=== PATIENT | female | born 1950 | race Caucasian/White ===

== ENCOUNTER → 2017-11-09 14:57 | Outpatient (CLI) | payer MEDICARE, SELFPAY ==
--- NOTE | 2017-11-09 15:02 | CT_ITS ---
EXAM: CT LUNG LOW DOSE WO CONTRAST COMPARISON: None HISTORY: Asymptomatic 66-year-old female with positive smoking history, current smoker ORDERING PHYSICIAN: Dash Watson MD PATIENT AGE: 66 years TECHNIQUE: The exam was performed on a GE Light Speed [address] scanner using 2.95 mGy CTDI. A low dose helical CT CHEST was performed on a multi-detector scanner The LDCT was performed in a facility that meets the criteria for the screening program. Data regarding this exam was submitted to ACR which is an approved registry. The order for this exam indicates that it came as a result of a lung cancer screening counseling shard decision-making visit that included all the elements required of such a visit including smoking cessation. The radiologist interpreting this exam meets the [facility] criteria for the LDCT lung cancer screening program. The exam is reported using the Lung-RADS classification scale and reported to the ACR registry. NOTE: This study was performed for the specific purposes of lung cancer screening and is not an alternative to diagnostic chest CT. RADIATION DOSE: CTDI vol(CT dose Index-volume) = 2.95mG DLP (Dose Length Product) = 106.53 mGcm FINDINGS: There are centrilobular emphysematous changes. There are scattered small calcified granulomas. No suspicious pulmonary nodules are evident. No mediastinal or hilar adenopathy. There is a small hiatal hernia. Upper abdominal images show contracted gallbladder. Coronary artery calcifications. IMPRESSION: 1. Lung RADS Category: 2, benign 2. Other findings: Centrilobular emphysema Old granulomatous disease. Coronary artery disease. Small hiatal hernia RECOMMENDATIONS: None
== END ==
PROVIDERS: Visit Provider Internal Medicine
DX: Z87.891 Personal history of nicotine dependence; Z12.2 Encounter for screening for malignant neoplasm of respiratory organs; F17.210 Nicotine dependence, cigarettes, uncomplicated; Z71.6 Tobacco abuse counseling

== ENCOUNTER → 2017-12-16 12:44 | Outpatient (CLI) | payer MEDICARE, SELFPAY ==
--- NOTE | 2017-12-16 12:51 | XR_ITS ---
EXAM: XR cervical spine 5V HISTORY: ITS.REASON: NECK PAIN ORDERING PHYSICIAN: Alfred Awad MD PATIENT AGE: 67 years COMPARISON: None FINDINGS: Moderate degenerative disc disease is present at C4-C5 with severe degenerative disc disease at C5-C6. Foraminal narrowing is present on the right at C4-5 [id number]. Prominent facet hypertrophic changes are noted at C4-C7. There is 3 mm anterolisthesis of C3 on C4 No fracture or dislocation. No lytic or blastic process. Incidental carotid calcifications. IMPRESSION: Cervical spondylosis with moderate to severe degenerative disc disease at C4-C5 and C5-C6 with right-sided foraminal narrowing from C4 to C7 and facet arthritic change
== END ==
PROVIDERS: PCP Internal Medicine Adolescent Medicine; Visit Provider Internal Medicine Adolescent Medicine
DX: M54.2 Cervicalgia (principal)
CPT/HCPCS: 72050

== ENCOUNTER 2018-01-05 13:00 | Outpatient (RCR) | payer MEDICARE, SELFPAY ==
--- NOTE | 2017-12-24 17:37 | HMH.PTOPEV ---
Rehab Outpatient Evaluation Rehab OP Evaluation Start: 12/23/17 14:58 Freq: Status: Active Protocol: Document 12/23/17 14:58 OSMANY (Rec: 12/23/17 16:44 BILLBILLY [id number]) Electronically Signed By Thee Mcnair, PT 12/23/17 14:58 Outpatient Therapy Subjective History Subjective History Ms. Krueger is a 67 year old female who presents to outpatient PT with R neck pain beginning 6 weeks ago of insidious onset. Pt. reports her pain is exacerbated with jerky head movements and last for a few minutes. Pt. denies radicular symptoms and localizes it to R suboccipital musculature. Recent MD visit pt. had an X-ray indicating cervical DDD, OA and bone spurs. Pt. goals are to return to PLOF without pain. Pt. will benefit from skilled outpatient PT for cervical/ cranial stretching, STM, and pain modulating modalities. Chief Complaint Pain Symptom Type Sharp Symptoms Relieved By Rest/Positioning Symptoms Aggravated By Twisting Prior Functional Limitations None Current Functional Limitations Driving Symptom Description Activity Dependent Level of pain today (0-10) 0 Pain scale - at its best (0-10) 10 Pain scale - at its worst (0-10) 0 Cervical Eval Palpation Cervical Muscles R Suboccipital Cervical/Thoracic Palpation Findings Tenderness Posture Head/C-Spine Posture Sitting Position C-Spine Flattened Head/C-Spine Posture Standing Position C-Spine Flattened Flexibility Deficits Upper Trapezius Muscle Length (R) Mild Tightness (L) Mild Tightness Passive Joint Mobility Cervical PIVM Dec: R OA L OA R AA L AA R C2/3 L C2/3 R C3/4 L C3/4 R C4/5 L C4/5 R C5/6 L C5/6 R C6/7 L C6/7 R C7/T1
== END 2018-01-05 13:01 | disposition home or self-care (01) ==
LOC: PT 13:00
PROVIDERS: PCP Internal Medicine Adolescent Medicine; Visit Provider Internal Medicine Adolescent Medicine
DX: M54.2 Cervicalgia (principal)
CPT/HCPCS: 97010; 97012; 97014; 97110; 97140; G0283

== ENCOUNTER → 2018-01-12 10:29 | Outpatient (CLI) | payer MEDICARE, SELFPAY ==
--- NOTE | 2018-01-12 10:34 | US_ITS ---
US extremity LT limited CLINICAL INDICATION: Palpable nodules of the left wrist ITS.REASON: ARTHRITIS OF LT WRIST ORDERING PHYSICIAN: Gideon Diaz PATIENT AGE: 67 years COMPARISON: None FINDINGS: Ultrasound performed of the anterior aspect of the left wrist over reported palpable abnormalities. There are 2 cystic lesions which are associated with the tendon measuring 16 x 12 mm and 19 x 12 mm consistent with a ganglion cysts. IMPRESSION: Ganglion cysts of the left wrist anteriorly. MRI may confirm and identify the tendon of origin if clinically warranted
== END ==
PROVIDERS: PCP Internal Medicine Adolescent Medicine; Visit Provider Plastic Surgery
DX: M19.042 Primary osteoarthritis, left hand (principal)
CPT/HCPCS: 76882

== ENCOUNTER → 2018-02-16 12:53 | Outpatient (POV) | payer MEDICARE, SELFPAY | PROVIDERS: PCP Internal Medicine Adolescent Medicine; Visit Provider Internal Medicine | DX: Z00.00 Encounter for general adult medical examination without abnormal findings (principal) ==

== ENCOUNTER → 2018-08-04 16:22 | Outpatient (CLI) | payer MEDICARE, SELFPAY ==
--- NOTE | 2018-08-04 | MM_ITS ---
MM Dig screening mamm BI w/CAD ORDERING PHYSICIAN : Alfred Awad MD PATIENT AGE: 67 years GENDER: Female COMPARISON: This is a baseline study with no previous mammogram for comparison . Recent CT chest screening there is utilized as comparison survey of breast. INDICATION: ITS.REASON: ROUTINE no hormones no new complaints. Maternal at with breast cancer postmenopausal TECHNIQUE: Standard CC and MLO images were obtained. R2 CAD reviewed. FINDINGS: Lower density breast. Minimal residual fibroglandular elements . No dominant mass nor suspicious calcifications. CAD computer review highlights no areas of concern either. . IMPRESSION: Negative baseline mammogram. No areas of significant areas of concern. Bilateral follow-up one year recommended and encouraged BI-RADS Category: 1 Negative RECOMMENDED FOLLOW-UP: 1YR 1 YEAR FOLLOW-UP (A letter has been sent to the patient regarding results of the study.)
== END ==
PROVIDERS: PCP Internal Medicine Adolescent Medicine; Visit Provider Internal Medicine Adolescent Medicine
DX: Z12.31 Encounter for screening mammogram for malignant neoplasm of breast (principal)
CPT/HCPCS: 77067

== ENCOUNTER → 2018-08-16 13:53 | Outpatient (CLI) | payer MEDICARE, SELFPAY ==
--- NOTE | 2018-08-16 14:00 | XR_ITS ---
XR DEXA axial skeleton HISTORY: ITS.REASON: OSTEOPAROSIS ORDERING PHYSICIAN: Alfred Awad MD PATIENT AGE: 67 years COMPARISON: 08/27/2015 FINDINGS: The BMD measured at the Right femoral neck is 0.649 g/cm squared with a T score of -2.8. This is considered Osteoporotic according to the World Health Organization criteria. Fracture risk is High. Treatment is advised. L1 L4 density has a T score of 0.4. The bone density is 2% greater than previous exam. The hip density is 3% greater than the previous study. There is moderate lumbar scoliosis convex left. IMPRESSION: Osteoporosis with high fracture risk. Treatment recommended. Recommend follow-up exam August 2020
== END ==
PROVIDERS: PCP Internal Medicine Adolescent Medicine; Visit Provider Internal Medicine Adolescent Medicine
DX: M81.0 Age-related osteoporosis without current pathological fracture (principal)
CPT/HCPCS: 77080

== ENCOUNTER 2018-10-19 09:00 | Outpatient (RCR) | payer MEDICARE, SELFPAY ==
--- NOTE | 2018-09-13 10:33 | HMH.PTOPEV ---
PT Outpatient Evaluation Rehab PT Outpatient Evaluation Start: 09/13/18 09:34 Freq: Status: Active Protocol: Document 09/13/18 10:23 MICHI (Rec: 09/13/18 10:32 PHORAMBER [id number]) Electronically Signed By Bao Adrian, PT 09/13/18 10:23 Outpatient Therapy Subjective History Subjective History Pt is 67 yowf who presents with c/o low back pain x ~ 1 mo after a ground level fall at home. She reports tripping on something at her house and falling, but had no injuries or pain immediately after. She reports the pain got much worse ~ 4 days later when she tried to use the elliptical at the gym. She reports pain also was worse after riding in the car for ~ 1-2 hrs. She has worse pain on the right side with no radiuclar symptoms, but no pain at rest. PMH: osteoporosis. Chief Complaint Pain Symptom Type Ache Symptoms Relieved By Rest/Positioning Symptoms Aggravated By Physical Activity Prior Functional Limitations None Current Functional Limitations Recreation Activity Symptom Description Intermittent Activity Dependent Level of pain today (0-10) 0 Pain scale - at its worst (0-10) 10 Lumbopelvic Eval Posture Thoracic Spine Posture Standing Position Neutral Lumbar Spine Posture Standing Position Neutral Palapation tenderness right paraspinal tenderness Yes Lumbar/Sacral Palpation Findings Tenderness Lumbar/Sacral Palpation Overall Comment right SI tenderness Accessory Movement L-spine Vertebrae Accessory Movements Central P/A [place] that Elicit Symptoms L5 right S1 right Range of Motion Lumbar Spine Active Flexion Range of 0-65 Motion (degrees) Lumbar Spine Active Extension Range of 0-15 Motion (degrees) Left Lumbar Spine Lateral Flexion Active 0-15 Range of Motion (degrees) Right Lumbar Spine Lateral Flexion 0-15 Active Range of Motion (degrees) Manual Muscle Test Bilateral Knee Extension Strength Grade 5 Normal Knee Flexion Strength Grade 5 Normal Hip Flexion Strength Grade 4 Good Hip Abduction Strength Grade 4 Good DTR Rt Patellar 2+ Lt Patellar 2+ Rt Gastroc/Soleus 2+ Lt Gastroc/Soleus 2+
== END 2018-10-19 09:05 | disposition home or self-care (01) ==
LOC: PT 09:00
PROVIDERS: Visit Provider Internal Medicine Adolescent Medicine
DX: M54.5 Low back pain (principal); M53.3 Sacrococcygeal disorders, not elsewhere classified
CPT/HCPCS: 97010; 97014; 97033; 97035; 97110; 97163; G0283

== ENCOUNTER → 2019-01-28 12:49 | Outpatient (CLI) | payer MEDICARE, SELFPAY | PROVIDERS: PCP Internal Medicine Adolescent Medicine; Visit Provider Nurse Practitioner | DX: I10 Essential (primary) hypertension (principal) | CPT/HCPCS: 93005 ==

== ENCOUNTER → 2019-11-17 11:00 | Outpatient (CLI) | payer MEDICARE, SELFPAY ==
--- NOTE | 2019-11-17 11:04 | MR_ITS ---
PROCEDURE: MR HEAD/BRAIN WO CON CLINICAL INDICATION: VISUAL DISTURBANCE Severe headache with blurred vision and dizziness COMPARISON: HDWO CT HEAD W/O CONTRAST from 11/06/2015 TECHNIQUE: Routine multiplanar multi echo sequences are performed without gadolinium enhancement. FINDINGS: No midline shift, mass effect, intracranial hemorrhage, or hydrocephalus. The cerebellopontine angles, cerebellum, brainstem and mid brain have an unremarkable appearance. No evidence of acute infarction. There are scattered nonspecific periventricular and subcortical T2 white matter hyperintensities which do not demonstrate restricted diffusion or enhancement.. T2 white matter hyperintensities are also present within the reva no enhancing lesions are evident. The hippocampal gyri are unremarkable and the temporal horns are symmetric. No intra-axial or extra-axial hemorrhage. The pituitary, optic chiasm, corpus callosum, and craniocervical junction have an unremarkable appearance. There is mild mucosal thickening of the ethmoid sinuses. No mastoid effusion is evident. IMPRESSION: 1. No acute intracranial findings. 2. Scattered periventricular and subcortical T2 white matter hyperintensities as well as T2 hyperintensities of the reva consistent with ischemic gliotic change from microvascular disease. 3. Ethmoid sinus disease Dictated by: Yadiel Callejas MD 11/17/2019 18:09 Electronically signed by Yadiel Callejas MD in [place] 11/17/2019 18:09
== END ==
PROVIDERS: PCP Internal Medicine Adolescent Medicine; Visit Provider Internal Medicine Adolescent Medicine
DX: H53.9 Unspecified visual disturbance (principal)
CPT/HCPCS: 70551

== ENCOUNTER → 2019-12-14 12:44 | Outpatient (CLI) | payer MEDICARE, SELFPAY ==
--- NOTE | 2019-12-14 12:52 | XR_ITS ---
PROCEDURE: XR CHEST 2V CLINICAL HISTORY: ACUTE BRONCHOPNEUMONIA COMPARISON: CXR CHEST(2 VIEWS-NOT PORTABLE) from 06/14/2015 CXR2 CHEST-AP VIEW ONLY from 11/06/2015 FINDINGS: The cardiomediastinal silhouette and pulmonary vascularity are within normal limits. Opacification is present in the retrocardiac region on the left within the left lower lobe posteriorly consistent with left lower lobe collapse. Follow-up is suggested. If this does not resolve then chest CT with contrast may be needed for further evaluation in this patient with history of smoking. Mild atelectatic changes are present in the left lung base laterally. The remaining lungs are clear. Moderate lumbar scoliosis convex left. Left hemidiaphragm is slightly elevated IMPRESSION: Left lower lobe collapse. Recommend following till clear. Consider chest CT with contrast if findings do not resolve as a postobstructive process is a consideration. Dictated by: Yadiel Callejas MD 12/14/2019 13:33 Electronically signed by Yadiel Callejas MD in [place] 12/14/2019 13:33
== END ==
PROVIDERS: PCP Internal Medicine Adolescent Medicine; Visit Provider Internal Medicine Adolescent Medicine
DX: J18.0 Bronchopneumonia, unspecified organism (principal)
CPT/HCPCS: 71046

== ENCOUNTER → 2019-12-27 09:50 | Outpatient (CLI) | payer MEDICARE, SELFPAY ==
--- NOTE | 2019-12-27 09:58 | XR_ITS ---
PROCEDURE: XR CHEST 2V CLINICAL HISTORY: ACUTE BRONCHOPNEUMONIA COMPARISON: CXR CHEST(2 VIEWS-NOT PORTABLE) from 06/14/2015 CXR2 CHEST-AP VIEW ONLY from 11/06/[address] CHEST W/O CONTRAST from 12/20/2015 XR CHEST 2V from 12/14/2019 FINDINGS: The cardiomediastinal silhouette and pulmonary vascularity are within normal limits. Left lower lobe volume loss/consolidation has improved compared to the previous exam. Mild lower thoracic scoliosis convex right with lumbar scoliosis convex left IMPRESSION: Improved left lower lobe collapse. Dictated by: Yadiel Callejas MD 12/27/2019 11:05 Electronically signed by Yadiel Callejas MD in [place] 12/27/2019 11:05
== END ==
PROVIDERS: PCP Internal Medicine Adolescent Medicine; Visit Provider Internal Medicine Adolescent Medicine
DX: J18.0 Bronchopneumonia, unspecified organism (principal)
CPT/HCPCS: 71046

== ENCOUNTER → 2020-04-19 09:20 | Outpatient (CLI) | payer MEDICARE, SELFPAY ==
--- NOTE | 2020-04-19 09:26 | MM_ITS ---
PROCEDURE: MM DIG SCREENING MAMM BI W/CAD Digital Breast Tomosynthesis Included CLINICAL INDICATION: SCREENING There is a history of breast cancer patient's maternal aunt diagnosed after menopause. COMPARISON: [facility] MM Dig screening mamm BI w/CAD from 08/04/2018 TECHNIQUE: Standard CC and MLO images and 3D Tomosynthesis was obtained. R2 CAD reviewed. FINDINGS: Minimal scattered fibroglandular densities are seen throughout both breast. The findings are fairly symmetrical bilaterally. There is no suspicious lesion in either breast and no suspicious microcalcifications. IMPRESSION: Fibrofatty parenchyma with no suspicious lesions seen BI-RAD Category: 1 Negative FOLLOW-UP: 1YR 1 Year Follow-up (A letter has been sent to the patient regarding results of the study.) Dictated by: Dr. Josiah Dennye MD 04/20/2020 08:[address] Josiah Denney MD in [place] 04/20/2020 08:57
--- NOTE | 2020-04-19 09:27 | XR_ITS ---
PROCEDURE: XR DEXA AXIAL SKELETON CLINICAL HISTORY: OSTEOPOROSIS COMPARISON: No exams were available for comparison FINDINGS: Right femoral neck density is 0.559 grams/centimeters sq with a T-score of -2.6. Left femoral neck density is 0.562 grams/centimeters sq with T-score -2.6. L1-L4 density is 1.002 grams/centimeters sq with a T-score -0.4 IMPRESSION: Osteoporosis of the hips with high fracture risk. Treatment advised. Suggest follow-up exam in 1 year Dictated by: Yadiel Callejas MD 04/19/2020 16:13 Electronically signed by Yadiel Callejas MD in [place] 04/19/2020 16:13
== END ==
PROVIDERS: PCP Internal Medicine Adolescent Medicine; Visit Provider Internal Medicine Adolescent Medicine
DX: Z12.31 Encounter for screening mammogram for malignant neoplasm of breast (principal); M81.0 Age-related osteoporosis without current pathological fracture
CPT/HCPCS: 77063; 77067; 77080

== ENCOUNTER 2022-10-01 10:25 | Day surgery (SDC) | payer MEDICARE, SELFPAY ==
[2022-08-27 11:23] VITALS: BMI 22.1
[2022-10-01 11:07] VITALS: BP 167/78; PULSE 67; RESP 20; TEMP 36.8; O2SAT 99
--- NOTE | 2022-10-01 12:06 | P.PN_ITS ---
[facility] Disclaimer: The information contained in this section may have been updated after the patient was seen, as this information can be updated by other users. Medical History Osteoporosis Surgical History Hx of hand surgery Family History Brother Family history of cancer Daughter Family history of celiac disease Other Family history of HI (myocardial infarction) Family history of heart disease Social History Smoking Status: Current every day smoker tobacco type: cigarettes packs per day: 1 pack-years: 35 years smoked: 35 alcohol intake: current substance use type: denies use current occupational status: retired Travel in the last 8 weeks: None household members: spouse housing: house lives independently: Yes marital status: caffeine: Yes special andrés needs: No agree to transfusion: No do you feel safe at home: Yes victim of physical abuse: No victim of emotional abuse: No victim of sexual abuse: No would you like helpful sources: No [facility] Anesthesia Checklist Patient Identification Patient Identification: Arm Band Structural Data Admitted From: Home Planned Operative Procedure/s: colonoscopy Consent for Planned Operative Procedure(s) Verified: Yes Verified Documents: Surgical Consent and History and Physical NPO Status Verified Time NPO: 00:00 Additional verifications Anesthesia Reactions: No Airway Assessment C-Spine Mobility Assessed: Yes TMJ Mobility Assessed: Yes Dentition: Good Dentition Neurological Assessment Level of Consciousness: Awake and Alert Anesthesia Plan Anesthesia Risk discussed: Yes Anesthesia Plan: Verified ASA Class: II Anesthesia Type: MAC
[2022-10-01 12:08] VITALS: O2SAT 99
--- NOTE | 2022-10-01 12:42 | P.PCN_ITS ---
Procedure: Date: 10/01/22 Patient Date of :: 1950 Procedure Performed:: Colonoscopy Indications:: History of colon polyps Performing Provider:: Rick Cohen MD Referring Provider:: Alfred Awad MD Sedation:: See RN notes Procedure:: After placing the patient in the left lateral decubitus position, the colonoscopy was gently inserted into the rectum and under direct visualization advanced to the cecum which was identified by transillumination in the right lower quadrant, identification of the ileocecal valve, appendiceal orifice, and cecal strap. Color, texture, mucosa, and anatomy of the colon were carefully examined with the scope. Findings:: Anal canal: normal Rectum: Two sessile polyps less than 5 mm in size. Removed with cold snare polyp ectomy Sigmoid colon: Fair preparation Descending colon: Sessile polyp 7 mm in size. Removed with hot snare polypetomy. Sessile polyp less than 5 mm in size. Removed with cold snare polhypectomy. Fair preparation Splenic flexure: normal Transverse colon: normal without polyps or inflammatory changes Hepatic flexure: normal Ascending colon: Sessile polyp less than 5 mm in size. Removed with cold forceps Cecum: normal Terminal ileum: not visualized Impression: Polyp of ascending colon Polyps of descending colon Polyps of rectum and rectosigmoid colon Fair preparation Recommendations:: Await pathology results Repeat colonoscopy in 3 years Complications:: None Estimated blood obtained (mL): 0
[2022-10-01 12:45] VITALS: BP 107/61; PULSE 62; RESP 18; TEMP 36.3; O2SAT 98
[2022-10-01 13:00] VITALS: BP 143/85; PULSE 63; RESP 18; O2SAT 100
[2022-10-01 13:15] VITALS: BP 160/91; PULSE 63; RESP 18; O2SAT 99
== END 2022-10-01 13:15 | disposition home or self-care (01) ==
PROVIDERS: PCP Internal Medicine Adolescent Medicine; Visit Provider Internal Medicine
PROC: 0DJD8ZZ Inspection of Lower Intestinal Tract, Via Natural or Artificial Opening Endoscopic (ICD-10-PCS; CPT 45378; principal; 2022-10-01 11:30)
DX: Z12.11 Encounter for screening for malignant neoplasm of colon (principal); D12.8 Benign neoplasm of rectum; Z86.010 Personal history of colon polyps; Z79.899 Other long term (current) drug therapy; Z72.0 Tobacco use; D12.2 Benign neoplasm of ascending colon; D12.4 Benign neoplasm of descending colon
CPT/HCPCS: 45380; 45385; 88305

== ENCOUNTER 2023-01-09 16:03 | Inpatient (IN) | payer MEDICARE, SELFPAY ==
[2023-01-09] VITALS (13 sets, daily range): BP systolic 116–167; BP diastolic 69–98; PULSE 80–100; RESP 13–30; TEMP 36.6; O2SAT 87–99; BMI 22.1; BMI 24.0
--- NOTE | 2023-01-09 16:07 | HMH.EDGENADL ---
Discharge Plan Disposition Chief Complaint: Shortness of Breath/Dyspnea Prescriptions Prescriptions: No Action atorvastatin 40 mg tablet 40 mg PO DAILY alendronate 70 mg tablet 70 mg PO WEEKLY metoprolol tartrate 50 mg tablet 50 mg PO DAILY Referrals Follow up/Referrals: Alfred Awad MD [Primary Care Provider] - See instructions Discharge ED Provider: Gardenia Leblanc General Adult HPI General Chief complaint: Shortness of Breath/Dyspnea Stated complaint: vomiting, soa Time Seen by Provider: 01/09/23 16:07 History of Present Illness HPI narrative: Patient is a 72-year-old female presenting with cough for 24 hours and sudden dyspnea while watching TV with her . States that she has had pain in the right side of her chest. Denies any fevers or chills. States that she has had increasing wheezing possibly diagnosis of COPD in the past according to her . Patient denies any lower extremity swelling any history of DVT or PE. Denies any history of acute coronary syndrome or current coronary artery disease. Related Data Home Medications Medication Instructions Recorded Confirmed alendronate 70 mg tablet 70 mg PO WEEKLY Osteoporosis 08/27/22 01/09/23 atorvastatin 40 mg tablet 40 mg PO DAILY Cholesterol 08/27/22 01/09/23 metoprolol tartrate 50 mg tablet 50 mg PO DAILY HTN 08/27/22 01/09/23 Allergies Allergy/AdvReac Type Severity Reaction Status Date / Time oxytetracycline Allergy Unknown PASSES OUT Verified 10/01/22 11:04 [From TERRAMYCIN] [facility] Disclaimer: The information contained in this section may have been updated after the patient was seen, as this information can be updated by other users. Medical History (Updated 01/09/23 @ 17:10 by Osmin Medina MD) Osteoporosis Surgical History Hx of hand surgery Family History Brother Family history of cancer Daughter Family history of celiac disease Other Family history of MD (myocardial infarction) Family history of heart disease Social History Smoking Status: Current every day smoker tobacco type: cigarettes packs per day: 1 pack-years: 35 years smoked: 35 alcohol intake: current substance use type: denies use current occupational status: retired Travel in the last 8 weeks: None household members: spouse housing: house lives independently: Yes marital status: caffeine: Yes special andrés needs: No agree to transfusion: No do you feel safe at home: Yes victim of physical abuse: No victim of emotional abuse: No victim of sexual abuse: No would you like helpful sources: No ROS Obtained: Yes All systems reviewed & no additional complaints except as documented Physical Exam General General appearance: alert and in no apparent distress (In moderate distress dyspneic) Respiratory Respiratory exam: Present other (Decreased lung sounds on the right wheezing on the left tachypnea pulse ox in the mid 80s on room air) Cardiovascular Cardiovascular exam: Present tachycardia Neurological Exam Neurological exam: Present alert and oriented X3 Medical Decision Making Dioni Inquiry Pt receiving controlled substance: No Vital Signs: 01/09/23 16:17 01/09/23 16:38 01/09/23 16:40 Temperature 97.9 F Temperature Source Oral Pulse Rate 83 85 Pulse Rate [Right] 100 H Respiratory Rate 30 H Blood Pressure 154/79 H 148/78 H Blood Pressure [Right Arm] 167/98 H Blood Pressure Mean 118 112 Blood Pressure Mean [Right Arm] 121 02 Sat by Pulse Oximetry 87 L 96 97 Oxygen Delivery Method Room Air Room Air Room Air Oxygen Flow Rate (LPM) 3.5 3.5 01/09/23 16:43 01/09/23 17:00 Temperature Temperature Source Pulse Rate 85 83 Pulse Rate [Right] Respiratory Rate Blood Pressure 140/77 133/71
--- NOTE | 2023-01-09 16:11 | XR_ITS ---
PROCEDURE INFORMATION: Exam: XR Chest Exam date and time: 01/09/2023 4:32 PM Age: 72 years old Clinical indication: Dyspnea; Additional info: Shortness of breath TECHNIQUE: Imaging protocol: Radiologic exam of the chest. Views: 1 view. COMPARISON: CR XR CHEST 2V 12/27/2019 9:59 AM FINDINGS: Lungs: See Pleural spaces finding. Pleural spaces: There is a large pneumothorax likely greater than 50% that has developed within the right chest cavity. Left lung field is aerated and clear. No pleural effusions. Heart/Mediastinum: Unremarkable. No cardiomegaly. Bones/joints: Unremarkable for age. IMPRESSION: Interval development of large right pneumothorax estimated greater than 50%.
--- NOTE | 2023-01-09 16:12 | PC.NURSE ---
Called radiology for STAT portable chest xr
--- NOTE | 2023-01-09 16:19 | PC.NURSE ---
nuclear technician @ [facility] for x-ray
--- NOTE | 2023-01-09 16:20 | PC.NURSE ---
O2 Sat decreased to 83% RA. 4L NC placed with improvement to 92%.
--- NOTE | 2023-01-09 16:30 | PC.NURSE ---
MATIAS MESSER at
--- NOTE | 2023-01-09 16:52 | PC.NURSE ---
Dr Medina at [facility]
--- NOTE | 2023-01-09 16:55 | XR_ITS ---
PROCEDURE INFORMATION: Exam: XR Chest Exam date and time: 01/09/2023 5:09 PM Age: 72 years old Clinical indication: Device placement; Chest tube; Additional info: Post CT XR TECHNIQUE: Imaging protocol: Radiologic exam of the chest. Views: 4 or more views. COMPARISON: CR XR CHEST PORTABLE 01/09/2023 4:32 PM FINDINGS: Tubes, catheters and devices: Patient has undergone placement of a right-sided chest tube whose tip projects over the lateral aspect of the right and mid lung zone.. Lungs: There is a near complete resolution of right-sided pneumothorax with small right apical pneumothorax remaining estimated less than 10%. There is a small ground-glass opacity right lower lung zone, nonspecific and may in part be secondary to re-expansion of the right lung. Left lung field is aerated and clear. Stable small nodular density left lower lobe likely benign. Pleural spaces: Unremarkable. No pleural effusion. No pneumothorax. Heart/Mediastinum: Unremarkable. No cardiomegaly. Bones/joints: Unremarkable. IMPRESSION: Interval placement of right-sided chest tube with near complete resolution of right sided pneumothorax now estimated at 5-10%.
--- NOTE | 2023-01-09 16:58 | PC.NURSE ---
Dr. Medina speaking with pts
--- NOTE | 2023-01-09 16:59 | PC.NURSE ---
16:29p Baseline VS 81HR, 95% NRB, 21R, 155/89. Lidocaine injected by MD to right chest in preparation for emergent chest tube due to large pneumothorax. 16;[address] Leblanc. 89HR, 96% NRB, 23R, 155/89. 16:38 87HR, 96% NRB, 21R, 148/78. 16:40 Chest tube procedure completed. Chest tube connected to low continuous wall suction per Dr. Leblanc. to bedside. Additional warm blankets provided. NRB removed d/t O2 sat 100%.
[2023-01-09 17:06] LABS: Basophils # 0.1 K/mm3 (0-0.2); Basophils % 1.1 % (0.1-2.0); Eosinophils # 0.1 K/mm3 (0.0-0.4); Eosinophils % 0.9 % (0.1-12.0); Hematocrit 40.7 % (37.0-47.0); Hemoglobin 13.5 g/dL (12.2-16.2); Lymphocytes # 3.9 K/mm3 (0.7-4.5); Lymphocytes % 47.7 % (10-50); Mean Corpuscular HGB Conc 33.1 g/dL (31.8-35.4); Mean Corpuscular Hemoglobin 38.3 pg (27.0-31.2); Mean Corpuscular Volume 115.9 fl (81-99); Mean Platelet Volume 8.5 fl (7.4-10.4); Monocytes # 0.5 K/mm3 (0.1-1.0); Monocytes % 5.5 % (1.7-9.3); Neutrophils # 3.7 K/mm3 (1.8-7.8); Neutrophils % 44.8 % (37.0-80.0); Platelet Count 233 K/mm3 (142-424); Red Blood Count 3.52 M/mm3 (4.20-5.40); Red Cell Distribution Width 13.6 % (11.5-17.5); White Blood Count 8.2 K/mm3 (4.8-10.8)
--- NOTE | 2023-01-09 17:07 | EXP.SURG.CON ---
History of Present Illness *Admission Date: 01/09/23 *Reason for visit:: Shortness of air *History of present illness: Patient is a 72-year-old female, smoker, who presented to the emergency department after she had developed acute shortness of breath. She presented with decreased oxygen saturations and x-ray revealed large right spontaneous pneumothorax. ER physician placed catheter which resulted in good relief of the patient's symptoms with near immediate improvement and radiographic evidence of improvement. [facility] Disclaimer: The information contained in this section may have been updated after the patient was seen, as this information can be updated by other users. Medical History (Updated 01/09/23 @ 17:10 by Osmin Medina MD) Osteoporosis Surgical History Hx of hand surgery Family History Family history of heart disease Family history of cancer Brother Family history of celiac disease Daughter Family history of [place] (myocardial infarction) Social History Smoking Status: Current every day smoker tobacco type: cigarettes packs per day: 1 pack-years: 35 years smoked: 35 alcohol intake: current substance use type: denies use current occupational status: retired Travel in the last 8 weeks: None household members: spouse housing: house lives independently: Yes marital status: caffeine: Yes special andrés needs: No agree to transfusion: No do you feel safe at home: Yes victim of physical abuse: No victim of emotional abuse: No victim of sexual abuse: No would you like helpful sources: No Meds Home Medications and Allergies Home Medications Medication Instructions Recorded Confirmed Type alendronate 70 mg tablet 70 mg PO WEEKLY Osteoporosis 08/27/22 10/01/22 History atorvastatin 40 mg tablet 40 mg PO DAILY Cholesterol 08/27/22 10/01/22 History metoprolol tartrate 50 mg tablet 50 mg PO DAILY HTN 08/27/22 10/01/22 History sodium,potassium,mag sulfates 17.5 See Rx Instructions PO .COMPLEX 08/27/22 History gram-3.13 gram-1.6 gram oral soln prep (Suprep Bowel Prep Kit) New Prescriptions to Start Prescriptions: Allergies Allergy/AdvReac Type Severity Reaction Status Date / Time oxytetracycline Allergy Unknown PASSES OUT Verified 10/01/22 11:04 [From TERRAMYCIN] Exam (Inpt) Vital signs and Labs for Last 24 Hours: Temp Pulse Resp BP Pulse Ox 97.9 F 83 30 H 133/71 98 01/09/23 16:17 01/09/23 17:00 01/09/23 16:17 01/09/23 17:00 01/09/23 17:00 I & O for Labs for Last 24 Hours: Intake & Output 01/07/23 01/08/23 01/09/23 01/10/23 11:59 11:59 11:59 11:59 Weight 125 lb Constitutional: no acute distress Head: Present normocephalic Respiratory: Present decreased breath sounds Cardiac: Present Reg Rate and Rhythm GI: Present soft Rectal (female): Present deferred (female): Present deferred Assessment and Plan *Assessment and plan (1) Pneumothorax: Status: Acute Category: Medical Code(s): J93.9 - Pneumothorax, unspecified Plan Plan for chest tube to 20 cm suction for now. If airleak resolves and x-ray shows resolution may be able to advance to [facility].
[2023-01-09 17:08] LABS: Chloride 93 mmol/L (98-107); Sodium 128 mmol/L (136-145)
[2023-01-09 17:10] LABS: Blood Urea Nitrogen 7 mg/dl (7-17); Creatinine Clearance Estimated 46 mL/min (50-200); Estimated Glomerular Filt Rate 99 ml/min (>60); GFR (African American) 119 ML/MIN (>60)
[2023-01-09 17:11] LABS: Alanine Aminotransferase 34 U/L (12-78); Albumin Level 4.2 g/dl (3.5-5.0); Albumin/Globulin Ratio 1.4 (1.1-1.8); Alkaline Phosphatase 130 U/L (38-126); Anion Gap 9.9 mEq/L (5-15); Aspartate Amino Transferase 56 U/L (14-36); Bilirubin,Total 0.4 mg/dl (0.2-1.3); Carbon Dioxide 28 mmol/L (22.0-30.0); Glucose 148 mg/dl (74-100); Total Protein,Serum 7.2 g/dl (6.3-8.2)
[2023-01-09 17:13] LABS: Activated Partial Thrombo Time 25.1 seconds (22.8-30.6); INR 0.95 (0.9-1.1); Prothrombin Time 10.3 seconds (10.1-12.5)
--- NOTE | 2023-01-09 17:23 | PC.NURSE ---
sent covid swab to lab, for admission to [facility]
[2023-01-09 17:30] LABS: Coronavirus 19, PCR Not Detected (NotDetected); Influenza A, PCR Not Detected (NotDetected); Influenza B, PCR Not Detected (NotDetected)
--- NOTE | 2023-01-09 17:30 | PC.NURSE ---
90-92% RA. 2L NC placed.O2 improved to 95%.
[2023-01-09 17:31] LABS: Potassium 2.9 mmoL/L (3.5-5.1)
--- NOTE | 2023-01-09 17:32 | PC.NURSE ---
Received Critical Results, K 2.9. Dr. Leblanc notified in person.
--- NOTE | 2023-01-09 17:36 | ECG_ITS ---
APPROVED REPORT Exam: Resting ECG HR:80 bpm ECG Measurements Heart Rate 80 AXES UT 188 P 47 QRSd 102 QRS 2 QT 399 T 41 QTc 435 Conclusion SINUS RHYTHM NORMAL ECG UNCONFIRMED REPORT Electronically signed by : Alfred Awad MD 01/09/2023 21:09:36
--- NOTE | 2023-01-09 17:37 | PC.NURSE ---
DR KASSY MORALES FOR DR AGUILA
--- NOTE | 2023-01-09 17:47 | XR_ITS ---
PROCEDURE INFORMATION: Exam: XR Chest Exam date and time: 01/09/2023 6:07 PM Age: 72 years old Clinical indication: Device placement; Chest tube; Additional info: Follow up ptx TECHNIQUE: Imaging protocol: Radiologic exam of the chest. Views: 1 view. COMPARISON: CR XR CHEST AP 01/09/2023 5:09 PM FINDINGS: Tubes, catheters and devices: There is a right-sided pigtail catheter projecting over the lateral aspect of the right mid chest unchanged. Lungs: There is a small right apical pneumothorax estimated 5-10% not significantly changed from previous exam. There are mild hypoventilatory changes present at the lung bases. Pleural spaces: Unremarkable. No pleural effusion. Heart/Mediastinum: Unremarkable. No cardiomegaly. Bones/joints: Mild scoliosis of the thoracolumbar spine convex to the patient's right, unchanged. IMPRESSION: Small right apical pneumothorax estimated 5-10% unchanged.
--- NOTE | 2023-01-09 18:21 | PC.NURSE ---
second IV placed 20 G Right wrist
--- NOTE | 2023-01-09 18:51 | PC.NURSE ---
Attempted report x 1
--- NOTE | 2023-01-09 18:58 | PC.NURSE ---
Report provided to CRISTEL Foreman
--- NOTE | 2023-01-09 20:20 | XR_ITS ---
PROCEDURE INFORMATION: Exam: XR Chest Exam date and time: 01/09/2023 8:54 PM Age: 72 years old Clinical indication: Device placement; Chest tube; Additional info: Pneumothorax, leak in chest wall chb on arrival TECHNIQUE: Imaging protocol: Radiologic exam of the chest. Views: 1 view. COMPARISON: CR XR CHEST PORTABLE 01/09/2023 6:07 PM FINDINGS: Tubes, catheters and devices: There is a pigtail catheter within the right pleural cavity in a slightly more inferior location from the prior exam. Lungs: Lung stevens are better aerated and relatively clear at this time. Pleural spaces: Previously noted small right apical pneumothorax cannot be identified with confidence on the current study and may have resolved. Heart/Mediastinum: Cardiac silhouette appears mildly enlarged but stable. Bones/joints: Unremarkable for age. IMPRESSION: Probable resolution of small right apical pneumothorax.
--- NOTE | 2023-01-09 20:27 | EXP.HP ---
History of Present Illness *Admission Date: 01/09/23 *Reason for visit:: Chest Pain, Cough, SOA *History of present illness: Ms. Krueger is a 72-year-old female with a past medical history of emphysema, Chronic Tobacco Abuse, who presented to [facility] due to a 1-day history of productive cough and shortness of air and right sided chest pain that occurred just prior to presentation. and reports that the patient started coughing violently and has been non-stop over the last 24 hours. They deny fevers or known similar sick contacts. The reports that the patient was watching tv and continued to cough and had an acute episode of right sided chest pain and shortness of air. She was brought into the ER for evaluation. In the ER, the patient underwent a Cxray that showed a large right sided pneumothorax >50%. She underwent Chest tube placement by ER Physician. The repeat Cxray showed the right sided apical pneumothorax had reduced to 5-10%. On labs, CBC was unremarkable, CMP showed a Sodium of 128, K was 2.9. In the ER the patient received Rocephin and Azithromycin empirically, she received KCL at 40 meQ po and 3 runs. The patient had a CT of the lungs noted in the system from 11/2017 that shows no malignancy and centrilobular emphysema. The patient will be admitted with initial impression: Right sided Pneumothorax, Hyponatremia, Hypokalemia. Surgery will be consulted for Chest tube management, she will be continued on empiric antibiotic treatment for productive cough, respiratory panel will be ordered. Electrolytes will be replaced and pain regime will be ordered while Chest tube is in place. The plan of care was discussed with the patient and at bedside on admission. Both verbalized understanding and agreement with the plan of care. [facility] Disclaimer: The information contained in this section may have been updated after the patient was seen, as this information can be updated by other users. Medical History (Updated 01/09/23 @ 20:43 by Flako Barron DNP) Emphysema/COPD Hyperlipidemia Hypertension Osteoporosis Tobacco abuse Surgical History Hx of hand surgery Family History Brother Family history of cancer Daughter Family history of celiac disease Other Family history of [place] (myocardial infarction) Family history of heart disease Social History (Updated 01/09/23 @ 20:59 by Hung Sloan RN) Smoking Status: Current every day smoker tobacco type: cigarettes packs per day: 1 pack-years: 35 years smoked: 35 alcohol intake: current substance use type: denies use current occupational status: retired Travel in the last 8 weeks: None household members: spouse housing: house lives independently: Yes marital status: caffeine: Yes special andrés needs: No agree to transfusion: No do you feel safe at home: Yes victim of physical abuse: No victim of emotional abuse: No victim of sexual abuse: No would you like helpful sources: No Review of Systems Review of Systems Review of systems:: pertinent systems reviewed and negative unless documented below Constitutional Constitutional: Reports system reviewed and no additional complaints, except as documented Eyes Eyes: Reports system reviewed and no additional complaints, except as documented ENT Ears, Nose, Mouth, and Throat: Reports system reviewed and no additional complaints, except as documented *Cardiovascular Cardiovascular: Reports system reviewed and no additional complaints, except as documented and Reports dyspnea *Respiratory Respiratory: Reports cough, Reports dyspnea, Reports pain on inspiration and Reports pain with cough *Gastrointestinal Gastrointestinal: Reports system reviewed and no additional complaints, except as documented *Genitourinary Genitourinary: R
[2023-01-09 20:34] LABS: Magnesium 1.4 mg/dl (1.6-2.3)
[2023-01-10] VITALS (16 sets, daily range): BP systolic 113–142; BP diastolic 51–89; PULSE 70–98; RESP 18–22; TEMP 36.4–37.1; O2SAT 91–98; BMI 24.3
--- NOTE | 2023-01-10 06:00 | XR_ITS ---
PROCEDURE INFORMATION: Exam: XR Chest Exam date and time: 01/10/2023 5:58 AM Age: 72 years old Clinical indication: Injury or trauma; Other: Pneumothorax TECHNIQUE: Imaging protocol: Radiologic exam of the chest. Views: 1 view. COMPARISON: CR XR CHEST PORTABLE 01/09/2023 8:54 PM FINDINGS: Tubes, catheters and devices: Pigtail catheter terminates in the right lung base. Lungs: Mild opacities in the left base may represent atelectasis or pneumonia.. Pleural spaces: No definite pneumothorax is identified. Heart/Mediastinum: Unremarkable. No cardiomegaly. Bones/joints: Unremarkable. IMPRESSION: 1. Pigtail catheter terminates in the right lung base. 2. Mild opacities in the left base may represent atelectasis or pneumonia.. 3. No definite pneumothorax is identified.
[2023-01-10 07:04] LABS: Lymphocytes # 0.8 K/mm3 (0.7-4.5); Monocytes # 0.2 K/mm3 (0.1-1.0)
[2023-01-10 07:10] LABS: Basophils % 0.6 % (0.1-2.0); Hematocrit 24.7 % (37.0-47.0); Hemoglobin 12.1 g/dL (12.2-16.2); Lymphocytes % 22.3 % (10-50); Mean Corpuscular Hemoglobin 44.4 pg (27.0-31.2); Mean Corpuscular Volume 90.6 fl (81-99); Mean Platelet Volume 9.1 fl (7.4-10.4); Monocytes % 5.6 % (1.7-9.3); Neutrophils # 2.6 K/mm3 (1.8-7.8); Neutrophils % 71.6 % (37.0-80.0); Platelet Count 97 K/mm3 (142-424); Red Blood Count 2.73 M/mm3 (4.20-5.40); White Blood Count 3.6 K/mm3 (4.8-10.8)
--- NOTE | 2023-01-10 07:20 | PC.NURSE ---
Dr. Tidwell notified that orders were discontinued when orders were acknowledged.
[2023-01-10 07:21] LABS: Chloride 99 mmol/L (98-107); Sodium 127 mmol/L (136-145)
[2023-01-10 07:22] LABS: Potassium 4.2 mmoL/L (3.5-5.1)
[2023-01-10 07:24] LABS: Alanine Aminotransferase 24 U/L (12-78); Anion Gap 6.2 mEq/L (5-15); Aspartate Amino Transferase 40 U/L (14-36); Blood Urea Nitrogen 5 mg/dl (7-17); Carbon Dioxide 26 mmol/L (22.0-30.0); Creatinine Clearance Estimated 51 mL/min (50-200); Estimated Glomerular Filt Rate 157 ml/min (>60); GFR (African American) 190 ML/MIN (>60)
[2023-01-10 07:25] LABS: Albumin Level 3.5 g/dl (3.5-5.0); Albumin/Globulin Ratio 1.5 (1.1-1.8); Alkaline Phosphatase 94 U/L (38-126); Bilirubin,Total 0.5 mg/dl (0.2-1.3); Calcium 7.9 mg/dl (8.4-10.2); Globulin 2.3 g/dL (1.3-3.2); Glucose 114 mg/dl (74-100); Magnesium 1.9 mg/dl (1.6-2.3); Total Protein,Serum 5.8 g/dl (6.3-8.2)
--- NOTE | 2023-01-10 09:42 | P.PN_ITS ---
Subjective Narrative: Patient feels better. Minimal chest discomfort. Exam Data for Last 24 hours Vital signs and Labs for Last 24 Hours: Temp Pulse Resp BP Pulse Ox FiO2 98.7 F 90 22 117/69 98 2 01/10/23 07:53 01/10/23 08:00 01/10/23 06:00 01/10/23 06:00 01/10/23 06:00 01/10/23 04:00 Laboratory Results - last 24 hr 01/09/23 16:28: WBC 8.2, RBC 3.52 L, Hgb 13.5, Hct 40.7, MCV 115.9 H, MCH 38.3 H , MCHC 33.1, RDW 13.6, Plt Count 233, MPV 8.5, Neut % (Auto) 44.8, Lymph % (Auto) 47.7, [place] % (Auto) 5.5, Eos % (Auto) 0.9, Baso % (Auto) 1.1, Neut # (Auto) 3.7, Lymph # (Auto) 3.9, [place] # (Auto) 0.5, Eos # (Auto) 0.1, Baso # (Auto) 0.1 01/09/23 16:28: PT 10.3, INR 0.95, APTT 25.1 01/09/23 16:28: Sodium 128 L, Potassium 2.9 L*, Chloride 93 L, Carbon Dioxide 28, Anion Gap 9.9, BUN 7, Creatinine 0.60, Estimated Creat Clear 46, Estimated GFR 99, Est GFR ( Amer) 119, Glucose 148 H, Calcium 9.0, Total Bilirubin 0.4, AST 56 H, ALT 34, Alkaline Phosphatase 130 H, Total Protein 7.2, Albumin 4.2, Globulin 3.0, Albumin/Globulin Ratio 1.4 01/09/23 16:28: Magnesium 1.4 L 01/09/23 17:22: SARS-CoV-2 (PCR) Not detected, Influenza A Untype (PCR) Not detected, Influenza Type B (PCR) Not detected 01/10/23 06:30: WBC 3.6 L D, RBC 2.73 L, Hgb 12.1 L D, Hct 24.7 L, MCV 90.6, MCH 44.4 H*, MCHC 49.0 H* D, RDW 15.0, Plt Count 97 L D, MPV 9.1, Neut % (Auto) 71.6, Lymph % (Auto) 22.3, [place] % (Auto) 5.6, Eos % (Auto) 0.0 L, Baso % (Auto) 0.6, Neut # (Auto) 2.6, Lymph # (Auto) 0.8, [place] # (Auto) 0.2, Eos # (Auto) 0.0, Baso # (Auto) 0.0 01/10/23 06:30: Sodium 127 L, Potassium 4.2 D, Chloride 99, Carbon Dioxide 26, Anion Gap 6.2, BUN 5 L D, Creatinine 0.40 L D, Estimated Creat Clear 51, Estimated GFR 157, Est GFR ( Amer) 190 D, Glucose 114 H D, Calcium 7.9 L , Magnesium 1.9 D, Total Bilirubin 0.5, AST 40 H D, ALT 24 D, Alkaline Phosphatase 94, Total Protein 5.8 L, Albumin 3.5 D, Globulin 2.3, Albumin/Globulin Ratio 1.5 I & O for Last 24 hours: Intake & Output 01/07/23 01/08/23 01/09/23 01/10/23 11:59 11:59 11:59 11:59 Intake Total 240 / 240 Output Total 1500 / 1500 Balance -1260 / -1260 Weight 137 lb 7 oz Routine Chest/Breast/Axilla Exam Comments: Tiny air leak Progress Note: A&P Assessment and plan (1) Pneumothorax on right: Status: Acute Assessment and plan: CXR reveals no PTX. However, she has small air leak. Will place to 40 suction overnight. Hopefully can try waterseal tomorrow. (2) COPD (chronic obstructive pulmonary disease): Status: Acute (3) Hypokalemia: Status: Acute (4) Hyponatremia: Status: Acute (5) Hypertension: Status: Acute (6) Hyperlipidemia: Status: Acute
--- NOTE | 2023-01-10 09:55 | HMH.PHAINT1 ---
Pharmacy Intervention Comments: MEDICATION RECONCILIATION COMPLETED ON PATIENT USING EXTERNAL FILL HISTORY FROM PHARMACY. -CUONG MARLEY, LANAD
--- NOTE | 2023-01-10 14:17 | EXP.ACUTE.PN ---
Subjective *Date: 01/10/23 *Time: 16:26 Interval history: Patient stable this morning. Pain stable. On 2 L nasal cannula oxygen with saturations in the mid to high 90s. Denies any nausea or vomiting. No significant pain when she moves. Breathing comfortably. Afebrile overnight Medical Exam Vital signs and Labs for Last 24 Hours: Vital Signs Temp Pulse Pulse Resp BP BP Pulse Ox 01/10/23 13:48 98.2 F 01/10/23 12:00 76 21 135/89 95 01/10/23 10:00 89 21 132/69 96 01/10/23 08:00 98 H 20 142/79 H 95 01/10/23 11:38 98.4 F 01/10/23 10:00 97.7 F 01/10/23 08:00 90 01/10/23 07:53 98.7 F 01/10/23 06:00 80 22 117/69 98 01/10/23 04:00 87 18 121/74 98 01/10/23 04:00 01/09/23 20:00 01/10/23 04:00 80 01/10/23 00:00 90 01/09/23 20:00 80 01/10/23 04:00 98.1 F 01/10/23 02:00 89 18 142/84 H 96 01/10/23 00:00 90 20 123/78 95 01/10/23 00:00 97.5 F L 01/09/23 22:00 92 H 20 130/77 95 01/09/23 20:00 86 16 135/82 98 01/09/23 20:00 97.8 F 01/09/23 20:32 15 01/09/23 19:39 98 F 93 H 15 125/69 01/09/23 19:30 93 H 15 125/69 96 01/09/23 19:15 90 13 116/72 97 01/09/23 19:00 84 16 117/70 99 01/09/23 17:15 80 125/75 96 01/09/23 17:00 83 133/71 98 01/09/23 16:43 85 140/77 96 01/09/23 16:40 85 148/78 H 97 01/09/23 16:38 83 154/79 H 96 01/09/23 16:17 97.9 F 100 H 30 H 167/98 H 87 L FiO2 01/10/23 13:48 01/10/23 12:00 01/10/23 10:00 01/10/23 08:00 01/10/23 11:38 01/10/23 10:00 01/10/23 08:00 01/10/23 07:53 01/10/23 06:00 01/10/23 04:00 01/10/23 04:00 2 01/09/23 20:00 2 01/10/23 04:00 01/10/23 00:00 01/09/23 20:00 01/10/23 04:00 01/10/23 02:00 01/10/23 00:00 01/10/23 00:00 01/09/23 22:00 01/09/23 20:00 01/09/23 20:00 01/09/23 20:32 01/09/23 19:39 01/09/23 19:30 01/09/23 19:15 01/09/23 19:00 01/09/23 17:15 01/09/23 17:00 01/09/23 16:43 01/09/23 16:40 01/09/23 16:38 01/09/23 16:17 Intake and Output 01/09/23 01/10/23 01/10/23 23:59 07:59 15:59 Intake Total 480 / 480 Output Total 1000 / 1500 500 / 1500 Balance -1000 / -1020 -20 / -1020 Intake: Intake, Oral Amount 480 / 480 Output: Output, Urine Amount 1000 / 1500 500 / 1500 Other: Number of Unmeasured Voids 0 Weight 61.433 kg 62.341 kg Patient Weight 01/10/23 23:59 Weight 62.341 kg Laboratory Results - last 24 hr 01/09/23 16:28: WBC 8.2, RBC 3.52 L, Hgb 13.5, Hct 40.7, MCV 115.9 H, MCH 38.3 H, MCHC 33.1, RDW 13.6, Plt Count 233, MPV 8.5, Neut % (Auto) 44.8, Lymph % (Auto) 47.7, [place] % (Auto) 5.5, Eos % (Auto) 0.9, Baso % (Auto) 1.1, Neut # (Auto) 3.7, Lymph # (Auto) 3.9, [place] # (Auto) 0.5, Eos # (Auto) 0.1, Baso # (Auto) 0.1 01/09/23 16:28: PT 10.3, INR 0.95, APTT 25.1 01/09/23 16:28: Sodium 128 L, Potassium 2.9 L*, Chloride 93 L, Carbon Dioxide 28, Anion Gap 9.9, BUN 7, Creatinine 0.60, Estimated Creat Clear 46, Estimated GFR 99, Est GFR ( Amer) 119, Glucose 148 H, Calcium 9.0, Total Bilirubin 0.4, AST 56 H, ALT 34, Alkaline Phosphatase 130 H, Total Protein 7.2, Albumin 4.2, Globulin 3.0, Albumin/Globulin Ratio 1.4 01/09/23 16:28: Magnesium 1.4 L 01/09/23 17:22: SARS-CoV-2 (PCR) Not detected, Influenza A Untype (PCR) Not detected, Influenza Type B (PCR) Not detected 01/10/23 06:30: WBC 3.6 L D, RBC 2.73 L, Hgb 12.1 L D, Hct 24.7 L, MCV 90.6, MCH 44.4 H*, MCHC 49.0 H* D, RDW 15.0, Plt Count 97 L D, MPV 9.1, Neut % (Auto) 71.6, Lymph % (Auto) 22.3, [place] % (Auto) 5.6, Eos % (Auto) 0.0 L, Baso % (Auto) 0.6, Neut # (Auto) 2.6, Lymph # (Auto) 0.8, [place] # (Auto) 0.2, Eos # (Auto) 0.0, Baso # (Auto) 0.0 01/10/23 06:30: Sodium 127 L, Potassium 4.2 D, Chloride 99, Carbon Dioxide 26, Anion Gap 6.2, BUN 5 L D, Creatinine 0.40 L D, Estim
[2023-01-11] VITALS (8 sets, daily range): BP systolic 108–141; BP diastolic 67–89; PULSE 66–91; RESP 18; TEMP 36.6–37.2; O2SAT 96–97; BMI 24.5
[2023-01-11 07:02] LABS: Basophils # 0.1 K/mm3 (0-0.2); Basophils % 0.9 % (0.1-2.0); Eosinophils # 0.1 K/mm3 (0.0-0.4); Eosinophils % 0.9 % (0.1-12.0); Hematocrit 38.3 % (37.0-47.0); Hemoglobin 11.9 g/dL (12.2-16.2); Lymphocytes # 2.5 K/mm3 (0.7-4.5); Lymphocytes % 37.1 % (10-50); Mean Corpuscular HGB Conc 31.1 g/dL (31.8-35.4); Mean Corpuscular Hemoglobin 37.3 pg (27.0-31.2); Mean Corpuscular Volume 119.8 fl (81-99); Mean Platelet Volume 8.5 fl (7.4-10.4); Monocytes # 0.4 K/mm3 (0.1-1.0); Neutrophils # 3.8 K/mm3 (1.8-7.8); Neutrophils % 55.1 % (37.0-80.0); Platelet Count 180 K/mm3 (142-424); Red Cell Distribution Width 13.8 % (11.5-17.5); White Blood Count 6.8 K/mm3 (4.8-10.8)
[2023-01-11 07:09] LABS: Alanine Aminotransferase 22 U/L (12-78); Albumin Level 3.4 g/dl (3.5-5.0); Albumin/Globulin Ratio 1.5 (1.1-1.8); Alkaline Phosphatase 87 U/L (38-126); Anion Gap 4.9 mEq/L (5-15); Aspartate Amino Transferase 34 U/L (14-36); Bilirubin,Total 0.7 mg/dl (0.2-1.3); Blood Urea Nitrogen 5 mg/dl (7-17); Calcium 8.1 mg/dl (8.4-10.2); Carbon Dioxide 28 mmol/L (22.0-30.0); Chloride 98 mmol/L (98-107); Creatinine Clearance Estimated 51 mL/min (50-200); Estimated Glomerular Filt Rate 122 ml/min (>60); GFR (African American) 147 ML/MIN (>60); Globulin 2.2 g/dL (1.3-3.2); Glucose 87 mg/dl (74-100); Potassium 3.9 mmoL/L (3.5-5.1); Sodium 127 mmol/L (136-145); Total Protein,Serum 5.6 g/dl (6.3-8.2)
[2023-01-11 07:28] LABS: Magnesium 1.7 mg/dl (1.6-2.3)
[2023-01-11 09:01] LABS: Vitamin B12 337 pg/mL (239-931)
[2023-01-11 09:02] LABS: Folate 5.57 ng/mL
--- NOTE | 2023-01-11 12:09 | XR_ITS ---
PROCEDURE INFORMATION: Exam: XR Chest Exam date and time: 01/11/2023 12:43 PM Age: 72 years old Clinical indication: Shortness of breath; Additional info: Pneumothorax f/u TECHNIQUE: Imaging protocol: Radiologic exam of the chest. Views: 1 view. COMPARISON: CR XR CHEST PORTABLE 01/10/2023 5:58 AM FINDINGS: Tubes, catheters and devices: Right pigtail catheter identified at the lateral chest wall. Clinically correlate regarding positioning. If appropriate, follow-up with computerized tomography of the thorax for further evaluation. Lungs: Regions of subsegmental atelectasis left lung base. Pleural spaces: right apical pneumothorax measuring 1.9 cm. Evaluation somewhat limited however findings do not appear significantly changed, with compared with the study 1 day earlier. Heart/Mediastinum: Unremarkable. No cardiomegaly. Bones/joints: Unremarkable. IMPRESSION: 1. Persistent small apical pneumothorax. Consider follow-up with computerized tomography for improved evaluation if appropriate. 2. Subsegmental atelectasis left lung base.
--- NOTE | 2023-01-11 12:09 | EXP.SURG.PN ---
Subjective Patient reports: no new complaints Exam Data for Last 24 hours Vital signs and Labs for Last 24 Hours: Temp Pulse Resp BP Pulse Ox FiO2 98.9 F 70 18 134/80 97 2 01/11/23 11:19 01/11/23 11:19 01/11/23 11:19 01/11/23 11:19 01/11/23 11:19 01/10/23 04:00 Laboratory Results - last 24 hr 01/11/23 06:48: Sodium 127 L, Potassium 3.9, Chloride 98, Carbon Dioxide 28, Anion Gap 4.9 L, BUN 5 L, Creatinine 0.50 L D, Estimated Creat Clear 51, Estimated GFR 122, Est GFR ( Amer) 147 D, Glucose 87, Calcium 8.1 L, Total Bilirubin 0.7, AST 34, ALT 22, Alkaline Phosphatase 87, Total Protein 5.6 L, Albumin 3.4 L, Globulin 2.2, Albumin/Globulin Ratio 1.5 01/11/23 06:48: WBC 6.8 D, RBC 3.20 L, Hgb 11.9 L, Hct 38.3, MCV 119.8 H D, MCH 37.3 H, MCHC 31.1 L D, RDW 13.8, Plt Count 180 D, MPV 8.5, Neut % (Auto) 55.1, Lymph % (Auto) 37.1, [place] % (Auto) 6.0, Eos % (Auto) 0.9, Baso % (Auto) 0.9, Neut # (Auto) 3.8, Lymph # (Auto) 2.5, [place] # (Auto) 0.4, Eos # (Auto) 0.1, Baso # (Auto) 0.1 01/11/23 06:48: Magnesium 1.7 D 01/11/23 06:48: Vitamin B12 337, Folate 5.57 I & O for Last 24 hours: Intake & Output 01/09/23 01/10/23 01/11/23 01/12/23 10:59 10:59 11:59 11:59 Intake Total Output Total Balance Weight Routine Chest/Breast/Axilla Exam Comments: NOTABLE AIR LEAK. Progress Note: A&P Assessment and plan (1) Pneumothorax on right: Status: Acute Assessment and plan: PERSISTENT NOTABLE AIR LEAK. Patient to get CT chest today. May need traditional larger bore thoracostomy tube placed. (2) COPD (chronic obstructive pulmonary disease): Status: Acute (3) Hypokalemia: Status: Acute (4) Hyponatremia: Status: Acute (5) Hypertension: Status: Acute (6) Hyperlipidemia: Status: Acute
--- NOTE | 2023-01-11 12:13 | CT_ITS ---
PROCEDURE INFORMATION: Exam: CT Chest Without Contrast; Diagnostic Exam date and time: 01/11/2023 1:21 PM Age: 72 years old Clinical indication: Shortness of breath; Additional info: Eval pneumothorax and emphysema TECHNIQUE: Imaging protocol: Diagnostic computed tomography of the chest without contrast. Radiation optimization: All CT scans at this facility use at least one of these dose optimization techniques: automated exposure control; mA and/or kV adjustment per patient size (includes targeted exams where dose is matched to clinical indication); or iterative reconstruction. REPORTING DATA: Count of CT and Cardiac NM exams in prior 12 months: This patient has received 0 known CTs and 0 known cardiac nuclear medicine studies in the 12 months prior to the current study. COMPARISON: CR XR CHEST PORTABLE 01/11/2023 12:43 PM FINDINGS: Tubes, catheters and devices: Right-sided Pigtail catheter located at the level of the intercostal space however does not extend into the thorax. No appreciable pneumothorax at the level of the catheter. Lungs: Centrilobular emphysema. Right lower lobe region of consolidation atelectasis. Small right pleural effusion. Left lower lobe region of consolidation atelectasis. Small left pleural effusion. Persistent small right pneumothorax demonstrated at the lung apex as well as anterior to the mediastinum (series 2, image number 40) this measures 12 mm in AP dimensions at the level of the sternum. This measures approximately 3 mm at the lung apex. Densely calcified granuloma anteriorly left upper lobe. Pleural spaces: See Lungs finding. Heart: Unremarkable. No cardiomegaly. No pericardial effusion. Coronary arteries: Trace coronary artery calcification Lymph nodes: Nonspecific mediastinal adenopathy. Vasculature: Regions of atherosclerotic vascular calcification involving the aortic arch. Bones/joints: Unremarkable. No acute fracture. Soft tissues: Unremarkable. IMPRESSION: 1. Persistent small right pneumothorax most pronounced anterior to the mediastinum measuring 12 mm in AP dimensions at the level of the sternum. 2. Small right pneumothorax measuring 12 mm in AP dimensions anterior to the mediastinum at the level of the sternum. Trace collection of air at the right lung apex. 3. Centrilobular emphysema. 4. Bibasilar regions of combined consolidation and atelectasis with accompanying small bilateral pleural effusions. 5. Pigtail catheter at the level of the intercostal space. Clinically correlate. COMMENTS: In the absence of a history or active diagnosis of lung cancer, it is recommended that this patient with emphysema be evaluated for enrollment in a low dose CT lung cancer screening program.
--- NOTE | 2023-01-11 12:14 | EXP.ACUTE.PN ---
Subjective *Date: 01/11/23 *Time: 15:52 Interval history: Stable overnight. Minimal pain if she does not move. Tolerating 2 L nasal cannula oxygen. Cough has improved since admission. Remains afebrile. Tolerating p.o. intake. at bedside, updated of plan Medical Exam Vital signs and Labs for Last 24 Hours: Vital Signs Temp Pulse Pulse Resp BP Pulse Ox 01/11/23 11:19 98.9 F 70 18 134/80 97 01/11/23 08:00 87 01/11/23 07:56 98.3 F 84 18 134/84 96 01/11/23 04:00 70 01/11/23 04:00 97.9 F 72 18 108/68 L 97 01/11/23 00:00 70 01/10/23 20:00 80 01/11/23 00:00 97.8 F 66 18 108/67 L 97 01/10/23 19:56 98.3 F 85 18 113/62 96 01/10/23 18:00 91 H 19 119/51 L 91 L 01/10/23 18:00 98.0 F 01/10/23 14:00 75 20 138/82 95 01/10/23 16:00 71 20 128/81 95 01/10/23 16:00 70 01/10/23 12:00 80 01/10/23 15:44 97.8 F 01/10/23 13:48 98.2 F 01/10/23 12:00 76 21 135/89 95 01/10/23 11:38 98.4 F Intake and Output 01/10/23 01/11/23 01/11/23 22:59 07:59 15:59 Intake Total Output Total 0 / 0 Balance 0 / 360 Intake: Intake, Oral Amount Output: Output, Urine Amount 0 / 0 Output, Chest Tube Drainage Amount Right Other: Number of Unmeasured Voids 1 Weight 62.7 kg Patient Weight 01/12/23 00:59 Weight 62.7 kg Laboratory Results - last 24 hr 01/11/23 06:48: Sodium 127 L, Potassium 3.9, Chloride 98, Carbon Dioxide 28, Anion Gap 4.9 L, BUN 5 L, Creatinine 0.50 L D, Estimated Creat Clear 51, Estimated GFR 122, Est GFR ( Amer) 147 D, Glucose 87, Calcium 8.1 L, Total Bilirubin 0.7, AST 34, ALT 22, Alkaline Phosphatase 87, Total Protein 5.6 L, Albumin 3.4 L, Globulin 2.2, Albumin/Globulin Ratio 1.5 01/11/23 06:48: WBC 6.8 D, RBC 3.20 L, Hgb 11.9 L, Hct 38.3, MCV 119.8 H D, MCH 37.3 H, MCHC 31.1 L D, RDW 13.8, Plt Count 180 D, MPV 8.5, Neut % (Auto) 55.1, Lymph % (Auto) 37.1, [place] % (Auto) 6.0, Eos % (Auto) 0.9, Baso % (Auto) 0.9, Neut # (Auto) 3.8, Lymph # (Auto) 2.5, [place] # (Auto) 0.4, Eos # (Auto) 0.1, Baso # (Auto) 0.1 01/11/23 06:48: Magnesium 1.7 D 01/11/23 06:48: Vitamin B12 337, Folate 5.57 I & O for Labs for Last 24 Hours: Intake & Output 01/08/23 01/09/23 01/10/23 01/12/23 23:59 23:59 23:59 00:59 Intake Total 720 / 720 360 / 360 Output Total 1510 / 1510 0 / 0 Balance -790 / -790 360 / 360 Weight 61.433 kg 62.341 kg 62.7 kg Constitutional: Present no acute distress and average body habitus Head: Present atraumatic and normocephalic ENT: Present normal exam Neck: Present normal inspection Respiratory: Present wheezes, crackles (Faint in right lung field) and normal respiratory effort; Absent accessory muscle use or rhonchi Comment:: Chest tube in place in right posterior thorax, scant bloody discharge. Air bubbles through waterseal of Pleur-evac Cardiac: Present Reg Rate and Rhythm GI: Present soft and normal bowel sounds; Absent tenderness Extremities: Present normal inspection and full ROM Skin: Present intact; Absent erythema Neuro: Present Grossly Intact, alert, awake, oriented x 3 and moves all extremities Assessment and Plan *Assessment and plan (1) Pneumothorax on right: Status: Acute Category: Medical Code(s): J93.9 - Pneumothorax, unspecified (2) COPD (chronic obstructive pulmonary disease): Status: Acute Category: Medical Code(s): J44.9 - Chronic obstructive pulmonary disease, unspecified (3) Hypokalemia: Status: Acute Category: Medical Code(s): E87.6 - Hypokalemia (4) Hyponatremia: Status: Acute Category: Medical Code(s): E87.1 - Hypo-osmolality and hyponatremia (5) Hypertension: Status: Acute Category: Medical Code(s): I10 - Essential (primary) hypertension (6) Hyperlipidemia: Status: Acute Catego
[2023-01-11 18:40] LABS: Chloride 95 mmol/L (98-107); Sodium 126 mmol/L (136-145)
[2023-01-11 18:41] LABS: Potassium 3.7 mmoL/L (3.5-5.1)
[2023-01-11 18:43] LABS: Blood Urea Nitrogen 3 mg/dl (7-17); Creatinine Clearance Estimated 51 mL/min (50-200); Estimated Glomerular Filt Rate 122 ml/min (>60); GFR (African American) 147 ML/MIN (>60)
[2023-01-11 18:44] LABS: Anion Gap 7.7 mEq/L (5-15); Calcium 8.9 mg/dl (8.4-10.2); Carbon Dioxide 27 mmol/L (22.0-30.0); Glucose 107 mg/dl (74-100)
[2023-01-12] VITALS (8 sets, daily range): BP systolic 98–144; BP diastolic 73–84; PULSE 70–90; RESP 16–22; TEMP 36.7–37; O2SAT 94–98; BMI 24.0
[2023-01-12 06:27] LABS: Alanine Aminotransferase 21 U/L (12-78); Albumin Level 3.4 g/dl (3.5-5.0); Albumin/Globulin Ratio 1.3 (1.1-1.8); Alkaline Phosphatase 95 U/L (38-126); Anion Gap 6.4 mEq/L (5-15); Aspartate Amino Transferase 32 U/L (14-36); Bilirubin,Total 0.8 mg/dl (0.2-1.3); Blood Urea Nitrogen 4 mg/dl (7-17); Calcium 8.6 mg/dl (8.4-10.2); Carbon Dioxide 26 mmol/L (22.0-30.0); Chloride 96 mmol/L (98-107); Creatinine Clearance Estimated 50 mL/min (50-200); Estimated Glomerular Filt Rate 157 ml/min (>60); GFR (African American) 190 ML/MIN (>60); Globulin 2.6 g/dL (1.3-3.2); Glucose 90 mg/dl (74-100); Potassium 3.4 mmoL/L (3.5-5.1); Sodium 125 mmol/L (136-145)
[2023-01-12 06:29] LABS: Magnesium 1.4 mg/dl (1.6-2.3)
--- NOTE | 2023-01-12 06:30 | EXP.SURG.PN ---
Subjective Patient reports: no new complaints Narrative: Patient without any complaints. Chest CT shows the catheter likely in soft tissues. Exam Data for Last 24 hours Vital signs and Labs for Last 24 Hours: Temp Pulse Resp BP Pulse Ox FiO2 98.2 F 72 18 138/76 98 2 01/12/23 04:00 01/12/23 04:00 01/12/23 04:00 01/12/23 04:00 01/12/23 04:00 01/10/23 04:00 Laboratory Results - last 24 hr 01/11/23 06:48: Sodium 127 L, Potassium 3.9, Chloride 98, Carbon Dioxide 28, Anion Gap 4.9 L, BUN 5 L, Creatinine 0.50 L D, Estimated Creat Clear 51, Estimated GFR 122, Est GFR ( Amer) 147 D, Glucose 87, Calcium 8.1 L, Total Bilirubin 0.7, AST 34, ALT 22, Alkaline Phosphatase 87, Total Protein 5.6 L, Albumin 3.4 L, Globulin 2.2, Albumin/Globulin Ratio 1.5 01/11/23 06:48: WBC 6.8 D, RBC 3.20 L, Hgb 11.9 L, Hct 38.3, MCV 119.8 H D, MCH 37.3 H, MCHC 31.1 L D, RDW 13.8, Plt Count 180 D, MPV 8.5, Neut % (Auto) 55.1, Lymph % (Auto) 37.1, [place] % (Auto) 6.0, Eos % (Auto) 0.9, Baso % (Auto) 0.9, Neut # (Auto) 3.8, Lymph # (Auto) 2.5, [place] # (Auto) 0.4, Eos # (Auto) 0.1, Baso # (Auto) 0.1 01/11/23 06:48: Magnesium 1.7 D 01/11/23 06:48: Vitamin B12 337, Folate 5.57 01/11/23 18:25: Sodium 126 L, Potassium 3.7, Chloride 95 L, Carbon Dioxide 27, Anion Gap 7.7, BUN 3 L D, Creatinine 0.50 L, Estimated Creat Clear 51, Estimated GFR 122, Est GFR ( Amer) 147, Glucose 107 H D, Calcium 8.9 I & O for Last 24 hours: Intake & Output 01/09/23 01/10/23 01/11/23 01/12/23 10:59 10:59 11:59 11:59 Intake Total 1270 / 1270 Output Total 2400 / 2400 Balance -1130 / -1130 Weight 135 lb 5 oz Microbiology Reports for the Last 24 Hours: Microbiology 01/10/23 19:08 Sputum - Expectorated Sputum Gram Stain - Final Progress Note: A&P Assessment and plan (1) Pneumothorax on right: Status: Acute Assessment and plan: I clamped the catheter for up to half an hour and patient tolerated without any issues. Pigtail catheter then removed. Likely no longer functional. However, potential remains for patient to developed recurrent pneumothorax and require traditional chest tube placement. Continue to monitor clinically and plan for chest x-ray later today. (2) COPD (chronic obstructive pulmonary disease): Status: Acute (3) Hypokalemia: Status: Acute (4) Hyponatremia: Status: Acute (5) Hypertension: Status: Acute (6) Hyperlipidemia: Status: Acute
[2023-01-12 06:40] LABS: Basophils % 0.7 % (0.1-2.0); Eosinophils # 0.1 K/mm3 (0.0-0.4); Eosinophils % 1.2 % (0.1-12.0); Hematocrit 39.4 % (37.0-47.0); Hemoglobin 12.5 g/dL (12.2-16.2); Lymphocytes # 2.1 K/mm3 (0.7-4.5); Lymphocytes % 35.7 % (10-50); Mean Corpuscular HGB Conc 31.7 g/dL (31.8-35.4); Mean Corpuscular Hemoglobin 36.7 pg (27.0-31.2); Mean Corpuscular Volume 115.9 fl (81-99); Mean Platelet Volume 8.5 fl (7.4-10.4); Monocytes # 0.3 K/mm3 (0.1-1.0); Monocytes % 4.8 % (1.7-9.3); Neutrophils # 3.4 K/mm3 (1.8-7.8); Neutrophils % 57.5 % (37.0-80.0); Platelet Count 188 K/mm3 (142-424); Red Cell Distribution Width 13.3 % (11.5-17.5); White Blood Count 5.8 K/mm3 (4.8-10.8)
--- NOTE | 2023-01-12 06:44 | PC.NURSE ---
MD Medina removed right chest tube at bedside and covered with telfa and tegaderm, no drainage noted at this time, instructed pt that if feel short of breath at all to alert staff, pt verbalized understanding, MD stated would round again at lunch and re-evaluate possible reinsertion with sedation if needed and NPO status
--- NOTE | 2023-01-12 09:13 | EXP.ACUTE.PN ---
Subjective *Date: 01/12/23 *Time: 09:25 Interval history: Patient did well overnight. Chest tube removed this morning when surgery rounded. Patient denies any shortness of breath, chest pain, nausea, vomiting, diarrhea, confusion. Family at bedside. Denies any cough. Medical Exam Vital signs and Labs for Last 24 Hours: Vital Signs Temp Pulse Pulse Resp BP Pulse Ox 01/12/23 08:00 98.0 F 76 16 137/84 95 01/12/23 04:00 90 01/12/23 04:00 98.2 F 72 18 138/76 98 01/12/23 00:00 86 01/11/23 20:00 88 01/12/23 00:00 98.2 F 78 18 98/73 L 98 01/11/23 20:00 98 F 89 18 141/89 H 01/11/23 15:26 98.2 F 76 18 130/83 96 01/11/23 12:00 91 H 01/11/23 11:19 98.9 F 70 18 134/80 97 Intake and Output 01/11/23 01/12/23 01/12/23 23:59 07:59 15:59 Intake Total 740 / 1630 530 / 530 0 / 530 Output Total 1900 / 1900 500 / 500 Balance -1160 / -270 30 / 30 0 / 30 Intake: Intake, Oral Amount 240 / 760 160 / 160 0 / 160 Intake, Total IV Amount 370 / 370 Azithromycin 500 mg In 0.9 % 250 / 250 Sodium Chloride 250 ml @ 250 mls/hr IV Q24H [facility] Rx#:[id number] Ceftriaxone Sodium 1 gm In 0.9 120 / 120 % Sodium Chloride 50 ml @ 100 mls/hr IV Q24H [facility] Rx#:[id number] Infusion Intake 500 / 500 0.9 % Sodium Chloride 500 ml @ 500 / 500 100 mls/hr IV .Q5H [facility] Rx#: [id number] Output: Output, Urine Amount 1900 / 1900 500 / 500 Other: Number of Unmeasured Voids 1 Weight 61.377 kg Patient Weight 01/12/23 23:59 Weight 61.377 kg Laboratory Results - last 24 hr 01/11/23 18:25: Sodium 126 L, Potassium 3.7, Chloride 95 L, Carbon Dioxide 27, Anion Gap 7.7, BUN 3 L D, Creatinine 0.50 L, Estimated Creat Clear 51, Estimated GFR 122, Est GFR ( Amer) 147, Glucose 107 H D, Calcium 8.9 01/12/23 05:20: Sodium 125 L, Potassium 3.4 L, Chloride 96 L, Carbon Dioxide 26, Anion Gap 6.4, BUN 4 L D, Creatinine 0.40 L, Estimated Creat Clear 50, Estimated GFR 157, Est GFR ( Amer) 190 D, Glucose 90, Calcium 8.6, Total Bilirubin 0.8, AST 32, ALT 21, Alkaline Phosphatase 95, Total Protein 6.0 L, Albumin 3.4 L, Globulin 2.6, Albumin/Globulin Ratio 1.3 01/12/23 05:20: WBC 5.8, RBC 3.40 L, Hgb 12.5, Hct 39.4, MCV 115.9 H, MCH 36.7 H, MCHC 31.7 L, RDW 13.3, Plt Count 188, MPV 8.5, Neut % (Auto) 57.5, Lymph % (Auto) 35.7, [place] % (Auto) 4.8, Eos % (Auto) 1.2, Baso % (Auto) 0.7, Neut # (Auto) 3.4, Lymph # (Auto) 2.1, [place] # (Auto) 0.3, Eos # (Auto) 0.1, Baso # (Auto) 0.0 01/12/23 05:20: Magnesium 1.4 L D I & O for Labs for Last 24 Hours: Intake & Output 01/09/23 01/10/23 01/11/23 01/12/23 22:59 22:59 23:59 23:59 Intake Total 530 / 530 Output Total 500 / 500 Balance 30 Weight 61.377 kg Microbiology Reports for the Last 24 Hours: Microbiology 01/10/23 19:08 Sputum - Expectorated Sputum Gram Stain - Final Constitutional: Present no acute distress and average body habitus Head: Present atraumatic and normocephalic ENT: Present normal exam Neck: Present normal inspection Respiratory: Present normal respiratory effort; Absent accessory muscle use, rhonchi, wheezes or crackles Cardiac: Present Reg Rate and Rhythm GI: Present soft and normal bowel sounds; Absent tenderness Extremities: Present normal inspection and full ROM Skin: Present intact; Absent erythema Neuro: Present Grossly Intact, alert, awake, oriented x 3 and moves all extremities Assessment and Plan *Assessment and plan (1) Pneumothorax on right: Status: Acute Category: Medical Code(s): J93.9 - Pneumothorax, unspecified (2) COPD (chronic obstructive pulmonary disease): Status: Acute Category: Medical Code(s): J44.9 - Chronic obstructive pulmonary disease, unspecified (3) Hypokalemia: Status: Acute Category: Medical Code(s): E87.6 - Hypokalemia (4) Hyponatremia: St
--- NOTE | 2023-01-12 09:42 | EXP.PULM.CON ---
History of Present Illness History of present illness: Ms. Sierra is a 72-year-old female current smoker greater than [id number] smoking history presents with worsening respiratory's and chest pain found to be having pneumothorax status post chest tube placement surgery following chest tube removal noted to have respiratory distress and pulmonary was called for further evaluation [facility] Disclaimer: The information contained in this section may have been updated after the patient was seen, as this information can be updated by other users. Medical History (Updated 01/12/23 @ 14:06 by Rosi Curtis MD) Emphysema/COPD Hyperlipidemia Hypertension Osteoporosis Pneumonia Pulmonary emphysema Tobacco abuse Surgical History Hx of hand surgery Family History Brother Family history of cancer Daughter Family history of celiac disease Other Family history of [place] (myocardial infarction) Family history of heart disease Social History (Updated 01/12/23 @ 12:15 by Becka Mendoza RN) Smoking Status: Current every day smoker tobacco type: cigarettes packs per day: 1 pack-years: 35 years smoked: 35 alcohol intake: current substance use type: denies use current occupational status: retired Travel in the last 8 weeks: None household members: spouse housing: house lives independently: Yes marital status: caffeine: Yes special andrés needs: No agree to transfusion: No do you feel safe at home: Yes victim of physical abuse: No victim of emotional abuse: No victim of sexual abuse: No would you like helpful sources: No Review of Systems Review of Systems Review of systems:: pertinent systems reviewed and negative unless documented below Constitutional Constitutional: Reports fatigue, Denies poor appetite and Denies lethargy Eyes Eyes: Denies irritation and Denies itchy eyes ENT Ears, Nose, Mouth, and Throat: Denies dysphagia and Denies lip swelling *Cardiovascular Cardiovascular: Reports dyspnea and Reports dyspnea on exertion *Respiratory Respiratory: Reports cough, Reports dyspnea, Reports dyspnea on exertion, Denies excessive phlegm production, Denies pain on inspiration and Denies pain with cough *Gastrointestinal Gastrointestinal: Reports system reviewed and no additional complaints, except as documented and Denies dysphagia *Musculoskeletal Musculoskeletal: Reports back pain *Neurologic Neurologic: Denies paresthesias Psychiatric Psychiatric: Denies homicidal ideation and Denies suicidal ideation Endocrine Endocrine: Reports fatigue Allergic/Immunologic Allergic/Immunologic: Denies itchy eyes and Denies lip swelling Pulmonology Exam Inpatient Vital signs and Labs for Last 24 Hours: Temp Pulse Resp BP Pulse Ox FiO2 98.0 F 76 16 137/84 95 2 01/12/23 08:00 01/12/23 08:00 01/12/23 08:00 01/12/23 08:00 01/12/23 08:00 01/10/23 04:00 Laboratory Results - last 24 hr 01/11/23 18:25: Sodium 126 L, Potassium 3.7, Chloride 95 L, Carbon Dioxide 27, Anion Gap 7.7, BUN 3 L D, Creatinine 0.50 L, Estimated Creat Clear 51, Estimated GFR 122, Est GFR ( Amer) 147, Glucose 107 H D, Calcium 8.9 01/12/23 05:20: Sodium 125 L, Potassium 3.4 L, Chloride 96 L, Carbon Dioxide 26, Anion Gap 6.4, BUN 4 L D, Creatinine 0.40 L, Estimated Creat Clear 50, Estimated GFR 157, Est GFR ( Amer) 190 D, Glucose 90, Calcium 8.6, Total Bilirubin 0.8, AST 32, ALT 21, Alkaline Phosphatase 95, Total Protein 6.0 L, Albumin 3.4 L, Globulin 2.6, Albumin/Globulin Ratio 1.3 01/12/23 05:20: WBC 5.8, RBC 3.40 L, Hgb 12.5, Hct 39.4, MCV 115.9 H, MCH 36.7 H, MCHC 31.7 L, RDW 13.3, Plt Count 188, MPV 8.5, Neut % (Auto) 57.5, Lymph % (Auto) 35.7, [place] % (Auto) 4.8, Eos % (Auto) 1.2, Baso % (Auto) 0.7, Neut # (Auto) 3.4, Lymph # (Auto) 2.1, [place] # (Auto) 0.3, Eos # (Auto) 0.1, Baso # (Auto) 0.0 0
--- NOTE | 2023-01-12 15:11 | PC.NURSE ---
PT IS RESTING IN BED WITH FAMILY AT BEDSIDE. ALERT AND ORIENTED X4. TOLERATING CLEAR LIQUIDS. DRESSING TO THE RIGHT SIDE C/D/I. LUNG SOUNDS DIMINISHED. ABDOMEN SOFT/NON TENDER WITH ACTIVE BOWEL SOUNDS. PT IS NOW ON 1 L FLUID RESTRICTION. O2 SATURATION HAS MAINTAINED 90-95% ON ROOM AIR. PT WILL DESAT TO THE MID 80'S WHEN GETTING UP TO THE BSC. WILL CONTINUE TO MONITOR.
--- NOTE | 2023-01-12 16:00 | XR_ITS ---
PROCEDURE INFORMATION: Exam: XR Chest Exam date and time: 01/12/2023 4:27 PM Age: 72 years old Clinical indication: Condition or disease; Other: Pneumothrax; Patient HX: HX of pneumothorax, f/u study, chest tube removed some time today. TECHNIQUE: Imaging protocol: Radiologic exam of the chest. Views: 2 views. COMPARISON: CT CHEST WO CON 01/11/2023 1:21 PM and chest x-ray 01/11/2023 FINDINGS: Tubes, catheters and devices: Interval removal of the small caliber chest tube on the right. Small right apical pneumothorax measuring 15 mm is noted and is stable. Lungs: See Pleural spaces finding. Pleural spaces: Small bilateral pleural effusions and associated atelectasis appears stable. Heart/Mediastinum: Unremarkable. No cardiomegaly. Bones/joints: Unremarkable. IMPRESSION: 1. Interval chest tube removal. Stable persistent small right apical pneumothorax. 2. Small bilateral pleural effusions and mild basilar atelectasis similar to previous.
[2023-01-12 18:28] LABS: Chloride 95 mmol/L (98-107); Potassium 3.8 mmoL/L (3.5-5.1); Sodium 126 mmol/L (136-145)
[2023-01-12 18:31] LABS: Anion Gap 6.8 mEq/L (5-15); Blood Urea Nitrogen 3 mg/dl (7-17); Calcium 9.1 mg/dl (8.4-10.2); Carbon Dioxide 28 mmol/L (22.0-30.0); Creatinine Clearance Estimated 50 mL/min (50-200); Estimated Glomerular Filt Rate 122 ml/min (>60); GFR (African American) 147 ML/MIN (>60); Glucose 157 mg/dl (74-100); Magnesium 1.7 mg/dl (1.6-2.3)
[2023-01-13] VITALS: BP 138/73; PULSE 70; PULSE 74; RESP 16; TEMP 37.1; O2SAT 96
[2023-01-13 04:00] VITALS: BP 132/76; PULSE 80; PULSE 85; RESP 16; TEMP 36.7; O2SAT 95; BMI 23.3
--- NOTE | 2023-01-13 05:57 | XR_ITS ---
PROCEDURE INFORMATION: Exam: XR Chest Exam date and time: 01/13/2023 6:08 AM Age: 72 years old Clinical indication: Device placement; Chest tube; Additional info: Follow up after CT removal TECHNIQUE: Imaging protocol: Radiologic exam of the chest. Views: 1 view. COMPARISON: CR XR CHEST 2V 01/12/2023 4:27 PM FINDINGS: Lungs: Emphysematous change, interstitial prominence, and mild basilar airspace disease. Pleural spaces: No significant pneumothorax or pleural effusion. Heart/Mediastinum: Normal configuration of the heart. Bones/joints: Dextroscoliosis. IMPRESSION: Emphysematous change, interstitial prominence, and mild basilar airspace disease.
[2023-01-13 06:25] LABS: Basophils # 0.1 K/mm3 (0-0.2); Basophils % 0.9 % (0.1-2.0); Eosinophils # 0.1 K/mm3 (0.0-0.4); Eosinophils % 1.7 % (0.1-12.0); Hematocrit 38.8 % (37.0-47.0); Hemoglobin 12.5 g/dL (12.2-16.2); Mean Corpuscular HGB Conc 32.3 g/dL (31.8-35.4); Mean Corpuscular Hemoglobin 37.7 pg (27.0-31.2); Mean Corpuscular Volume 116.9 fl (81-99); Mean Platelet Volume 8.3 fl (7.4-10.4); Monocytes # 0.3 K/mm3 (0.1-1.0); Monocytes % 5.7 % (1.7-9.3); Neutrophils # 2.7 K/mm3 (1.8-7.8); Neutrophils % 52.7 % (37.0-80.0); Platelet Count 188 K/mm3 (142-424); Red Blood Count 3.32 M/mm3 (4.20-5.40); Red Cell Distribution Width 13.5 % (11.5-17.5); White Blood Count 5.2 K/mm3 (4.8-10.8)
[2023-01-13 06:29] LABS: Alanine Aminotransferase 20 U/L (12-78); Albumin Level 3.4 g/dl (3.5-5.0); Albumin/Globulin Ratio 1.4 (1.1-1.8); Alkaline Phosphatase 93 U/L (38-126); Anion Gap 6.9 mEq/L (5-15); Aspartate Amino Transferase 27 U/L (14-36); Bilirubin,Total 0.7 mg/dl (0.2-1.3); Blood Urea Nitrogen 5 mg/dl (7-17); Calcium 8.6 mg/dl (8.4-10.2); Carbon Dioxide 24 mmol/L (22.0-30.0); Chloride 98 mmol/L (98-107); Creatinine Clearance Estimated 49 mL/min (50-200); Estimated Glomerular Filt Rate 157 ml/min (>60); GFR (African American) 190 ML/MIN (>60); Globulin 2.5 g/dL (1.3-3.2); Glucose 89 mg/dl (74-100); Potassium 3.9 mmoL/L (3.5-5.1); Sodium 125 mmol/L (136-145); Total Protein,Serum 5.9 g/dl (6.3-8.2)
[2023-01-13 06:48] LABS: Magnesium 1.6 mg/dl (1.6-2.3)
[2023-01-13 07:43] VITALS: BP 141/84; PULSE 92; RESP 17; TEMP 36.9; O2SAT 94
[2023-01-13 08:00] VITALS: PULSE 85
--- NOTE | 2023-01-13 08:39 | P.PN_ITS ---
Subjective *Date: 01/13/23 *Time: 08:39 Medical Exam Vital signs and Labs for Last 24 Hours: Vital Signs Temp Pulse Pulse Resp BP Pulse Ox 01/13/23 07:43 98.5 F 92 H 17 141/84 H 94 L 01/13/23 04:00 80 01/13/23 04:00 98.1 F 85 16 132/76 95 01/13/23 00:00 70 01/12/23 20:00 90 01/13/23 00:00 98.7 F 74 16 138/73 96 01/12/23 20:00 98.3 F 81 18 126/75 95 01/12/23 16:00 72 01/12/23 15:49 98.6 F 70 22 136/79 95 01/12/23 12:00 71 01/12/23 11:36 98.4 F 73 18 144/73 H 94 L Intake and Output 01/12/23 01/13/23 01/13/23 23:59 07:59 15:59 Intake Total 240 / 1060 110 / 110 Output Total 0 / 0 Balance 240 / 110 110 / 110 Intake: Intake, Oral Amount 240 / 640 60 / 60 Intake, Total IV Amount 50 / 50 Ceftriaxone Sodium 1 gm In 0.9 50 / 50 % Sodium Chloride 50 ml @ 100 mls/hr IV Q24H [facility] Rx#:[id number] Output: Output, Urine Amount 0 / 0 Other: Number of Unmeasured Voids 1 Number of Bowel Movements 1 Weight 59.931 kg Patient Weight 01/13/23 23:59 Weight 59.931 kg Laboratory Results - last 24 hr 01/12/23 18:01: Sodium 126 L, Potassium 3.8, Chloride 95 L, Carbon Dioxide 28, Anion Gap 6.8, BUN 3 L, Creatinine 0.50 L D, Estimated Creat Clear 50, Estimated GFR 122, Est GFR ( Amer) 147 D, Glucose 157 H D, Calcium 9.1 01/12/23 18:01: Magnesium 1.7 D 01/13/23 05:40: Sodium 125 L, Potassium 3.9, Chloride 98, Carbon Dioxide 24, Anion Gap 6.9, BUN 5 L D, Creatinine 0.40 L, Estimated Creat Clear 49, Estimated GFR 157, Est GFR ( Amer) 190 D, Glucose 89 D, Calcium 8.6, Total Bilirubin 0.7, AST 27, ALT 20, Alkaline Phosphatase 93, Total Protein 5.9 L, Albumin 3.4 L, Globulin 2.5, Albumin/Globulin Ratio 1.4 01/13/23 05:40: WBC 5.2, RBC 3.32 L, Hgb 12.5, Hct 38.8, MCV 116.9 H, MCH 37.7 H , MCHC 32.3, RDW 13.5, Plt Count 188, MPV 8.3, Neut % (Auto) 52.7, Lymph % (Auto) 39.0, [place] % (Auto) 5.7, Eos % (Auto) 1.7, Baso % (Auto) 0.9, Neut # (Auto) 2.7, Lymph # (Auto) 2.0, [place] # (Auto) 0.3, Eos # (Auto) 0.1, Baso # (Auto) 0.1 01/13/23 05:40: Magnesium 1.6 I & O for Labs for Last 24 Hours: Intake & Output 01/10/23 01/11/23 01/12/23 01/13/23 22:59 23:59 23:59 23:59 Intake Total 1010 / 1060 110 / 110 Output Total 950 / 950 0 / 0 Balance 60 / 110 110 / 110 Weight 61.377 kg 59.931 kg The patient's infection will respond to the chosen ABx?: Yes Is the patient receiving the right drug, dose, and route?: Yes Could a more targeted ABx be ordered?: No (AFEBRILE, WBC WNL, POSSIBLE SWITCH TO AUGMENTIN ON DISCHARGE.)
--- NOTE | 2023-01-13 09:51 | EXP.PULM.PN ---
Subjective *Date: 01/13/23 *Time: 11:08 Interval history: No acute respiratory events overnight. Continued to remain on room air. Pulmonology Exam Inpatient Vital signs and Labs for Last 24 Hours: Temp Pulse Resp BP Pulse Ox FiO2 98.5 F 92 H 17 141/84 H 94 L 2 01/13/23 07:43 01/13/23 07:43 01/13/23 07:43 01/13/23 07:43 01/13/23 07:43 01/10/23 04:00 Laboratory Results - last 24 hr 01/12/23 18:01: Sodium 126 L, Potassium 3.8, Chloride 95 L, Carbon Dioxide 28, Anion Gap 6.8, BUN 3 L, Creatinine 0.50 L D, Estimated Creat Clear 50, Estimated GFR 122, Est GFR ( Amer) 147 D, Glucose 157 H D, Calcium 9.1 01/12/23 18:01: Magnesium 1.7 D 01/13/23 05:40: Sodium 125 L, Potassium 3.9, Chloride 98, Carbon Dioxide 24, Anion Gap 6.9, BUN 5 L D, Creatinine 0.40 L, Estimated Creat Clear 49, Estimated GFR 157, Est GFR ( Amer) 190 D, Glucose 89 D, Calcium 8.6, Total Bilirubin 0.7, AST 27, ALT 20, Alkaline Phosphatase 93, Total Protein 5.9 L, Albumin 3.4 L, Globulin 2.5, Albumin/Globulin Ratio 1.4 01/13/23 05:40: WBC 5.2, RBC 3.32 L, Hgb 12.5, Hct 38.8, MCV 116.9 H, MCH 37.7 H, MCHC 32.3, RDW 13.5, Plt Count 188, MPV 8.3, Neut % (Auto) 52.7, Lymph % (Auto) 39.0, [place] % (Auto) 5.7, Eos % (Auto) 1.7, Baso % (Auto) 0.9, Neut # (Auto) 2.7, Lymph # (Auto) 2.0, [place] # (Auto) 0.3, Eos # (Auto) 0.1, Baso # (Auto) 0.1 01/13/23 05:40: Magnesium 1.6 I & O for Labs for Last 24 Hours: Intake & Output 01/10/23 01/11/23 01/12/23 01/13/23 22:59 23:59 23:59 23:59 Intake Total 1010 / 1060 110 / 110 Output Total 950 / 950 0 / 0 Balance 60 / 110 110 / 110 Weight 135 lb 5 oz 132 lb 2 oz Microbiology Reports for the Last 24 Hours: Microbiology 01/10/23 19:08 Sputum - Expectorated Sputum Gram Stain - Final 01/10/23 19:08 Sputum - Expectorated Sputum Sputum Culture - Preliminary Constitutional: Present mild distress Head: Present normocephalic and atraumatic ENT: Present normal exam, normal oropharynx and mucous membranes moist Neck: Present normal inspection and full ROM Respiratory: Present CTA bilaterally and able to speak in complete sentences; Absent respiratory distress, wheezes or crackles Cardiac: Present S1/S2, Tachycardia and radial pulses present GI: Present soft and distention; Absent tenderness or guarding Rectal (female): Present deferred (female): Present deferred Skin: Present intact; Absent cyanosis or jaundice Neuro: Present alert, awake and oriented x 3 Extremities: Present normal inspection; Absent clubbing or cyanosis Psychiatric: Present normal affect and cooperative Assessment and Plan *Assessment and plan (1) Pneumonia: Status: Acute Category: Medical Code(s): J18.9 - Pneumonia, unspecified organism (2) Pulmonary emphysema: Status: Acute Category: Medical Code(s): J43.9 - Emphysema, unspecified Plan #Community-acquired pneumonia: 72-year-old female, current smoker, smoking 2 to 3 packs a day with presented to the ER om 01/09/22 rewith chest pain worsening respiratory distress with chest x-ray admission showing pneumothorax, chest tube placed by ER physician, and surgery consulted for chest tube management by primary team. CT chest upon consultation reviewed, bilateral lower lobe consolidation minimal anterior pneumothorax. No suspicious pulmonary nodules noted on the CAT scan. Chest tube removed by the time I have examined the patient. Oxygen status stable, on room air saturating 95% and above. Receiving ceftriaxone and azithromycin since admission. Auscultation no obvious wheezing noted. Denies any significant symptom burden at baseline. No frequent exacerbations. Interval update: Continue to receive DuoNebs every 6 hours on as-needed basis Anoro not on. Continue to remain on room air with saturations maintained at 95% and above. Surgery consulted for chest tube management, following for pneumothorax, chest x-ray from this morning no obvious pneum
--- NOTE | 2023-01-13 10:34 | EXP.DC.SUM ---
General Admission date:: 01/09/23 Discharge date: 01/13/23 HPI HPI HPI: Ms. Krueger is a 72-year-old female with a past medical history of emphysema, Chronic Tobacco Abuse, who presented to [facility] due to a 1-day history of productive cough and shortness of air and right sided chest pain that occurred just prior to presentation. and reports that the patient started coughing violently and has been non-stop over the last 24 hours. They deny fevers or known similar sick contacts. The reports that the patient was watching tv and continued to cough and had an acute episode of right sided chest pain and shortness of air. She was brought into the ER for evaluation. In the ER, the patient underwent a Cxray that showed a large right sided pneumothorax >50%. She underwent Chest tube placement by ER Physician. The repeat Cxray showed the right sided apical pneumothorax had reduced to 5-10%. On labs, CBC was unremarkable, CMP showed a Sodium of 128, K was 2.9. In the ER the patient received Rocephin and Azithromycin empirically, she received KCL at 40 meQ po and 3 runs. The patient had a CT of the lungs noted in the system from 11/2017 that shows no malignancy and centrilobular emphysema. The patient will be admitted with initial impression: Right sided Pneumothorax, Hyponatremia, Hypokalemia. Surgery will be consulted for Chest tube management, she will be continued on empiric antibiotic treatment for productive cough, respiratory panel will be ordered. Electrolytes will be replaced and pain regime will be ordered while Chest tube is in place. The plan of care was discussed with the patient and at bedside on admission. Both verbalized understanding and agreement with the plan of care. Hospital Course Hospital Course Hospital Course: 72-year-old female with past medical history of Emphysema, Chronic Tobacco Abuse presents with right sided chest pain, shortness of air and cough.? Chest tube placed in the ER, pneumothorax resolved. Chest tube removed 01/12. Stable on room air. Medically stable for discharge home. Problems addressed as follows during hospitalization: - Right Sided Pneumothorax Spontaneous pneumothorax present on admission. Chest tube placed in the ER. Had improvement immediately with residual small pneumothorax present. Chest tube capped for 2 days with no recurrence. Repeat imaging showed chest tube no longer in place, was removed and pneumothorax remained stable. Surgery was consulted on admission and managed tube. We will have patient follow-up with surgery after discharge. Repeat x-ray prior to follow-up to assess for complete resolution. - COPD Denies being on any controller medications, extensive smoking history, 2 packs a day for at least 45 years. Consulted pulmonology. Recommended discharge on Anoro inhaler along with albuterol for as needed. Recommended pneumothorax and air travel precautions. Transition to Augmentin at discharge to complete 5-day course of antibiotics. Transition to room air by day of discharge. Follow-up with pulmonology in 2 months. - Hypokalemia Repleted during hospitalization. Discontinue diuretic at discharge. Repeat monitoring with labs in a week. - Hyponatremia Euvolemic on Exam. Did not respond to either fluids or fluid restriction. Review of chart shows that her sodium was in the 120s back in 2017. Suspect that she is chronically hyponatremic. Concern for reset osmostat. Urine sodium obtained, not returned by the time of discharge. Patient asymptomatic. Recommend considering further work-up or evaluation by PCP. - Hypertension: Continue home dosing of Metoprolol - Hyperlipidemia: Continue home dose of Statin Stable for discharge home. Follow-up with primary care, surgery, pulmonology in the coming weeks. Repeat chest image/Xray before surgery appointment Exam Data for Last 24 hours Vital signs and Labs for Last 2
[2023-01-13 11:15] VITALS: BP 137/74; PULSE 73; RESP 16; TEMP 37; O2SAT 98
--- NOTE | 2023-01-13 12:10 | HMH.PHAINT1 ---
Pharmacy Intervention Comments: Discussed discharge medications with patient and family member. Both verbalized understanding and had no questions at this time
[2023-01-13 15:52] LABS: Sodium, Urine 99 mmol/L (Not Estab.)
--- NOTE | 2023-01-14 14:08 | CARE MANAGER ---
Spoke with patient regarding recent discharge. Patient states that she was able to pharmacy picking tech her medications prescribed at discharge. Went over f/u appt date and times. No complaints or concerns voiced at time of call.
== END 2023-01-13 11:45 | disposition home or self-care (01) | DRG 200 ==
LOC: ER 17:01 → 2ND 18:45
PROVIDERS: Nurse Practitioner Family; Admitting Provider Internal Medicine Adolescent Medicine; Emergency Provider Student in an Organized Health Care Education/Training Program; PCP Internal Medicine Adolescent Medicine; Visit Provider Internal Medicine Adolescent Medicine
DX: J93.9 Pneumothorax, unspecified (principal); E87.1 Hypo-osmolality and hyponatremia; F17.210 Nicotine dependence, cigarettes, uncomplicated; J43.9 Emphysema, unspecified; E87.6 Hypokalemia; M81.0 Age-related osteoporosis without current pathological fracture; E78.5 Hyperlipidemia, unspecified
CPT/HCPCS: 32551; 36415; 71045; 71046; 71250; 80048; 80053; 82607; 82746; 83735; 84300; 85025; 85610; 85730; 87070; 87205; 93005; 99291; C9803; J0456; J0696; J3475; U0003; U0005

== ENCOUNTER → 2023-01-20 09:26 | Outpatient (CLI) | payer MEDICARE, SELFPAY ==
--- NOTE | 2023-01-20 09:34 | XR_ITS ---
FINAL REPORT TECHNIQUE: Chest PA & Lateral CLINICAL HISTORY: pneumothorax follow up COMPARISON: 01/13/2023 and 01/12/2023 FINDINGS: 2 views of the chest were performed. The heart size is normal. The mediastinum is within normal limits. The lungs are clear. There are no pleural effusions. There is no residual pneumothorax. There is persistent thoracolumbar scoliosis convex to the right measuring about 30 degrees. IMPRESSION: No acute cardiopulmonary process. No residual pneumothorax is seen. Reviewed, Interpreted and Dictated by Cyril De Luna MD Transcribed by Aurea Smith Authenticated and . [facility]
== END ==
PROVIDERS: PCP Internal Medicine Adolescent Medicine; Visit Provider Surgery
DX: J93.9 Pneumothorax, unspecified (principal)
CPT/HCPCS: 71046

== ENCOUNTER → 2023-03-18 10:13 | Outpatient (CLI) | payer MEDICARE, SELFPAY ==
[2023-03-18 11:00] VITALS: PULSE 74; PULSE 78
== END ==
PROVIDERS: PCP Internal Medicine Adolescent Medicine; Visit Provider Internal Medicine Pulmonary Disease
DX: R06.02 Shortness of breath (principal)
CPT/HCPCS: 94060; 94618; 94640; 94727; 94729

== ENCOUNTER → 2023-07-21 16:41 | Outpatient (CLI) | payer MEDICARE, OTHER, SELFPAY ==
--- NOTE | 2023-07-21 | XR_ITS ---
PROCEDURE INFORMATION: Exam: XR Left Femur Exam date and time: 07/21/2023 4:56 PM Age: 72 years old Clinical indication: Pain; Hip; Left; Additional info: Lbp TECHNIQUE: Imaging protocol: Radiologic exam of the left femur. Views: 2 views. COMPARISON: EXTLL US extremity LT limited 01/12/2018 10:27 AM FINDINGS: Bones/joints: There is calcification of the tendinous insertion on the greater trochanter concerning for calcific tendinopathy. No acute fracture or dislocation. No aggressive osseous lesion. Soft tissues: Unremarkable. IMPRESSION: There is calcification of the tendinous insertion on the greater trochanter concerning for calcific tendinopathy.
--- NOTE | 2023-07-21 | XR_ITS ---
PROCEDURE INFORMATION: Exam: XR Lumbosacral Spine Exam date and time: 07/21/2023 4:56 PM Age: 72 years old Clinical indication: Low back pain; Additional info: Lbp TECHNIQUE: Imaging protocol: Radiologic exam of the lumbosacral spine. Views: 4 or 5 views. COMPARISON: No relevant prior studies available. FINDINGS: Bones/joints: There is a levo scoliotic curvature of the lumbar spine centered at L2-L3. There is severe lower lumbar degenerative disease with facet arthropathy and intervertebral disc space narrowing. No acute fracture or dislocation is identified. Soft tissues: Unremarkable. Vasculature: Scattered atherosclerotic disease of the arterial vasculature. IMPRESSION: Severe degenerative disease without acute injury identified.
[2023-07-21 17:02] LABS: Basophils # 0.1 K/mm3 (0-0.2); Basophils % 0.6 % (0.1-2.0); Eosinophils # 0.1 K/mm3 (0.0-0.4); Eosinophils % 0.8 % (0.1-12.0); Hematocrit 43.4 % (37.0-47.0); Hemoglobin 13.7 g/dL (12.2-16.2); Lymphocytes # 2.3 K/mm3 (0.7-4.5); Lymphocytes % 25.8 % (10-50); Mean Corpuscular HGB Conc 31.7 g/dL (31.8-35.4); Mean Corpuscular Hemoglobin 36.8 pg (27.0-31.2); Mean Corpuscular Volume 116.2 fl (81-99); Mean Platelet Volume 8.9 fl (7.4-10.4); Monocytes # 0.4 K/mm3 (0.1-1.0); Monocytes % 4.8 % (1.7-9.3); Neutrophils # 6.1 K/mm3 (1.8-7.8); Neutrophils % 67.9 % (37.0-80.0); Platelet Count 215 K/mm3 (142-424); Red Blood Count 3.73 M/mm3 (4.20-5.40); Red Cell Distribution Width 13.7 % (11.5-17.5); White Blood Count 8.9 K/mm3 (4.8-10.8)
[2023-07-21 17:34] LABS: Alanine Aminotransferase 24 U/L (12-78); Albumin Level 4.1 g/dl (3.5-5.0); Albumin/Globulin Ratio 1.5 (1.1-1.8); Alkaline Phosphatase 99 U/L (38-126); Amylase 49 U/L (30-110); Anion Gap 14.8 mEq/L (5-15); Aspartate Amino Transferase 39 U/L (14-36); Bilirubin,Total 0.5 mg/dl (0.2-1.3); Blood Urea Nitrogen 18 mg/dl (7-17); Carbon Dioxide 19 mmol/L (22.0-30.0); Chloride 103 mmol/L (98-107); Estimated Glomerular Filt Rate 49 ml/min (>60); GFR (African American) 59 ML/MIN (>60); Globulin 2.8 g/dL (1.3-3.2); Glucose 68 mg/dl (74-100); Lipase 310 U/L (23-300); Potassium 3.8 mmoL/L (3.5-5.1); Sodium 133 mmol/L (136-145); Total Protein,Serum 6.9 g/dl (6.3-8.2)
== END ==
PROVIDERS: PCP Internal Medicine Adolescent Medicine; Visit Provider Internal Medicine Adolescent Medicine
DX: M54.50 Low back pain, unspecified (principal); R10.84 Generalized abdominal pain; M25.552 Pain in left hip
CPT/HCPCS: 36415; 72110; 73552; 80053; 82150; 83690; 85025

== ENCOUNTER 2023-07-23 13:00 | Outpatient (RCR) | payer MEDICARE, SELFPAY ==
--- NOTE | 2023-07-08 09:01 | HMH.PTOPEV ---
PT Outpatient Evaluation Rehab PT Outpatient Evaluation Start: 07/08/23 08:41 Freq: Status: Active Protocol: Document 07/08/23 08:41 OSMANY (Rec: 07/08/23 09:01 OSMANY [id number]) E-signed By Thee Mcnair, PT Outpatient Therapy Subjective History Subjective History Patient is a 72 year old female presenting to outpatient PT with reports of chronic LBP with acute LLE radicular symptoms starting approx 1 month ago. Radicular symptoms of insidious onset. No recent imaging to report, though patient does report hx of scoliosis. Palpation indicates LS concave R scoliosis. Comorbidities include hx of ashtma, R pneumothorax, HTN and HL. New diagnosis of cancer in past 12 No months? Chief Complaint Pain,Spasms,Stiff,Paresthesia Symptom Type Ache Symptoms Relieved By Rest/Positioning,Prescription Meds Symptoms Aggravated By Standing,Bending/Stooping, Physical Activity,Walking, Lifting Prior Functional Limitations None Current Functional Limitations Lifting,Housework,Sleeping, Standing,Walking,Stairs, Balance,Bending/Stooping Symptom Description Constant but Variable Level of pain today (0-10) 8 Pain scale - at its best (0-10) 6 Pain scale - at its worst (0-10) 9 Lumbopelvic Eval Posture Thoracic Spine Posture Standing Position Fixed Scoliosis on (L) Lumbar Spine Posture Standing Position Flexible Scoliosis on (R) Assistive device Assistive Devices None / NA Palapation tenderness left Lumbar/Sacral Palpation Findings Tenderness Lumbar/Sacral Palpation Overall Comment L SIJ 3/4 Accessory Movement L4 left L5 left S1 left Range of Motion Lumbar Spine Active Flexion Range of 82 Motion (degrees) Lumbar Spine Active Extension Range of 12 Motion (degrees) Left Lumbar Spine Lateral Flexion Active 17 Range of Motion (degrees) Right Lumbar Spine Lateral Flexion 12 Active Range of Motion (degrees) Lumbar Spine ROM Limitations Soft Tissue Tightness,Bony Restriction Manual Muscle Test Bilateral Knee Extension Strength Grade 5 Normal Knee Flexion Strength Grade 5 Normal Hip Flexion Strength Grade 5 Normal Extensor Hallucis Longus Strength Grade 5 Normal Ankle Dorsiflexion Strength Grade 5 Normal Gastronemius/Soleus Strength Grade 5 Normal Altered Sensation Left LE Dermatome Level L4,L5 Comment Dull ache Special Tests Lumbar Spine Screen Positive Hip Ruy (ALTON) Test Positive Left,Positive Right Hip Negra Test Positive Left,Positive Right Hip Piriformis Test Positive Left,Positive Right Sciatic Nerve Tension Test Negative Right,Positive Left Neil Test Positive Sacroiliac Joint Compression Test Positive Left Sacroiliac Joint Distraction Test Positive Left Lumbar Long Lanett Distraction Test/Manual Positive Traction Oswestry Index Section 1 Pain Intensity The pain comes and goes and is severe Section 2 Personal Care (Washing,Dresing) increase the pain and I find it necessary to change my way of doing it Section 3 Lifting Pain prevents me from lifting weights off the floor Section 4 Walking I cannot walk at all without increasing pain Section 5 Sitting I can sit in my favorite chair for as long as I like Section 6 Standing I cannot stand more than 10 minutes without increasing pain Section 7 Sleeping I get pain in bed, but it does not prevent me from sleeping well Section 8 Social Life Pain has restricted my social life and I do not go out often Section 9 Traveling I get some pain when traveling , but none of my usual forms of travel m Section 10 Changing Degreee of Pain My pain seems to be getting better, but improvement is slow Score and Risk Level Oswestry Sc 26 Oswestry Risk Level Severe Disability Outpatient Therapy Assessment Impairments Problems/Impairmments Palpation Tenderness,Impaired Range of Motion,Impaired Walking,Impaired Standing, Impaired Lifting,Impaired Household Care,Impaired Bending,Subjective C/O Pain Prognosis Rehab Potential Good Clinical Impression Consistent with Diagnosis Yes Short Term Goals Number of Weeks 2 Decrease Subjective C/O Pain Yes: 10 at worst Patient to be Ind w/ HEP Yes Chcf Goals Number of Weeks 4-6 Decreased Palpation Tenderness Yes: 1/ Increase Range of Motion Yes: WNL Increase Ability to Walk Yes: 30 min without difficulty Increase Ability to Stand Yes: Improve Ability For Household Care Yes Decrease Subjective C/O Pain Yes: 10 at worst Outpatient Therapy Plan of Care Treatment Plan May Include Therapeutic Exercise Including Home Yes Exercise Program Manual Therapy Techniques Yes Neuromuscular Re-education Yes Therapeutic Activities to Return to Yes Previous Functional/Work Level Gait Training Yes ADL/Self Care Education Yes Mechanical Traction Yes Dry Needling Yes Thermal Modalities Yes Electrical Stimulation Yes Ultrasound/Phonophoresis Yes Iontophoresis Yes Orthotics/Bracing/Splinting Yes Massage Yes Eval/Re-Eval Yes Frequency Times per week 2 Duration Number of Weeks 4-6 Addendums This patient is a candidate for social No or vocational rehab? Patient/Guardian verbally acknowledges Yes understanding of treatment program and consents to further treatment? Patient/Guardian verbally acknowledges Yes understanding of diagnosis, prognosis and goals for treatment? G -code Required No Eval Complexity PT Charges 88474 - Moderate Complexity Shoulder/Elbow Eval Shoulder Objective Measurements Elbow Objective Measurements PHYSICIAN CERTIFICATION: I certify the specified therapy services for Yamilet Purdom are required, authorized, and reviewed every 30 days.
== END 2023-07-23 14:00 | disposition home or self-care (01) ==
LOC: PT 13:00
PROVIDERS: PCP Internal Medicine Adolescent Medicine; Visit Provider Internal Medicine Adolescent Medicine
DX: M54.16 Radiculopathy, lumbar region (principal)
CPT/HCPCS: 97010; 97014; 97110; 97140; 97163; G0283

== ENCOUNTER 2023-07-27 16:16 | Inpatient (IN) | payer MEDICARE, OTHER, SELFPAY ==
[2023-07-27 16:19] VITALS: BP 129/80; PULSE 99; RESP 16; TEMP 36.7; O2SAT 95; BMI 20.9
--- NOTE | 2023-07-27 16:48 | HMH.EDGENADL ---
Discharge Plan Disposition Patient Disposition: Admitted Chief Complaint: Nausea/Vomiting/Diarrhea Clinical Impressions Clinical Impression: Pancreatitis, Acute hypokalemia Discharge ED Provider: Zenon Azul General Adult HPI General Chief complaint: Nausea/Vomiting/Diarrhea Stated complaint: phy ref poss dehydration Time Seen by Provider: 07/27/23 16:42 History of Present Illness HPI narrative: Patient is a 72-year-old female with past medical history of hypertension, hyperlipidemia, COPD, hyponatremia, recent fluid overload that was prescribed diuretics who presents emergency department for evaluation of possible dehydration. History is obtained by patient at bedside. Patient has been taking an unknown diuretic over the last month prescribed by Dr. Awad's office for fluid overload centered around her bilateral lower extremities. As of late she has had nausea, vomiting, nonbloody diarrhea. They called Dr. Awad's office who instructed her to come here for continued evaluation. No other acute complaints at this time. Patient is not taking her diuretic any longer. Related Data Home Medications Medication Instructions Recorded Confirmed alendronate 70 mg tablet 70 mg PO WEEKLY Osteoporosis 08/27/22 03/18/23 atorvastatin 40 mg tablet 40 mg PO DAILY Cholesterol 08/27/22 03/18/23 metoprolol tartrate 50 mg tablet 50 mg PO BID Hypertension 08/27/22 03/18/23 ibuprofen 800 mg tablet 800 mg PO TIDP PRN Pain 01/10/23 03/18/23 montelukast 10 mg tablet 10 mg PO PM Allergy symptoms 01/10/23 03/18/23 Previous Rx's Medication Instructions Recorded albuterol sulfate 90 mcg/actuation 1 inh inhalation QID PRN shortness 01/13/23 aerosol inhaler of breath or wheezing 30 days #8.5 grams azelastine 137 mcg (0.1 %) nasal 2 spray intranasal HS 90 days #30 03/18/23 spray aerosol mL budesonide-formoterol HFA 160 2 puff inhalation BID 90 days 03/18/23 mcg-4.5 mcg/actuation aerosol #10.2 grams inhaler (Symbicort) fluticasone propionate 50 2 spray intranasal DAILY 90 days 07/13/23 mcg/actuation nasal #16 grams spray,suspension (Flonase Allergy Relief) Allergies Allergy/AdvReac Type Severity Reaction Status Date / Time oxytetracycline Allergy Unknown PASSES OUT Verified 03/18/23 10:00 [From TERRAMYCIN] [facility] Disclaimer: The information contained in this section may have been updated after the patient was seen, as this information can be updated by other users. Medical History (Updated 07/27/23 @ 20:31 by Zenon Azul MD) Allergic rhinitis Emphysema/COPD Encounter for screening for malignant neoplasm of lung Hyperlipidemia Hypertension Osteoporosis Pneumonia Pulmonary emphysema Smoking greater than 30 pack years Tobacco abuse Surgical History History of colonoscopy Hx of hand surgery Family History Brother Family history of cancer Daughter Family history of celiac disease Other Family history of [place] (myocardial infarction) Family history of heart disease Social History (Updated 03/18/23 @ 10:02 by Yamilet Basurto) Smoking Status: Current every day smoker tobacco type: cigarettes packs per day: 1 pack-years: 35 years smoked: 35 alcohol intake: current substance use type: denies use current occupational status: retired Travel in the last 8 weeks: Inside the [place] household members: spouse housing: house lives independently: Yes marital status: caffeine: Yes special andrés needs: No agree to transfusion: No do you feel safe at home: Yes victim of physical abuse: No victim of emotional abuse: No victim of sexual abuse: No would you like helpful sources: No ROS Obtained: Yes Systems reviewed as appropriate & no additional complaints except as documented Physical Exam General General appearance: alert and in no apparent distress José Miguela
[2023-07-27 16:59] LABS: Basophils % 0.2 % (0.1-2.0); Eosinophils # 0.1 K/mm3 (0.0-0.4); Eosinophils % 0.8 % (0.1-12.0); Hematocrit 41.9 % (37.0-47.0); Hemoglobin 13.6 g/dL (12.2-16.2); Lymphocytes # 1.5 K/mm3 (0.7-4.5); Mean Corpuscular HGB Conc 32.4 g/dL (31.8-35.4); Mean Corpuscular Hemoglobin 37.2 pg (27.0-31.2); Mean Corpuscular Volume 114.9 fl (81-99); Mean Platelet Volume 8.6 fl (7.4-10.4); Monocytes # 0.5 K/mm3 (0.1-1.0); Monocytes % 6.5 % (1.7-9.3); Neutrophils # 6.2 K/mm3 (1.8-7.8); Neutrophils % 74.5 % (37.0-80.0); Platelet Count 236 K/mm3 (142-424); Red Blood Count 3.65 M/mm3 (4.20-5.40); Red Cell Distribution Width 13.5 % (11.5-17.5); White Blood Count 8.4 K/mm3 (4.8-10.8)
[2023-07-27 17:04] LABS: Chloride 92 mmol/L (98-107); Sodium 126 mmol/L (136-145)
[2023-07-27 17:06] LABS: Alanine Aminotransferase 37 U/L (12-78); Aspartate Amino Transferase 67 U/L (14-36); Blood Urea Nitrogen 6 mg/dl (7-17); Creatinine Clearance Estimated 44 mL/min (50-200); Estimated Glomerular Filt Rate 122 ml/min (>60); GFR (African American) 147 ML/MIN (>60)
[2023-07-27 17:07] LABS: Albumin Level 3.9 g/dl (3.5-5.0); Albumin/Globulin Ratio 1.3 (1.1-1.8); Alkaline Phosphatase 145 U/L (38-126); Bilirubin,Total 0.7 mg/dl (0.2-1.3); Calcium 8.5 mg/dl (8.4-10.2); Carbon Dioxide 27 mmol/L (22.0-30.0); Glucose 107 mg/dl (74-100); Total Protein,Serum 6.9 g/dl (6.3-8.2)
[2023-07-27 17:32] LABS: Anion Gap 9.1 mEq/L (5-15)
[2023-07-27 17:33] LABS: Lipase 660 U/L (23-300); Potassium 2.1 mmoL/L (3.5-5.1)
--- NOTE | 2023-07-27 17:33 | PC.NURSE ---
CRITICAL LABS RECEIVED AT THIS TIME FROM [facility] IN LAB K+ 2.1, LIPASE 660. PT NAME AND R/V DR PUENTES NOTIFIED
--- NOTE | 2023-07-27 17:34 | CT_ITS ---
PROCEDURE INFORMATION: Exam: CT Abdomen And Pelvis With Contrast Exam date and time: 07/27/2023 6:07 PM Age: 72 years old Clinical indication: Abdominal pain; Generalized; Additional info: Pancreatitis, general abd pain TECHNIQUE: Imaging protocol: Computed tomography of the abdomen and pelvis with contrast. Radiation optimization: All CT scans at this facility use at least one of these dose optimization techniques: automated exposure control; mA and/or kV adjustment per patient size (includes targeted exams where dose is matched to clinical indication); or iterative reconstruction. Contrast material: ISOVUE; Contrast volume: 75 ml; Contrast route: IV; REPORTING DATA: Count of CT and Cardiac NM exams in prior 12 months: This patient has received [address] and 0 known cardiac nuclear medicine studies in the 12 months prior to the current study. COMPARISON: CR XR LUMBAR SPINE MIN 4V 21/07/2023 16:56 FINDINGS: Lungs: Mild scarring and atelectasis in the lower lungs. Coronary arteries: Coronary artery calcifications. Liver: Normal. No mass. Gallbladder and bile ducts: Distended gallbladder. Pancreas: Normal. No ductal dilation. Spleen: Normal. No splenomegaly. Adrenal glands: Normal. No mass. Kidneys and ureters: Low attenuation renal lesions measuring up to 10 mm in diameter are incompletely characterized, but are likely cysts. No followup imaging is warranted. Stomach and bowel: Bowel wall thickening of most of the small bowel and colon. Mild gastric wall thickening is nonspecific. Appendix: Unremarkable appendix. Intraperitoneal space: Unremarkable. No free air. No significant fluid collection. Vasculature: The arteries demonstrate moderate atherosclerotic disease. Lymph nodes: Unremarkable. No enlarged lymph nodes. Urinary bladder: Unremarkable as visualized. Reproductive: Unremarkable as visualized. Bones/joints: Old right rib fractures. Appearance of the sacrum suggests chronic bilateral insufficiency fractures. Soft tissues: Tiny fat containing umbilical hernia. Other findings: Stigmata of old granulomatous disease. IMPRESSION: 1. No abnormalities to correlate with acute pancreatitis. 2. Bowel wall thickening of most of the small bowel and colon. Enterocolitis could have this appearance in the appropriate clinical setting. 3. Mild gastric wall thickening is nonspecific. Please exclude gastritis. COMMENTS: Consistent with the [place] [employer]'s Incidental Findings Committee white paper (J Am Zachary Radiol 2018): Any incidental renal lesion less than 1 cm or classified as too small to characterize, or any incidental cystic renal lesion characterized as simple-appearing, is likely benign. No follow-up imaging is recommended for these lesions per consensus recommendations based on imaging criteria.
--- NOTE | 2023-07-27 18:08 | PC.NURSE ---
PT TO RAD
[2023-07-27 18:26] LABS: Microscopic, Urine URINE MICROSCOPIC (MICROSCOPIC)
[2023-07-27 18:33] LABS: Appearance,Urine CLEAR (Clear); Bilirubin,Urine Negative (Negative); Blood, Urine Negative (Negative); Color,Urine YELLOW (Yellow); Glucose,Urine (UA) Negative (Negative); Ketones,Urine Negative (Negative); Leukocyte Esterase,Urine Negative (Negative); Nitrate,Urine Negative (Negative); PH,Urine 6.5 (5.0-8.5); Protein,Urine Negative (Negative); Specific Gravity, Urine <= 1.005 (1.005-1.030); Urobilinogen,Urine 0.2 EU/dl (0.2)
[2023-07-27 19:00] VITALS: BP 121/75; PULSE 97; RESP 16; TEMP 36.8; O2SAT 94
[2023-07-27 20:00] VITALS: BP 118/70; PULSE 92; O2SAT 97
[2023-07-27 20:10] LABS: Ethyl Alcohol < 10 mg/dl (0-10)
--- NOTE | 2023-07-27 20:27 | PC.NURSE ---
Report called to CRISTEL Crowe.
[2023-07-27 20:30] VITALS: BP 118/70; PULSE 97; RESP 16; TEMP 36.6; O2SAT 98
[2023-07-27 20:33] LABS: Coronavirus 19, PCR Not Detected (NotDetected); Influenza A, PCR Not Detected (NotDetected); Influenza B, PCR Not Detected (NotDetected)
[2023-07-27 20:39] LABS: Lipase 807 U/L (23-300)
--- NOTE | 2023-07-27 20:39 | PC.NURSE ---
Reported critical Lipase of [address] Azul
--- NOTE | 2023-07-27 20:41 | PC.NURSE ---
in room talking with patient at this time.
[2023-07-27 21:00] VITALS: BP 105/61; PULSE 90; RESP 16; TEMP 36.8; O2SAT 92; BMI 22.6
--- NOTE | 2023-07-27 21:24 | PC.NURSE ---
pt arrived to floor via wheelchair @20:50
[2023-07-27 23:46] VITALS: BP 114/68; PULSE 98; RESP 14; TEMP 37.1; O2SAT 96
[2023-07-28] VITALS (9 sets, daily range): BP systolic 110–134; BP diastolic 57–87; PULSE 92–105; RESP 16–20; TEMP 37–37.7; O2SAT 93–98; BMI 22.6
[2023-07-28 07:23] LABS: Alanine Aminotransferase 24 U/L (12-78); Albumin Level 2.8 g/dl (3.5-5.0); Alkaline Phosphatase 102 U/L (38-126); Anion Gap 6.3 mEq/L (5-15); Aspartate Amino Transferase 35 U/L (14-36); Bilirubin,Total 0.6 mg/dl (0.2-1.3); Blood Urea Nitrogen 4 mg/dl (7-17); Calcium 7.9 mg/dl (8.4-10.2); Carbon Dioxide 23 mmol/L (22.0-30.0); Chloride 106 mmol/L (98-107); Creatinine Clearance Estimated 47 mL/min (50-200); Estimated Glomerular Filt Rate 157 ml/min (>60); GFR (African American) 190 ML/MIN (>60); Globulin 2.7 g/dL (1.3-3.2); Glucose 84 mg/dl (74-100); Lipase 369 U/L (23-300); Potassium 3.3 mmoL/L (3.5-5.1); Sodium 132 mmol/L (136-145); Total Protein,Serum 5.5 g/dl (6.3-8.2)
[2023-07-28 07:28] LABS: Basophils % 0.2 % (0.1-2.0); Eosinophils # 0.1 K/mm3 (0.0-0.4); Eosinophils % 1.3 % (0.1-12.0); Lymphocytes # 1.6 K/mm3 (0.7-4.5); Lymphocytes % 22.8 % (10-50); Mean Corpuscular HGB Conc 32.1 g/dL (31.8-35.4); Mean Corpuscular Hemoglobin 37.1 pg (27.0-31.2); Mean Corpuscular Volume 115.6 fl (81-99); Mean Platelet Volume 8.5 fl (7.4-10.4); Monocytes # 0.5 K/mm3 (0.1-1.0); Monocytes % 7.6 % (1.7-9.3); Neutrophils # 4.7 K/mm3 (1.8-7.8); Neutrophils % 68.1 % (37.0-80.0); Platelet Count 195 K/mm3 (142-424); Red Blood Count 3.03 M/mm3 (4.20-5.40); Red Cell Distribution Width 13.4 % (11.5-17.5); White Blood Count 6.9 K/mm3 (4.8-10.8)
[2023-07-28 07:38] LABS: Hemoglobin 11.2 g/dL (12.2-16.2)
--- NOTE | 2023-07-28 07:55 | XR_ITS ---
FINAL REPORT CLINICAL HISTORY: foot pain..no trauma..pain on top of lt foot FINDINGS: AP, oblique and lateral views of the left foot were obtained. There is no prior exam for comparison. There is no acute fracture or dislocation. There is deformity of the 4th proximal phalanx and base of the 5th proximal phalanx favored to be old fractures. The joint spaces are preserved. Soft tissues are normal. IMPRESSION: No acute osseous abnormality of the left foot. Reviewed, Interpreted and Dictated by Radha Miranda MD Transcribed by Jennifer Garibay Authenticated and . [facility]
--- NOTE | 2023-07-28 08:00 | EXP.HP ---
History of Present Illness *Admission Date: 07/27/23 *Reason for visit:: Abdominal pain and vomiting *History of present illness: 72-year-old female with history of hypertension and emphysema and history of hyponatremia from diuretics who has had for 5 days of increasing vomiting, mild abdominal pain and weakness. She called my office and I encouraged her to go to the ER for evaluation. In the ER she was found to be dehydrated, have acute kidney injury and to have significant hypokalemia with potassium of 2.1. Admitted for observation, electrolyte replacement and further diagnostic testing. Also was found to have elevated amylase and lipase and admitted for pain control and pancreatitis treatment as well. [facility] Disclaimer: The information contained in this section may have been updated after the patient was seen, as this information can be updated by other users. Medical History (Updated 07/28/23 @ 08:03 by Alfred Awad MD) Allergic rhinitis Emphysema/COPD Encounter for screening for malignant neoplasm of lung Hyperlipidemia Hypertension Osteoporosis Pneumonia Pulmonary emphysema Smoking greater than 30 pack years Tobacco abuse Surgical History History of colonoscopy Hx of hand surgery Family History Brother Family history of cancer Daughter Family history of celiac disease Other Family history of [place] (myocardial infarction) Family history of heart disease Social History Smoking Status: Current every day smoker tobacco type: cigarettes packs per day: 1 pack-years: 35 years smoked: 35 alcohol intake: current substance use type: denies use current occupational status: retired Travel in the last 8 weeks: [place] the [place] household members: spouse housing: house lives independently: Yes marital status: caffeine: Yes special andrés needs: No agree to transfusion: No do you feel safe at home: Yes victim of physical abuse: No victim of emotional abuse: No victim of sexual abuse: No would you like helpful sources: No Meds Home Medications and Allergies Home Medications Medication Instructions Recorded Confirmed Type atorvastatin 40 mg tablet 40 mg PO DAILY Cholesterol 08/27/22 07/27/23 History metoprolol tartrate 50 mg tablet 50 mg PO BID Hypertension 08/27/22 07/27/23 History montelukast 10 mg tablet 10 mg PO PM Allergy symptoms 01/10/23 07/27/23 History azelastine 137 mcg (0.1 %) nasal 2 spray intranasal HS 90 days #30 03/18/23 07/27/23 Rx spray aerosol mL budesonide-formoterol HFA 160 2 puff inhalation BID 90 days 03/18/23 07/27/23 Rx mcg-4.5 mcg/actuation aerosol #10.2 grams inhaler (Symbicort) fluticasone propionate 50 2 spray intranasal DAILY 90 days 07/13/23 07/27/23 Rx mcg/actuation nasal #16 grams spray,suspension (Flonase Allergy Relief) hydrochlorothiazide 50 mg tablet 50 mg PO DAILY heart 07/27/23 07/27/23 History potassium chloride 20 mEq 20 meq PO DAILY low K+ 07/27/23 07/27/23 History tablet,extended release(part/cryst) trazodone 50 mg tablet 50 mg PO HS sleep 07/27/23 07/27/23 History acetaminophen 300 mg-codeine 30 mg 1 - 2 tab PO BIDP PRN Severe Pain 07/28/23 07/28/23 History tablet (Scale Score 7-10) albuterol sulfate 90 mcg/actuation 2 puff inhalation Q6HP PRN 07/28/23 07/28/23 History aerosol inhaler Shortness Of Breath alendronate 70 mg tablet 70 mg PO WEEKLY Bone Health 07/28/23 07/28/23 History ibuprofen 800 mg tablet 800 mg PO TIDP PRN Mild Pain 07/28/23 07/28/23 History (Scale Score 1-4) New Prescriptions to Start Prescriptions: Allergies Allergy/AdvReac Type Severity Reaction Status Date / Time oxytetracycline Allergy Unknown PASSES OUT Verified 03/18/23 10:00 [From TERRAMYCIN] Exam Data for Last 24 hours Vital signs and Labs
--- NOTE | 2023-07-28 08:01 | HMH.PHAINT1 ---
Pharmacy Intervention Comments: MEDICATION RECONCILIATION COMPLETED ON PATIENT USING EXTERNAL FILL HISTORY FROM PHARMACY. -CUONG MARLEY, LANAD
[2023-07-28 08:10] LABS: Uric Acid 2.1 mg/dl (2.5-6.2)
[2023-07-28 12:38] LABS: Adenovirus F 40/41, stool Not Detected (NotDetected); Astrovirus Not Detected (NotDetected); Campylobacter Not Detected (NotDetected); Cryptosporidium Not Detected (NotDetected); Cyclospora Cayetanesis Not Detected (NotDetected); Entamoeba histolytica Not Detected (NotDetected); Enteroaggregative E coli Not Detected (NotDetected); Enteropathogenic E coli Not Detected (NotDetected); Enterotoxigenic E coli Not Detected (NotDetected); Giardia lamblia Not Detected (NotDetected); Norovirus Not Detected (NotDetected); Plesimonas Shigalloides, PCR Not Detected (NotDetected); Rotavirus A Not Detected (NotDetected); Salmonella, PCR Not Detected (NotDetected); Sapovirus Not Detected (NotDetected); Shiga-like toxin E coli Not Detected (NotDetected); Shigella Enterovasive E coli Not Detected (NotDetected); Vibrio Cholerae Not Detected (NotDetected); Vibrio, PCR Not Detected (NotDetected); Yersinia Entercolitica, PCR Not Detected (NotDetected)
[2023-07-28 18:35] LABS: Clostridium Difficile A/B, PCR Detected (NotDetected)
[2023-07-29] VITALS (9 sets, daily range): BP systolic 123–136; BP diastolic 72–85; PULSE 53–117; RESP 16–20; TEMP 36.8–37.4; O2SAT 91–95; BMI 23.4
[2023-07-29 06:32] LABS: Basophils % 0.2 % (0.1-2.0); Eosinophils # 0.1 K/mm3 (0.0-0.4); Eosinophils % 1.8 % (0.1-12.0); Hematocrit 33.9 % (37.0-47.0); Hemoglobin 10.5 g/dL (12.2-16.2); Lymphocytes # 1.7 K/mm3 (0.7-4.5); Lymphocytes % 26.4 % (10-50); Mean Corpuscular HGB Conc 31.1 g/dL (31.8-35.4); Mean Corpuscular Hemoglobin 37.4 pg (27.0-31.2); Mean Corpuscular Volume 120.4 fl (81-99); Mean Platelet Volume 9.5 fl (7.4-10.4); Monocytes # 0.6 K/mm3 (0.1-1.0); Monocytes % 9.5 % (1.7-9.3); Neutrophils # 3.9 K/mm3 (1.8-7.8); Platelet Count 178 K/mm3 (142-424); Red Blood Count 2.82 M/mm3 (4.20-5.40); Red Cell Distribution Width 13.3 % (11.5-17.5); White Blood Count 6.3 K/mm3 (4.8-10.8)
[2023-07-29 07:23] LABS: Anion Gap 7.8 mEq/L (5-15); Blood Urea Nitrogen 3 mg/dl (7-17); Calcium 8.3 mg/dl (8.4-10.2); Carbon Dioxide 16 mmol/L (22.0-30.0); Chloride 107 mmol/L (98-107); Creatinine Clearance Estimated 49 mL/min (50-200); Estimated Glomerular Filt Rate 157 ml/min (>60); GFR (African American) 190 ML/MIN (>60); Glucose 74 mg/dl (74-100); Potassium 3.8 mmoL/L (3.5-5.1); Sodium 127 mmol/L (136-145)
--- NOTE | 2023-07-29 07:40 | PC.NURSE ---
pt reported nausea. zofran given, pt reports c/o lft foot pain, ms given prn for pain, pt cont to report diarrhea. vancomycin suspension ordered but unavailable., pt currently sr-st on monitor
--- NOTE | 2023-07-29 08:16 | EXP.ACUTE.PN ---
Subjective *Date: 07/29/23 *Time: 08:16 Interval history: Patient feels little better than yesterday, diarrhea is about the same, has been able to keep clear liquids down. Has been able to get up and go to the bathroom but is very unsteady and weak. Medical Exam Vital signs and Labs for Last 24 Hours: Vital Signs Temp Pulse Pulse Resp BP Pulse Ox O2 Del Method 07/29/23 07:46 98.2 F 95 H 16 136/81 93 L Room Air 07/29/23 04:00 110 H 07/29/23 05:00 Room Air 07/29/23 03:00 Room Air 07/29/23 04:00 99.2 F 106 H 20 123/85 91 L Room Air 07/29/23 01:00 Room Air 07/29/23 00:00 99.3 F 103 H 20 124/75 94 L Room Air 07/29/23 00:00 100 H 07/28/23 23:00 Room Air 07/28/23 20:00 100 H 07/28/23 21:00 Room Air 07/28/23 21:24 104 H Room Air 07/28/23 20:00 99.9 F H 105 H 20 134/87 93 L Room Air 07/28/23 17:50 Room Air 07/28/23 16:43 Room Air 07/28/23 15:12 98.6 F 100 H 18 130/72 96 Room Air 07/28/23 12:00 92 H 07/28/23 14:04 Room Air 07/28/23 12:26 Room Air 07/28/23 10:03 Room Air 07/28/23 09:00 Room Air Intake and Output 07/28/23 07/29/23 07/29/23 19:59 03:59 11:59 Intake Total 2160 / 2700 540 / 2700 Output Total 0 / 0 0 / 0 0 / 0 Balance 2160 / 2700 0 / 2700 540 / 2700 Intake: Intake, Oral Amount 960 / 1500 540 / 1500 Intake, Total IV Amount 1200 / 1200 Calcium Gluconate 2,000 mg In 0 100 / 100 .9 % Sodium Chloride 100 ml @ 60 mls/hr IV ONCE ONE Rx#: [id number] Lactated Ringers 1000ML 1,000 1100 / 1100 ml @ 100 mls/hr IV .Q10H [facility] Rx #:[id number] Output: Output, Urine Amount 0 / 0 0 / 0 0 / 0 Other: Number of Unmeasured Voids 0 1 1 Number of Bowel Movements 1 1 Weight 132 lb 6.4 oz Patient Weight 07/29/23 11:59 Weight 132 lb 6.4 oz Laboratory Results - last 24 hr 07/28/23 12:30: Stl Aeromonas (PCR) Not detected, Stl C. cayetanensis PCR Not detected, Stool Rotavirus (PCR) Not detected, Stl Adenov F 40/41 PCR Not detected, Stool Astrovirus (PCR) Not detected, Stool Campylobacter PCR Not detected, Stl C.difficile Tox PCR Detected A, Stool Cryptosporidium PCR Not detected, Stl E.coli Shiga Tox PCR Not detected, Stool E coli O157 PCR Not detected, Stl Enterotoxigenic E PCR Not detected, Stool EPEC (PCR) Not detected, Stool EAEC (PCR) Not detected, Stl E. histolytica PCR Not detected, Stool Giardia Lamblia PCR Not detected, Stool Salmonella PCR Not detected, Stool Sapovirus (PCR) Not detected, Stl P. shigelloides PCR Not detected, Stl Shigella/EIEC PCR Not detected, St Y.enterocolitica PCR Not detected, Stool Vibrio (PCR) Not detected, Stl Vibrio cholerae PCR Not detected, Stl Norovirus GI/GII PCR Not detected 07/29/23 05:15: WBC 6.3, RBC 2.82 L, Hgb 10.5 L, Hct 33.9 L, MCV 120.4 H, MCH 37.4 H, MCHC 31.1 L, RDW 13.3, Plt Count 178, MPV 9.5, Neut % (Auto) 62.0, Lymph % (Auto) 26.4, [place] % (Auto) 9.5 H, Eos % (Auto) 1.8, Baso % (Auto) 0.2, Neut # (Auto) 3.9, Lymph # (Auto) 1.7, [place] # (Auto) 0.6, Eos # (Auto) 0.1, Baso # (Auto) 0.0, Sodium 127 L, Potassium 3.8, Chloride 107, Carbon Dioxide 16 L, Anion Gap 7.8, BUN 3 L, Creatinine 0.40 L, Estimated Creat Clear 49, Estimated GFR 157, Est GFR ( Amer) 190, Glucose 74, Calcium 8.3 L I & O for Labs for Last 24 Hours: Intake & Output 07/26/23 07/27/23 07/28/23 07/29/23 11:59 11:59 11:59 11:59 Intake Total 223 / 2231 2700 / 2700 Output Total 0 / 0 0 / 0 Balance 2231 / 2231 2700 / 2700 Weight 128 lb 1.6 oz 132 lb 6.4 oz Comment:: Alert, pleasant. Appears to be better hydrated. Neurologically intact, abdomen soft, very minimal epigastric tenderness. Heart rate regular, lungs clear. Foot exam unchanged in the left side, right side without edema. Assessment and Plan *Assessment and plan (1) Pancreatitis: Status: Acute Category: Medical
--- NOTE | 2023-07-29 09:50 | HMH.OTEV ---
OT Inpatient Evaluation Rehab OT IP Evaluation Start: 07/29/23 08:14 Freq: ONCE Status: Active Protocol: [facility]29[facility]23 09[facility] (Rec: 07/29/23 09:50 [facility] [id number]) Rehab OT IP Assessment Subjective History Pt oriented x 3 on arrival. Pt agreeable to engage in therapy evaluation. Pt admitted on 07/27/23 due to Pancreatitis and Acute hypokalemia. Pt is a 72-year- old female with history of hypertension and emphysema and history of hyponatremia from diuretics who has had for 5 days of increasing vomiting, mild abdominal pain and weakness. Prior to being in the hospital, pt lived at home with her . Pt claims she was independent with all ADLs and IADLs. She does have someone clean her house weekly. She also still drives . Pt does not use any type of AE during functional transfers. Subjective I feel better than I did. Objective Patient Orientation Person,Place,Birthday Upper Extremity Gross ROM WFL Bed Mobility bed mobility-scooting,bed mobility - supine/sit Assist Level Supervision/Stand by Transfer Training Sit/Stand Transfer Assist Level Supervision/Stand by Feeding Ability Independent Lower Body Dressing Ability Standby Assistance Upper Body Dressing Ability Standby Assistance Performing Toilet Hygiene Ability Standby Assistance Overall Commode/Toilet Transfer Ability Standby Assistance Commode/Toilet Transfer Technique Sit to/from Ambulatory Rehab OT IP prob,goals,plan Problems Date of Evaluation: 07/29/23 Rehab Potential Rehab Potential Innapropriate for Skilled Therapy Discharge Plan OT Discharge Plan Pt appears to be at her baseline with functional tranfers and ADL independence. Pt can return home with her once she is medically stable per physician. Eval Complexity Eval Charge Codes 36244 - Low Complexity
--- NOTE | 2023-07-29 11:05 | HMH.PTEV ---
Physical Therapy Evaluation Rehab PT IP Evaluation Start: 07/29/23 08:15 Freq: ONCE Status: Active Protocol: Document 07/29/23 11:01 [facility]ER[facility]ace[facility] (Rec: 07/29/23 11:04 PHOSRUTHI [id number]) Subjective/History History History 72 yowf adm to [facility] with hypokalemia. SHe has hx of HLD , HTN, COPD. Found to have C- diff on admission. SHe reports she lives with , 2 steps to enter the home, no AD needed for ambulation. and she is independent with all ADLs at baseline. Subjective Subjective Pt reports feeling generally tired this am, but no c/o pain . New diagnosis of cancer in past 12 No months? Rehab PT IP Eval Objective Appearance Patient Behavior Appropriate Patient Orientation Person,Place,Time Difficulty following instructions none Speech Pattern Clear,Appropriate Ambulation Patient Able to Ambulate Yes Ambulation Observation IP General Gait Pattern Observation No Deviations/Normal Ambulation Distance (feet) 40 Ambulation Assistive Device None Ambulation Ability Independent Balance Ability to Arise Able, w/o using arms Sitting Balance Steady, safe Standing Balance Steady, wide stance Dynamic Sitting Balance Ability Good Dynamic Standing Balance Ability Good Transfers Bed Transfer Ability Independent Chair Transfer Ability Independent Sit to Stand Bed Transfer Ability Independent Sit to Stand Chair Transfer Ability Independent Rehab PT IP prob,goals,plan Problems Date of Evaluation: 07/29/23 Discharge Plan PT Discharge Plan Pt is currently at baseline for all mobility and has no inpatient therapy needs at this time. Eval Complexity Eval Charge Codes 14363 - High Complexity PHYSICIAN CERTIFICATION: I certify the specified therapy services for Yamilet Purdom are required, authorized, and reviewed every 30 days.
--- NOTE | 2023-07-29 16:39 | PC.NURSE ---
pt alert and oriented t/o shift. pt ls cta. pt abdomen soft, nontender to touch. pt reports cramping. pt reports episodes of nausea and pain, medicated per dec. pt has also had left foot pain this shift. pt on clear liquid diet. verbal order given per Dr. Awad to increase diet to low fat diet at supper if pt has tolerated clear liquids. advancing diet was held off at this time d/t pt experiencing cramping and pain after clears along with loose stool. pt has ambulated to toilet with assistance x 1. family has been to visit. call light w/i reach.
[2023-07-30] VITALS: BP 115/64; PULSE 100; PULSE 101; RESP 19; TEMP 37.8; O2SAT 92
[2023-07-30 04:00] VITALS: BP 117/66; PULSE 90; PULSE 99; RESP 19; TEMP 37.3; O2SAT 94; BMI 23.3
--- NOTE | 2023-07-30 05:51 | PC.NURSE ---
pt slept intermittently throughout shift. Patient remains on clear liquid diet. Patient reported x2 of pain and nausea. Medicated per DEC with relief. Patient has been ambulating independently to bathroom to void and reports no diarrhea thus far in shift.
[2023-07-30 06:45] LABS: Basophils % 0.2 % (0.1-2.0); Eosinophils # 0.1 K/mm3 (0.0-0.4); Eosinophils % 1.3 % (0.1-12.0); Hematocrit 34.2 % (37.0-47.0); Hemoglobin 10.9 g/dL (12.2-16.2); Lymphocytes # 1.8 K/mm3 (0.7-4.5); Lymphocytes % 22.6 % (10-50); Mean Corpuscular HGB Conc 31.8 g/dL (31.8-35.4); Mean Corpuscular Hemoglobin 37.2 pg (27.0-31.2); Mean Corpuscular Volume 116.8 fl (81-99); Mean Platelet Volume 8.9 fl (7.4-10.4); Monocytes # 0.8 K/mm3 (0.1-1.0); Monocytes % 9.9 % (1.7-9.3); Neutrophils # 5.4 K/mm3 (1.8-7.8); Neutrophils % 66.1 % (37.0-80.0); Platelet Count 206 K/mm3 (142-424); Red Blood Count 2.93 M/mm3 (4.20-5.40); Red Cell Distribution Width 13.2 % (11.5-17.5); White Blood Count 8.1 K/mm3 (4.8-10.8)
[2023-07-30 06:55] LABS: Alanine Aminotransferase 19 U/L (12-78); Albumin Level 2.5 g/dl (3.5-5.0); Alkaline Phosphatase 92 U/L (38-126); Anion Gap 8.5 mEq/L (5-15); Aspartate Amino Transferase 27 U/L (14-36); Bilirubin,Total 0.7 mg/dl (0.2-1.3); Blood Urea Nitrogen 3 mg/dl (7-17); Calcium 8.1 mg/dl (8.4-10.2); Carbon Dioxide 18 mmol/L (22.0-30.0); Chloride 105 mmol/L (98-107); Creatinine Clearance Estimated 49 mL/min (50-200); Estimated Glomerular Filt Rate 157 ml/min (>60); GFR (African American) 190 ML/MIN (>60); Globulin 2.6 g/dL (1.3-3.2); Glucose 77 mg/dl (74-100); Potassium 3.5 mmoL/L (3.5-5.1); Sodium 128 mmol/L (136-145); Total Protein,Serum 5.1 g/dl (6.3-8.2)
--- NOTE | 2023-07-30 07:40 | PC.NURSE ---
iv was infiltrated and removed.
[2023-07-30 08:00] VITALS: BP 113/67; PULSE 104; RESP 18; TEMP 36.8; O2SAT 94; O2SAT 98
--- NOTE | 2023-07-30 08:14 | CA_ITS ---
FINAL REPORT TECHNIQUE: Graded compression, spectral analysis and ultrasound images of the venous system of the upper extremity were obtained. CLINICAL HISTORY: Rule out DVT at IV site. Patient has visible edema noted in the left antecubital region near IV site. IV was removed 1-2 hours ago. FINDINGS: The jugular vein, subclavian vein, axillary vein, brachial vein, cephalic vein and basilic venous system are fully compressible and demonstrate no evidence of thrombosis. IMPRESSION: No evidence of thrombosis of the venous system of the left upper extremity. Reviewed, Interpreted and Dictated by Radha Miranda MD Transcribed by Jennifer Garibay Authenticated and [facility]
--- NOTE | 2023-07-30 14:09 | EXP.DC.SUM ---
General Admission date:: 07/27/23 Discharge date: 07/30/23 HPI HPI HPI: 72-year-old female with history of hypertension and emphysema and history of hyponatremia from diuretics who has had for 5 days of increasing vomiting, mild abdominal pain and weakness. She called my office and I encouraged her to go to the ER for evaluation. In the ER she was found to be dehydrated, have acute kidney injury and to have significant hypokalemia with potassium of 2.1. Admitted for observation, electrolyte replacement and further diagnostic testing. Also was found to have elevated amylase and lipase and admitted for pain control and pancreatitis treatment as well. Hospital Course Hospital Course Hospital Course: Patient was admitted, placed on IV fluids, labs were trended and she improved in regards to her electrolyte disturbances. She was found of C. difficile colitis by serologic testing. She improved with oral vancomycin. Pancreatitis improved with bowel rest and clear liquids. This morning she was doing well, found to have reached all ADL goals and was able to keep fluids and food down. She will be discharged home with oral vancomycin, Tylenol 3 for her foot pain that we will further evaluate in the office and Zofran for nausea. We will discontinue her HCTZ given pancreatitis and electrolyte disturbances. I will see her on Thursday in my office this. Exam Data for Last 24 hours Vital signs and Labs for Last 24 Hours: Temp Pulse Resp BP Pulse Ox O2 Del Method 98.3 F 104 H 18 113/67 98 Room Air 07/30/23 08:00 07/30/23 08:00 07/30/23 08:00 07/30/23 08:00 07/30/23 08:00 07/30/23 12:01 Laboratory Results - last 24 hr 07/30/23 06:25: WBC 8.1 D, RBC 2.93 L, Hgb 10.9 L, Hct 34.2 L, MCV 116.8 H, MCH 37.2 H, MCHC 31.8, RDW 13.2, Plt Count 206, MPV 8.9, Neut % (Auto) 66.1, Lymph % (Auto) 22.6, [place] % (Auto) 9.9 H, Eos % (Auto) 1.3, Baso % (Auto) 0.2, Neut # (Auto) 5.4, Lymph # (Auto) 1.8, [place] # (Auto) 0.8, Eos # (Auto) 0.1, Baso # (Auto) 0.0, Sodium 128 L, Potassium 3.5, Chloride 105, Carbon Dioxide 18 L, Anion Gap 8.5, BUN 3 L, Creatinine 0.40 L, Estimated Creat Clear 49, Estimated GFR 157, Est GFR ( Amer) 190, Glucose 77, Calcium 8.1 L, Total Bilirubin 0.7, AST 27, ALT 19, Alkaline Phosphatase 92, Total Protein 5.1 L, Albumin 2.5 L, Globulin 2.6, Albumin/Globulin Ratio 1.0 L I & O for Last 24 hours: Intake & Output 07/28/23 07/29/23 07/30/23 07/31/23 11:59 11:59 11:59 11:59 Intake Total 2232 / 2232 2700 / 2700 4210 / 4210 Output Total 0 / 0 0 / 0 0 / 0 Balance 2232 / 2232 2700 / 2700 4210 / 4210 Weight 128 lb 1.6 oz 132 lb 6.4 oz 131 lb 14.4 oz Constitutional Constitutional: no acute distress *Routine HEENT Exam Head: Present normocephalic Eye: Present EOMI and PERRL ENT: Present mucous membranes moist *Routine Neck Exam Neck: Present supple; Absent lymphadenopathy *Routine Respiratory Exam Respiratory: Present CTA bilaterally *Routine Cardiovascular Exam Cardiovascular: Present RRR *Routine Abdominal Exam Abdominal: Present soft and normoactive bowel sounds; Absent tenderness *Routine Extremities Exam Extremities: Absent cyanosis, clubbing or edema *Routine Skin Exam Skin: Present warm; Absent rash *Routine Neurological Exam Neurological: Present alert and oriented X3 Results Data Completed and Pending Labs on day of discharge: Labs from last 24 hours 07/30/23 06:25 WBC 8.1 D RBC 2.93 L Hgb 10.9 L Hct 34.2 L MCV 116.8 H MCH 37.2 H MCHC 31.8 RDW 13.2 Plt Count 206 MPV 8.9 Neut % (Auto) 66.1 Lymph % (Auto) 22.6 [place] % (Auto) 9.9 H Eos % (Auto) 1.3 Baso % (Auto) 0.2 Neut # (Auto) 5.4 Lymph # (Auto) 1.8 [place] # (Auto) 0.8 Eos # (Auto) 0.1 Baso # (Auto) 0.0 Sodium 128 L Potassium 3.5 Chloride 105 Carbon Dioxide 18 L Anion Gap 8.5 BUN 3 L Creatinine 0.40 L Estimated Creat Clear 49 Estimated GFR 157 Est GFR ( Amer) 190 Glucose 77
--- NOTE | 2023-07-31 14:45 | CARE MANAGER ---
Contacted patient related to hospital discharge. She states she is feeling better. She picked up her medication and is aware of follow up appointment tomorrow. She denies questions or concerns. CRISTEL Duarte
== END 2023-07-30 15:25 | disposition home or self-care (01) | DRG 371 ==
LOC: ER 16:26 → 2ND 20:31
PROVIDERS: Admitting Provider Internal Medicine Adolescent Medicine; Emergency Provider Emergency Medicine; PCP Internal Medicine Adolescent Medicine; Visit Provider Internal Medicine Adolescent Medicine
DX: A04.72 Enterocolitis due to Clostridium difficile, not specified as recurrent (principal); K85.90 Acute pancreatitis without necrosis or infection, unspecified; N17.9 Acute kidney failure, unspecified; E87.6 Hypokalemia; E83.51 Hypocalcemia; M79.673 Pain in unspecified foot; I10 Essential (primary) hypertension; E78.5 Hyperlipidemia, unspecified; M81.0 Age-related osteoporosis without current pathological fracture; F17.210 Nicotine dependence, cigarettes, uncomplicated
CPT/HCPCS: 36415; 73630; 74177; 80048; 80053; 81001; 83690; 84550; 85025; 87507; 87636; 93971; 97163; 97165; 99285; J2405; Q9967

== ENCOUNTER → 2023-08-07 15:38 | Outpatient (CLI) | payer MEDICARE, SELFPAY ==
--- OUTSIDE RECORDS SUMMARY | 2023-08-07 15:46 | XMS_ITS | Patient Health Record ---
Author Name Unknown Organization [facility] Address [address] [place] [address] Care Team Providers Care Supervisor Intelligence Analyst Name Role Phone Alfred Awad Primary Care Provider Michelle Perea Unavailable [phone] Lacie Arvizu Unavailable [phone] ALLERGIES Allergen (clinical drug ingredient) Drug/Non Drug Allergy documented on EMR Reaction Allergy Type Onset Date Status Terimycin (uncoded) black outs Allergy Active RESULTS Component Value Reference Range Notes CBC with Diff plus Absolute Counts Reviewed date:12/26/2022 09:55:16 AM Interpretation: Performing Lab: Notes/Report: Test performed by [facility] [address] [place] [address] , [address], [place] [address] Hardeep Stewart MD, Package Sealer CLIA: [id number] WBC 5.8 3.8-11.5 K/uL Red Blood Cell Count (RBC) 3.54 3.60-5.30 M/mm3 Hemoglobin (Hgb) 13.5 11.5-15.5 gm/dL Hematocrit (HCT) 37.9 35.2-46.4 % MCV 107.1 79.0-99.0 fL MCH 38.1 26.9-35.0 pg MCHC 35.6 30.4-34.8 g/dL RDW 50.2 38.6-53.8 fL Platelet Count 177 137-397 K/cumm Neutrophils Automated 47.3 41.0-77.0 % Lymphocytes Automated 40.4 14.0-48.0 % Monocytes Automated 9.2 4.0-13.0 %
[2023-08-07 16:52] LABS: Basophils % 0.3 % (0.1-2.0); Eosinophils # 0.1 K/mm3 (0.0-0.4); Hematocrit 43.2 % (37.0-47.0); Lymphocytes # 2.2 K/mm3 (0.7-4.5); Lymphocytes % 28.9 % (10-50); Mean Corpuscular HGB Conc 30.1 g/dL (31.8-35.4); Mean Corpuscular Hemoglobin 36.6 pg (27.0-31.2); Mean Corpuscular Volume 121.9 fl (81-99); Monocytes # 0.4 K/mm3 (0.1-1.0); Monocytes % 5.1 % (1.7-9.3); Neutrophils % 64.6 % (37.0-80.0); Platelet Count 441 K/mm3 (142-424); Red Blood Count 3.54 M/mm3 (4.20-5.40); Red Cell Distribution Width 13.6 % (11.5-17.5); White Blood Count 7.7 K/mm3 (4.8-10.8)
[2023-08-07 17:46] LABS: Alanine Aminotransferase 26 U/L (12-78); Albumin Level 3.4 g/dl (3.5-5.0); Alkaline Phosphatase 111 U/L (38-126); Anion Gap 10.6 mEq/L (5-15); Aspartate Amino Transferase 34 U/L (14-36); Bilirubin,Total 0.4 mg/dl (0.2-1.3); Blood Urea Nitrogen 7 mg/dl (7-17); Calcium 9.3 mg/dl (8.4-10.2); Carbon Dioxide 20 mmol/L (22.0-30.0); Chloride 111 mmol/L (98-107); Estimated Glomerular Filt Rate 122 ml/min (>60); GFR (African American) 147 ML/MIN (>60); Globulin 3.3 g/dL (1.3-3.2); Glucose 92 mg/dl (74-100); Potassium 4.6 mmoL/L (3.5-5.1); Sodium 137 mmol/L (136-145); Total Protein,Serum 6.7 g/dl (6.3-8.2)
[2023-08-07 20:27] LABS: Vitamin B12 986 pg/mL (239-931)
[2023-08-07 20:28] LABS: Folate 7.24 ng/mL
== END ==
PROVIDERS: PCP Internal Medicine Adolescent Medicine; Visit Provider Physician Assistant
DX: A04.72 Enterocolitis due to Clostridium difficile, not specified as recurrent (principal); D75.89 Other specified diseases of blood and blood-forming organs
CPT/HCPCS: 36415; 80053; 82607; 82746; 85025

== ENCOUNTER → 2023-08-17 14:04 | Outpatient (POV) | payer MEDICARE, SELFPAY ==
--- NOTE | 2023-08-17 14:16 | EXP.PAIN.OV ---
HPI Data of Consult Patient: new to practice Consult date: 08/17/23 Requesting Physician: Marlene Bailey APRN Primary Care Provider: Alfred Awad MD Consult Narrative Reason for consult: Low back pain, left foot/ankle pain History of present illness: Ms. Krueger is a 72 year old female who presents today as a new patient. She is referral from Dr. Awad's office. Today she rates her pain at a 10 out of 10. Patient states her pain is all in her low back with radiating symptoms into her left lower leg and left foot/ankle. Patient denies any specific trauma or injury that initially led to the symptoms. Patient states that she has had low back pain going on for years and its progressively worsened over time. She does state that the lower left leg and foot/ankle pain has been going on at least 3 months. Patient does describe this as a sharp shooting pain with some numbness that is worse with increased activity. Patient states that she frequently will have to take multiple breaks due to the worsening pain in her back and leg. Patient does state that its affects her ability perform activities of daily living such as cooking and cleaning or even simple ambulation. Patient does state that she gets some relief by elevating her extremity and using heat and topical cream. Patient has tried physical therapy and chiropractor therapy with minimal relief. Patient has also been prescribed Tylenol 3, ibuprofen 800 mg 3 times daily as needed and gabapentin with minimal relief. Patient is interested in any help we may be able to provide. Patient is very active and typically would exercise 3 times a week in the hospital gym however due to the worsening pain she has not been able to go like what she was previously. Her Dioni has been reviewed and is appropriate. CC: Marlene Bailey APRN [facility] Disclaimer: The information contained in this section may have been updated after the patient was seen, as this information can be updated by other users. Medical History (Updated 08/17/23 @ 14:17 by Marlene Bailey APRN) Allergic rhinitis Emphysema/COPD Encounter for screening for malignant neoplasm of lung Hyperlipidemia Hypertension Osteoporosis Pneumonia Pulmonary emphysema Smoking greater than 30 pack years Tobacco abuse Surgical History History of colonoscopy Hx of hand surgery Family History Brother Family history of cancer Daughter Family history of celiac disease Other Family history of NH (myocardial infarction) Family history of heart disease Social History Smoking Status: Current every day smoker tobacco type: cigarettes packs per day: 1 years smoked: 35 alcohol intake: current substance use type: denies use current occupational status: retired Travel in the last 8 weeks: Inside the [place] household members: spouse housing: house lives independently: Yes marital status: caffeine: Yes special andrés needs: No agree to transfusion: No do you feel safe at home: Yes victim of physical abuse: No victim of emotional abuse: No victim of sexual abuse: No would you like helpful sources: No Review of Systems Review of Systems Review of systems:: pertinent systems reviewed and negative unless documented below Review of systems (narrative): Review of Systems: General: No recent weight changes, no fever, no sleep disturbances Respiratory: No cough, no shortness of air, no recurring pulmonary infections Cardiovascular/peripheral vascular: No chest pain, no palpitations, no edema, no shortness of breath Gastrointestinal: No new onset incontinence, normal bowel movements reported Genitourinary: No new onset incontinence Musculoskeletal: Low back pain, left leg pain, left foot pain Psychiatric: [Normal mood/affect] Neurological: [Denies
[2023-08-17 14:51] VITALS: BP 95/66; PULSE 124; RESP 18; O2SAT 99; BMI 45.6
== END ==
PROVIDERS: PCP Internal Medicine Adolescent Medicine; Visit Provider Nurse Practitioner Family
DX: M54.50 Low back pain, unspecified; G89.29 Other chronic pain; M51.16 Intervertebral disc disorders with radiculopathy, lumbar region; M47.26 Other spondylosis with radiculopathy, lumbar region
CPT/HCPCS: 99202; G0463

== ENCOUNTER 2023-08-21 14:09 | Day surgery (SDC) | payer MEDICARE, OTHER, SELFPAY ==
--- OUTSIDE RECORDS SUMMARY | 2023-08-21 14:12 | XMS_ITS | Patient Health Record ---
Author Name Unknown Organization [facility] Address [address] [place], [place] [address] Care Team Providers Care Project Management Manager Name Role Phone Alfred Awad Primary Care Provider Michelle Perea Unavailable [phone] Lacie Arvizu Unavailable [phone] ALLERGIES Allergen (clinical drug ingredient) Drug/Non Drug Allergy documented on EMR Reaction Allergy Type Onset Date Status Terimycin (uncoded) black outs Allergy Active RESULTS Component Value Reference Range Notes Erythrocyte Sedimentation Ra te (ESR), Automated Reviewed date:12/26/2022 09:55:16 AM Interpretation: Performing Lab: Notes/Report: Test performed by [facility] [email or web address] [facility] [address] [place] [address] Hardeep Stewart MD, Supervisor [employer] CLIA: [id number] Erythrocyte Sedimentation Rate (ESR), Automated 10 <31 mm/hr IgA, Serum Reviewed date:12/26/2022 09:55:16 AM Interpretation: Performing Lab: Notes/Report: Test performed by [facility] [address] [place], [place] [address] [place] [address] Hardeep Stewart MD, Supervisor Home [employer] CLIA: [id number] IgA, Serum 302.0 70.0-400.0 mg/dL IgE, Serum Reviewed date:12/26/2022 09:55:16 AM Interpretation: Performing Lab: Notes/Report: Test performed by [facility] [address] , [address], [place] [address] Hardeep Stewart MD, Supervisor Home Economics CLIA: [id number] IgE, Serum 871.00 <0.2-100.00 IU/mL
[2023-08-21 14:41] VITALS: BP 98/65; PULSE 100; RESP 20; TEMP 36.4; O2SAT 97; BMI 20.9
[2023-08-21 15:23] VITALS: BP 96/58; PULSE 98; RESP 18; O2SAT 99
[2023-08-21 15:24] VITALS: BP 96/58; PULSE 99; RESP 18; O2SAT 99
[2023-08-21 15:35] VITALS: BP 105/59; PULSE 96; RESP 20
--- NOTE | 2023-08-21 16:58 | P.PCN_ITS ---
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 We will plan on a left L4-L5 and L5-S1 transforaminal epidural steroid injection today to see if this well with her pain symptoms. Procedure Details:: Informed consent was obtained risk and benefits of the procedure were explained to the patient. Patient was taken to the procedure room she was placed prone on the procedure table. She was prepped and draped in sterile fashion. C-arm fluoroscopy was used to view the lumbar spine. The skin and subcutaneous tissues on the left L4-5 and L5-S1 intervertebral foramen were anesthetized using lidocaine. A 22-gauge spinal needle was inserted first into the left L4- L5 intervertebral foramen and then the L5-S1 intervertebral foramen. Needle placement was confirmed in AP and lateral views. This was confirmed with dye. We then injected 5 mL bupivacaine 0.25% and Depo-Medrol 40 mg into each transforaminal epidural space of L4-5 and L5-S1. Patient tolerated the procedure well with no complications. Plan and Disposition:: We will follow-up with this patient in 2 weeks. We will evaluate efficacy of this injection. If she does not get any benefit from this injection we may do a interlaminar L5-S1 epidural steroid injection.
== END 2023-08-21 15:35 | disposition home or self-care (01) ==
LOC: SC.PAINP 14:10
PROVIDERS: PCP Internal Medicine Adolescent Medicine; Visit Provider Anesthesiology
DX: M51.16 Intervertebral disc disorders with radiculopathy, lumbar region (principal)
CPT/HCPCS: 64483; 64484; J1030; Q9966

== ENCOUNTER → 2023-09-04 10:29 | Outpatient (POV) | payer MEDICARE, SELFPAY ==
[2023-09-04 10:39] VITALS: BP 92/56; PULSE 112; RESP 18; O2SAT 96; BMI 19.8
--- NOTE | 2023-09-04 11:06 | EXP.PAIN.SOA ---
[facility] Pain Management SOAP Note Subjective:: Patient is a pleasant 72-year-old female who presents today for follow-up left transforaminal epidural steroid injection L4-L5 and L5-S1 on 08/21/2023. We are currently treating the patient for degenerative disc disease of lumbar spine with lumbar radiculopathy symptoms, lumbar facet arthropathy, chronic low back pain. Today she rates her pain a 6 out of 10. Patient denies any new trauma or injury. She does state following this injection she has had significant improvement of her left leg and left foot symptoms. Patient states approximately 70%. She does state that she continues to have chronic back pain that is worse with increased ambulation. Patient does state that she constantly feels dizzy or loopy and is unsure if it is related to new medications that she started from her primary care provider. Patient is taking gabapentin 100 mg twice a day and Tylenol 3 1 to 2 tablets as needed. Patient states that the medication of the Tylenol 3 does help with her overall pain symptoms. Patient denies any heart issues. She does state that she is scheduled to see her primary care provider coming up on the and that they are planning on running new lab work since she had a recent hospitalization back in August related to C. difficile colitis and pancreatitis. Patient does state that she continues to have trouble eating and frequently gets very nauseated and vomits. She states that she is really only drinking fluids and has done some chicken and beef broth. Her Dioni has been reviewed and is appropriate. Review of Systems: General: No recent weight changes, no fever, no sleep disturbances Respiratory: No cough, no shortness of air, no recurring pulmonary infections Cardiovascular/peripheral vascular: No chest pain, no palpitations, no edema, no shortness of breath Gastrointestinal: No new onset incontinence, normal bowel movements reported Genitourinary: No new onset incontinence Musculoskeletal: Low back pain Psychiatric: [Normal mood/affect] Neurological: [Denies weakness in extremities], [denies balance issues] Objective:: Physical Exam: General: Alert and oriented x3, no acute distress, pleasant and cooperative Lungs: Respirations even and unlabored, symmetrical chest expansion Eyes: PERRL Musculoskeletal: Flexion and extension of lumbar [spine] somewhat guarded secondary to pain, [antalgic gait noted] Neurological: Speech clear, no gross sensory deficit Assessment:: Degenerative disc disease of lumbar spine with lumbar radiculopathy symptoms, lumbar facet arthropathy, chronic low back pain Plan:: Patient continues to experience significant pain throughout her low back with limited range of motion. I have discussed with the patient due to her continued dizziness and feeling groggy that I do think it beneficial to discontinue her gabapentin. I have counseled her to stop taking this medication and see if it makes any difference on her current symptoms. I have recommended that she get high-protein, high-calorie Ensure and trying to sip on this throughout the day, taking in at least 2/day along with the chicken or beef broth. I will send in refills of her Zofran providing 30 tablets as needed and 2 additional refills. I have also discussed with the patient that I will send in a new prescription of meloxicam 15 mg daily and provide a 2-week supply of this medication. I have counseled the patient to discontinue all other NSAIDs including her ibuprofen 800 mg and to take this medication with food to minimize GI upset. I have counseled the patient to discuss with her primary care provider regarding updated labs including her B12. Patient denied any heart or kidney issues. I have also counseled the patient that I will order her a customized back brace to help add support and stabilization for her chronic low back pain. Patient will return to clinic in 2 weeks for reevaluation of symptoms and plan of care. Patient has
== END | disposition home or self-care (01) ==
PROVIDERS: PCP Internal Medicine Adolescent Medicine; Visit Provider Nurse Practitioner Family
DX: M51.16 Intervertebral disc disorders with radiculopathy, lumbar region (principal); M47.26 Other spondylosis with radiculopathy, lumbar region; G89.29 Other chronic pain
CPT/HCPCS: 99212; G0463

== ENCOUNTER 2023-09-10 10:23 | Inpatient (IN) | payer MEDICARE, OTHER, SELFPAY ==
[2023-09-10] VITALS (11 sets, daily range): BP systolic 90–112; BP diastolic 58–73; PULSE 81–128; RESP 11–19; TEMP 36.3–36.7; O2SAT 97–100; BMI 26.5
--- OUTSIDE RECORDS SUMMARY | 2023-09-10 10:31 | XMS_ITS | Patient Health Record ---
Author Name Unknown Organization [facility] Address [address] [place] [address] Care Team Providers Care Corporate Development Intern Name Role Phone Alfred Awad Primary Care Provider [phone] Michelle Perea Unavailable [phone] Lacie Arvizu Unavailable [phone] ALLERGIES Allergen (clinical drug ingredient) Drug/Non Drug Allergy documented on EMR Reaction Allergy Type Onset Date Status Terimycin (uncoded) black outs Allergy Active RESULTS Component Value Reference Range Notes MRI : Lumbosacral Spine Reviewed date:08/19/2023 03:57:34 PM Interpretation: Performing Lab: Notes/Report: X ray : Spines, Lumbosacral Reviewed date:07/23/2023 12:34:17 PM Interpretation: Performing Lab: Notes/Report: X ray : Hip and thigh, Left Reviewed date:07/23/2023 12:21:39 PM Interpretation: Performing Lab: Notes/Report: M-Complete Blood Count Auto Diff Reviewed date:08/11/2023 08:04:32 AM Interpretation: Performing Lab: Notes/Report: WBC 7.7 4.8-10.8 K/mm3 RBC 3.54 4.20-5.40 M/mm3 HGB 13.0 12.2-16.2 g/dL HCT 43.2 37.0-47.0 % MCV 121.9 81-99 fl MCH 36.6 27.0-31.2 pg MCHC 30.1 31.8-35.4 g/dL RDW 13.6 11.5-17.5 %
--- NOTE | 2023-09-10 10:35 | ECG_ITS ---
APPROVED REPORT Exam: Resting ECG HR:116 bpm ECG Measurements Heart Rate 116 AXES DE 158 P 76 QRSd 102 QRS 27 QT 371 T 80 QTc 440 Conclusion SINUS TACHYCARDIA WITH OCCASIONAL SUPRAVENTRICULAR PREMATURE COMPLEXES MINIMAL ST DEPRESSION [0.025+ mV ST DEPRESSION] ABNORMAL RHYTHM ECG UNCONFIRMED REPORT Electronically signed by : Alfred Awad MD 09/10/2023 17:30:05
--- NOTE | 2023-09-10 10:38 | HMH.EDGENADL ---
Discharge Plan Disposition Patient Disposition: Admitted Chief Complaint: Nausea/Vomiting/Diarrhea Prescriptions Prescriptions: No Action budesonide-formoterol [Symbicort] 160-4.5 mcg/actuation HFA aerosol inhaler 2 puff inhalation BID 90 Days Qty: 10.2 3RF azelastine 137 mcg (0.1 %) aerosol,spray 2 spray intranasal HS 90 Days Qty: 30 3RF Rx Instructions: administer into each nostril fluticasone propionate [Flonase Allergy Relief] 50 mcg/actuation spray,suspension 2 spray intranasal DAILY 90 Days Qty: 16 2RF Rx Instructions: administer into each nostril montelukast 10 mg tablet 10 mg PO PM Patient Comments: TAKE ONE TABLET BY MOUTH EVERY EVENING trazodone 50 mg tablet 50 mg PO HS Patient Comments: TAKE ONE TABLET BY MOUTH EVERY DAY AT BEDTIME DIRECTED potassium chloride 20 mEq tablet,ER particles/crystals 20 meq PO DAILY Patient Comments: TAKE ONE TABLET BY MOUTH EVERY DAY ibuprofen 800 mg tablet 800 mg PO TIDP PRN (Reason: Mild Pain (Scale Score 1-4)) Patient Comments: TAKE ONE TABLET BY MOUTH THREE TIMES DAILY NEEDED --TAKE WITH FOOD-- alendronate 70 mg tablet 70 mg PO WEEKLY Patient Comments: TAKE ONE TABLET BY MOUTH ONCE A WEEK albuterol sulfate 90 mcg/actuation HFA aerosol inhaler 2 puff INHALATION Q6HP PRN (Reason: Shortness Of Breath) Patient Comments: INHALE TWO PUFFS BY MOUTH EVERY 6 HOURS vancomycin 250 mg capsule 250 mg PO QID 7 Days Qty: 28 0RF acetaminophen-codeine 300-30 mg tablet 1 - 2 tab PO BIDP PRN (Reason: Severe Pain (Scale Score 7-10)) 7 Days Qty: 20 0RF atorvastatin 40 mg tablet 40 mg PO DAILY metoprolol tartrate 50 mg tablet 50 mg PO BID meloxicam 15 mg tablet 15 mg PO DAILY Qty: 14 0RF ondansetron 4 mg tablet,disintegrating 4 mg PO Q8H PRN (Reason: nausea and vomiting) Qty: 30 2RF Referrals Follow up/Referrals: Alfred Awad MD [Primary Care Provider] - See instructions Clinical Impressions Clinical Impression: Colitis, Acute hypokalemia, Hypomagnesemia, Hypovolemia, Pancreatitis Instructions Patient Instructions: DI for Diarrhea and Traveler's Diarrhea -- Adult, DI for Diarrhea and Traveler's Diarrhea -- Child, DI for Nausea -- Adult, DI for Nausea -- Child Discharge ED Provider: Zenon Azul General Adult HPI General Chief complaint: Nausea/Vomiting/Diarrhea Stated complaint: WEAKNESS, C-DIFF, DEHYDRATED Time Seen by Provider: 09/10/23 10:26 History of Present Illness HPI narrative: Patient is a 72-year-old female with past medical history of COPD who presents emergency department for evaluation of weakness and vomiting. Patient was diagnosed with hypokalemia, C. difficile colitis and pancreatitis towards the end of July requiring inpatient stay with resuscitation for which she responded. Over the last 4 weeks patient has had nausea, decreased ability to tolerate p.o., vomiting. Over the last week she has had diarrhea approximately 10-15 times a day, nonbloody. She has generalized abdominal pain with no modifying factors. No other acute complaints at this time. Related Data Home Medications Medication Instructions Recorded Confirmed atorvastatin 40 mg tablet 40 mg PO DAILY Cholesterol 08/27/22 09/04/23 metoprolol tartrate 50 mg tablet 50 mg PO BID High Blood Pressure 08/27/22 09/04/23 montelukast 10 mg tablet 10 mg PO PM Allergy symptoms 01/10/23 09/04/23 potassium chloride 20 mEq 20 meq PO DAILY Supplement 07/27/23 09/04/23 tablet,extended release(part/cryst) trazodone 50 mg tablet 50 mg PO HS sleep 07/27/23 09/04/23 albuterol sulfate 90 mcg/actuation 2 puff inhalation Q6HP PRN 07/28/23 09/04/23 aerosol inhaler Shortness Of Breath alendronate 70 mg tablet 70 mg PO WEEKLY Bone Health 07/28/23 09/04/23 ibuprofen 800 mg tablet 800 mg PO TIDP PRN Mild Pain 07/28/23 09/04/23 (Scale Score 1-4) Previous Rx's Medic
--- NOTE | 2023-09-10 10:43 | CT_ITS ---
FINAL REPORT TECHNIQUE: Pre-and postcontrast images of the abdomen were performed by computed tomography. Extensive 3-D reconstruction images were performed. A CTA was performed. This study was performed with techniques to keep radiation doses as low as reasonably achievable (ALARA). Individualized dose reduction techniques using automated exposure control or adjustment of mA and/or kV according to the patient''s size were employed. CLINICAL HISTORY: recent CDiff, pancreatitis, general pain COMPARISON: 07/27/2023 FINDINGS: ABDOMEN AND PELVIS: There is a ground glass opacity in the left lower lung field, that may represent atelectasis or pneumonia. Precontrast images demonstrate no evidence of nephrolithiasis. The gallbladder is mildly distended, but no stones are seen. No adrenal masses are identified. The liver, spleen and pancreas are unremarkable. There is no evidence of small bowel obstruction. The appendix is normal. There is long segment wall thickening of the colon from the cecum through the rectum, more prominent than noted on the prior CT there is pericolonic inflammatory change, consistent with colitis. The uterus is unremarkable in appearance. CTA: The abdominal aorta is proper caliber. The SMA, celiac axis, and NBA are patent. There is no significant stenosis or calcification. The renal arteries are patent bilaterally, mild left renal artery stenosis. The iliac arteries are patent without evidence of significant stenosis. IMPRESSION: No aneurysm or dissection, no significant major vessel occlusion. There is long segment wall thickening from the cecum through the rectum, more prominent than associated with the prior CT of July 27. There is pericolonic inflammatory change consistent with colitis. Would favor inflammatory or infectious etiology. The pancreas is unremarkable in appearance. Reviewed, Interpreted and Dictated by Radha Miranda MD Transcribed by Jennifer Banks Authenticated and [facility]
[2023-09-10 11:02] LABS: Coronavirus 19, PCR Not Detected (NotDetected); Influenza A, PCR Not Detected (NotDetected); Influenza B, PCR Not Detected (NotDetected)
[2023-09-10 11:03] LABS: Basophils % 0.2 % (0.1-2.0); Eosinophils % 0.3 % (0.1-12.0); Hematocrit 38.5 % (37.0-47.0); Hemoglobin 12.9 g/dL (12.2-16.2); Lymphocytes # 1.7 K/mm3 (0.7-4.5); Lymphocytes % 10.9 % (10-50); Mean Corpuscular HGB Conc 33.4 g/dL (31.8-35.4); Mean Corpuscular Hemoglobin 38.1 pg (27.0-31.2); Mean Platelet Volume 9.6 fl (7.4-10.4); Monocytes # 0.8 K/mm3 (0.1-1.0); Monocytes % 5.3 % (1.7-9.3); Neutrophils # 12.8 K/mm3 (1.8-7.8); Neutrophils % 83.3 % (37.0-80.0); Platelet Count 252 K/mm3 (142-424); Red Blood Count 3.38 M/mm3 (4.20-5.40); Red Cell Distribution Width 14.4 % (11.5-17.5); White Blood Count 15.4 K/mm3 (4.8-10.8)
[2023-09-10 11:04] LABS: MANUAL DIFFERENTIAL MANUAL DIFFERENTIAL (MANUAL DIFF)
--- NOTE | 2023-09-10 11:22 | PC.NURSE ---
patient reports she is unable to provide a UA at this time and is aware we need a sample. family at BS, call hernandez within reach
[2023-09-10 11:31] LABS: Lymphocytes % 9 % (10-50); Macrocytosis 1+; Monocytes % 6 % (2-9); Neutrophils % 85 % (42-76); Platelet Estimate Normal; Total Cells Counted 100
[2023-09-10 11:54] LABS: Magnesium 1.4 mg/dl (1.6-2.3)
--- NOTE | 2023-09-10 11:55 | PC.NURSE ---
rounded on pt, checked if she could provide urine sample yet. States she is still unable, call hernandez at bedside to alert staff when she feels she can provide a sample.
[2023-09-10 11:58] LABS: Anion Gap 17.8 mEq/L (5-15); Blood Urea Nitrogen 14 mg/dl (7-17); Calcium 8.4 mg/dl (8.4-10.2); Carbon Dioxide 20 mmol/L (22.0-30.0); Chloride 92 mmol/L (98-107); Creatinine Clearance Estimated 54 mL/min (50-200); Estimated Glomerular Filt Rate 99 ml/min (>60); GFR (African American) 119 ML/MIN (>60); Glucose 87 mg/dl (74-100); Sodium 127 mmol/L (136-145)
[2023-09-10 11:59] LABS: Potassium 2.8 mmoL/L (3.5-5.1)
--- NOTE | 2023-09-10 12:04 | PC.NURSE ---
Dr. Azul notified of critical potassium
[2023-09-10 14:17] LABS: Alanine Aminotransferase 17 U/L (12-78); Albumin Level 3.3 g/dl (3.5-5.0); Albumin/Globulin Ratio 1.2 (1.1-1.8); Alkaline Phosphatase 136 U/L (38-126); Aspartate Amino Transferase 27 U/L (14-36); Bilirubin,Total 0.9 mg/dl (0.2-1.3); Globulin 2.7 g/dL (1.3-3.2)
--- NOTE | 2023-09-10 14:22 | PC.NURSE ---
contacted rad to check on status of CT result- rad states a prelim available will send it down
[2023-09-10 14:29] LABS: Lipase 728 U/L (23-300)
--- NOTE | 2023-09-10 15:24 | PC.NURSE ---
MATIAS PUENTES SPEAKING WITH DR. AGUILA
--- NOTE | 2023-09-10 15:27 | PC.NURSE ---
NOTIFIED CARE MANAGEMENT OF ADMISSION, SPOKE WITH TIFFANIE
--- NOTE | 2023-09-10 15:58 | PC.NURSE ---
REPORT CALLED TO CRISTEL HUGHES ON SECOND FLOOR
--- NOTE | 2023-09-10 17:25 | PC.NURSE ---
A&OX4. TOLERATING RA WELL. PT HAS NOT BEEN ABLE TO PROVIDE URINE SAMPLE YET AND HAS NOT HAD A BM SINCE THIS MORNING BEFORE COMING IN. PT IS AWARE THAT WE NEED THESE SAMPLES. TOLERATING CLEAR LIQUID DIET WELL. NO NEEDS OR C/O NOTED THUS FAR, VSS.
[2023-09-10 19:26] LABS: Microscopic, Urine URINE MICROSCOPIC (MICROSCOPIC)
[2023-09-10 19:29] LABS: Appearance,Urine CLEAR (Clear); Blood, Urine Negative (Negative); Color,Urine YELLOW (Yellow); Glucose,Urine (UA) Negative (Negative); Ketones,Urine 1+ (Negative); Leukocyte Esterase,Urine TRACE (Negative); Nitrate,Urine Negative (Negative); PH,Urine 6.5 (5.0-8.5); Protein,Urine Negative (Negative); Specific Gravity, Urine <= 1.005 (1.005-1.030); Urobilinogen,Urine 0.2 EU/dl (0.2)
[2023-09-10 19:33] LABS: Bilirubin,Urine 1+ (Negative)
[2023-09-10 19:49] LABS: RBC,Urine Occasional #/hpf (0-3); Squamous Epithelial Cell,Urine Occasional #/hpf (0-5); WBC,Urine Occasional #/hpf (0-3)
[2023-09-10 23:57] LABS: Campylobacter Not Detected (NotDetected); Cryptosporidium Not Detected (NotDetected); Enteroaggregative E coli Not Detected (NotDetected); Enteropathogenic E coli Not Detected (NotDetected); Enterotoxigenic E coli Not Detected (NotDetected); Plesimonas Shigalloides, PCR Not Detected (NotDetected); Salmonella, PCR Not Detected (NotDetected); Shiga-like toxin E coli Not Detected (NotDetected); Shigella Enterovasive E coli Not Detected (NotDetected); Vibrio Cholerae Not Detected (NotDetected); Vibrio, PCR Not Detected (NotDetected); Yersinia Entercolitica, PCR Not Detected (NotDetected)
[2023-09-10 23:58] LABS: Adenovirus F 40/41, stool Not Detected (NotDetected); Astrovirus Not Detected (NotDetected); Cyclospora Cayetanesis Not Detected (NotDetected); Entamoeba histolytica Not Detected (NotDetected); Giardia lamblia Not Detected (NotDetected); Norovirus Not Detected (NotDetected); Rotavirus A Not Detected (NotDetected); Sapovirus Not Detected (NotDetected)
--- NOTE | 2023-09-11 03:58 | PC.NURSE ---
VS stable, patient remained on room air. Stool sample obtained, awaiting results. Patient complained of leg pain, prn medication reordered. No abdominal pain noted.
[2023-09-11 04:00] VITALS: BP 111/57; PULSE 83; RESP 18; TEMP 36.4; O2SAT 97; BMI 22.1
[2023-09-11 07:28] VITALS: BP 109/59; PULSE 91; RESP 18; TEMP 36.6; O2SAT 95
[2023-09-11 08:00] VITALS: O2SAT 97
[2023-09-11 08:12] LABS: Basophils % 0.1 % (0.1-2.0); Eosinophils # 0.1 K/mm3 (0.0-0.4); Lymphocytes # 1.4 K/mm3 (0.7-4.5); Monocytes # 0.6 K/mm3 (0.1-1.0)
--- NOTE | 2023-09-11 08:16 | EXP.HP ---
History of Present Illness *Admission Date: 09/10/23 *Reason for visit:: Diarrhea and weakness *History of present illness: 72-year-old female with history of electrolyte disturbances that have been variously related to diuretics, dehydration, and previous diarrheal illness that was diagnosed as C. difficile in July of this year, she also had another episode of diarrhea with diagnosis of C. difficile a couple weeks ago. She had been better at home with oral vancomycin but a couple of days after finishing a 10-day course became sick again and began to have diarrhea. Poor p.o. intake resulted, lots of weakness. Came to the ER last night, found to be weak, hypokalemic, low blood pressure and admitted to hospital for IV antibiotics and resumption of empiric therapy for C. difficile colitis. [facility] Disclaimer: The information contained in this section may have been updated after the patient was seen, as this information can be updated by other users. Medical History Allergic rhinitis Emphysema/COPD Encounter for screening for malignant neoplasm of lung Hyperlipidemia Hypertension Osteoporosis Pneumonia Pulmonary emphysema Smoking greater than 30 pack years Tobacco abuse Surgical History History of colonoscopy Hx of hand surgery Family History Brother Family history of cancer Daughter Family history of celiac disease Other Family history of GA (myocardial infarction) Family history of heart disease Social History (Updated 09/10/23 @ 16:30 by Dorys Smith RN) Smoking Status: Current every day smoker tobacco type: cigarettes packs per day: 1 years smoked: 35 alcohol intake: current substance use type: denies use current occupational status: retired Travel in the last 8 weeks: None household members: spouse housing: house lives independently: Yes marital status: caffeine: Yes special andrés needs: No agree to transfusion: No do you feel safe at home: Yes victim of physical abuse: No victim of emotional abuse: No victim of sexual abuse: No would you like helpful sources: No Review of Systems Review of Systems Review of systems:: pertinent systems reviewed and negative unless documented below Meds Home Medications and Allergies Home Medications Medication Instructions Recorded Confirmed Type atorvastatin 40 mg tablet 40 mg PO DAILY Cholesterol 08/27/22 09/10/23 History metoprolol tartrate 50 mg tablet 50 mg PO BID High Blood Pressure 08/27/22 09/10/23 History montelukast 10 mg tablet 10 mg PO PM Allergy symptoms 01/10/23 09/10/23 History azelastine 137 mcg (0.1 %) nasal 2 spray intranasal HS 90 days #30 03/18/23 09/10/23 Rx spray aerosol mL budesonide-formoterol HFA 160 2 puff inhalation BID 90 days 03/18/23 09/10/23 Rx mcg-4.5 mcg/actuation aerosol #10.2 grams inhaler (Symbicort) fluticasone propionate 50 2 spray intranasal DAILY 90 days 07/13/23 09/10/23 Rx mcg/actuation nasal #16 grams spray,suspension (Flonase Allergy Relief) potassium chloride 20 mEq 20 meq PO DAILY Supplement 07/27/23 09/10/23 History tablet,extended release(part/cryst) trazodone 50 mg tablet 50 mg PO HS sleep 07/27/23 09/10/23 History albuterol sulfate 90 mcg/actuation 2 puff inhalation Q6HP PRN 07/28/23 09/10/23 History aerosol inhaler Shortness Of Breath alendronate 70 mg tablet 70 mg PO WEEKLY Bone Health 07/28/23 09/10/23 History ibuprofen 800 mg tablet 800 mg PO TIDP PRN Mild Pain 07/28/23 09/10/23 History (Scale Score 1-4) acetaminophen 300 mg-codeine 30 mg 1 - 2 tab PO BIDP PRN Severe Pain 07/30/23 09/10/23 Rx tablet (Scale Score 7-10) 7 days #20 tabs vancomycin 250 mg capsule 250 mg PO QID 7 days #28 caps 07/30/23 09/10/23 Rx ondansetron 4 mg disintegrating 4 mg PO Q8H PRN nausea and
[2023-09-11 08:20] LABS: Eosinophils % 1.1 % (0.1-12.0); Hematocrit 32.3 % (37.0-47.0); Lymphocytes % 11.6 % (10-50); Mean Corpuscular HGB Conc 33.8 g/dL (31.8-35.4); Mean Corpuscular Hemoglobin 38.2 pg (27.0-31.2); Mean Corpuscular Volume 112.7 fl (81-99); Mean Platelet Volume 8.7 fl (7.4-10.4); Monocytes % 4.6 % (1.7-9.3); Neutrophils # 9.8 K/mm3 (1.8-7.8); Neutrophils % 82.5 % (37.0-80.0); Platelet Count 245 K/mm3 (142-424); Red Blood Count 2.87 M/mm3 (4.20-5.40); Red Cell Distribution Width 14.1 % (11.5-17.5); White Blood Count 11.9 K/mm3 (4.8-10.8)
[2023-09-11 08:27] LABS: Hemoglobin 10.9 g/dL (12.2-16.2)
[2023-09-11 08:29] LABS: Anion Gap 7.6 mEq/L (5-15); Blood Urea Nitrogen 9 mg/dl (7-17); Calcium 7.6 mg/dl (8.4-10.2); Carbon Dioxide 21 mmol/L (22.0-30.0); Chloride 97 mmol/L (98-107); Creatinine Clearance Estimated 44 mL/min (50-200); Estimated Glomerular Filt Rate 157 ml/min (>60); GFR (African American) 190 ML/MIN (>60); Glucose 103 mg/dl (74-100); Magnesium 1.6 mg/dl (1.6-2.3); Sodium 123 mmol/L (136-145)
[2023-09-11 08:32] LABS: Potassium 2.6 mmoL/L (3.5-5.1)
--- NOTE | 2023-09-11 08:45 | PC.NURSE ---
COURTESY NOTE: morning round completed on pt. pt denies any assistance needs. no new pt requests at this time. Loraine SRNA
--- OUTSIDE RECORDS SUMMARY | 2023-09-11 11:29 | XMS_ITS | Patient Health Record ---
Author Name Unknown Organization [facility] Address [address] [place] [address] Care Team Providers Care Hay Rake Operator Name Role Phone Alfred Awad Primary Care Provider [phone] Michelle Perea Unavailable [phone] Lacie Arvizu Unavailable [phone] ALLERGIES Allergen (clinical drug ingredient) Drug/Non Drug [...] Lab: Notes/Report: M-Complete Blood Count Auto Diff (Not yet reviewed by provider) Interpretation: Performing Lab: Notes/Report: WBC 11.9 4.8-10.8 K/mm3 RBC 2.87 4.20-5.40 M/mm3 HGB 10.9 12.2-16.2 g/dL Delta: 12.9 o n 09/10/23-1055 HCT 32.3 37.0-47.0 % MCV 112.7 81-99 fl MCH 38.2 27.0-31.2 pg MCHC 33.8 31.8-35.4 g/dL RDW
[2023-09-11 15:04] VITALS: BMI 22.1
[2023-09-11 16:00] VITALS: BP 131/74; PULSE 100; RESP 19; TEMP 36.8; O2SAT 96
[2023-09-11 20:00] VITALS: BP 115/58; PULSE 79; RESP 16; TEMP 36.7; O2SAT 95
--- NOTE | 2023-09-12 02:55 | PC.NURSE ---
No acute changes noted. Patient able to tolerate clear liquid diet. VS stable and patient remained on room air. Pain noted in legs and relieved with prn pain medication. No abdominal pain reported.
[2023-09-12 04:00] VITALS: BP 153/62; PULSE 76; RESP 16; TEMP 36.6; O2SAT 97; BMI 22.1
[2023-09-12 07:27] LABS: Basophils % 0.2 % (0.1-2.0); Eosinophils # 0.1 K/mm3 (0.0-0.4); Eosinophils % 1.5 % (0.1-12.0); Hemoglobin 9.9 g/dL (12.2-16.2); Lymphocytes # 1.6 K/mm3 (0.7-4.5); Lymphocytes % 25.8 % (10-50); Mean Corpuscular HGB Conc 34.2 g/dL (31.8-35.4); Mean Corpuscular Hemoglobin 38.6 pg (27.0-31.2); Mean Corpuscular Volume 112.8 fl (81-99); Mean Platelet Volume 7.8 fl (7.4-10.4); Monocytes # 0.2 K/mm3 (0.1-1.0); Monocytes % 3.9 % (1.7-9.3); Neutrophils # 4.2 K/mm3 (1.8-7.8); Neutrophils % 68.6 % (37.0-80.0); Platelet Count 222 K/mm3 (142-424); Red Blood Count 2.57 M/mm3 (4.20-5.40); Red Cell Distribution Width 14.2 % (11.5-17.5); White Blood Count 6.2 K/mm3 (4.8-10.8)
[2023-09-12 07:32] VITALS: BP 125/66; PULSE 88; RESP 17; TEMP 37; O2SAT 97
[2023-09-12 07:37] LABS: Anion Gap 5.7 mEq/L (5-15); Blood Urea Nitrogen 4 mg/dl (7-17); Calcium 7.6 mg/dl (8.4-10.2); Carbon Dioxide 21 mmol/L (22.0-30.0); Chloride 105 mmol/L (98-107); Creatinine Clearance Estimated 44 mL/min (50-200); Estimated Glomerular Filt Rate 219 ml/min (>60); GFR (African American) 265 ML/MIN (>60); Glucose 80 mg/dl (74-100); Potassium 3.7 mmoL/L (3.5-5.1); Sodium 128 mmol/L (136-145)
--- NOTE | 2023-09-12 08:30 | EXP.ACUTE.PN ---
Subjective *Date: 09/12/23 *Time: 08:30 Interval history: Overall patient feels better, reports that her diarrhea is less painful and she has more intervals between diarrhea. Still with liquid stool. C. difficile and other PCR titers are still pending. Labs reviewed from yesterday showing improved potassium and electrolytes otherwise. Medical Exam Vital signs and Labs for Last 24 Hours: Vital Signs Temp Pulse Resp BP Pulse Ox O2 Del Method 09/12/23 07:32 98.6 F 88 17 125/66 97 Room Air 09/12/23 06:46 Room Air 09/12/23 05:00 Room Air 09/12/23 04:00 98 F 76 16 153/62 H 97 Room Air 09/12/23 03:03 Room Air 09/12/23 01:01 Room Air 09/11/23 23:15 Room Air 09/11/23 21:06 Room Air 09/11/23 20:07 Room Air 09/11/23 20:00 98.0 F 79 16 115/58 L 95 09/11/23 17:39 Room Air 09/11/23 17:00 Room Air 09/11/23 16:00 98.2 F 100 H 19 131/74 96 Room Air 09/11/23 14:06 Room Air 09/11/23 11:41 Room Air 09/11/23 11:00 Room Air 09/11/23 09:00 Room Air Intake and Output 09/11/23 09/12/23 09/12/23 19:59 03:59 11:59 Intake Total 1475 / 2547 602 / 2547 470 / 2547 Output Total 0 / 400 400 / 400 Balance 1475 / 2147 202 / 2147 470 / 2147 Intake: Intake, Oral Amount 975 / 1445 470 / 1445 Intake, Total IV Amount 500 / 1102 602 / 1102 0.9 % Sodium Chloride 1000ML 1, 400 / 1002 602 / 1002 000 ml @ 100 mls/hr IV .Q10H [facility] Rx#:[id number] Calcium Gluconate 2,000 mg In 0 100 / 100 .9 % Sodium Chloride 100 ml @ 60 mls/hr IV ONCE ONE Rx#: [id number] Output: Output, Urine Amount 0 / 400 400 / 400 Other: Number of Voids 0 Number of Unmeasured Voids 1 1 Number of Bowel Movements 0 Weight 120 lb 3.136 oz 120 lb 1.6 oz Patient Weight 09/12/23 11:59 Weight 120 lb 1.6 oz Laboratory Results - last 24 hr 09/11/23 : Sodium 123 L, Potassium 2.6 L*, Chloride 97 L, Carbon Dioxide 21 L, Anion Gap 7.6, BUN 9 D, Creatinine 0.40 L D, Estimated Creat Clear 44, Estimated GFR 157, Est GFR ( Amer) 190 D, Glucose 103 H, Calcium 7.6 L, Magnesium 1.6 D 09/12/23 06:25: WBC 6.2 D, RBC 2.57 L, Hgb 9.9 L, Hct 29.0 L, MCV 112.8 H, MCH 38.6 H, MCHC 34.2, RDW 14.2, Plt Count 222, MPV 7.8, Neut % (Auto) 68.6, Lymph % (Auto) 25.8, Brantley % (Auto) 3.9, Eos % (Auto) 1.5, Baso % (Auto) 0.2, Neut # (Auto) 4.2, Lymph # (Auto) 1.6, Brantley # (Auto) 0.2, Eos # (Auto) 0.1, Baso # (Auto) 0.0, Sodium 128 L, Potassium 3.7 D, Chloride 105, Carbon Dioxide 21 L, Anion Gap 5.7, BUN 4 L D, Creatinine 0.30 L D, Estimated Creat Clear 44, Estimated GFR 219, Est GFR ( Amer) 265 D, Glucose 80 D, Calcium 7.6 L I & O for Labs for Last 24 Hours: Intake & Output 09/09/23 09/10/23 09/11/23 09/12/23 11:59 11:59 11:59 11:59 Intake Total 1160 / 1160 2547 / 2547 Output Total 250 / 250 400 / 400 Balance 910 / 910 2147 / 2147 Weight 145 lb 120 lb 3 oz 120 lb 1.6 oz Comment:: Alert, pleasant. Appears better hydrated. Lungs with scattered rhonchi but improving. Heart rate regular. Abdomen soft, much less tenderness. No edema or clubbing. Assessment and Plan *Assessment and plan (1) Colitis: Status: Acute Category: Medical Code(s): K52.9 - Noninfective gastroenteritis and colitis, unspecified (2) Acute hypokalemia: Status: Acute Category: Medical Code(s): E87.6 - Hypokalemia (3) Hypomagnesemia: Status: Acute Category: Medical Code(s): E83.42 - Hypomagnesemia (4) Hypovolemia: Status: Acute Category: Medical Code(s): E86.1 - Hypovolemia (5) Chronic low back pain: Status: Acute Qualifiers: Back pain laterality: bilateral Sciatica presence: unspecified whether sciatica present Qualified Code(s): M54.50 - Low back pain, unspecified; G89.29 - Other chronic pain Category: Medical Code(s)
--- NOTE | 2023-09-12 14:03 | HMH.PTEV ---
Physical Therapy Evaluation Rehab PT IP Evaluation Start: 09/12/23 08:32 Freq: ONCE Status: Active Protocol: Document 09/12/23 13:55 JANI (Rec: 09/12/23 14:03 HWADE [id number]) Subjective/History History History Pt is a 72 year old female that presented to [facility] ED with reports of feeling sick again and having diarrhea following a oral 10-day oral vancomycin at home. Pt was having poor P. O. intake because of it. In ED , pt was found to be weak, hypokalemic and had low blood pressure. Pt was admitted to hospital for IV antibiotics and resumption of empiric therapy for C. difficile colitis. PMH: Allergic rhinitis, Emphysema/COPD, Hyperlipidemia , Hypertension, Osteoporosis, Pneumonia, Pulmonary emphysema , Smoking greater than 30 pack years, Tobacco abuse Subjective Subjective Pt presents in semi-fowlers in bed with and daughter at side, pleasant and agreeable to PT initial evaluation. Pt denies reports of pain at rest. Pt AOx4 Pt lives at home with her in a [facility] with 2 ARIA Per pt and family, pt was (I) at home for BADL's without the use of an AD. Pt has had 3-4 falls recently d/t weakness. Pt reports that her performs all cooking/cleaning at home. New diagnosis of cancer in past 12 No months? Rehab PT IP Eval Objective Appearance Patient Behavior Appropriate,Cooperative Patient Orientation Person,Place,Time,Situation Difficulty following instructions none Speech Pattern Clear,Appropriate Ambulation Patient Able to Ambulate Yes Ambulation Observation IP General Gait Pattern Observation Narrow Based Gait Ambulation Distance (feet) 35 Ambulation Assistive Device None Ambulation Ability Minimal x 1 (25% assist) Balance Ability to Arise Able, uses arms to help Sitting Balanc
[2023-09-12 15:41] VITALS: BP 165/64; PULSE 88; RESP 16; TEMP 37.1; O2SAT 98
[2023-09-12 19:44] VITALS: BP 104/63; PULSE 74; RESP 16; TEMP 36.8; O2SAT 98
[2023-09-12 20:00] VITALS: O2SAT 98
[2023-09-13 03:52] VITALS: BP 93/54; PULSE 85; RESP 16; TEMP 37; O2SAT 96; BMI 23.3
--- NOTE | 2023-09-13 06:24 | PC.NURSE ---
REMAINS ON CONTACT ISOL. FOR C DIFF. NAD. NO COMPLAINTS.
[2023-09-13 08:00] VITALS: BP 112/65; PULSE 85; RESP 16; TEMP 36.7; O2SAT 97
--- NOTE | 2023-09-13 08:35 | EXP.ACUTE.PN ---
Subjective *Date: 09/13/23 *Time: 08:35 Interval history: Overall patient feels better than yesterday, stools have solidified. She is been able to ambulate, PT evaluation noted from yesterday. Labs this morning are pending. Medical Exam Vital signs and Labs for Last 24 Hours: Vital Signs Temp Pulse Resp BP Pulse Ox O2 Del Method 09/13/23 08:00 98.1 F 85 16 112/65 97 Room Air 09/13/23 06:37 Room Air 09/13/23 05:00 Room Air 09/13/23 03:52 98.6 F 85 16 93/54 L 96 Room Air 09/13/23 03:00 Room Air 09/13/23 01:00 Room Air 09/12/23 23:00 Room Air 09/12/23 21:00 Room Air 09/12/23 20:00 98 Room Air 09/12/23 19:44 98.3 F 74 16 104/63 L 98 Room Air 09/12/23 18:20 Room Air 09/12/23 17:00 Room Air 09/12/23 15:00 Room Air 09/12/23 15:41 98.7 F 88 16 165/64 H 98 Room Air 09/12/23 13:00 Room Air 09/12/23 11:00 Room Air 09/12/23 09:00 Room Air Intake and Output 09/12/23 09/13/23 09/13/23 19:59 03:59 11:59 Intake Total 1808 / 3699 1159 / 3699 732 / 3699 Output Total 0 / 0 0 / 0 0 / 0 Balance 1808 / 3699 1159 / 3699 732 / 3699 Intake: Intake, Oral Amount 720 / 990 270 / 990 Intake, Total IV Amount 1088 / 2709 1159 / 2709 462 / 2709 0.9 % Sodium Chloride 1000ML 1, 1088 / 2709 1159 / 2709 462 / 2709 000 ml @ 100 mls/hr IV .Q10H [facility] Rx#:[id number] Output: Output, Urine Amount 0 / 0 0 / 0 0 / 0 Other: Number of Unmeasured Voids 1 1 1 Weight 126 lb 14.4 oz Patient Weight 09/13/23 11:59 Weight 126 lb 14.4 oz I & O for Labs for Last 24 Hours: Intake & Output 09/10/23 09/11/23 09/12/23 09/13/23 11:59 11:59 11:59 11:59 Intake Total 1160 / 1160 2547 / 2547 3699 / 3699 Output Total 250 / 250 400 / 400 0 / 0 Balance 910 / 910 2147 / 2147 3699 / 3699 Weight 145 lb 120 lb 3 oz 120 lb 1.6 oz 126 lb 14.4 oz Comment:: Alert, pleasant. Appears better hydrated. Lungs with scattered rhonchi but improving. Heart rate regular. Abdomen soft, much less tenderness. No edema or clubbing. Assessment and Plan *Assessment and plan (1) Colitis: Status: Acute Category: Medical Code(s): K52.9 - Noninfective gastroenteritis and colitis, unspecified (2) Acute hypokalemia: Status: Acute Category: Medical Code(s): E87.6 - Hypokalemia (3) Hypomagnesemia: Status: Acute Category: Medical Code(s): E83.42 - Hypomagnesemia (4) Hypovolemia: Status: Acute Category: Medical Code(s): E86.1 - Hypovolemia (5) Chronic low back pain: Status: Acute Qualifiers: Back pain laterality: bilateral Sciatica presence: unspecified whether sciatica present Qualified Code(s): M54.50 - Low back pain, unspecified; G89.29 - Other chronic pain Category: Medical Code(s): M54.50 - Low back pain, unspecified; G89.29 - Other chronic pain (6) Lumbar radiculopathy: Status: Acute Category: Medical Code(s): M54.16 - Radiculopathy, lumbar region (7) C. 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 We have restarted vancomycin and Xifaxan mean. Probiotics of already been started. Plan will be to continue IV fluids, replace electrolytes, labs are pending for this morning. She is globally weak. Plan to get PT involved tomorrow if she remains weak and is really unable to do for herself. Hold blood pressure medicine at this point, cautiously restart if needed. She has significant back pain from lumbar radiculop
[2023-09-13 08:44] LABS: Anion Gap 8.1 mEq/L (5-15); Blood Urea Nitrogen 2 mg/dl (7-17); Calcium 7.2 mg/dl (8.4-10.2); Carbon Dioxide 16 mmol/L (22.0-30.0); Chloride 109 mmol/L (98-107); Creatinine Clearance Estimated 47 mL/min (50-200); Estimated Glomerular Filt Rate 219 ml/min (>60); GFR (African American) 265 ML/MIN (>60); Glucose 73 mg/dl (74-100); Potassium 3.1 mmoL/L (3.5-5.1); Sodium 130 mmol/L (136-145)
[2023-09-13 08:54] LABS: Basophils % 0.2 % (0.1-2.0); Eosinophils # 0.1 K/mm3 (0.0-0.4); Eosinophils % 1.9 % (0.1-12.0); Hematocrit 29.5 % (37.0-47.0); Hemoglobin 9.9 g/dL (12.2-16.2); Lymphocytes # 1.9 K/mm3 (0.7-4.5); Lymphocytes % 32.5 % (10-50); Mean Corpuscular HGB Conc 33.7 g/dL (31.8-35.4); Mean Corpuscular Hemoglobin 38.5 pg (27.0-31.2); Mean Corpuscular Volume 114.4 fl (81-99); Mean Platelet Volume 9.9 fl (7.4-10.4); Monocytes # 0.3 K/mm3 (0.1-1.0); Monocytes % 5.6 % (1.7-9.3); Neutrophils # 3.5 K/mm3 (1.8-7.8); Neutrophils % 59.7 % (37.0-80.0); Platelet Count 252 K/mm3 (142-424); Red Blood Count 2.58 M/mm3 (4.20-5.40); Red Cell Distribution Width 14.4 % (11.5-17.5); White Blood Count 5.9 K/mm3 (4.8-10.8)
[2023-09-13 15:42] VITALS: BP 119/72; PULSE 75; RESP 16; TEMP 36.8; O2SAT 96
--- NOTE | 2023-09-13 17:21 | PC.NURSE ---
no acute changes from previous shift. bm x1, slightly formed. sb assistance with ambulating, pt sat in chair for a couple of hrs. tolerating low fat diet well at this time. 22g iv placed in rt ac, dc lue iv. at bs. pt states feeling much better still just weak feeling . cb within reach, no concerns at this time.
[2023-09-13 20:00] VITALS: BP 117/69; PULSE 93; RESP 20; TEMP 37; O2SAT 96
[2023-09-14 04:00] VITALS: BP 111/65; PULSE 83; RESP 18; TEMP 36.9; O2SAT 97; BMI 23.8
--- NOTE | 2023-09-14 05:09 | PC.NURSE ---
PATIENT RESTING IN BED. HOB ELEVATED 30 DEGREES. ENTERIC CONTACT ISOLATION FOR H/O C DIFF. . NO REPORTS OF N/V/D OR ABDOMINAL PAIN.
[2023-09-14 06:16] LABS: Basophils % 0.2 % (0.1-2.0); Eosinophils # 0.1 K/mm3 (0.0-0.4); Eosinophils % 2.3 % (0.1-12.0); Hematocrit 29.4 % (37.0-47.0); Hemoglobin 9.7 g/dL (12.2-16.2); Lymphocytes # 1.7 K/mm3 (0.7-4.5); Lymphocytes % 32.3 % (10-50); Mean Corpuscular Hemoglobin 38.2 pg (27.0-31.2); Mean Corpuscular Volume 115.8 fl (81-99); Mean Platelet Volume 9.4 fl (7.4-10.4); Monocytes # 0.3 K/mm3 (0.1-1.0); Monocytes % 5.7 % (1.7-9.3); Neutrophils # 3.1 K/mm3 (1.8-7.8); Neutrophils % 59.6 % (37.0-80.0); Platelet Count 253 K/mm3 (142-424); Red Blood Count 2.54 M/mm3 (4.20-5.40); Red Cell Distribution Width 14.6 % (11.5-17.5); White Blood Count 5.2 K/mm3 (4.8-10.8)
[2023-09-14 06:24] LABS: Alanine Aminotransferase 12 U/L (12-78); Albumin Level 1.9 g/dl (3.5-5.0); Albumin/Globulin Ratio 0.8 (1.1-1.8); Alkaline Phosphatase 76 U/L (38-126); Anion Gap 7.3 mEq/L (5-15); Aspartate Amino Transferase 19 U/L (14-36); Bilirubin,Total 0.2 mg/dl (0.2-1.3); Blood Urea Nitrogen 3 mg/dl (7-17); Calcium 7.3 mg/dl (8.4-10.2); Carbon Dioxide 16 mmol/L (22.0-30.0); Chloride 112 mmol/L (98-107); Creatinine Clearance Estimated 48 mL/min (50-200); Estimated Glomerular Filt Rate 219 ml/min (>60); GFR (African American) 265 ML/MIN (>60); Globulin 2.3 g/dL (1.3-3.2); Glucose 78 mg/dl (74-100); Potassium 3.3 mmoL/L (3.5-5.1); Sodium 132 mmol/L (136-145); Total Protein,Serum 4.2 g/dl (6.3-8.2)
[2023-09-14 07:45] VITALS: BP 117/50; PULSE 94; RESP 18; TEMP 36.7; O2SAT 93
--- NOTE | 2023-09-14 10:53 | EXP.DC.SUM ---
General Admission date:: 09/10/23 Discharge date: 09/14/23 HPI HPI HPI: 72-year-old female with history of electrolyte disturbances that have been variously related to diuretics, dehydration, and previous diarrheal illness that was diagnosed as C. difficile in July of this year, she also had another episode of diarrhea with diagnosis of C. difficile a couple weeks ago. She had been better at home with oral vancomycin but a couple of days after finishing a 10-day course became sick again and began to have diarrhea. Poor p.o. intake resulted, lots of weakness. Came to the ER last night, found to be weak, hypokalemic, low blood pressure and admitted to hospital for IV antibiotics and resumption of empiric therapy for C. difficile colitis. Hospital Course Hospital Course Hospital Course: Patient admitted, placed on empiric antibiotics for C. difficile given her past history. Due to lab limitations repeat C. difficile titers were not available at the time of discharge but she improved nicely on vancomycin and Xifaxan. Electrolyte disturbances were resolved. PT evaluated her and felt she would benefit from outpatient PT. Plan for discharge home today on Vanco and Xifaxan. I will see her in my office in the next weeks and we will get outpatient PT set up. Exam Data for Last 24 hours Vital signs and Labs for Last 24 Hours: Temp Pulse Resp BP Pulse Ox O2 Del Method 98.0 F 94 H 18 117/50 L 93 L Room Air 09/14/23 07:45 09/14/23 07:45 09/14/23 07:45 09/14/23 07:45 09/14/23 07:45 09/14/23 09:00 Laboratory Results - last 24 hr 09/14/23 05:30: WBC 5.2, RBC 2.54 L, Hgb 9.7 L, Hct 29.4 L, MCV 115.8 H, MCH 38.2 H, MCHC 33.0, RDW 14.6, Plt Count 253, MPV 9.4, Neut % (Auto) 59.6, Lymph % (Auto) 32.3, Broome % (Auto) 5.7, Eos % (Auto) 2.3, Baso % (Auto) 0.2, Neut # (Auto) 3.1, Lymph # (Auto) 1.7, Broome # (Auto) 0.3, Eos # (Auto) 0.1, Baso # (Auto) 0.0, Sodium 132 L, Potassium 3.3 L, Chloride 112 H, Carbon Dioxide 16 L, Anion Gap 7.3, BUN 3 L D, Creatinine 0.30 L, Estimated Creat Clear 48, Estimated GFR 219, Est GFR ( Amer) 265, Glucose 78, Calcium 7.3 L, Total Bilirubin 0.2, AST 19, ALT 12, Alkaline Phosphatase 76, Total Protein 4.2 L D, Albumin 1.9 L, Globulin 2.3, Albumin/Globulin Ratio 0.8 L I & O for Last 24 hours: Intake & Output 09/11/23 09/12/23 09/13/23 09/14/23 11:59 11:59 11:59 11:59 Intake Total 1160 / 1160 2547 / 2547 3699 / 3699 3294 / 3294 Output Total 250 / 250 400 / 400 0 / 0 Balance 910 / 910 2147 / 2147 3699 / 3699 3293 / 3293 Weight 120 lb 3 oz 120 lb 1.6 oz 126 lb 14.4 oz 129 lb 9.6 oz Constitutional Constitutional: no acute distress *Routine HEENT Exam Head: Present normocephalic Eye: Present EOMI and PERRL ENT: Present mucous membranes moist *Routine Neck Exam Neck: Present supple; Absent lymphadenopathy *Routine Respiratory Exam Respiratory: Present CTA bilaterally *Routine Cardiovascular Exam Cardiovascular: Present RRR *Routine Abdominal Exam Abdominal: Present soft and normoactive bowel sounds; Absent tenderness *Routine Extremities Exam Extremities: Absent cyanosis, clubbing or edema *Routine Skin Exam Skin: Present warm; Absent rash *Routine Neurological Exam Neurological: Present alert and oriented X3 Results Data Completed and Pending Labs on day of discharge: Labs from last 24 hours 09/14/23 05:30 WBC 5.2 RBC 2.54 L Hgb 9.7 L Hct 29.4 L MCV 115.8 H MCH 38.2 H MCHC 33.0 RDW 14.6 Plt Count 253 MPV 9.4 Neut % (Auto) 59.6 Lymph % (Auto) 32.3 Broome % (Auto) 5.7 Eos % (Auto) 2.3 Baso % (Auto) 0.2 Neut # (Auto) 3.1 Lymph # (Auto) 1.7 Broome # (Auto) 0.3 Eos # (Auto) 0.1 Baso # (Auto) 0.0 Sodium 132 L Potassium 3.3 L Chloride 112 H Carbon Dioxide 16 L Anion Gap 7.3 BUN 3 L D Creatinine 0.30 L Estimated Creat Clear 48 Estimated GFR 219 Est GFR ( Amer) 265 Glucose 78 Calcium 7.3 L Total Bilirubin 0.2 AST 19
--- NOTE | 2023-09-14 12:37 | HMH.OTEV ---
OT Inpatient Evaluation Rehab OT IP Evaluation Start: 09/12/23 08:32 Freq: ONCE Status: Discharge Protocol: Document 09/14/23 12:34 ANUPAMKANDICE (Rec: 09/14/23 12:37 BERNADETTEMICHAELA [id number]) Rehab OT IP Assessment Subjective History 72-year-old female with history of electrolyte disturbances that have been variously related to diuretics , dehydration, and previous diarrheal illness that was diagnosed as C. difficile in July of this year, she also had another episode of diarrhea with diagnosis of C. difficile a couple weeks ago. She had been better at home with oral vancomycin but a couple of days after finishing a 10-day course became sick again and began to have diarrhea. Poor p.o. intake resulted, lots of weakness. Came to the ER last night, found to be weak, hypokalemic, low blood pressure and admitted to hospital for IV antibiotics and resumption of empiric therapy for C. difficile colitis. Patient lives with . Independent with fx'l mobility and ADLs except for bathing. Patient required assistance for driving and housekeeping tasks. Subjective I can get up. Analysis Patient's ability to complete bed mobiltiy, transfers, LB drsg and fx'l mobility. Patietn completed all tasks independently. Patient appears to be at baseline. Objective Patient Orientation Person,Place,Name,Age,Birthday ,Year Right Upper Extremity Gross ROM WFL Left Upper Extremity Gross ROM WFL Bed Mobility bed mobility - supine/sit Assist Level Independent Transfer Training Sit/Stand/Pivot Transfer Assist Level Independent Chair Transfer Ability Independent Chair Transfer Technique
[2023-09-15 21:28] LABS: Clostridium Difficile A/B, PCR Detected (NotDetected)
--- NOTE | 2023-09-16 15:50 | PC.NURSE ---
diarrhea panel results with clostridium A/B, pt admitted to 2nd and given vancomycin.
== END 2023-09-14 11:47 | disposition home or self-care (01) | DRG 373 ==
LOC: ER 15:27 → 2ND 15:45
PROVIDERS: Admitting Provider Internal Medicine Adolescent Medicine; Emergency Provider Emergency Medicine; PCP Internal Medicine Adolescent Medicine; Visit Provider Internal Medicine Adolescent Medicine
DX: A04.72 Enterocolitis due to Clostridium difficile, not specified as recurrent (principal); E87.6 Hypokalemia; E83.42 Hypomagnesemia; E86.1 Hypovolemia; M54.50 Low back pain, unspecified; G89.29 Other chronic pain; M54.16 Radiculopathy, lumbar region; J43.9 Emphysema, unspecified; I10 Essential (primary) hypertension; E78.5 Hyperlipidemia, unspecified
CPT/HCPCS: 36415; 74174; 80048; 80053; 81001; 83690; 83735; 85007; 85025; 87507; 87636; 93005; 94640; 97116; 97162; 97165; 99285; J0131; J2405; J3475; Q9967

== ENCOUNTER → 2023-09-17 14:50 | Outpatient (POV) | payer MEDICARE, SELFPAY ==
--- OUTSIDE RECORDS SUMMARY | 2023-09-17 14:53 | XMS_ITS | Patient Health Record ---
Author Name Unknown Organization [facility] Address [address] [place] [address] Care Team Providers Care Risk Compliance Manager Name Role Phone Alfred Awad Primary Care Provider [phone] Michelle Perea Unavailable [phone] Lacie Arvizu Unavailable [phone] ALLERGIES Allergen (clinical drug ingredient) Drug/Non Drug [...] Notes/Report: M-Complete Blood Count Auto Diff Reviewed date:07/30/2023 02:49:53 PM Interpretation: Performing Lab: Notes/Report: WBC 8.1 4.8-10.8 K/mm3 Delta: 6.3 on 07/29/23 RBC 2.93 4.20-5.40 M/mm3 HGB 10.9 12.2-16.2 g/dL HCT 34.2 37.0-47.0 % MCV 116.8 81-99 fl MCH 37.2 27.0-31.2 pg MCHC 31.8 31.8-35.4 g/dL RDW
--- NOTE | 2023-09-17 14:55 | EXP.PAIN.SOA ---
[facility] Pain Management SOAP Note Subjective:: Patient is a pleasant 72-year-old female who presents today for follow-up. We are currently treating the patient for degenerative disc disease of lumbar spine with lumbar radiculopathy symptoms, lumbar facet arthropathy, chronic low back pain. Today she rates her pain a 8 out of 10. From our last visit the patient was hospitalized due to nausea, vomiting and diarrhea. Patient did have updated lab work drawn with altered electrolytes of potassium, sodium and magnesium. Patient was given IV fluids and was also treated for reinfection of C. difficile. She states they do have her on 2 different antibiotics and that she is also on an experimental drug to help put good bacteria back in her GI system. Patient does states she has been able to increase her intake of solid food. She was previously on gabapentin however it did cause significant grogginess and drowsiness. Patient has discontinued this. She is currently prescribed Tylenol 3 1 to 2 tablets as needed from her PCP. She does state this helps with some of the pain. Patient has been experiencing worsening pain in her left foot and ankle and does have swelling into her bilateral feet. Patient was previously on a fluid pill however this was discontinued following her recent hospitalization. She does state that she is scheduled for repeat blood work on Thursday. Her Dioni has been reviewed and appropriate. Review of Systems: General: No recent weight changes, no fever, no sleep disturbances Respiratory: No cough, no shortness of air, no recurring pulmonary infections Cardiovascular/peripheral vascular: No chest pain, no palpitations, no edema, no shortness of breath Gastrointestinal: No new onset incontinence, normal bowel movements reported Genitourinary: No new onset incontinence Musculoskeletal: Low back pain, left foot pain Psychiatric: [Normal mood/affect] Neurological: [Denies weakness in extremities], [denies balance issues] Objective:: Physical Exam: General: Alert and oriented x3, no acute distress, pleasant and cooperative Lungs: Respirations even and unlabored, symmetrical chest expansion Eyes: PERRL Musculoskeletal: Flexion and extension of lumbar [spine] somewhat guarded secondary to pain, [antalgic gait noted] Neurological: Speech clear, no gross sensory deficit Assessment:: Degenerative disc disease of lumbar spine with lumbar radiculopathy symptoms, lumbar facet arthropathy, chronic low back pain Plan:: Patient continues to experience significant pain in her left foot however related to her recent illness and hospitalization we will wait on any additional injection therapy. I have recommended that she get compression socks to help with the swelling in her bilateral feet. Patient did get significant improvement with the compounded cream however she was only using it 1 time a day. I have recommended that she increase this to 3-4 times per day. I will send in a 14-day supply of pregabalin 50 mg twice daily. Patient will return to clinic in 2 weeks for reevaluation of symptoms and plan of care. \ Patient has been instructed to contact the clinic with any concerns before the next appointment. Dr. Gaviria has reviewed this note and agrees with this plan of care. This note was dictated using voice recognition software and make contain errors or omissions. [facility] Disclaimer: The information contained in this section may have been updated after the patient was seen, as this information can be updated by other users. Medical History Allergic rhinitis Emphysema/COPD Encounter for screening for malignant neoplasm of lung Hyperlipidemia Hypertension Osteoporosis Pneumonia Pulmonary emphysema Smoking greater than 30 pack years Tobacco abuse Surgical History History of colonoscopy Hx of hand surgery Family History (Reviewed 03/18
[2023-09-17 14:58] VITALS: BP 109/64; PULSE 80; RESP 18; O2SAT 100; BMI 21.4
== END | disposition home or self-care (01) ==
PROVIDERS: PCP Internal Medicine Adolescent Medicine; Visit Provider Nurse Practitioner Family
DX: M51.16 Intervertebral disc disorders with radiculopathy, lumbar region (principal); M47.26 Other spondylosis with radiculopathy, lumbar region; G89.29 Other chronic pain
CPT/HCPCS: 99212; G0463

== ENCOUNTER → 2023-10-01 11:15 | Outpatient (POV) | payer MEDICARE, SELFPAY ==
--- OUTSIDE RECORDS SUMMARY | 2023-10-01 11:19 | XMS_ITS | Patient Health Record ---
Author Name Unknown Organization [facility] Address [address] [place] [address] Care Team Providers Care Oven Baker Name Role Phone Alfred Awad Primary Care Provider Michelle Perea Unavailable [phone] Lacie Arvizu Unavailable [phone] ALLERGIES Allergen (clinical drug ingredient) Drug/Non Drug [...] Notes/Report: M-Complete Blood Count Auto Diff Reviewed date:07/29/2023 01:05:48 PM Interpretation: Performing Lab: Notes/Report: WBC 6.3 4.8-10.8 K/mm3 RBC 2.82 4.20-5.40 M/mm3 HGB 10.5 12.2-16.2 g/dL HCT 33.9 37.0-47.0 % MCV 120.4 81-99 fl MCH 37.4 27.0-31.2 pg MCHC 31.1 31.8-35.4 g/dL RDW 13.3 11.5-17.5 %
--- NOTE | 2023-10-01 11:41 | EXP.PAIN.SOA ---
[facility] Pain Management SOAP Note Subjective:: Patient is a pleasant 72-year-old female who presents today for follow-up. We are currently treating the patient for degenerative disc disease of lumbar spine with lumbar radiculopathy symptoms, lumbar facet arthropathy, chronic low back pain. Today she rates her pain an 8 out of 10. Patient denies any new trauma or injury. She does state from our last visit that the pregabalin medication that was prescribed did significantly improve her symptoms. She states she did not have the overall grogginess like what she did with the gabapentin. Patient does state that she is still taking her potassium pill and that she is scheduled to go back to Dr. Awad's office for additional lab work however she is not sure when they are drawing this. Patient did previously have altered labs of potassium, sodium and magnesium. Patient does state that she is stopped the experimental gut medication and is no longer on antibiotics for the C. difficile infection. Patient does state overall she is feeling better. She does state though that she continues to have swelling into her bilateral lower extremities around her feet, ankles and up to her knees. Patient does state that the right leg seems to be worse. Patient denies any previous evaluation for possible altered blood flow. Patient is currently managed with Tylenol 3 1 to 2 tablets as needed by her PCP and pregabalin 50 mg twice a day from our office. She denies any side effects from this medication. She is also prescribed compounding cream which does help additionally. Her Dioni has been reviewed and is appropriate. Review of Systems: General: No recent weight changes, no fever, no sleep disturbances Respiratory: No cough, no shortness of air, no recurring pulmonary infections Cardiovascular/peripheral vascular: No chest pain, no palpitations, no edema, no shortness of breath Gastrointestinal: No new onset incontinence, normal bowel movements reported Genitourinary: No new onset incontinence Musculoskeletal: Bilateral feet pain/swelling, low back pain Psychiatric: [Normal mood/affect] Neurological: [Denies weakness in extremities], [denies balance issues] Objective:: Physical Exam: General: Alert and oriented x3, no acute distress, pleasant and cooperative Lungs: Respirations even and unlabored, symmetrical chest expansion Eyes: PERRL Musculoskeletal: Flexion and extension of lumbar [spine] somewhat guarded secondary to pain, [antalgic gait noted] Neurological: Speech clear, no gross sensory deficit Assessment:: Degenerative disc disease of lumbar spine with lumbar radiculopathy symptoms, lumbar facet arthropathy, chronic low back pain Plan:: Patient is doing well with her current medication. I will refill her pregabalin 50 mg twice daily and provide a 2-month supply of this medication. I have counseled the patient to discuss with her PCP regarding possible evaluation for peripheral vascular disease to explain the increased swelling in her lower extremities. I have also discussed with the patient if she needs us to order updated lab work that she can contact our office and I will send the order over. Patient denies any cardiac history. Patient will return to clinic in 1 month for reevaluation of symptoms and plan of care. Patient has been instructed to contact the clinic with any concerns before the next appointment. Dr. Gaviria has reviewed this note and agrees with this plan of care. This note was dictated using voice recognition software and make contain errors or omissions. [facility] Disclaimer: The information contained in this section may have been updated after the patient was seen, as this information can be updated by other users. Medical History (Updated 09/18/23 @ 00:00 by Lauren Kinsey) Allergic rhinitis Emphysema/COPD Encounter for screening for malignant neoplasm of lung Hyperlipidemia Hypertension Osteoporosis Pneumonia Pulmonary emphysema Theron
[2023-10-01 12:11] VITALS: BP 105/62; PULSE 68; RESP 19; O2SAT 98; BMI 20.9
== END | disposition home or self-care (01) ==
PROVIDERS: PCP Internal Medicine Adolescent Medicine; Visit Provider Nurse Practitioner Family
DX: M51.16 Intervertebral disc disorders with radiculopathy, lumbar region (principal); M47.26 Other spondylosis with radiculopathy, lumbar region; M54.50 Low back pain, unspecified; G89.29 Other chronic pain
CPT/HCPCS: 99212; G0463

== ENCOUNTER → 2023-10-27 14:38 | Outpatient (POV) | payer MEDICARE, SELFPAY ==
[2023-10-27 14:54] VITALS: BP 82/49; PULSE 72; RESP 18; O2SAT 94; BMI 20.5
--- NOTE | 2023-10-27 15:10 | A.OFFVIS_ITS ---
[facility] Pain Management SOAP Note Subjective:: This patient is a pleasant 72-year-old female that presents to our clinic today for follow-up visit in a wheelchair. Were currently treating the patient for degenerative disc lumbar spine multilevels. Lumbar radiculopathy symptoms. Lumbar facet arthropathy. Lumbar spondylosis. Chronic low back pain. Today she rates her pain 6/10. We are currently managing the patient with Lyrica 50 mg 1 p.o. twice daily. Also, patient receives Tylenol with codeine from her PCP. Patient's main complaint today is right leg pain. She has 3+ edema in her right foot as well as right lower leg. Normal left leg appearance. We discussed in detail regarding referral to Dr. Bassett to further diagnose and treat the right leg edema. We will set this up for her today. The patient's Dioni #[id number] is been reviewed and appropriate. Objective:: Patient is awake alert Henrietta x 3. In no acute distress. Flexion-extension lumbar spine guarded secondary to pain. Deep tendon reflexes upper and lower extremities normal. Motor strength upper extremities normal. Lower extremities not tested due to patient in a wheelchair. Her gait is antalgic at best. However, patient does state at home she is ambulatory. Assessment:: Degenerative disc lumbar spine multilevels. Lumbar radiculopathy. Lumbar spondylosis. Multilevel lumbar facet arthropathy. Plan:: Patient does not need refills for Lyrica at this time. We will set her up for referral to Dr. Bassett regarding right leg edema. [facility] Disclaimer: The information contained in this section may have been updated after the patient was seen, as this information can be updated by other users. Medical History (Updated 09/18/23 @ 00:00 by Lauren Kinsey) Allergic rhinitis Emphysema/COPD Encounter for screening for malignant neoplasm of lung Hyperlipidemia Hypertension Osteoporosis Pneumonia Pulmonary emphysema Smoking greater than 30 pack years Tobacco abuse Surgical History History of colonoscopy Hx of hand surgery Family History Brother Family history of cancer Daughter Family history of celiac disease Other Family history of [place] (myocardial infarction) Family history of heart disease Social History (Updated 09/10/23 @ 16:30 by Dorys Smith RN) Smoking Status: Current every day smoker tobacco type: cigarettes packs per day: 1 years smoked: 35 alcohol intake: current substance use type: denies use current occupational status: retired Travel in the last 8 weeks: None household members: spouse housing: house lives independently: Yes marital status: caffeine: Yes special andrés needs: No agree to transfusion: No do you feel safe at home: Yes victim of physical abuse: No victim of emotional abuse: No victim of sexual abuse: No would you like helpful sources: No
== END ==
LOC: SC.PAIN 14:39
PROVIDERS: PCP Internal Medicine Adolescent Medicine; Visit Provider Nurse Anesthetist, Certified Registered
DX: M51.16 Intervertebral disc disorders with radiculopathy, lumbar region (principal); M47.26 Other spondylosis with radiculopathy, lumbar region
CPT/HCPCS: 99212; G0463

== ENCOUNTER → 2023-10-27 15:10 | Outpatient (CLI) | payer MEDICARE, SELFPAY ==
[2023-10-27 15:51] LABS: Chloride 102 mmol/L (98-107); Potassium 3.6 mmoL/L (3.5-5.1); Sodium 131 mmol/L (136-145)
[2023-10-27 15:54] LABS: Anion Gap 20.6 mEq/L (5-15); Blood Urea Nitrogen 9 mg/dl (7-17); Calcium 8.2 mg/dl (8.4-10.2); Carbon Dioxide 12 mmol/L (22.0-30.0); Estimated Glomerular Filt Rate 82 ml/min (>60); GFR (African American) 100 ML/MIN (>60); Glucose 67 mg/dl (74-100); Magnesium 1.5 mg/dl (1.6-2.3)
== END ==
PROVIDERS: PCP Internal Medicine Adolescent Medicine; Visit Provider Internal Medicine Adolescent Medicine
DX: R60.0 Localized edema (principal)
CPT/HCPCS: 36415; 80048; 83735

== ENCOUNTER 2023-10-30 18:09 | Inpatient (IN) | payer MEDICARE, SELFPAY ==
[2023-10-30] VITALS (8 sets, daily range): BP systolic 106–119; BP diastolic 51–74; PULSE 117–125; RESP 16–19; TEMP 36.5–36.9; O2SAT 95–100; BMI 23.9; BMI 19.5
--- NOTE | 2023-10-30 18:56 | ED_ITS ---
Discharge Plan Disposition Patient Disposition: Admitted Prescriptions Prescriptions: No Action budesonide-formoterol [Symbicort] 160-4.5 mcg/actuation HFA aerosol inhaler 2 puff inhalation BID 90 Days Qty: 10.2 3RF azelastine 137 mcg (0.1 %) aerosol,spray 2 spray intranasal HS 90 Days Qty: 30 3RF Rx Instructions: administer into each nostril fluticasone propionate [Flonase Allergy Relief] 50 mcg/actuation spray,suspension 2 spray intranasal DAILY 90 Days Qty: 16 2RF Rx Instructions: administer into each nostril montelukast 10 mg tablet 10 mg PO PM Patient Comments: TAKE ONE TABLET BY MOUTH EVERY EVENING trazodone 50 mg tablet 50 mg PO HS Patient Comments: TAKE ONE TABLET BY MOUTH EVERY DAY AT BEDTIME DIRECTED potassium chloride 20 mEq tablet,ER particles/crystals 20 meq PO DAILY Patient Comments: TAKE ONE TABLET BY MOUTH EVERY DAY ibuprofen 800 mg tablet 800 mg PO TIDP PRN (Reason: Mild Pain (Scale Score 1-4)) Patient Comments: TAKE ONE TABLET BY MOUTH THREE TIMES DAILY NEEDED --TAKE WITH FOOD-- alendronate 70 mg tablet 70 mg PO WEEKLY Patient Comments: TAKE ONE TABLET BY MOUTH ONCE A WEEK albuterol sulfate 90 mcg/actuation HFA aerosol inhaler 2 puff INHALATION Q6HP PRN (Reason: Shortness Of Breath) Patient Comments: INHALE TWO PUFFS BY MOUTH EVERY 6 HOURS acetaminophen-codeine 300-30 mg tablet 1 - 2 tab PO BIDP PRN (Reason: Severe Pain (Scale Score 7-10)) 7 Days Qty: 20 0RF pregabalin 50 mg capsule 50 mg PO BID Qty: 60 1RF atorvastatin 40 mg tablet 40 mg PO DAILY metoprolol tartrate 50 mg tablet 50 mg PO BID ondansetron 4 mg tablet,disintegrating 4 mg PO Q8H PRN (Reason: nausea and vomiting) Qty: 30 2RF meloxicam 15 mg tablet 15 mg PO DAILY Patient Comments: TAKE ONE TABLET BY MOUTH EVERY DAY --TAKE WITH FOOD-- gabapentin 100 mg capsule 100 mg PO BID Patient Comments: TAKE ONE CAPSULE BY MOUTH TWICE DAILY NEEDED FOR BACK PAIN Xifaxan 550 mg tablet 550 mg PO TID Qty: 30 0RF Referrals Follow up/Referrals: Alfred Awad MD [Primary Care Provider] - See instructions Clinical Impressions Clinical Impression: Abdominal pain, diffuse, Acute dehydration, Nausea & vomiting, Metabolic acidosis, Acute pancreatitis, Hypokalemia, Hyponatremia, Compensated metabolic acidosis Discharge ED Provider: Gardenia Leblanc General Adult HPI General Chief complaint: Weakness Stated complaint: unable to eat, difficulty walking Time Seen by Provider: 10/30/23 18:41 Mode of Arrival: Wheelchair Source of Information: Patient and Spouse Limitations: No Limitations Description of Symptoms (Recalled from ER Triage Doc. by RN): pt presents to ED with c/o weakness, vomitting, possibly low sodium. pt reports that she had labs done on thursday. symptoms ongoing for the past couple of days . pts reports he was advised by a family member who works in healthcare to bring pt in for evaluation due to lab work from thursday. History of Present Illness HPI narrative: Is a 72-year-old female presenting today with generalized weakness nausea and vomiting. She was seen by me in December of this year and had a spontaneous pneumothorax and had a chest tube placed at that time which has since improved but unfortunately her hospitalizations were complicated by C. difficile and she has been dealing with that chronically, she and her feel like her symptoms had improved from that standpoint she was no longer on any treatment but over the last several days she initially had some nausea vomiting with little bit of diarrhea but she has not had any diarrhea since the last 3 days. She persistently has some nausea vomiting has had decreased p.o. intake significant abdominal pain too. She has chronic lower extremity edema which is not new. Note she had some blood work drawn several days ago which showed a significant metabolic acidosis and her niece who is also been helping with some of her health care, Marlene, sent her to the emergency department and actually called and spoke to me as well. Denies any cardiopulmonary symptoms. Related Data Home Medications Medication Instructions Recorded Confirmed atorvastatin 40 mg tablet 40 mg PO DAILY Cholesterol 08/27/22 10/27/23 metoprolol tartrate 50 mg tablet 50 mg PO BID High Blood Pressure 08/27/22 10/27/23 montelukast 10 mg tablet 10 mg PO PM Allergy symptoms 01/10/23 10/27/23 potassium chloride 20 mEq 20 meq PO DAILY 07/27/23 10/27/23 tablet,extended release(part/cryst) trazodone 50 mg tablet 50 mg PO HS 07/27/23 10/27/23 albuterol sulfate 90 mcg/actuation 2 puff inhalation Q6HP PRN 07/28/23 10/27/23 aerosol inhaler Shortness Of Breath alendronate 70 mg tablet 70 mg PO WEEKLY Bone Health 07/28/23 10/27/23 ibuprofen 800 mg tablet 800 mg PO TIDP PRN Mild Pain 07/28/23 10/27/23 (Scale Score 1-4) gabapentin 100 mg capsule 100 mg PO BID Back/Hip Pain 09/11/23 10/27/23 meloxicam 15 mg tablet 15 mg PO DAILY 09/11/23 10/27/23 Previous Rx's Medication Instructions Recorded azelastine 137 mcg (0.1 %) nasal 2 spray intranasal HS 90 days #30 03/18/23 spray aerosol mL budesonide-formoterol HFA 160 2 puff inhalation BID 90 days 03/18/23 mcg-4.5 mcg/actuation aerosol #10.2 grams inhaler (Symbicort) fluticasone propionate 50 2 spray intranasal DAILY 90 days 07/13/23 mcg/actuation nasal #16 grams spray,suspension (Flonase Allergy Relief) acetaminophen 300 mg-codeine 30 mg 1 - 2 tab PO BIDP PRN Severe Pain 07/30/23 tablet (Scale Score 7-10) 7 days #20 tabs ondansetron 4 mg disintegrating 4 mg PO Q8H PRN nausea and 09/04/23 tablet vomiting #30 tabs rifaximin 550 mg tablet (Xifaxan) 550 mg PO TID #30 tabs 09/14/23 pregabalin 50 mg capsule 50 mg PO BID #60 caps 10/01/23 Allergies Allergy/AdvReac Type Severity Reaction Status Date / Time oxytetracycline Allergy Unknown PASSES OUT Verified 10/30/23 18:33 [From [facility]] [facility] Disclaimer: The information contained in this section may have been updated after the patient was seen, as this information can be updated by other users. Medical History (Updated 10/30/23 @ 19:54 by Gardenia Leblanc MD) Allergic rhinitis Emphysema/COPD Encounter for screening for malignant neoplasm of lung Hyperlipidemia Hypertension Osteoporosis Pneumonia Pulmonary emphysema Smoking greater than 30 pack years Tobacco abuse Surgical History History of colonoscopy Hx of hand surgery Family History Brother Family history of cancer Daughter Family history of celiac disease Other Family history of ND (myocardial infarction) Family history of heart disease Social History Smoking Status: Current every day smoker tobacco type: cigarettes packs per day: 1 years smoked: 35 alcohol intake: current substance use type: denies use current occupational status: retired Travel in the last 8 weeks: None household members: spouse housing: house lives independently: Yes marital status: caffeine: Yes special nadrés needs: No agree to transfusion: No do you feel safe at home: Yes victim of physical abuse: No victim of emotional abuse: No victim of sexual abuse: No would you like helpful sources: No ROS Obtained: Yes All systems reviewed & no additional complaints except as documented Physical Exam General General appearance: lethargic Respiratory Respiratory exam: Present normal lung sounds bilaterally; Absent respiratory distress, wheezes or stridor Cardiovascular Cardiovascular exam: Present tachycardia Abdominal Exam Abdominal exam: Present distention and tenderness (Diffusely tender there is some rebound and guarding throughout) Neurological Exam Neurological exam: Present alert and oriented X3 Medical Decision Making Dioni Inquiry Pt receiving controlled substance: No Vital Signs: 10/30/23 18:14 10/30/23 18:30 Temperature 98.4 F Temperature Source Oral Pulse Rate 125 H Pulse Rate [Left Radial] 117 H Respiratory Rate 19 Blood Pressure 112/51 L Blood Pressure [Right Arm] 112/59 L Blood Pressure Mean 67 Blood Pressure Mean [Right Arm] 76 02 Sat by Pulse Oximetry 100 98 Oxygen Delivery Method Room Air Lab Data Lab results reviewed: Yes I reviewed the patient's lab results. Lab Results 10/30/23 18:30: WBC 13.8 H, RBC 3.21 L, Hgb 12.1 L, Hct 37.9, MCV 118.0 H, MCH 37.6 H, MCHC 31.8, RDW 16.0, Plt Count 247, MPV 10.0, Neut % (Auto) 81.8 H, Lymph % (Auto) 10.7, [place] % (Auto) 7.2, Eos % (Auto) 0.0 L, Baso % (Auto) 0.1, Neut # (Auto) 11.3 H, Lymph # (Auto) 1.5, [place] # (Auto) 1.0, Eos # (Auto) 0.0, Baso # (Auto) 0.0, Sodium 128 L, Potassium 2.3 L*, Chloride 101, Carbon Dioxide 16 L, Anion Gap 13.3, BUN 10, Creatinine 0.80, Estimated Creat Clear 50, Estimated GFR 71, Est GFR ( Amer) 86, Glucose 96, Lactate 1.2, Calcium 8.8, Phosphorus 2.4 L, Magnesium 1.7, Total Bilirubin 1.1, AST 43 H, ALT 18, Alkaline Phosphatase 116, Total Protein 5.9 L D, Albumin 2.8 L, Globulin 3.1, Albumin/Globulin Ratio 0.9 L, Lipase 949 H 10/30/23 18:59: VBG pH 7.37, VBG pCO2 27.4 L, VBG pO2 65.7 H, VBG HCO3 15.3 L, VBG Total CO2 16.2 L, VBG O2 Saturation 92.6 H, VBG Base Excess -10.0 L 10/30/23 18:30 10/30/23 18:30 Orders (Tests/Meds): ED MEDICATIONS Generic Name Dose Route Start Last Admin Trade Name Freq PRN Reason Stop Dose Admin Potassium Chloride/Water 100 mls @ 100 mls/hr 10/30/23 19:30 10/30/23 19:47 Potassium Chloride 10meq/100ml Ivpb IV 10/30/23 22:29 100 mls/hr Q1H JAN Administration Sodium Chloride 10 ml 10/30/23 19:22 10/30/23 19:24 Sodium Chloride 0.9% 10ml Syr (Rad Only) IV 11/29/23 19:21 10 ml NEEDED PRN Administration Maintain IV Site Discontinued Medications Generic Name Dose Route Start Last Admin Trade Name Freq PRN Reason Stop Dose Admin Lactated Ringer's 1,000 mls @ 999 mls/hr 10/30/23 19:00 10/30/23 19:00 Lactated Ringer's 1000 Ml Bag IV 10/30/23 20:00 999 mls/hr .Q1H1M JAN Administration Iopamidol 100 ml 10/30/23 19:22 10/30/23 19:24 Iopamidol-370 (76%);100ml Bottle IV 10/30/23 19:23 100 ml ONCE ONE Administration Morphine Sulfate 2 mg 10/30/23 18:55 10/30/23 19:02 Morphine 4mg/Ml Syringe IV 10/30/23 18:56 2 mg ONCE ONE Administration Ondansetron HCl 4 mg 10/30/23 18:55 10/30/23 19:01 Ondansetron 4mg/2ml Vial IV 10/30/23 18:56 4 mg ONCE ONE Administration Potassium Chloride 40 meq 10/30/23 19:29 10/30/23 19:47 Potassium Chloride 20meq Tab PO 10/30/23 19:30 40 meq ONCE ONE Administration Sodium Chloride 50 ml 10/30/23 19:22 10/30/23 19:23 0.9 % Sodium Chloride 50 Ml Vial IV 10/30/23 19:23 50 ml ONCE ONE Administration ORDERS Category Date Time Status CT angio abdomen pelvis Stat Cat Scan 10/30/23 18:59 Completed CBC w/Auto Diff [Complete Blood Count Auto Diff] Stat Lab 10/30/23 18:30 Completed CMP [Comprehensive Metabolic Panel] Stat Lab 10/30/23 18:30 Completed Lactic Acid Stat Lab 10/30/23 18:30 Completed Lipase Stat Lab 10/30/23 18:30 Completed Magnesium Stat Lab 10/30/23 18:30 Completed Phosphorous Stat Lab 10/30/23 18:30 Completed UA [Urinalysis and Microscopic] Stat Lab 10/30/23 18:56 Ordered Blood Culture Stat Micro 10/30/23 19:36 Received Venous Blood Gas Stat RT 10/30/23 18:59 Completed Medical Decision Narrative: Is an ill-appearing 72-year-old female who appears very lethargic she is tachycardic has had profound nausea and vomiting and had significant metabolic acidosis on recent labs a bicarb of 12 anion gap was elevated. Given the diffuse tenderness she has her abdomen my primary pathology on the differential would be mesenteric ischemia. Other forms of colitis certainly could be on the differential as well. She has not had any more diarrhea over the last several days however infectious inflammatory colitis are also on the differential. Diverticulitis bowel obstruction etc. also on the differential. Labs IV fluids pain medicine nausea medicine have been administered will reassess after initial workup is complete. Lipase is more than 3 times the upper limit of normal which is consistent with acute pancreatitis. Patient also has hyponatremia and severe hypokalemia. Replacement of these have been initiated in the ED. She has metabolic acidosis with compensatory respiratory alkalosis. Of note regarding this acid-base pattern the patient denies any significant salicylate use. Would not work this up further. Metabolic acidosis most likely secondary to dehydration and GI volume losses. Regarding her pancreatitis I had a discussion with her she does drink 2 very large glasses of jessica on a daily basis and this could be alcoholic in nature. CT scan performed primarily to look for mesenteric ischemia awaiting radiology read at the moment. Reassessment 8:[address] scan performed which I first interpreted also spoke with radiologist and reviewed their read there is no obvious mesenteric ischemia but there is what appears to be acute pancreatitis and there is some areas of lack of enhancement which may be early necrosis. I spoke with Chepe with hospital medicine who agreed to admit the patient for further evaluation and treatment. Of note the patient did admit to drinking 2 very large glasses of jessica on a daily basis which may be the cause of her pancreatitis. Critical Care Critical Care Time Critical Care Time: Yes Attestation: On 10/30/23, the high probability of a clinically significant, sudden or life threatening deterioration of the following system(s) required my full and direct attention, intervention and personal management. The time I documented below is in addition to time spent performing reported procedures but includes the following listed in this critical care notation. Total Time Total Critical Care Time: 35
--- NOTE | 2023-10-30 18:59 | CT_ITS ---
PROCEDURE INFORMATION: Exam: CTA Abdomen and Pelvis With Contrast Exam date and time: 10/30/2023 7:11 PM Age: 72 years old Clinical indication: Abdominal pain; Generalized; Additional info: Diffuse abd pain, acidodic, mesenteric ischemia? TECHNIQUE: Imaging protocol: Computed tomographic angiography of the abdomen and pelvis with contrast. Exam focused on the arteries. 3D rendering (Not supervised by radiologist): MIP and/or 3D reconstructed images were created by the technologist. Radiation optimization: All CT scans at this facility use at least one of these dose optimization techniques: automated exposure control; mA and/or kV adjustment per patient size (includes targeted exams where dose is matched to clinical indication); or iterative reconstruction. Contrast material: ISOVUE; Contrast volume: 100 ml; Contrast route: INTRAVENOUS (IV); REPORTING DATA: Count of CT and Cardiac NM exams in prior 12 months: This patient has received 3 known CTs and 0 known cardiac nuclear medicine studies in the 12 months prior to the current study. COMPARISON: CT ANGIO ABDOMEN PELVIS 09/10/2023 1:34 PM FINDINGS: Lungs: Mild atelectasis at the lung bases. Aorta: Moderate atherosclerosis in the abdominal aorta. No aneurysm, occlusion, or significant stenosis. Celiac trunk and mesenteric arteries: No occlusion or significant stenosis. Renal arteries: No occlusion or significant stenosis. Right iliac arteries: No occlusion or significant stenosis. Left iliac arteries: No occlusion or significant stenosis. Liver: No mass. Gallbladder and bile ducts: Unremarkable. No calcified stones. No ductal dilation. Pancreas: Mild hypoenhancement of the pancreatic parenchyma with mild peripancreatic fluid. Mild fluid extends from the pancreatic tail laterally adjacent to the distal transverse colon. Spleen: Unremarkable. No splenomegaly. Adrenal glands: Unremarkable. No mass. Kidneys and ureters: Unremarkable. No solid mass. No hydronephrosis. Stomach and bowel: No dilated or thickened bowel loops. Appendix: No evidence of appendicitis. Intraperitoneal space: Mild ascites in the pelvis. Lymph nodes: Unremarkable. No enlarged lymph nodes. Urinary bladder: Unremarkable. No mass. Reproductive: Unremarkable as visualized. Bones/joints: Moderate lumbar spine levoscoliosis. Severe right-sided degenerative disc disease at L2-L3 and L3-L4. Osteopenia. Soft tissues: Unremarkable. IMPRESSION: 1. No evidence of mesenteric ischemia. 2. Findings consistent with acute pancreatitis with acute peripancreatic fluid collections and hypoenhancement of the pancreatic parenchyma raising concern for pancreatic necrosis. 3. Mild ascites in the pelvis.
[2023-10-30] MEDS: LACTATED RINGERS 1000ML 1,000 ML 999 ML IV (19:00)
[2023-10-30] MEDS: ONDANSETRON 4MG/2ML VIAL 4 MG IV (19:01)
[2023-10-30] MEDS: MORPHINE 4MG/ML SYRINGE 2 MG IV (19:02)
[2023-10-30 19:05] LABS: VBG HCO3 15.3 mmol/L (23-30); VBG Oxygen Saturation 92.6 % (50-70); VBG PCO2 27.4 mmol/L (35-51); VBG PH 7.37 mmol/L (7.31-7.41); VBG PO2 65.7 mmol/L (28-40); VBG Total CO2 16.2 mmol/L (23-27)
[2023-10-30 19:11] LABS: Lactic Acid 1.2 mmol/L (0.7-2.1); Magnesium 1.7 mg/dl (1.6-2.3); Phosphorous 2.4 mg/dl (2.5-4.5)
[2023-10-30 19:12] LABS: Alanine Aminotransferase 18 U/L (12-78); Albumin Level 2.8 g/dl (3.5-5.0); Albumin/Globulin Ratio 0.9 (1.1-1.8); Alkaline Phosphatase 116 U/L (38-126); Anion Gap 13.3 mEq/L (5-15); Aspartate Amino Transferase 43 U/L (14-36); Bilirubin,Total 1.1 mg/dl (0.2-1.3); Blood Urea Nitrogen 10 mg/dl (7-17); Calcium 8.8 mg/dl (8.4-10.2); Carbon Dioxide 16 mmol/L (22.0-30.0); Chloride 101 mmol/L (98-107); Creatinine Clearance Estimated 50 mL/min (50-200); Estimated Glomerular Filt Rate 71 ml/min (>60); GFR (African American) 86 ML/MIN (>60); Globulin 3.1 g/dL (1.3-3.2); Glucose 96 mg/dl (74-100); Sodium 128 mmol/L (136-145); Total Protein,Serum 5.9 g/dl (6.3-8.2)
[2023-10-30 19:15] LABS: Basophils % 0.1 % (0.1-2.0); Hematocrit 37.9 % (37.0-47.0); Hemoglobin 12.1 g/dL (12.2-16.2); Lymphocytes # 1.5 K/mm3 (0.7-4.5); Lymphocytes % 10.7 % (10-50); Mean Corpuscular HGB Conc 31.8 g/dL (31.8-35.4); Mean Corpuscular Hemoglobin 37.6 pg (27.0-31.2); Monocytes % 7.2 % (1.7-9.3); Neutrophils # 11.3 K/mm3 (1.8-7.8); Neutrophils % 81.8 % (37.0-80.0); Platelet Count 247 K/mm3 (142-424); Red Blood Count 3.21 M/mm3 (4.20-5.40); White Blood Count 13.8 K/mm3 (4.8-10.8)
[2023-10-30 19:16] LABS: Lipase 949 U/L (23-300); Potassium 2.3 mmoL/L (3.5-5.1)
[2023-10-30] MEDS: 0.9 % SODIUM CHLORIDE 50 ML VIAL IV (19:23)
[2023-10-30] MEDS: SODIUM CHLORIDE 0.9% 10ML SYR (RAD ONLY) 10 ML IV (19:24)
[2023-10-30] MEDS: IOPAMIDOL-370 (76%);100ML BOTTLE 100 ML IV (19:24)
[2023-10-30] MEDS: POTASSIUM CHLORIDE 20MEQ TAB 40 MEQ PO (19:47)
[2023-10-30] MEDS: KCl 10mEq/100ml 100 ML 100 MEQ IV ×3 (19:47→21:52)
--- NOTE | 2023-10-30 20:12 | PC.NURSE ---
call placed to housekeeping staff for admit bed. confirmed admit with hospitalist. Dx: acute pancreatitis with suspected necrosis. Spoke with CRISTEL Black. Will obtain bed and alert admissions.
--- NOTE | 2023-10-30 20:16 | PC.NURSE ---
OBSERVATION ADMISSION TO 207 WITH ACUTE PANCREATIS TO SERVICE OF THE HOSPITALIST.
--- NOTE | 2023-10-30 20:18 | P.HP_ITS ---
History of Present Illness *Admission Date: 10/30/23 *History of present illness: This is a 72-year-old female with PMHx of HTN, COPD, current smoker, alcohol user, recent diagnosis of C. diff colitis presenting today with generalized weakness nausea and vomiting, Her , at bedside contributed with the hist ory. She initially had some nausea, vomiting and diarrhea then diarrhea stopped since the last 3 days. However, she persistently has some nausea vomiting has had decreased p.o. intake significant abdominal pain too. She has chronic lower extremity edema which is not new. Denies any cardiopulmonary symptoms. Admitted for treatment and management. [facility] Disclaimer: The information contained in this section may have been updated after the patient was seen, as this information can be updated by other users. Medical History (Updated 10/31/23 @ 10:38 by Dash Tidwell MD) Allergic rhinitis C. difficile colitis Emphysema/COPD Encounter for screening for malignant neoplasm of lung Hyperlipidemia Hypertension Osteoporosis Pneumonia Pulmonary emphysema Smoking greater than 30 pack years Tobacco abuse Surgical History History of colonoscopy Hx of hand surgery Family History Brother Family history of cancer Daughter Family history of celiac disease Other Family history of [place] (myocardial infarction) Family history of heart disease Social History (Updated 10/30/23 @ 21:30 by Marla Scott RN) Smoking Status: Current every day smoker tobacco type: cigarettes packs per day: 1 years smoked: 35 alcohol intake: current substance use type: denies use current occupational status: retired Travel in the last 8 weeks: None household members: spouse housing: house lives independently: Yes marital status: caffeine: Yes special andrés needs: No agree to transfusion: No do you feel safe at home: Yes victim of physical abuse: No victim of emotional abuse: No victim of sexual abuse: No would you like helpful sources: No Review of Systems Review of Systems Review of systems:: pertinent systems reviewed and negative unless documented below Meds Home Medications and Allergies Home Medications Medication Instructions Recorded Confirmed Type atorvastatin 40 mg tablet 40 mg PO HS Cholesterol 08/27/22 10/31/23 History metoprolol tartrate 50 mg tablet 50 mg PO BID High Blood Pressure 08/27/22 10/31/23 History montelukast 10 mg tablet 10 mg PO PM Allergy symptoms 01/10/23 10/31/23 History potassium chloride 20 mEq 20 meq PO DAILY 07/27/23 10/31/23 History tablet,extended release(part/cryst) trazodone 50 mg tablet 50 mg PO HS 07/27/23 10/31/23 History ibuprofen 800 mg tablet 800 mg PO TIDP PRN Mild Pain 07/28/23 10/31/23 History (Scale Score 1-4) acetaminophen 300 mg-codeine 30 mg 1 - 2 tab PO BIDP PRN Severe Pain 07/30/23 10/31/23 Rx tablet (Scale Score 7-10) 7 days #20 tabs metronidazole 500 mg tablet 500 mg PO TID Infection 10/30/23 10/31/23 History promethazine 25 mg tablet 25 mg PO Q6HP PRN Nausea And 10/30/23 10/31/23 History Vomiting alendronate 70 mg tablet 70 mg PO WEEKLY 10/31/23 10/31/23 History furosemide 20 mg tablet 20 mg PO DAILYP PRN Fluid 10/31/23 10/31/23 History ondansetron 4 mg disintegrating 4 mg PO Q8HP PRN nausea and 10/31/23 10/31/23 History tablet vomiting pregabalin 50 mg capsule 50 mg PO BID NERVE PAIN 10/31/23 10/31/23 History New Prescriptions to Start Prescriptions: Allergies Allergy/AdvReac Type Severity Reaction Status Date / Time oxytetracycline Allergy Unknown PASSES OUT Verified 10/30/23 18:33 [From TERRAMYCIN] Exam Data for Last 24 hours Vital signs and Labs for Last 24 Hours: Temp Pulse Resp BP Pulse Ox O2 Del Method 98.4 F 125 H 19 112/51 L 98 Room Air 10/30/23 18:14 10/30/23 18:30 10/30/23 18:14 10/30/23 18:30 10/30/23 18:30 10/30/23 18:14 Laboratory Results - last 24 hr 10/30/23 18:30: WBC 13.8 H, RBC 3.21 L, Hgb 12.1 L, Hct 37.9, MCV 118.0 H, MCH 37.6 H, MCHC 31.8, RDW 16.0, Plt Count 247, MPV 10.0, Neut % (Auto) 81.8 H, Lymph % (Auto) 10.7, [place] % (Auto) 7.2, Eos % (Auto) 0.0 L, Baso % (Auto) 0.1, Neut # (Auto) 11.3 H, Lymph # (Auto) 1.5, [place] # (Auto) 1.0, Eos # (Auto) 0.0, Baso # (Auto) 0.0, Sodium 128 L, Potassium 2.3 L*, Chloride 101, Carbon Dioxide 16 L, Anion Gap 13.3, BUN 10, Creatinine 0.80, Estimated Creat Clear 50, Estimated GFR 71, Est GFR ( Amer) 86, Glucose 96, Lactate 1.2, Calcium 8.8, Phosphorus 2.4 L, Magnesium 1.7, Total Bilirubin 1.1, AST 43 H, ALT 18, Alkaline Phosphatase 116, Total Protein 5.9 L D, Albumin 2.8 L, Globulin 3.1, Albumin/Globulin Ratio 0.9 L, Lipase 949 H 10/30/23 18:59: VBG pH 7.37, VBG pCO2 27.4 L, VBG pO2 65.7 H, VBG HCO3 15.3 L, VBG Total CO2 16.2 L, VBG O2 Saturation 92.6 H, VBG Base Excess -10.0 L I & O for Last 24 hours: Intake & Output 10/27/23 10/28/23 10/29/23 10/30/23 23:59 23:59 23:59 23:59 Weight 61.235 kg Constitutional Constitutional: moderate distress, chronically ill appearing and somnolent *Routine HEENT Exam Head: Present normocephalic and atraumatic Eye: Present EOMI, PERRL and normal accommodation ENT: Present mucous membranes dry *Routine Neck Exam Neck: Present supple, full ROM and trachea midline *Routine Respiratory Exam Respiratory: Present diminished air movement, normal respiratory effort and symmetric chest movement; Absent respiratory distress *Routine Cardiovascular Exam Cardiovascular: Present RRR, Normal S1, Normal S2 and tachycardia *Routine Abdominal Exam Abdominal: Present soft, normoactive bowel sounds, tenderness, distended and guarding *Routine Rectal Exam Rectal:: deferred *Routine Genitalia Exam Genitalia:: deferred *Routine Extremities Exam Extremities: Present edema, full ROM and pulses intact; Absent cyanosis or clubbing *Routine Skin Exam Skin: Present intact, dry and warm *Routine Neurological Exam Neurological: Present alert, normal reflexes, moving all extremities and normal speech Routine Psychiatric Exam Psychiatric: Present normal thought process, cooperative and good judgment H&P: Result Imaging and Cardiology CT scan - abdomen: Status: image reviewed by me, Preliminary report and final report EKG: Status: image reviewed by me and Preliminary report Assessment and Plan *Assessment and plan (1) Sepsis without acute organ dysfunction: Status: Acute Qualifiers: Sepsis type: sepsis due to unspecified organism Qualified Code(s): A41.9 - Sepsis, unspecified organism Category: Medical Code(s): A41.9 - Sepsis, unspecified organism (2) Acute pancreatitis: Status: Acute Qualifiers: Acute pancreatitis complication: unspecified Pancreatitis type: unspecified pancreatitis type Qualified Code(s): K85.90 - Acute pancreatitis without necrosis or infection, unspecified Category: Medical Code(s): K85.90 - Acute pancreatitis without necrosis or infection, unspecified (3) Nausea & vomiting: Status: Acute Qualifiers: Vomiting type: unspecified Qualified Code(s): R11.2 - Nausea with vomiting, unspecified Category: Medical Code(s): R11.2 - Nausea with vomiting, unspecified (4) Acute dehydration: Status: Acute Category: Medical Code(s): E86.0 - Dehydration (5) Acute hypokalemia: Status: Acute Category: Medical Code(s): E87.6 - Hypokalemia (6) Hypertension: Status: Acute Qualifiers: Hypertension type: unspecified Qualified Code(s): I10 - Essential (primary) hypertension Category: Medical Code(s): I10 - Essential (primary) hypertension (7) Smoking greater than 30 pack years: Status: Acute Category: Social Hx Code(s): F17.210 - Nicotine dependence, cigarettes, uncomplicated (8) Heavy drinker: Status: Acute Category: Social Hx Code(s): Z78.9 - Other specified health status (9) Edema of right lower leg: Status: Acute Category: Medical Code(s): R60.0 - Localized edema Plan 72-year-old female with PMHx of HTN, COPD, current smoker, alcohol user, recent diagnosis of C. diff colitis presenting today with generalized weakness nausea and vomiting, Her , at bedside contributed with the history. She initially had some nausea, vomiting and diarrhea then diarrhea stopped since the last 3 day. On arrival patient presented very lethargic, tachycardic; underwent into sepsis workup. Received 1 L of LR. Blood culture was drawn. CT of the abdomen showed signs consistent with acute pancreatitis, concerning also with early necrosis . there is mild pelvic ascitis. Labs are remarkable for elevate lipase, mild leukocytosis, hypokalemia. Potassium was replaced at the ER. Findings discussed with the provider. Agreed for admission. Plan as follows: -Sepsis without acute organ dysfunction, likely secondary to acute pancreatitis, with early necrosis. Etiology highly suspect alcoholic: Admit patient for medical services. Dispo MedSurg Continue IV fluid Started on Zosyn 4.5g 3 times daily Zofran for nausea and vomiting Keep n.p.o.. May advance to clear liquid as tolerated Blood culture pending Pain management. Morphine as needed -Acute dehydration with electrolyte imbalance, secondary to nausea and vomiting: Replaced potassium at the ER. Monitor for electrolyte Cardiac telemetry Repeat and monitor morning. Including CMP History of hypertension: Resume home metoprolol Smoker and heavy drinker: Education provided on lifestyle changes. On nicotine patch CIWA Exam of the right lower leg: Presented with 3+ pitting edema. Patient stated that she had an appointment with cardiology this upcoming Thursday. Will order Doppler ultrasound to rule out DVT. Lovenox for DVT prophylaxis. Protonix for GI protection Full code Rounded on patient after nurse practitioner. Personally examined and interviewed patient. Agree with exam findings and care plan as documented.
--- NOTE | 2023-10-30 21:15 | PC.NURSE ---
Patient arrived to floor via stretcher from ED at 21:14.
[2023-10-30] MEDS: PANTOPRAZOLE 40MG VIAL 40 MG IV (21:47)
[2023-10-30] MEDS: ENOXAPARIN 40MG/0.4ML SYRINGE 40 MG SQ (21:48)
[2023-10-30] MEDS: 0.9 % SODIUM CHLORIDE 1000ML 1,000 ML 50 ML IV (21:48)
[2023-10-30] MEDS: METOPROLOL TARTRATE 50MG TABLET 50 MG PO (22:13)
--- NOTE | 2023-10-30 22:18 | PC.WOUNDNOTE ---
coccyx, dressing was placed
[2023-10-30] MEDS: PIPERACILLIN/TAZO 4.5 GM in 0.9 % SODIUM CHLORIDE 100 ML IV (23:23)
[2023-10-31] VITALS: BP 102/65; PULSE 102; PULSE 105; RESP 16; TEMP 36.6; O2SAT 95
[2023-10-31 04:00] VITALS: BP 96/57; PULSE 88; PULSE 90; RESP 18; TEMP 36.8; O2SAT 98; BMI 20.2
[2023-10-31 04:13] LABS: Microscopic, Urine URINE MICROSCOPIC (MICROSCOPIC)
[2023-10-31 04:15] LABS: Appearance,Urine SL CLOUDY (Clear); Blood, Urine Negative (Negative); Color,Urine YELLOW (Yellow); Glucose,Urine (UA) Negative (Negative); Ketones,Urine 1+ (Negative); Leukocyte Esterase,Urine TRACE (Negative); Nitrate,Urine Negative (Negative); Protein,Urine Negative (Negative); Specific Gravity, Urine <= 1.005 (1.005-1.030); Urobilinogen,Urine 0.2 EU/dl (0.2)
[2023-10-31 04:18] LABS: Bilirubin,Urine 1+ (Negative)
[2023-10-31 04:25] LABS: Bacteria,Urine 1+ /lpf; Squamous Epithelial Cell,Urine 50-100 #/hpf (0-5); WBC,Urine 20-50 #/hpf (0-3)
--- NOTE | 2023-10-31 05:44 | PC.NURSE ---
Patient has slept most of the shift. Is easily awoken and is AxO when awake. Right leg has become more swollen through the night, HEAD WAITER/WAITRESS aware. Patient did get up to the bathroom x2 assist.
[2023-10-31] MEDS: PIPERACILLIN/TAZO 4.5 GM in 0.9 % SODIUM CHLORIDE 100 ML IV ×3 (06:16→23:16)
--- NOTE | 2023-10-31 06:39 | EXP.SEPSISRE ---
[facility] Tissue Perfusion Eval Sepsis Re-Evaluation Performed: Yes Date Performed: 10/31/23 Time Performed: 03:35
[2023-10-31 06:52] LABS: Chloride 107 mmol/L (98-107); Potassium 3.3 mmoL/L (3.5-5.1); Sodium 129 mmol/L (136-145)
[2023-10-31 06:53] LABS: Eosinophils % 0.1 % (0.1-12.0); Neutrophils # 9.6 K/mm3 (1.8-7.8)
[2023-10-31 06:54] LABS: Alanine Aminotransferase 12 U/L (12-78); Aspartate Amino Transferase 32 U/L (14-36); Blood Urea Nitrogen 10 mg/dl (7-17); Creatinine Clearance Estimated 42 mL/min (50-200); Estimated Glomerular Filt Rate 82 ml/min (>60); GFR (African American) 100 ML/MIN (>60)
[2023-10-31 06:55] LABS: Albumin Level 1.9 g/dl (3.5-5.0); Albumin/Globulin Ratio 0.8 (1.1-1.8); Alkaline Phosphatase 84 U/L (38-126); Anion Gap 6.3 mEq/L (5-15); Calcium 7.6 mg/dl (8.4-10.2); Carbon Dioxide 19 mmol/L (22.0-30.0); Globulin 2.5 g/dL (1.3-3.2); Glucose 69 mg/dl (74-100); Magnesium 1.8 mg/dl (1.6-2.3); Total Protein,Serum 4.4 g/dl (6.3-8.2)
[2023-10-31 07:06] LABS: Hematocrit 28.3 % (37.0-47.0); Lymphocytes # 1.3 K/mm3 (0.7-4.5); Lymphocytes % 11.4 % (10-50); Mean Corpuscular HGB Conc 32.8 g/dL (31.8-35.4); Mean Corpuscular Hemoglobin 38.2 pg (27.0-31.2); Mean Corpuscular Volume 116.2 fl (81-99); Mean Platelet Volume 9.6 fl (7.4-10.4); Monocytes # 0.6 K/mm3 (0.1-1.0); Monocytes % 5.2 % (1.7-9.3); Neutrophils % 83.3 % (37.0-80.0); Platelet Count 206 K/mm3 (142-424); Red Blood Count 2.44 M/mm3 (4.20-5.40); Red Cell Distribution Width 16.1 % (11.5-17.5); White Blood Count 11.5 K/mm3 (4.8-10.8)
[2023-10-31 07:20] LABS: Hemoglobin 9.3 g/dL (12.2-16.2)
--- NOTE | 2023-10-31 07:31 | P.PN_ITS ---
Subjective *Date: 10/31/23 *Time: 10:36 Interval history: Patient continues to have abdominal pain this morning. Blood pressure soft but not frankly hypotensive, complains of some nausea but no emesis or diarrhea since admission. On room air. Afebrile. Tolerated some clear liquids this morning. Medical Exam Vital signs and Labs for Last 24 Hours: Vital Signs Temp Pulse Pulse Resp BP BP Pulse Ox 10/31/23 06:59 10/31/23 05:00 10/31/23 04:00 98.3 F 88 18 96/57 L 98 10/31/23 04:00 90 10/31/23 03:00 10/31/23 00:00 102 H 10/31/23 01:00 10/31/23 00:00 97.8 F 105 H 16 102/65 L 95 10/30/23 23:00 10/30/23 21:00 10/30/23 21:00 10/30/23 21:36 97.7 F 119 H 16 106/71 L 100 10/30/23 20:56 97.9 F 121 H 16 119/74 10/30/23 20:30 124 H 100 10/30/23 20:00 125 H 100 10/30/23 19:30 125 H 100 10/30/23 19:00 125 H 108/68 L 95 10/30/23 18:30 125 H 112/51 L 98 10/30/23 18:14 98.4 F 117 H 19 112/59 L 100 O2 Del Method 10/31/23 06:59 Room Air 10/31/23 05:00 Room Air 10/31/23 04:00 Room Air 10/31/23 04:00 10/31/23 03:00 Room Air 10/31/23 00:00 10/31/23 01:00 Room Air 10/31/23 00:00 Room Air 10/30/23 23:00 Room Air 10/30/23 21:00 Room Air 10/30/23 21:00 Room Air 10/30/23 21:36 Room Air 10/30/23 20:56 Room Air 10/30/23 20:30 Room Air 10/30/23 20:00 Room Air 10/30/23 19:30 Room Air 10/30/23 19:00 Room Air 10/30/23 18:30 10/30/23 18:14 Room Air Intake and Output 10/30/23 10/30/23 10/31/23 15:59 23:59 07:59 Intake Total 400 / 400 Output Total 100 / 100 Balance 300 / 300 Intake: Intake, Oral Amount 0 / 0 Intake, Total IV Amount 400 / 400 KCl 10mEq/100ml 100 ml @ 100 300 / 300 mls/hr IV Q1H [facility] Rx#:[id number] Piperacillin/Tazo 4.5 gm In 0.9 100 / 100 % Sodium Chloride 100 ml @ 200 mls/hr IV Q8H [facility] Rx#:[id number] Output: Output, Urine Amount 100 / 100 Other: Number of Unmeasured Voids 1 Weight 50.094 kg 51.71 kg Patient Weight 10/31/23 23:59 Weight 51.71 kg Laboratory Results - last 24 hr 10/30/23 18:30: WBC 13.8 H, RBC 3.21 L, Hgb 12.1 L, Hct 37.9, MCV 118.0 H, MCH 37.6 H, MCHC 31.8, RDW 16.0, Plt Count 247, MPV 10.0, Neut % (Auto) 81.8 H, Lymph % (Auto) 10.7, [place] % (Auto) 7.2, Eos % (Auto) 0.0 L, Baso % (Auto) 0.1, Neut # (Auto) 11.3 H, Lymph # (Auto) 1.5, [place] # (Auto) 1.0, Eos # (Auto) 0.0, Baso # (Auto) 0.0, Sodium 128 L, Potassium 2.3 L*, Chloride 101, Carbon Dioxide 16 L, Anion Gap 13.3, BUN 10, Creatinine 0.80, Estimated Creat Clear 50, Estimated GFR 71, Est GFR ( Amer) 86, Glucose 96, Lactate 1.2, Calcium 8.8, Phosphorus 2.4 L, Magnesium 1.7, Total Bilirubin 1.1, AST 43 H, ALT 18, Alkaline Phosphatase 116, Total Protein 5.9 L D, Albumin 2.8 L, Globulin 3.1, Albumin/Globulin Ratio 0.9 L, Lipase 949 H 10/30/23 18:59: VBG pH 7.37, VBG pCO2 27.4 L, VBG pO2 65.7 H, VBG HCO3 15.3 L, VBG Total CO2 16.2 L, VBG O2 Saturation 92.6 H, VBG Base Excess -10.0 L 10/31/23 04:00: Urine Color Yellow, Urine Appearance Sl cloudy, Urine pH 7.0, Ur Specific [place] <= 1.005, Urine Protein Negative, Urine Glucose (UA) Negative, Urine Ketones 1+, Urine Blood Negative, Urine Nitrate Negative, Urine Bilirubin 1+ A, Urine Urobilinogen 0.2, Ur Leukocyte Esterase Trace, Urine RBC None, Urine WBC 20-50, Ur Squamous Epith Cells 50-100, Urine Bacteria 1+ 10/31/23 06:23: WBC 11.5 H, RBC 2.44 L, Hgb 9.3 L D, Hct 28.3 L, MCV 116.2 H, MCH 38.2 H, MCHC 32.8, RDW 16.1, Plt Count 206, MPV 9.6, Neut % (Auto) 83.3 H, Lymph % (Auto) 11.4, [place] % (Auto) 5.2, Eos % (Auto) 0.1, Baso % (Auto) 0.0 L, Neut # (Auto) 9.6 H, Lymph # (Auto) 1.3, [place] # (Auto) 0.6, Eos # (Auto) 0.0, Baso # (Auto) 0.0, Sodium 129 L, Potassium 3.3 L D, Chloride 107, Carbon Dioxide 19 L, Anion Gap 6.3, BUN 10, Creatinine 0.70, Estimated Creat Clear 42, Estimated GFR 82, Est GFR ( Amer) 100, Glucose 69 L D, Calcium 7.6 L, Magnesium 1.8, Total Bilirubin 1.0, AST 32 D, ALT 12 D, Alkaline Phosphatase 84, Total Protein 4.4 L D, Albumin 1.9 L D, Globulin 2.5, Albumin/Globulin Ratio 0.8 L I & O for Labs for Last 24 Hours: Intake & Output 10/28/23 10/29/23 10/30/23 10/31/23 23:59 23:59 23:59 23:59 Intake Total 400 / 400 Output Total 100 / 100 Balance 300 / 300 Weight 50.094 kg 51.71 kg Constitutional: Present no acute distress, thin and chronically ill appearing Head: Present atraumatic ENT: Present normal exam Respiratory: Present normal respiratory effort; Absent rhonchi, wheezes or crackles Cardiac: Present Reg Rate and Rhythm GI: Present soft, tenderness (diffuse, worse in LUQ) and normal bowel sounds; Absent distention Extremities: Present normal inspection, full ROM and edema (trace in LLE, 2+ to knee in RLE) Skin: Present intact; Absent erythema Neuro: Present Grossly Intact, alert, awake, oriented x 3 and moves all extremities Assessment and Plan *Assessment and plan (1) Sepsis without acute organ dysfunction: Status: Acute Qualifiers: Sepsis type: sepsis due to unspecified organism Qualified Code(s): A41.9 - Sepsis, unspecified organism Category: Medical Code(s): A41.9 - Sepsis, unspecified organism (2) Acute pancreatitis: Status: Acute Qualifiers: Acute pancreatitis complication: unspecified Pancreatitis type: unspecified pancreatitis type Qualified Code(s): K85.90 - Acute pancreatitis without necrosis or infection, unspecified Category: Medical Code(s): K85.90 - Acute pancreatitis without necrosis or infection, unspecified (3) Nausea & vomiting: Status: Acute Qualifiers: Vomiting type: unspecified Qualified Code(s): R11.2 - Nausea with vomiting, unspecified Category: Medical Code(s): R11.2 - Nausea with vomiting, unspecified (4) Acute hypokalemia: Status: Acute Category: Medical Code(s): E87.6 - Hypokalemia (5) Smoking greater than 30 pack years: Status: Acute Category: Social Hx Code(s): F17.210 - Nicotine dependence, cigarettes, uncomplicated (6) Heavy drinker: Status: Acute Category: Social Hx Code(s): Z78.9 - Other specified health status (7) Edema of right lower leg: Status: Acute Category: Medical Code(s): R60.0 - Localized edema (8) Severe protein-calorie malnutrition: Status: Acute Category: Medical Code(s): E43 - Unspecified severe protein-calorie malnutrition Plan 72-year-old female with PMHx of HTN, COPD, current smoker, alcohol user, recent diagnosis of C. diff colitis presenting today with generalized weakness nausea and vomiting, Her , at bedside contributed with the history. She initially had some nausea, vomiting and diarrhea then diarrhea stopped since the last 3 day. On arrival patient presented very lethargic, tachycardic; underwent into sepsis workup. Received 1 L of LR. Blood culture was drawn. CT of the abdomen showed signs consistent with acute pancreatitis, concerning also with early necrosis . there is mild pelvic ascitis. Labs are remarkable for elevate lipase, mild leukocytosis, hypokalemia. Potassium was replaced at the ER. Findings discussed with the provider. Agreed for admission. Tolerating clear liquids this morning. Continues to require inpatient management. Problems addressed as follows: -Sepsis without acute organ dysfunction, likely secondary to acute pancreatitis, with early necrosis. Etiology highly suspicious for alcohol induced pancreatitis: Will advance diet today with clear liquids. Continue IV fluids, transition to LR at 75 cc an hour Continue empiric antibiotics with Zosyn 4.5 g every 8 hours IV White cell count improved to 11,000 today, repeat CBC ordered for the morning IV Zofran 4 mg every 8 hours as needed for nausea and vomiting Blood culture pending Pain management. Morphine as needed -Acute dehydration with electrolyte imbalance, secondary to nausea and vomiting: Potassium better this morning at 3.7, magnesium 1.8, sodium 129. Repeat BMP this afternoon, CMP and magnesium ordered for the morning. Cardiac telemetry Alcohol dependence Macrocytic anemia Severe protein calorie malnutrition -Monitoring for withdrawal symptoms. Patient denies ever having withdrawal. Drinks at least 2 glasses of jessica a day -MCV elevated at 116, albumin 1.9 -Protein supplementation with meals -Cyanocobalamin 1 g IM x 1 -Initiate thiamine and multivitamin supplementation daily -Folate supplementation daily History of hypertension: Holding blood pressure meds in the setting of high tension Tobacco dependence: Nicotine patch as needed Edema of right lower extremity -Differential diagnosis includes DVT, protein calorie malnutrition, hypoalbuminemia, CHF. Ultrasounds pending of right lower leg. Has been present for several months. Concern more for nutritional component and lymphedema. No redness on exam. Calf nontender. Lovenox for DVT prophylaxis. Protonix for GI protection Full code
[2023-10-31 08:00] VITALS: BP 85/51; PULSE 80; PULSE 83; RESP 16; TEMP 36.6; O2SAT 98
--- NOTE | 2023-10-31 08:26 | [facility].PHAINT1 ---
Pharmacy Intervention Comments: MEDICATION RECONCILIATION COMPLETE USING LIST FROM MOST RECENT DISCHARGE, RX BOTTLES, AND EXTERNAL PHARMACY FILL HISTORY.
[2023-10-31] MEDS: ENOXAPARIN 40MG/0.4ML SYRINGE 40 MG SQ (09:24)
[2023-10-31 11:09] LABS: INR 1.52 (0.9-1.1)
[2023-10-31] MEDS: LACTATED RINGERS 1000ML 1,000 ML 75 ML IV (11:34)
[2023-10-31] MEDS: VITAMIN B-12 1,000 MCG 1ML VIAL 1000 MCG IM (11:34)
[2023-10-31] MEDS: 0.9 % SODIUM CHLORIDE 1000ML 1,000 ML 250 ML IV (11:35)
[2023-10-31] MEDS: FOLIC ACID 1MG TABLET 1 MG PO (11:35)
[2023-10-31] MEDS: THIAMINE 100MG TABLET 100 MG PO (11:35)
[2023-10-31 11:38] LABS: Magnesium 1.8 mg/dl (1.6-2.3)
[2023-10-31 11:41] LABS: Phosphorous 1.4 mg/dl (2.5-4.5)
[2023-10-31] MEDS: PHYTONADIONE 10 MG/ML 5 MG SQ (11:50)
[2023-10-31 12:00] VITALS: BP 87/52; PULSE 87; PULSE 90; RESP 18; TEMP 36.6; O2SAT 99
[2023-10-31] MEDS: POTASSIUM PHOSPHATE 15 MMOL in 0.9 % SODIUM CHLORIDE 250 ML 63.75 MMOL IV (13:03)
[2023-10-31] MEDS: LACTOBACILLUS PROBIOTIC COMB CAPSULE 1 CAP PO (13:06)
[2023-10-31] MEDS: VANCOMYCIN HCL 50MG/ML 150ML KIT 125 MG PO ×3 (13:18→20:32)
[2023-10-31 16:00] VITALS: BP 90/58; PULSE 100; PULSE 95; RESP 17; TEMP 36.6; O2SAT 97
[2023-10-31] MEDS: PRENATAL MULTIVITAMIN W/IRON 1 EACH PO (16:09)
--- NOTE | 2023-10-31 16:45 | PC.NURSE ---
DIARRHEA PANEL ORDERED BUT PT HAS NOT HAD A BM THIS SHIFT. PATIENT WAS RECEIVING TREATMENT FOR CDIFF FROM HER PRIMARY CARE DOCTOR. PO VANC RESUMED AND PT PLACED IN CE PRECAUTIONS. PT HAS EXPERIENCED ASYMPTOMATIC HYPOTENSION THIS SHIFT. AMBULATING X1 ASSIST TO RESTROOM. TOLERATING LIQUID DIET WELL AND SWALLOWS PILL WHOLE W/O DIFFICULTY.
[2023-10-31] MEDS: MONTELUKAST 10 MG 1 EACH PO (17:09)
[2023-10-31 18:34] LABS: Chloride 107 mmol/L (98-107); Potassium 3.1 mmoL/L (3.5-5.1); Sodium 128 mmol/L (136-145)
[2023-10-31 18:37] LABS: Anion Gap 9.1 mEq/L (5-15); Blood Urea Nitrogen 10 mg/dl (7-17); Calcium 7.2 mg/dl (8.4-10.2); Carbon Dioxide 15 mmol/L (22.0-30.0); Creatinine Clearance Estimated 42 mL/min (50-200); Estimated Glomerular Filt Rate 122 ml/min (>60); GFR (African American) 147 ML/MIN (>60); Glucose 82 mg/dl (74-100)
[2023-10-31 19:08] LABS: Phosphorous 2.6 mg/dl (2.5-4.5)
[2023-10-31 20:00] VITALS: BP 99/59; PULSE 90; PULSE 96; RESP 17; TEMP 36.8; O2SAT 99
[2023-10-31] MEDS: TRAZODONE 50 MG 1 EACH PO (20:32)
[2023-10-31] MEDS: PANTOPRAZOLE 40MG VIAL 40 MG IV (20:32)
[2023-10-31] MEDS: SODIUM CHLORIDE 0.9% 10ML VIAL 10 ML IV (20:32)
[2023-10-31] MEDS: SODIUM CHLORIDE 0.9% 10ML FLUSH SYRINGE 10 ML IV (20:33)
[2023-11-01] VITALS (10 sets, daily range): BP systolic 93–101; BP diastolic 52–56; PULSE 98–111; RESP 14–22; TEMP 36.4–36.9; O2SAT 96–98; BMI 20.5
[2023-11-01] MEDS: KCl 20mEq/100ml 100 ML 50 MEQ IV ×3 (00:52→04:52)
[2023-11-01] MEDS: LACTATED RINGERS 1000ML 1,000 ML 75 ML IV (05:45)
[2023-11-01] MEDS: MORPHINE 2MG/ML SYRINGE 2 MG IV ×3 (05:49→22:09)
--- NOTE | 2023-11-01 06:07 | PC.NURSE ---
bladder scanned patient r/t no urination since 10/31 and three bathroom trips with no output. PVR 350ml. contacted [facility], followed protocol to in and out cath. resulted in 300ml.
[2023-11-01 06:52] LABS: Basophils % 0.1 % (0.1-2.0); Eosinophils % 0.1 % (0.1-12.0); Hematocrit 27.8 % (37.0-47.0); Hemoglobin 8.6 g/dL (12.2-16.2); Lymphocytes # 1.7 K/mm3 (0.7-4.5); Lymphocytes % 13.2 % (10-50); Mean Corpuscular HGB Conc 31.1 g/dL (31.8-35.4); Mean Corpuscular Hemoglobin 37.4 pg (27.0-31.2); Mean Corpuscular Volume 120.3 fl (81-99); Mean Platelet Volume 9.3 fl (7.4-10.4); Monocytes # 0.7 K/mm3 (0.1-1.0); Monocytes % 5.7 % (1.7-9.3); Neutrophils # 10.1 K/mm3 (1.8-7.8); Neutrophils % 80.9 % (37.0-80.0); Platelet Count 189 K/mm3 (142-424); Red Blood Count 2.31 M/mm3 (4.20-5.40); Red Cell Distribution Width 15.9 % (11.5-17.5); White Blood Count 12.5 K/mm3 (4.8-10.8)
[2023-11-01 06:59] LABS: Chloride 111 mmol/L (98-107); Potassium 3.7 mmoL/L (3.5-5.1); Sodium 134 mmol/L (136-145)
[2023-11-01 07:02] LABS: Alanine Aminotransferase 12 U/L (12-78); Albumin Level 1.9 g/dl (3.5-5.0); Albumin/Globulin Ratio 0.7 (1.1-1.8); Alkaline Phosphatase 89 U/L (38-126); Anion Gap 9.7 mEq/L (5-15); Aspartate Amino Transferase 32 U/L (14-36); Bilirubin,Total 1.3 mg/dl (0.2-1.3); Blood Urea Nitrogen 9 mg/dl (7-17); Calcium 7.2 mg/dl (8.4-10.2); Carbon Dioxide 17 mmol/L (22.0-30.0); Creatinine Clearance Estimated 43 mL/min (50-200); Estimated Glomerular Filt Rate 99 ml/min (>60); GFR (African American) 119 ML/MIN (>60); Globulin 2.6 g/dL (1.3-3.2); Glucose 62 mg/dl (74-100); Total Protein,Serum 4.5 g/dl (6.3-8.2)
[2023-11-01 07:03] LABS: Magnesium 1.6 mg/dl (1.6-2.3)
[2023-11-01 07:07] LABS: Phosphorous 1.6 mg/dl (2.5-4.5)
[2023-11-01] MEDS: PIPERACILLIN/TAZO 4.5 GM in 0.9 % SODIUM CHLORIDE 100 ML IV ×2 (07:28→14:55)
--- NOTE | 2023-11-01 08:00 | CA_ITS ---
FINAL REPORT TECHNIQUE: Color Doppler, duplex Doppler and compression sonography of the right lower extremity venous system was performed. CLINICAL HISTORY: EDEMA RLE X SEVERAL WEEKS COMPARISON: None FINDINGS: There is no evidence of deep venous thrombosis from the level of the groin to the calf. The veins are patent and compressible. IMPRESSION: No evidence of deep venous thrombosis right lower extremity. Reviewed, Interpreted and Dictated by Osmin Seals III, MD Transcribed by Jennifer Banks Authenticated and [facility]
[2023-11-01] MEDS: ENOXAPARIN 40MG/0.4ML SYRINGE 40 MG SQ (09:43)
[2023-11-01] MEDS: LACTOBACILLUS PROBIOTIC COMB CAPSULE 1 CAP PO (09:43)
[2023-11-01] MEDS: VANCOMYCIN HCL 50MG/ML 150ML KIT 125 MG PO ×4 (09:43→22:00)
[2023-11-01] MEDS: FOLIC ACID 1MG TABLET 1 MG PO (09:43)
[2023-11-01] MEDS: THIAMINE 100MG TABLET 100 MG PO (09:43)
[2023-11-01] MEDS: ACETAMINOPHEN 325MG TAB 650 MG PO (09:50)
[2023-11-01] MEDS: POTASSIUM PHOSPHATE 9 MMOL in 0.9 % SODIUM CHLORIDE 250 ML 63.75 MMOL IV (09:51)
--- NOTE | 2023-11-01 10:25 | EXP.ACUTE.PN ---
Subjective *Date: 11/01/23 *Time: 11:58 Medical Exam Vital signs and Labs for Last 24 Hours: Vital Signs Temp Pulse Pulse Resp BP Pulse Ox O2 Del Method 11/01/23 08:00 110 H 11/01/23 08:00 98.4 F 99 H 14 93/56 L 96 Room Air 11/01/23 06:41 Room Air 11/01/23 04:00 98.4 F 98 H 17 95/54 L 97 Room Air 11/01/23 03:00 Room Air 11/01/23 04:00 100 H 11/01/23 00:00 100 H 11/01/23 04:57 Room Air 11/01/23 01:00 Room Air 11/01/23 00:00 97.6 F 102 H 18 97/52 L 98 Room Air 10/31/23 20:00 90 10/31/23 23:00 Room Air 10/31/23 21:00 Room Air 10/31/23 20:00 Room Air 10/31/23 20:00 98.3 F 96 H 17 99/59 L 99 Room Air 10/31/23 18:26 Room Air 10/31/23 17:00 Room Air 10/31/23 16:00 97.8 F 95 H 17 90/58 L 97 Room Air 10/31/23 16:00 100 H 10/31/23 15:00 Room Air 10/31/23 13:00 Room Air 10/31/23 12:00 90 10/31/23 11:00 Room Air 10/31/23 12:00 98 F 87 18 87/52 L 99 Room Air Intake and Output 10/31/23 11/01/23 11/01/23 23:59 07:59 15:59 Intake Total 876 / 2741 300 / 300 Output Total 0 / 100 275 / 275 Balance 876 / 2641 -275 / 25 300 / 25 Intake: Intake, Oral Amount 420 / 780 300 / 300 Intake, Total IV Amount 100 / 500 Piperacillin/Tazo 4.5 gm In 0.9 100 / 200 % Sodium Chloride 100 ml @ 200 mls/hr IV Q8H [facility] Rx#:[id number] Infusion Intake 356 / 1461 0.9 % Sodium Chloride 1000ML 1, 356 / 1461 000 ml @ 250 mls/hr IV .Q4H [facility] Rx#:[id number] Output: Output, Urine Amount 0 / 100 275 / 275 Other: Number of Voids 1 Number of Unmeasured Voids 1 0 Number of Bowel Movements 1 Weight 52.68 kg Patient Weight 11/01/23 23:59 Weight 52.68 kg Laboratory Results - last 24 hr 10/31/23 10:53: PT 16.0 H, INR 1.52 H, Phosphorus 1.4 L D, Magnesium 1.8 10/31/23 18:15: Sodium 128 L, Potassium 3.1 L, Chloride 107, Carbon Dioxide 15 L, Anion Gap 9.1, BUN 10, Creatinine 0.50 L D, Estimated Creat Clear 42, Estimated GFR 122, Est GFR ( Amer) 147 D, Glucose 82, Calcium 7.2 L, Phosphorus 2.6 D 11/01/23 06:12: WBC 12.5 H, RBC 2.31 L, Hgb 8.6 L, Hct 27.8 L, MCV 120.3 H, MCH 37.4 H, MCHC 31.1 L, RDW 15.9, Plt Count 189, MPV 9.3, Neut % (Auto) 80.9 H, Lymph % (Auto) 13.2, [place] % (Auto) 5.7, Eos % (Auto) 0.1, Baso % (Auto) 0.1, Neut # (Auto) 10.1 H, Lymph # (Auto) 1.7, [place] # (Auto) 0.7, Eos # (Auto) 0.0, Baso # (Auto) 0.0, Sodium 134 L, Potassium 3.7, Chloride 111 H, Carbon Dioxide 17 L, Anion Gap 9.7, BUN 9, Creatinine 0.60, Estimated Creat Clear 43, Estimated GFR 99, Est GFR ( Amer) 119, Glucose 62 L D, Calcium 7.2 L, Phosphorus 1.6 L D, Magnesium 1.6 D, Total Bilirubin 1.3, AST 32, ALT 12, Alkaline Phosphatase 89, Total Protein 4.5 L, Albumin 1.9 L, Globulin 2.6, Albumin/Globulin Ratio 0.7 L I & O for Labs for Last 24 Hours: Intake & Output 10/29/23 10/30/23 10/31/23 11/01/23 23:59 23:59 23:59 23:59 Intake Total 2741 / 2741 300 / 300 Output Total 100 / 100 275 / 275 Balance 2641 / 2641 25 / 25 Weight 50.094 kg 51.71 kg 52.68 kg Assessment and Plan *Assessment and plan (1) Sepsis without acute organ dysfunction: Status: Acute Qualifiers: Sepsis type: sepsis due to unspecified organism Qualified Code(s): A41.9 - Sepsis, unspecified organism Category: Medical Code(s): A41.9 - Sepsis, unspecified organism (2) Acute pancreatitis: Status: Acute Qualifiers: Acute pancreatitis complication: unspecified Pancreatitis type: unspecified pancreatitis type Qualified Code(s): K85.90 - Acute pancreatitis without necrosis or infection, unspecified Category: Medical Code(s): K85.90 - Acute pancreatitis without necrosis or infection, unspecified (3) Hypophosphatemia: Status: Acute Category: Medical Code(s): E83.39 - Other disorders of phosphorus metabolism (4) Severe protein-calorie malnutrition: Status: Acute Category: Medical Code(s): E43 - Unspecified severe protein-calorie malnutrition (5) Nausea & vomiting: Status: Acute Qualifiers: Vomiting type: unspecified Qualified Code(s): R11.2 - Nausea with vomiting, unspecified Category: Medical Code(s): R11.2 - Nausea with vomiting, unspecified (6) Acute hypokalemia: Status: Acute Category: Medical Code(s): E87.6 - Hypokalemia (7) Smoking greater than 30 pack years: Status: Acute Category: Social Hx Code(s): F17.210 - Nicotine dependence, cigarettes, uncomplicated (8) Heavy drinker: Status: Acute Category: Social Hx Code(s): Z78.9 - Other specified health status (9) Edema of right lower leg: Status: Acute Category: Medical Code(s): R60.0 - Localized edema Plan 72-year-old female with PMHx of HTN, COPD, current smoker, alcohol user, recent diagnosis of C. diff colitis presenting today with generalized weakness nausea and vomiting, Her , at bedside contributed with the history. She initially had some nausea, vomiting and diarrhea then diarrhea stopped since the last 3 day. On arrival patient presented very lethargic, tachycardic; underwent into sepsis workup. Received 1 L of LR. Blood culture was drawn. CT of the abdomen showed signs consistent with acute pancreatitis, concerning also with early necrosis . there is mild pelvic ascitis. Labs are remarkable for elevate lipase, mild leukocytosis, hypokalemia. Potassium was replaced at the ER. Findings discussed with the provider. Agreed for admission. Tolerating clears still. No significant substance since admission. Continues to have abdominal pain. Multiple electrolyte disturbances including hypophosphatemia. Patient continues to require close monitoring of electrolytes and close repletion. Continues to require inpatient management. Problems addressed as follows: -Sepsis without acute organ dysfunction, likely secondary to acute pancreatitis, with early necrosis. Etiology highly suspicious for alcohol induced pancreatitis: Continue clear liquids. Continue IV fluids, LR at 125 cc an hour Continue empiric antibiotics with Zosyn 4.5 g every 8 hours IV White cell count 12.5 today. No fever overnight. repeat CBC ordered for the morning IV Zofran 4 mg every 8 hours as needed for nausea and vomiting Blood culture pending Pain management. Morphine as needed -C. Diff - Recent infection, was finishing treatment at home. Resume vancomycin during admission given recurrent positive tests over the past 3 months. No diarrhea since admission. Will obtain diarrhea panel as soon as patient is able to give a sample. Vancomycin p.o. 125 mg 4 times a day. Further management pending results. -Initiated on probiotic -Fiber supplement for diarrhea -Acute dehydration with electrolyte imbalance, secondary to nausea and vomiting: Potassium stable at 3.7, magnesium still low at 1.6, replacing today. Sodium 134. Repeat BMP this afternoon, CMP and magnesium ordered for the morning. Cardiac telemetry Alcohol dependence Macrocytic anemia Severe protein calorie malnutrition Hypophosphatemia -Monitoring for withdrawal symptoms. Patient denies ever having withdrawal. Drinks at least 2 glasses of jessica a day; no symptoms in the past 24 hours -MCV elevated at 120 today, albumin stable at 1.9. Electrolyte disturbances include calcium 7.2, phosphorus at 1.6, magnesium 1.6. High risk of refeeding syndrome. Aggressive repletion of phosphorus today. Replacing both IV and oral. Repeat phosphorus level this afternoon. Monitoring every 12 hours -Protein supplementation with meals - thiamine, folate, and multivitamin supplementation daily History of hypertension: Holding blood pressure meds in the setting of hypotension Tobacco dependence: Nicotine patch as needed Edema of right lower extremity -Differential diagnosis includes DVT, protein calorie malnutrition, hypoalbuminemia, CHF. Ultrasounds pending of right lower leg. Has been present for several months. Concern more for nutritional component and lymphedema. No redness on exam. Calf nontender. Lovenox for DVT prophylaxis. Protonix for GI protection Full code
[2023-11-01] MEDS: MAGNESIUM SULFATE IN WATER 2 GM/50 ML PIGGYBACK IV (13:50)
[2023-11-01] MEDS: LACTATED RINGERS 1000ML 1,000 ML 125 ML IV (14:55)
--- NOTE | 2023-11-01 17:12 | PC.NURSE ---
patient a&ox4 and has been tolerating IV fluids. Patient BP is low but is pt's baseline. Patient is unsteady with ambulation and has been educated on the importance of calling out for help with ADLs.
[2023-11-01] MEDS: MONTELUKAST 10 MG 1 EACH PO (17:19)
[2023-11-01] MEDS: PRENATAL MULTIVITAMIN W/IRON 1 EACH PO (17:19)
[2023-11-01 19:00] LABS: Chloride 110 mmol/L (98-107); Sodium 134 mmol/L (136-145)
[2023-11-01 19:01] LABS: Potassium 3.3 mmoL/L (3.5-5.1)
[2023-11-01 19:03] LABS: Anion Gap 11.3 mEq/L (5-15); Blood Urea Nitrogen 7 mg/dl (7-17); Carbon Dioxide 16 mmol/L (22.0-30.0); Creatinine Clearance Estimated 43 mL/min (50-200); Estimated Glomerular Filt Rate 122 ml/min (>60); GFR (African American) 147 ML/MIN (>60)
[2023-11-01 19:04] LABS: Calcium 7.2 mg/dl (8.4-10.2); Glucose 98 mg/dl (74-100)
[2023-11-01 19:07] LABS: Phosphorous 1.8 mg/dl (2.5-4.5)
[2023-11-01] MEDS: POTASSIUM PHOSPHATE 9 MMOL in 0.9 % SODIUM CHLORIDE 250 ML 63.25 MMOL IV (19:30)
[2023-11-01] MEDS: K-PHOS NEUTRAL 250MG TABLET 250 MG PO (21:59)
[2023-11-01] MEDS: PANTOPRAZOLE 40MG TABLET 40 MG PO (21:59)
[2023-11-01] MEDS: TRAZODONE 50 MG 1 EACH PO (22:00)
[2023-11-02] VITALS (10 sets, daily range): BP systolic 89–107; BP diastolic 50–63; PULSE 80–120; RESP 16–18; TEMP 36.6–37.3; O2SAT 97–99; BMI 20.6
[2023-11-02] MEDS: MORPHINE 2MG/ML SYRINGE 2 MG IV ×3 (00:07→09:22)
[2023-11-02] MEDS: PIPERACILLIN/TAZO 4.5 GM in 0.9 % SODIUM CHLORIDE 100 ML IV ×4 (00:07→23:54)
[2023-11-02] MEDS: METOPROLOL TARTRATE 50MG TABLET 50 MG PO ×2 (00:28→21:09)
[2023-11-02] MEDS: LACTATED RINGERS 1000ML 1,000 ML 125 ML IV (04:57)
[2023-11-02 07:44] LABS: Basophils % 0.2 % (0.1-2.0); Eosinophils # 0.1 K/mm3 (0.0-0.4); Eosinophils % 0.7 % (0.1-12.0); Hematocrit 26.6 % (37.0-47.0); Hemoglobin 8.3 g/dL (12.2-16.2); Lymphocytes # 1.8 K/mm3 (0.7-4.5); Lymphocytes % 13.3 % (10-50); Mean Corpuscular Hemoglobin 38.1 pg (27.0-31.2); Mean Corpuscular Volume 122.7 fl (81-99); Monocytes # 0.9 K/mm3 (0.1-1.0); Monocytes % 6.9 % (1.7-9.3); Neutrophils # 10.4 K/mm3 (1.8-7.8); Neutrophils % 78.9 % (37.0-80.0); Platelet Count 169 K/mm3 (142-424); Red Blood Count 2.17 M/mm3 (4.20-5.40); Red Cell Distribution Width 15.5 % (11.5-17.5); White Blood Count 13.2 K/mm3 (4.8-10.8)
--- NOTE | 2023-11-02 08:00 | P.PN_ITS ---
Subjective *Date: 11/02/23 *Time: 12:29 Interval history: Patient is tolerating p.o. liquids. Not taking much p.o. nutrition. Pain responds to morphine, no nausea or vomiting. Stable on room air. Had a bowel movement this morning. Ambulating to bathroom. Still quite weak Medical Exam Vital signs and Labs for Last 24 Hours: Vital Signs Temp Pulse Pulse Resp BP Pulse Ox O2 Del Method 11/02/23 07:54 97.9 F 94 H 16 99/58 L 98 Room Air 11/02/23 07:00 Room Air 11/02/23 06:43 92 H 89/58 L 11/02/23 04:00 80 11/02/23 05:00 Room Air 11/02/23 04:00 98.1 F 89 17 90/56 L 98 Room Air 11/02/23 03:00 Room Air 11/02/23 00:00 120 H 11/02/23 01:00 Room Air 11/01/23 23:00 Room Air 11/01/23 21:00 Room Air 11/02/23 00:00 98.0 F 116 H 17 107/61 L 97 Room Air 11/01/23 22:19 111 H Room Air 11/01/23 20:00 100 H 11/01/23 19:56 98.1 F 104 H 17 101/56 L 97 Room Air 11/01/23 16:00 100 H 11/01/23 15:52 98.4 F 101 H 18 93/53 L 96 Room Air 11/01/23 12:00 110 H 11/01/23 11:12 98.4 F 103 H 22 96/54 L 97 Room Air Intake and Output 11/01/23 11/02/23 11/02/23 23:59 07:59 15:59 Intake Total 300 / 720 727 / 727 Output Total 0 / 675 0 / 0 Balance 300 / 45 727 / 727 Intake: Intake, Oral Amount 300 / 720 120 / 120 Intake, Total IV Amount 607 / 607 Lactated Ringers 1000ML 1,000 607 / 607 ml @ 125 mls/hr IV .Q8H [facility] Rx# :[id number] Output: Output, Urine Amount 0 / 675 0 / 0 Other: Number of Unmeasured Voids 1 1 Number of Bowel Movements 1 Weight 52.68 kg 52.865 kg Patient Weight 11/02/23 23:59 Weight 52.865 kg Laboratory Results - last 24 hr 11/01/23 18:40: Sodium 134 L, Potassium 3.3 L, Chloride 110 H, Carbon Dioxide 16 L, Anion Gap 11.3, BUN 7, Creatinine 0.50 L, Estimated Creat Clear 43, Estimated GFR 122, Est GFR ( Amer) 147 D, Glucose 98 D, Calcium 7.2 L, Phosphorus 1.8 L 11/02/23 06:58: WBC 13.2 H, RBC 2.17 L, Hgb 8.3 L, Hct 26.6 L, MCV 122.7 H, MCH 38.1 H, MCHC 31.0 L, RDW 15.5, Plt Count 169, MPV 10.0, Neut % (Auto) 78.9, Lymph % (Auto) 13.3, [place] % (Auto) 6.9, Eos % (Auto) 0.7, Baso % (Auto) 0.2, Neut # (Auto) 10.4 H, Lymph # (Auto) 1.8, [place] # (Auto) 0.9, Eos # (Auto) 0.1, Baso # (Auto) 0.0 I & O for Labs for Last 24 Hours: Intake & Output 10/30/23 10/31/23 11/01/23 11/02/23 23:59 23:59 23:59 23:59 Intake Total 2741 / 2741 720 / 720 727 / 727 Output Total 100 / 100 675 / 675 0 / 0 Balance 2641 / 2641 45 / 45 727 / 727 Weight 50.094 kg 51.71 kg 52.68 kg 52.865 kg Constitutional: Present no acute distress, thin and chronically ill appearing Head: Present atraumatic ENT: Present normal exam Respiratory: Present normal respiratory effort; Absent rhonchi, wheezes or crackles Cardiac: Present Reg Rate and Rhythm GI: Present soft, tenderness (stable in LUQ) and normal bowel sounds; Absent distention Extremities: Present normal inspection, full ROM and edema (trace in LLE, 2+ to knee in RLE) Skin: Present intact; Absent erythema Neuro: Present Grossly Intact, alert, awake, oriented x 3 and moves all extremities Assessment and Plan *Assessment and plan (1) Sepsis without acute organ dysfunction: Status: Acute Qualifiers: Sepsis type: sepsis due to unspecified organism Qualified Code(s): A41.9 - Sepsis, unspecified organism Category: Medical Code(s): A41.9 - Sepsis, unspecified organism (2) Acute pancreatitis: Status: Acute Qualifiers: Acute pancreatitis complication: unspecified Pancreatitis type: unspecified pancreatitis type Qualified Code(s): K85.90 - Acute pancreatitis without necrosis or infection, unspecified Category: Medical Code(s): K85.90 - Acute pancreatitis without necrosis or infection, unspecified (3) Hypophosphatemia: Status: Acute Category: Medical Code(s): E83.39 - Other disorders of phosphorus metabolism (4) Severe protein-calorie malnutrition: Status: Acute Category: Medical Code(s): E43 - Unspecified severe protein-calorie malnutrition (5) Nausea & vomiting: Status: Acute Qualifiers: Vomiting type: unspecified Qualified Code(s): R11.2 - Nausea with vomiting, unspecified Category: Medical Code(s): R11.2 - Nausea with vomiting, unspecified (6) Acute hypokalemia: Status: Acute Category: Medical Code(s): E87.6 - Hypokalemia (7) Smoking greater than 30 pack years: Status: Acute Category: Social Hx Code(s): F17.210 - Nicotine dependence, cigarettes, uncomplicated (8) Heavy drinker: Status: Acute Category: Social Hx Code(s): Z78.9 - Other specified health status (9) Edema of right lower leg: Status: Acute Category: Medical Code(s): R60.0 - Localized edema Plan 72-year-old female with PMHx of HTN, COPD, current smoker, alcohol user, recent diagnosis of C. diff colitis presenting today with generalized weakness nausea and vomiting, Her , at bedside contributed with the history. She initially had some nausea, vomiting and diarrhea then diarrhea stopped since the last 3 day. On arrival patient presented very lethargic, tachycardic; underwent into sepsis workup. Received 1 L of LR. Blood culture was drawn. CT of the abdomen showed signs consistent with acute pancreatitis, concerning also with early necrosis . there is mild pelvic ascitis. Labs are remarkable for elevate lipase, mild leukocytosis, hypokalemia. Potassium was replaced at the ER. Findings discussed with the provider. Agreed for admission. Tolerating clears still. Continue to encourage p.o. nutrition. Multiple electrolyte disturbances including hypophosphatemia. Patient continues to require close monitoring of electrolytes and close repletion. Continues to require inpatient management. Problems addressed as follows: -Sepsis without acute organ dysfunction, likely secondary to acute pancreatitis, with early necrosis. Etiology highly suspicious for alcohol induced pancreatitis: Advance to full liquid diet. Discontinue IV fluids. Continue empiric antibiotics with Zosyn 4.5 g every 8 hours IV White cell count 13.2 today. No fever overnight. repeat CBC ordered for the morning IV Zofran 4 mg every 8 hours as needed for nausea and vomiting Transition hydrocodone 5 mg as needed every 4 hours for pain control. Discontinue IV morphine Blood culture pending -C. Diff - Recent infection, was finishing treatment at home. Resume vancomycin during admission given recurrent positive tests over the past 3 months. No diarrhea since admission. Will obtain diarrhea panel as soon as patient is able to give a sample. Vancomycin p.o. 125 mg 4 times a day. Further management pending results. -Initiated on probiotic -Fiber supplement for diarrhea -Acute dehydration with electrolyte imbalance, secondary to nausea and vomiting: Magnesium better at 1.8. Repeat BMP this afternoon, CMP and magnesium ordered for the morning. Cardiac telemetry Alcohol dependence Macrocytic anemia Severe protein calorie malnutrition Hypophosphatemia -Monitoring for withdrawal symptoms. Patient denies ever having withdrawal. Drinks at least 2 glasses of jessica a day; no symptoms in the past 24 hours -MCV elevated at 122 today, phosphorus 2.0, continue p.o. supplementation twice daily. Repeat phosphorus level this evening. High risk of refeeding syndrome. Monitoring every 12 hours -Protein supplementation with meals - thiamine, folate, and multivitamin supplementation daily History of hypertension: Holding blood pressure meds in the setting of hypotension Tobacco dependence: Nicotine patch as needed Edema of right lower extremity: Ultrasound obtained, no DVT. Suspect secondary to lymphedema, protein calorie malnutrition, hypoalbuminemia, CHF. Lovenox for DVT prophylaxis. Protonix for GI protection Full code
[2023-11-02 08:03] LABS: Magnesium 1.8 mg/dl (1.6-2.3)
[2023-11-02] MEDS: LACTOBACILLUS PROBIOTIC COMB CAPSULE 1 CAP PO (09:22)
[2023-11-02] MEDS: ENOXAPARIN 40MG/0.4ML SYRINGE 40 MG SQ (09:22)
[2023-11-02] MEDS: FOLIC ACID 1MG TABLET 1 MG PO (09:22)
[2023-11-02] MEDS: THIAMINE 100MG TABLET 100 MG PO (09:23)
[2023-11-02] MEDS: K-PHOS NEUTRAL 250MG TABLET 250 MG PO ×2 (09:23→20:58)
[2023-11-02] MEDS: VANCOMYCIN HCL 50MG/ML 150ML KIT 125 MG PO ×4 (09:24→20:58)
[2023-11-02 15:47] LABS: Adenovirus F 40/41, stool Not Detected (NotDetected); Astrovirus Not Detected (NotDetected); Campylobacter Not Detected (NotDetected); Clostridium Difficile A/B, PCR Not Detected (NotDetected); Cryptosporidium Not Detected (NotDetected); Cyclospora Cayetanesis Not Detected (NotDetected); Entamoeba histolytica Not Detected (NotDetected); Enteroaggregative E coli Not Detected (NotDetected); Enteropathogenic E coli Not Detected (NotDetected); Enterotoxigenic E coli Not Detected (NotDetected); Giardia lamblia Not Detected (NotDetected); Norovirus Not Detected (NotDetected); Plesimonas Shigalloides, PCR Not Detected (NotDetected); Rotavirus A Not Detected (NotDetected); Salmonella, PCR Not Detected (NotDetected); Sapovirus Not Detected (NotDetected); Shiga-like toxin E coli Not Detected (NotDetected); Shigella Enterovasive E coli Not Detected (NotDetected); Vibrio Cholerae Not Detected (NotDetected); Vibrio, PCR Not Detected (NotDetected); Yersinia Entercolitica, PCR Not Detected (NotDetected)
[2023-11-02] MEDS: MONTELUKAST 10 MG 1 EACH PO (17:42)
[2023-11-02] MEDS: PRENATAL MULTIVITAMIN W/IRON 1 EACH PO (17:42)
--- NOTE | 2023-11-02 18:04 | PC.NURSE ---
Patient A&Ox4. Patient tolerating antibiotics and vss. Patient tolerating po fluids.
[2023-11-02 18:07] LABS: Chloride 110 mmol/L (98-107); Sodium 133 mmol/L (136-145)
[2023-11-02 18:10] LABS: Anion Gap 11.8 mEq/L (5-15); Blood Urea Nitrogen 5 mg/dl (7-17); Calcium 6.6 mg/dl (8.4-10.2); Carbon Dioxide 14 mmol/L (22.0-30.0); Creatinine Clearance Estimated 43 mL/min (50-200); Estimated Glomerular Filt Rate 157 ml/min (>60); GFR (African American) 190 ML/MIN (>60); Glucose 94 mg/dl (74-100); Phosphorous 2.2 mg/dl (2.5-4.5)
--- NOTE | 2023-11-02 18:10 | PC.NURSE ---
one of patient's IV no longer patent. RN verified with pharmacy that antibiotics are compatible with heparin drip and that antibiotics could be ran with heparin drip at the y-site.
[2023-11-02 18:23] LABS: Potassium 2.8 mmoL/L (3.5-5.1)
[2023-11-02] MEDS: POTASSIUM CHLORIDE 20MEQ TAB 20 MEQ PO (18:37)
[2023-11-02] MEDS: CALCIUM GLUCONATE 1,000 MG in 0.9 % SODIUM CHLORIDE 50 ML 60 MG IV (18:43)
[2023-11-02] MEDS: HYDROCODONE/APAP 5/325 MG TABLET 1 TAB PO (19:34)
[2023-11-02] MEDS: KCl 10mEq/100ml 100 ML 100 MEQ IV ×3 (20:00→22:26)
[2023-11-02] MEDS: PANTOPRAZOLE 40MG TABLET 40 MG PO (20:58)
[2023-11-02] MEDS: TRAZODONE 50 MG 1 EACH PO (20:58)
[2023-11-03] VITALS (7 sets, daily range): BP systolic 92–112; BP diastolic 55–71; PULSE 85–104; RESP 16–19; TEMP 36.3–37.2; O2SAT 96–100; BMI 23.1
--- NOTE | 2023-11-03 05:14 | PC.NURSE ---
Patient has had a good night. When coming on shift the patient was complaining of pain. Has no complained of it further. Patient has rested well. been up to the bathroom twice with 1 assist. Replaced K this shift tolerated that well. No other issues noted
[2023-11-03] MEDS: PIPERACILLIN/TAZO 4.5 GM in 0.9 % SODIUM CHLORIDE 100 ML IV ×3 (06:14→17:30)
[2023-11-03 06:37] LABS: Basophils % 0.2 % (0.1-2.0); Eosinophils # 0.2 K/mm3 (0.0-0.4); Eosinophils % 1.2 % (0.1-12.0); Hematocrit 24.9 % (37.0-47.0); Hemoglobin 7.6 g/dL (12.2-16.2); Lymphocytes # 1.9 K/mm3 (0.7-4.5); Lymphocytes % 15.1 % (10-50); Mean Corpuscular HGB Conc 30.3 g/dL (31.8-35.4); Mean Corpuscular Hemoglobin 37.6 pg (27.0-31.2); Mean Platelet Volume 9.3 fl (7.4-10.4); Monocytes # 0.6 K/mm3 (0.1-1.0); Neutrophils # 9.8 K/mm3 (1.8-7.8); Neutrophils % 78.5 % (37.0-80.0); Platelet Count 180 K/mm3 (142-424); Red Blood Count 2.01 M/mm3 (4.20-5.40); Red Cell Distribution Width 15.4 % (11.5-17.5); White Blood Count 12.5 K/mm3 (4.8-10.8)
[2023-11-03 06:44] LABS: Alanine Aminotransferase 11 U/L (12-78); Albumin Level 1.7 g/dl (3.5-5.0); Albumin/Globulin Ratio 0.7 (1.1-1.8); Alkaline Phosphatase 89 U/L (38-126); Anion Gap 1.4 mEq/L (5-15); Aspartate Amino Transferase 26 U/L (14-36); Bilirubin,Total 0.8 mg/dl (0.2-1.3); Blood Urea Nitrogen 4 mg/dl (7-17); Calcium 6.6 mg/dl (8.4-10.2); Carbon Dioxide 19 mmol/L (22.0-30.0); Chloride 112 mmol/L (98-107); Creatinine Clearance Estimated 48 mL/min (50-200); Estimated Glomerular Filt Rate 157 ml/min (>60); GFR (African American) 190 ML/MIN (>60); Globulin 2.5 g/dL (1.3-3.2); Glucose 66 mg/dl (74-100); Potassium 3.4 mmoL/L (3.5-5.1); Sodium 129 mmol/L (136-145); Total Protein,Serum 4.2 g/dl (6.3-8.2)
[2023-11-03 07:37] LABS: Magnesium 1.7 mg/dl (1.6-2.3); Phosphorous 2.4 mg/dl (2.5-4.5)
--- OUTSIDE RECORDS SUMMARY | 2023-11-03 07:37 | XMS_ITS | Clinical Summary ---
Author Name Unknown Address [address] [place] [address] [place] [address] Phone Organization [facility] Address [address] [place] [address] Phone Care Team Providers Care General Ii Farmworker Name Role Phone MINGO MESSER, PRAKASH Unavailable [phone] Hina MESSER, Joshua Unavailable [phone] Reason for Visit and Chief Complaint The Chief Complaint is: low back pain Problems Includes: Problems addressed during this encounter and other active Problems Current Visit Onset Date Resolved Date Provider Jennyfer macedo Status Lower Back Pain 10/12/2023 Joshua lema MD Active Plan of Treatment Pending Tests Order Diagnosis Results Due Ordering P rovider Therapy - Physical Therapy Lumbar Low back pain, unspecified 10/12/23 Joshua Santamaria MD Future Appointments Date Time Location Provi concepción Epidural Steroid Injection 11/04/2023 1:30PM [facility] STEPHANI Farias CRNA Instructions to patient Intervention and counseling on cessation of tobacco use Last Documented On 10:32AM ; [facility] Assessments Includes: Assessments from this encounter Findings This is a 72-year-old female with thoracolumbar scoliosis, left lumbar radiculopathy, and chronic low back pain - Last Documented On 10/12/2023 11:21AM ; [facility] Is very nice meeting and in the office today. I told her that I would be very hesitant to ever recommend surgical intervention to her given her health status, recent health history, and smoking status. She voiced understanding. We will try to treat her symptoms nonoperatively. Will start her in physical therapy which I think she needs more than anything for some general rehabilitation as well as lumbar spine work. We also get her set up for an L4-5 epidural steroid injection. - Last Documented On 10/12/2023 11:21AM ; [facility] Fall Risk Assessment: - Last Documented On 10/12/2023 11:21AM ; [facility] This patient has been identified as a fall risk. Balance/gait along with postural blood pressure, vision and home fall hazards have been assessed. Medications have been reviewed, and recommendations made with regard to contributing factors for future falls. - Last Documented On 10/12/2023 11:21AM ; [facility] Plan of care: Consideration of vitamin D supplementation along with balance and strength training with consideration for formal physical therapy has been discussed with the patient. - Last Documented On 10/12/2023 11:21AM ; [facility] Instructions Includes: Instructions from this encounter Instructions to patient Intervention and counseling on cessation of tobacco use Last Documented On 10:32AM ; [facility] Medical Equipment - Implanted Devices Includes: Current Devices No Medical Equipment Recorded Medications Includes: Medications discussed during this encounter and other current Medications Discontinued / Stopped on this date on 09/17/2023 Pregabalin 50 MG Oral Capsule Provider: Diagnosis: Vancomycin HCl 250 MG Oral Capsule Provid er: PRAKASH AGUILA MD Diagnosis: Meloxicam 15 MG Oral Tablet Provider: Diagnosis: Ondansetron 4 MG Oral Tablet Disintegrating Provider: Diagnosis: Current Medications (continue as prescribed) Acetaminophen-Codeine 300-30 MG Oral Tablet 10/09/2023 Provider: PRAKASH AGUILA MD Diagnosis: Pregabalin 50 MG Oral Capsule 10/01/2023 Provider: Diagnosis: traZODone HCl 50 MG Oral Tablet 09/28/2023 Provider: PRAKASH AGUILA MD Diagnosis: Atorvastatin Calcium 40 MG Oral Tablet 09/25/2023 Pr ovider: PRAKASH AGUILA MD Diagnosis: Ibuprofen 800 MG Oral Tablet 09/25/2023 Provider: PRAKASH AGUILA MD Diagnosis: Potassium Chloride Ada ER 2 0 MEQ Oral Tablet Extended Release 09/25/2023 Provider: PRAKASH AGUILA MD Diagnosis: Montelukast Sodium 10 MG Oral Tablet 09/22/2023 Prov ider: PRAKASH AGUILA MD Diagnosis: Medications Administered Includes: Administered Medications from this encounter No Administered Medications Recorded Vital Signs Includes: Vital Signs from this encounter Vital Name 10/12/2023 10:25A Height (in) 63 Weight (lb) 118 Body Mass Index 20.9 Body Surface Area 1.5 Note: ct Last Documented On: 10/12/2023 10:25AM ; [facility] Results Includes: Results discussed during this encounter No Results Recorded For Specified Dates History of Present Illness Includes: History of Present Illness from this encounter JOSE Krueger is a 72 year old female. - Symptoms Giving away Elevating legs, topical lotion and pain medication makes pain better Walking and movement makes pain worse. - Allergy list reviewed - Problem list reviewed - Medication list reviewed - Previous history of new onset pain Injury is not work related or an automotive accident - Patient pain level from 1-10: 7 - Yes, previous treatment. with PCP and Dr. Carlton - History of Injections Medications used for this condition: This is a 72-year-old female seeing me for the first time today. In fact, she is new to [facility]. She is here for evaluation of chronic low back pain as well as 3 to 6 months of left lower extremity pain. She actually informs me that over the past 6 months she has had an interesting health history. She had a spontaneous pneumothorax for which she was hospitalized in had a chest tube placed for a few days. She then got a C. difficile infection probably as a result of the hospitalization and antibiotic use. She is also 1 and half to 2 pack/day smoker. She has never had neck or back surgeries. Prior to the pneumothorax and hospitalization, she was starting in some physical therapy which she thinks may have been helping. She is in a wheelchair today saying that for the last 3 months or so she has been using a wheelchair to get from one side of her house to the other. Her also informs me that she has lost about 15 to 20 pounds in the last several months. Social History Description Last Updated Alcohol use 10/12/2023 Procedures and Surgical History Includes: Procedures from this encounter Procedures Code Diagnosis Performing Provider Service Location Service Date X-RAY EXAM OF LOWER SPINE 4-5 VIEWS [id number] Other forms of scoliosis, thoracolumbar region, Radiculopathy, lumbar region Joshua Santamaria MD [facility] 10/12/2023 Medical History Includes: Medical History addressed during this encounter Description Last Updated Past surgical history non-contributory 1 12/13/2022 Family History Includes: Family History addressed during this encounter Description Last Updated Family history of cancer 10/12/2023 Review of Systems Includes: Review of Systems from this encounter Systemic: Not feeling tired. Recent weight loss. No recent weight gain. Head: No headache and no sinus pain. Eyes: No vision problems, no Cataracts, no Glasses/Contacts, and no Glaucoma. Otolaryngeal: No hearing loss and no tinnitus. Cardiovascular: No chest pain or discomfort, no palpitations, no Hypertension, and no High Cholesterol. Pulmonary: No daytime asthma symptoms. Chronic cough. No wheezing. Gastrointestinal: Heartburn and abdominal pain. No Indigestion, no Acid Reflux, no Peptic Ulcer, no GI Stomach Bleed, and no Ulcers. Endocrine: No hot flashes, no muscle weakness, no Diabetes, no Hypothyroid, and no Hyperthyroid. Hematologic: No easy bleeding, no tendency for easy bruising, and no Anemia. Musculoskeletal: No Arthritis. Lower back pain. No soft tissue swelling and no localized joint pain. Neurological: No dizziness, no convulsions, and no numbness. Psychological: No anxiety, no emotional lability, no depression, and no insomnia. Not crying for no reason. Skin: No dry skin. No Ulcers, no Scars, and no rash. Allergic and Immunologic: Complaint of seasonal allergic reaction. Mental Status Includes: Mental Status from this encounter Description No anxiety Functional Status Includes: Functional Status from this encounter No Functional Status Recorded Physical Exam Includes: Physical Exam from this encounter Allergies Includes: Active Allergies No Known Allergies Encounters Encounter Provider Location Date Check-In Time Check-Out Time Diagnosis Physician Specified Joshua lema MD [facility] 10/12/20 23 10:20AM 11:01AM Insurance Includes: Active Insurance Policies Plan Name Member ID Group # Subscriber Relationship Effect iraida Dates 1 - [employer] [id number] Yamilet Purdom Self Clinical Notes Includes: Clinical Notes from this encounter * Progress note Date Encounter Last Documented by 10/12/2023 Physician Specified Fredrick lopez on 10/12/2023; 11:21 AM, Joshua Santamaria MD; [facility] Active Problems & Conditions - Lower Back Pain Chief Complaint The Chief Complaint is: Low back pain. Referred Here Referred by PCP. History of Present Illness Yamilet Krueger is a 72 year old female. - Symptoms Giving away Elevating legs, topical lotion and pain medication makes pain better Walking and movement makes pain worse. - Allergy list reviewed - Problem list reviewed - Medication list reviewed - Previous history of new onset pain Injury is not work related or an automotive accident - Patient pain level from 1-10: 7 - Yes, previous treatment. with PCP and Dr. Carlton - History of Injections Medications used for this condition: This is a 72-year-old female seeing me for the first time today. In fact, she is new to [facility]. She is here for evaluation of chronic low back pain as well as 3 to 6 months of left lower extremity pain. She actually informs me that over the past 6 months she has had an interesting health history. She had a spontaneous pneumothorax for which she was hospitalized in had a chest tube placed for a few days. She then got a C. difficile infection probably as a result of the hospitalization and antibiotic use. She is also 1 and half to 2 pack/day smoker. She has never had neck or back surgeries. Prior to the pneumothorax and hospitalization, she was starting in some physical therapy which she thinks may have been helping. She is in a wheelchair today saying that for the last 3 months or so she has been using a wheelchair to get from one side of her house to the other. Her also informs me that she has lost about 15 to 20 pounds in the last several months. Current Medication - Acetaminophen-Codeine 300-30 MG Oral Tablet 7 days, 0 refills - Atorvastatin Calcium 40 MG Oral Tablet 90 days, 0 refills - Ibuprofen 800 MG Oral Tablet 30 days, 0 refills - Montelukast Sodium 10 MG Oral Tablet 90 days, 0 refills - Potassium Chloride Ada ER 20 MEQ Oral Tablet Extended Release 30 days, 0 refills - Pregabalin 50 MG Oral Capsule 30 days, 0 refills - traZODone HCl 50 MG Oral Tablet 60 days, 0 refills Past Medical/Surgical History Diagnoses: History of Emphysema Past surgical history non-contributory. Social History Yes, current smoker. 2.5 packs per day. Current diet: No recent change in diet. Caffeine use: Caffeine use. Tobacco use: Tobacco use. Alcohol: Alcohol use. Drug Use: Not using drugs. Habits: Not exercising regularly. Allergies - No Known Allergies Family History Cancer Review Of Systems Systemic: Not feeling tired. Recent weight loss. No recent weight gain. Head: No headache and no sinus pain. Eyes: No vision problems, no Cataracts, no Glasses/Contacts, and no Glaucoma. Otolaryngeal: No hearing loss and no tinnitus. Cardiovascular: No chest pain or discomfort, no palpitations, no Hypertension, and no High Cholesterol. Pulmonary: No daytime asthma symptoms. Chronic cough. No wheezing. Gastrointestinal: Heartburn and abdominal pain. No Indigestion, no Acid Reflux, no Peptic Ulcer, no GI Stomach Bleed, and no Ulcers. Endocrine: No hot flashes, no muscle weakness, no Diabetes, no Hypothyroid, and no Hyperthyroid. Hematologic: No easy bleeding, no tendency for easy bruising, and no Anemia. Musculoskeletal: No Arthritis. Lower back pain. No soft tissue swelling and no localized joint pain. Neurological: No dizziness, no convulsions, and no numbness. Psychological: No anxiety, no emotional lability, no depression, and no insomnia. Not crying for no reason. Skin: No dry skin. No Ulcers, no Scars, and no rash. Allergic and Immunologic: Complaint of seasonal allergic reaction. Physical Findings - Vitals taken 10/12/2023 10:[address] Height 63 in Weight 118 lbs Body Mass Index 20.9 kg/m2 Body Surface Area 1.5 m2 General: Alert and Oriented ? 3 Focused Musculoskeletal Exam of the Spine: Patient complaints today's physical exam in a wheelchair No focal tenderness to palpation in the Lumbar Spine Motor HF KE AD EHL GS Right 4+/5 5/5 5/5 5/5 5/5 Left 4+/5 5/5 5/5 5/5 5/5 Sensation L2 L3 L4 L5 S1 Right 2 2 2 2 2 Left 2 2 1 2 2 Patellar reflex is 1+ bilaterally Achilles reflex is 1+ bilaterally No ankle clonus Symmetric, palpable posterior tibialis pulse bilaterally Tests 4v Lumbar Spine X-ray Ap, Lateral, Flexion, and Extension views of the lumbar spine were obtained in the office today There is considerable thoracolumbar scoliosis is partially visualized on the available imaging with very advanced asymmetrical collapse at L3-4 and flattening of the normal lumbar lordosis User Defined 5 This is a 72-year-old female with thoracolumbar scoliosis, left lumbar radiculopathy, and chronic low back pain Is very nice meeting and in the office today. I told her that I would be very hesitant to ever recommend surgical intervention to her given her health status, recent health history, and smoking status. She voiced understanding. We will try to treat her symptoms nonoperatively. Will start her in physical therapy which I think she needs more than anything for some general rehabilitation as well as lumbar spine work. We also get her set up for an L4-5 epidural steroid injection. Fall Risk Assessment: This patient has been identified as a fall risk. Balance/gait along with postural blood pressure, vision and home fall hazards have been assessed. Medications have been reviewed, and recommendations made with regard to contributing factors for future falls. Plan of care: Consideration of vitamin D supplementation along with balance and strength training with consideration for formal physical therapy has been discussed with the patient. Previous Tests Imaging: X-Ray: An X-ray was performed 10/12/2023 Benita @ [facility]. CT Scan: CT scan. MRI Scan: An MRI was performed. Therapy - Intervention and counseling on cessation of tobacco use. Plan StartCited - Low back pain, unspecified Therapy/Physical Therapy: Lumbar Instructions: See PT order attached EndCited Practice Management Use of tobacco assessment performed and patient screened for future fall risk documentation of any fall with injury in past year Review of medications documented. Care Team - PRAKASH AGUILA MD - CAMPGROUND MANAGER Notes This dictation was done with voice recognition software and may contain errors and omissions.
--- OUTSIDE RECORDS SUMMARY | 2023-11-03 07:37 | XMS_ITS ---
Care Plan - [facility], [facility] Created on: November 03, 2023 Yamilet Krueger : 1950 Sex: Female Author Name Unknown Address [address] [place] [address] [place] [address] Phone Organization [facility] Address [address] [place] [address] [place] [address] Phone Care Team Providers Care Pharmacy Graduate Intern Name Role Phone PRAKASH AGUILA MD Unavailable [phone] Hina MESSER, Joshua Unavailable [phone]
--- OUTSIDE RECORDS SUMMARY | 2023-11-03 07:37 | XMS_ITS | Patient Health Record ---
Author Name Unknown Organization [facility] Address [address] [place], [place] [address] Care Team Providers Care Law Writer Name Role Phone Alfred Awad Primary Care Provider Michelle Perea Unavailable [phone] Lacie Arvizu Unavailable [phone] ALLERGIES Allergen (clinical drug ingredient) Drug/Non Drug Allergy documented on EMR Reaction Allergy Type Onset Date Status Terimycin (uncoded) black outs Allergy Active RESULTS Component Value Reference Range Notes IgA, Serum Reviewed date:12/26/2022 09:55:16 AM Interpretation: Performing Lab: Notes/Report: Test performed by [facility] [address] [place], [place] [address] [place] [address] Hardeep Stewart MD, Vault Installer CLIA: [id number] IgA, Serum 302.0 70.0-400.0 mg/dL IgE, Serum Reviewed date:12/26/2022 09:55:16 AM Interpretation: Performing Lab: Notes/Report: Test performed by [facility] [address] [place], [place] [address], [place] [address] Hardeep Stewart MD, Vault Installer CLIA: [id number] IgE, Serum 871.00 <0.2-100.00 IU/mL Treponema pallidum Antibody, Particle Agglutination Reviewed date:12/26/2022 09:55:16 AM Interpretation: Performing Lab: Notes/Report: Treponema pallidum Antibody, Particle Agglutination Non Reactive Non Reactive Performed By: [facility] [address] [place] [address] Vault Installer: Fidencio Santoyo MD, PhD Estimated Glomerular Filtrat ion Rate Reviewed date:12/26/2022 09:55:16 AM Interpretation: Performing Lab: Notes/Report: Test performed by [facility] [address] [place] [address] , [place] [address] Hardeep Stewart MD, Vault Installer CLIA: [id number] Estimated GFR (Black) 107 >59 mL/min/1.73m2 Estimated GFR (Other) 93 >59 mL/min/1.73m2 GFR Categories in Chronic Kidney Disease (CKD) GFR Category GFR (mL/min/1.73 sq. meters) Interpretation G1 90 or greater Normal or high* G2 60-89 Mild decrease* G3a 45-59 Mild to moderate decrease G3b 30-44 Moderate to severe decrease G4 15-29 Severe decrease G5 14 or less Kidney failure *In the absence of kidney damage, neither GFR category G1 or G2 fulfill the criteria for CKD (Kidney Int Suppl 2013; 3.1-150) The CKD-EPI calculation is intended for use in patients 18 years of age and older. Decreased calculation accuracy may be seen in patients taking medications that affect renal excretion, or in those patients with extremes in muscle mass or diet. RBC Morphology, Hematology Reviewed date:12/26/2022 09:55:16 AM Interpretation: Performing Lab: Notes/Report: Test performed by [facility] [address] [place] [address] , [place] [address] Hardeep Stewart MD, Vault Installer CLIA: [id number] Macrocytosis MARKED Anisocytosis SLIGHT Platelet Slide Review NORMAL BASIC METABOLIC PANEL (98343 ) Reviewed date:07/14/2023 01:46:40 PM Interpretation: Performing Lab:CB, [facility] [address], [place] Zechariah Trejo Notes/Report: NON-FASTING; NON-FASTING GLUCOSE 86 65-99 mg/dL Fasting reference interval UREA NITROGEN (BUN) 13 7-25 mg/dL CREATININE 0.89 0.60-1.00 mg/dL EGFR 69 > OR = 60 mL/min/1.73m2 BUN/CREATININE RATIO SEE NOTE: 6-22 (calc) Not Reported: BUN and Creatinine are within reference range. SODIUM 132 135-146 mmol/L POTASSIUM 2.7 3.5-5.3 mmol/L CHLORIDE 95 98-110 mmol/L CARBON DIOXIDE 26 20-32 mmol/L CALCIUM 9.7 8.6-10.4 mg/dL CBC (INCLUDES DIFF/PLT) (639 9) Reviewed date:07/14/2023 01:46:40 PM Interpretation: Performing Lab:CB, [facility], [facility] CenterJnyjOP[address] Zechariah Trejo Notes/Report: NON-FASTING; NON-FASTING WHITE BLOOD CELL COUNT 6.8 3.8-10.8 Thousand/ uL RED BLOOD CELL COUNT 3.23 3.80-5.10 Million/uL HEMOGLOBIN 12.6 11.7-15.5 g/dL HEMATOCRIT 35.3 35.0-45.0 % MCV 109.3 80.0-100.0 fL MCH 39.0 27.0-33.0 pg MCHC 35.7 32.0-36.0 g/dL RDW 12.1 11.0-15.0 % PLATELET COUNT 174 140-400 Thousand/uL MPV 10.3 7.5-12.5 fL ABSOLUTE NEUTROPHILS 4706 [phone] cells/uL ABSOLUTE LYMPHOCYTES [phone] cells/uL ABSOLUTE MONOCYTES 483 200-950 cells/uL ABSOLUTE EOSINOPHILS 41 15-500 cells/uL ABSOLUTE BASOPHILS 48 0-200 cells/uL NEUTROPHILS 69.2 LYMPHOCYTES 22.4 MONOCYTES 7.1 EOSINOPHILS 0.6 BASOPHILS 0.7 M-Uric Acid Reviewed date:07/28/2023 09:00:38 PM Interpretation: Performing Lab: Notes/Report: Comment: add to blood in lab if ok URIC 2.1 2.5-6.2 mg/dl M-Diarrhea Panel, PCR Reviewed date:07/28/2023 09:00:38 PM Interpretation: Performing Lab: Notes/Report: AEROMONAS Not Detected NotDetected CAMPYLOBACTER Not Detected NotDetected CLOSTR DIFFICIL Detected NotDetected NOTIFICATION RESULT Results called to: PHYLLIS on 07/28/23 at 1834 By Doris Landry MLT PLESIOMONAS Not Detected NotDetected SALMONELLA, PCR Not Detected NotDetected YERSINIA Not Detected NotDetected VIBRIO, PCR Not Detected NotDetected VIBRIO CHOLERAE Not Detected NotDetected ECOLI (EAEC) Not Detected NotDetected ECOLI (EPEC) Not Detected NotDetected ECOLI (ETEC) Not Detected NotDetected SHIGATOXIN Not Detected NotDetected ECOLI O157 Not Detected NotDetected SHIG-INVAS ECOL Not Detected NotDetected CRYPTO Not Detected NotDetected CYCLOSPORA Not Detected NotDetected EHISTOLYTICA Not Detected NotDetected GIARDIA Not Detected NotDetected ADENO STOOL Not Detected NotDetected ASTROVIRUS Not Detected NotDetected NOROVIRUS Not Detected NotDetected ROTOVIRUS A Not Detected NotDetected SAPOVIRUS Not Detected NotDetected M-Complete Blood Count Auto Diff Reviewed date:07/29/2023 01:05:48 PM Interpretation: Performing Lab: Notes/Report: WBC 6.3 4.8-10.8 K/mm3 RBC 2.82 4.20-5.40 M/mm3 HGB 10.5 12.2-16.2 g/dL HCT 33.9 37.0-47.0 % MCV 120.4 81-99 fl MCH 37.4 27.0-31.2 pg MCHC 31.1 31.8-35.4 g/dL RDW 13.3 11.5-17.5 % PLT 178 142-424 K/mm3 MPV 9.5 7.4-10.4 fl NE% 62.0 37.0-80.0 % LY% 26.4 10-50 % MO% 9.5 1.7-9.3 % EO% 1.8 0.1-12.0 % BA% 0.2 0.1-2.0 % NE# 3.9 1.8-7.8 K/mm3 LY# 1.7 0.7-4.5 K/mm3 MO# 0.6 0.1-1.0 K/mm3 EO# 0.1 0.0-0.4 K/mm3 BA# 0.0 0-0.2 K/mm3 M-Basic Metabolic Panel Reviewed date:07/29/2023 01:05:48 PM Interpretation: Performing Lab: Notes/Report: NA 127 136-145 mmol/L K 3.8 3.5-5.1 mmoL/L CL 107 98-107 mmol/L CO2 16 22.0-30.0 mmol/L GAP 7.8 5-15 mEq/L BUN 3 7-17 mg/dl CREATT 0.40 0.52-1.04 mg/dl CRCLE 49 50-200 mL/min GFRAA 190 >60 ML/MIN EGFR 157 >60 ml/min GLU 74 74-100 mg/dl M-Complete Blood Count Auto Diff Reviewed date:07/30/2023 02:49:53 PM Interpretation: Performing Lab: Notes/Report: WBC 8.1 4.8-10.8 K/mm3 Delta: 6.3 on 07/29/23-514 RBC 2.93 4.20-5.40 M/mm3 HGB 10.9 12.2-16.2 g/dL HCT 34.2 37.0-47.0 % MCV 116.8 81-99 fl MCH 37.2 27.0-31.2 pg MCHC 31.8 31.8-35.4 g/dL RDW 13.2 11.5-17.5 % PLT 206 142-424 K/mm3 MPV 8.9 7.4-10.4 fl NE% 66.1 37.0-80.0 % LY% 22.6 10-50 % MO% 9.9 1.7-9.3 % EO% 1.3 0.1-12.0 % BA% 0.2 0.1-2.0 % NE# 5.4 1.8-7.8 K/mm3 LY# 1.8 0.7-4.5 K/mm3 MO# 0.8 0.1-1.0 K/mm3 EO# 0.1 0.0-0.4 K/mm3 BA# 0.0 0-0.2 K/mm3 M-Comprehensive Metabolic Pa raegan Reviewed date:07/30/2023 02:49:53 PM Interpretation: Performing Lab: Notes/Report: NA 128 136-145 mmol/L K 3.5 3.5-5.1 mmoL/L CL 105 98-107 mmol/L CO2 18 22.0-30.0 mmol/L GAP 8.5 5-15 mEq/L BUN 3 7-17 mg/dl CREATT 0.40 0.52-1.04 mg/dl CRCLE 49 50-200 mL/min GFRAA 190 >60 ML/MIN EGFR 157 >60 ml/min GLU 77 74-100 mg/dl CA 8.1 8.4-10.2 mg/dl BILIT 0.7 0.2-1.3 mg/dl AST 27 14-36 U/L ALT 19 12-78 U/L TP 5.1 6.3-8.2 g/dl ALB 2.5 3.5-5.0 g/dl GLOB 2.6 1.3-3.2 g/dL AGRATIO 1.0 1.1-1.8 ALP 92 38-126 U/L H-VITB12 Reviewed date:08/11/2023 08:04:32 AM Interpretation: Performing Lab: Notes/Report: VITB12 986 239-931 pg/mL H-FOL Reviewed date:08/11/2023 08:04:32 AM Interpretation: Performing Lab: Notes/Report: FOL 7.24 Normal Adult: 2.76->20 ng/mL Folate Deficent: 1.04-2.79ng/mL M-Comprehensive Metabolic Pa raegan Reviewed date:08/11/2023 08:04:32 AM Interpretation: Performing Lab: Notes/Report: NA 137 136-145 mmol/L K 4.6 3.5-5.1 mmoL/L CL 111 98-107 mmol/L CO2 20 22.0-30.0 mmol/L GAP 10.6 5-15 mEq/L BUN 7 7-17 mg/dl CREATT 0.50 0.52-1.04 mg/dl GFRAA 147 >60 ML/MIN EGFR 122 >60 ml/min GLU 92 74-100 mg/dl CA 9.3 8.4-10.2 mg/dl BILIT 0.4 0.2-1.3 mg/dl AST 34 14-36 U/L ALT 26 12-78 U/L TP 6.7 6.3-8.2 g/dl Delta: 5.1 on 07/30/23-624 ALB 3.4 3.5-5.0 g/dl GLOB 3.3 1.3-3.2 g/dL AGRATIO 1.0 1.1-1.8 ALP 111 38-126 U/L M-Complete Blood Count Auto Diff Reviewed date:08/11/2023 08:04:32 AM Interpretation: Performing Lab: Notes/Report: WBC 7.7 4.8-10.8 K/mm3 RBC 3.54 4.20-5.40 M/mm3 HGB 13.0 12.2-16.2 g/dL HCT 43.2 37.0-47.0 % MCV 121.9 81-99 fl MCH 36.6 27.0-31.2 pg MCHC 30.1 31.8-35.4 g/dL RDW 13.6 11.5-17.5 % PLT 441 142-424 K/mm3 MPV 9.0 7.4-10.4 fl NE% 64.6 37.0-80.0 % LY% 28.9 10-50 % MO% 5.1 1.7-9.3 % EO% 1.0 0.1-12.0 % BA% 0.3 0.1-2.0 % NE# 5.0 1.8-7.8 K/mm3 LY# 2.2 0.7-4.5 K/mm3 MO# 0.4 0.1-1.0 K/mm3 EO# 0.1 0.0-0.4 K/mm3 BA# 0.0 0-0.2 K/mm3 MRI : Lumbosacral Spine Reviewed date:08/19/2023 03:57:34 PM Interpretation: Performing Lab: Notes/Report: X ray : Hip and thigh, Left Reviewed date:07/23/2023 12:21:39 PM Interpretation: Performing Lab: Notes/Report: X ray : Spines, Lumbosacral Reviewed date:07/23/2023 12:34:17 PM Interpretation: Performing Lab: Notes/Report: M-Lipase Reviewed date:07/23/2023 12:21:10 PM Interpretation: Performing Lab: Notes/Report: LIP 310 23-300 U/L M-Amylase Reviewed date:07/23/2023 12:21:24 PM Interpretation: Performing Lab: Notes/Report: OLEKSANDR 49 30-110 U/L M-Comprehensive Metabolic Pa raegan Reviewed date:07/23/2023 12:20:58 PM Interpretation: Performing Lab: Notes/Report: NA 133 136-145 mmol/L K 3.8 3.5-5.1 mmoL/L CL 103 98-107 mmol/L CO2 19 22.0-30.0 mmol/L GAP 14.8 5-15 mEq/L BUN 18 7-17 mg/dl CREATT 1.10 0.52-1.04 mg/dl GFRAA 59 >60 ML/MIN EGFR 49 >60 ml/min GLU 68 74-100 mg/dl CA 10.0 8.4-10.2 mg/dl BILIT 0.5 0.2-1.3 mg/dl AST 39 14-36 U/L ALT 24 12-78 U/L TP 6.9 6.3-8.2 g/dl ALB 4.1 3.5-5.0 g/dl GLOB 2.8 1.3-3.2 g/dL AGRATIO 1.5 1.1-1.8 ALP 99 38-126 U/L M-Complete Blood Count Auto Diff Reviewed date:07/23/2023 12:21:31 PM Interpretation: Performing Lab: Notes/Report: WBC 8.9 4.8-10.8 K/mm3 RBC 3.73 4.20-5.40 M/mm3 HGB 13.7 12.2-16.2 g/dL HCT 43.4 37.0-47.0 % MCV 116.2 81-99 fl MCH 36.8 27.0-31.2 pg MCHC 31.7 31.8-35.4 g/dL RDW 13.7 11.5-17.5 % PLT 215 142-424 K/mm3 MPV 8.9 7.4-10.4 fl NE% 67.9 37.0-80.0 % LY% 25.8 10-50 % MO% 4.8 1.7-9.3 % EO% 0.8 0.1-12.0 % BA% 0.6 0.1-2.0 % NE# 6.1 1.8-7.8 K/mm3 LY# 2.3 0.7-4.5 K/mm3 MO# 0.4 0.1-1.0 K/mm3 EO# 0.1 0.0-0.4 K/mm3 BA# 0.1 0-0.2 K/mm3 BASIC METABOLIC PANEL (84861 ) Reviewed date:04/29/2023 10:39:43 AM Interpretation: Performing Lab:CB, [facility] [id number] [employer] [facility], [facility] CenterWzsdYU[address] Zechariah Trejo Notes/Report: NON-FASTING GLUCOSE 80 65-99 mg/dL Fasting reference interval UREA NITROGEN (BUN) 12 7-25 mg/dL CREATININE 0.74 0.60-1.00 mg/dL EGFR 86 > OR = 60 mL/min/1.73m2 The eGFR is based on the CKD-EPI 2021 equation. To calculate the new eGFR from a previous Creatinine or Cystatin C result, go to https://www.kidney.org/ professionals/ kdoqi/gfr%5Fcalculator BUN/CREATININE RATIO NOT APPLICABLE 6-22 (calc) SODIUM 132 135-146 mmol/L POTASSIUM 3.1 3.5-5.3 mmol/L CHLORIDE 93 98-110 mmol/L CARBON DIOXIDE 28 20-32 mmol/L CALCIUM 9.6 8.6-10.4 mg/dL BASIC METABOLIC PANEL (34543 ) Reviewed date:01/22/2023 02:03:19 PM Interpretation: Performing Lab:[facility] [address] [employer], [facility] CenterFcbzTV[address] Zechariah Trejo Notes/Report: NON-FASTING GLUCOSE 83 65-99 mg/dL Fasting reference interval UREA NITROGEN (BUN) 13 7-25 mg/dL CREATININE 0.47 0.60-1.00 mg/dL EGFR 102 > OR = 60 mL/min/1.73m2 The eGFR is based on the CKD-EPI 2021 equation. To calculate the new eGFR from a previous Creatinine or Cystatin C result, go to https://www.kidney.org/ professionals/ kdoqi/gfr%5Fcalculator BUN/CREATININE RATIO 28 6-22 (calc) SODIUM 132 135-146 mmol/L POTASSIUM 4.9 3.5-5.3 mmol/L CHLORIDE 101 98-110 mmol/L CARBON DIOXIDE 26 20-32 mmol/L CALCIUM 9.3 8.6-10.4 mg/dL Erythrocyte Sedimentation Ra te (ESR), Automated Reviewed date:12/26/2022 09:55:16 AM Interpretation: Performing Lab: Notes/Report: Test performed by [employer], [email or web address] [address] [place] [address] , [address] , [place] [address] Hardeep Stewart MD, Vault Installer CLIA: [id number] Erythrocyte Sedimentation Rate (ESR), Automated 10 <31 mm/hr Comprehensive Metabolic Pane l (CMP) Reviewed date:12/26/2022 09:55:16 AM Interpretation: Performing Lab: Notes/Report: Test performed by [facility] [address] [place] [address] , [place] [address] Hardeep Stewart MD, Vault Installer CLIA: [id number] Sodium 128 135-145 mEq/L Potassium 4.1 3.5-5.3 mEq/L Chloride 89 97-108 mEq/L CO2 27 22-32 mEq/L Glucose 94 65-99 mg/dL BUN 6 8-23 mg/dL Creatinine 0.58 0.50-1.00 mg/dL Calcium 9.4 8.6-10.4 mg/dL Protein 7.1 6.0-8.3 g/dL Albumin 4.6 3.5-5.3 g/dL Alkaline Phosphatase 141 35-121 IU/L ALT (SGPT) 40 <5-47 IU/L AST (SGOT) 61 <5-40 IU/L Bilirubin, Total 0.8 <0.2-1.2 mg/dL A/G Ratio 1.8 1.1-2.5 mg/dL CBC with Diff plus Absolute Counts Reviewed date:12/26/2022 09:55:16 AM Interpretation: Performing Lab: Notes/Report: Test performed by [facility] [address] [place] [address] , [place] [address] Hardeep Stewart MD, Vault Installer CLIA: [id number] WBC 5.8 3.8-11.5 K/uL Red Blood Cell Count (RBC) 3.54 3.60-5.30 M/mm3 Hemoglobin (Hgb) 13.5 11.5-15.5 gm/dL Hematocrit (HCT) 37.9 35.2-46.4 % MCV 107.1 79.0-99.0 fL MCH 38.1 26.9-35.0 pg MCHC 35.6 30.4-34.8 g/dL RDW 50.2 38.6-53.8 fL Platelet Count 177 137-397 K/cumm Neutrophils Automated 47.3 41.0-77.0 % Lymphocytes Automated 40.4 14.0-48.0 % Monocytes Automated 9.2 4.0-13.0 % Eosinophils Automated 2.1 0.0-8.0 % Basophils Automated 0.7 0.0-1.5 % Immature Granulocyte Automated 0.3 0.0-1.0 % Absolute Neutrophil Count 2.7 2.0-8.2 K/uL Absolute Lymphocyte Count 2.3 0.9-3.6 K/uL Absolute Monocyte Count 0.5 0.3-1.0 K/uL Absolute Eosinophil Count 0.1 0.0-0.6 K/uL Absolute Basophil Count 0.0 0.0-0.1 K/uL Absolute Immature Granulocyte 0.02 0.00-0.03 K/uL M-Magnesium Reviewed date:10/30/2023 01:42:01 PM Interpretation: Performing Lab: Notes/Report: MG 1.5 1.6-2.3 mg/dl M-Basic Metabolic Panel Reviewed date:10/30/2023 01:42:01 PM Interpretation: Performing Lab: Notes/Report: NA 131 136-145 mmol/L K 3.6 3.5-5.1 mmoL/L CL 102 98-107 mmol/L CO2 12 22.0-30.0 mmol/L GAP 20.6 5-15 mEq/L BUN 9 7-17 mg/dl CREATT 0.70 0.52-1.04 mg/dl GFRAA 100 >60 ML/MIN EGFR 82 >60 ml/min GLU 67 74-100 mg/dl M-Comprehensive Metabolic Pa raegan Reviewed date:09/14/2023 11:51:45 AM Interpretation: Performing Lab: Notes/Report: NA 132 136-145 mmol/L K 3.3 3.5-5.1 mmoL/L CL 112 98-107 mmol/L CO2 16 22.0-30.0 mmol/L GAP 7.3 5-15 mEq/L BUN 3 7-17 mg/dl Delta: 2 on 09/13/23 CREATT 0.30 0.52-1.04 mg/dl CRCLE 48 50-200 mL/min GFRAA 265 >60 ML/MIN EGFR 219 >60 ml/min GLU 78 74-100 mg/dl CA 7.3 8.4-10.2 mg/dl BILIT 0.2 0.2-1.3 mg/dl AST 19 14-36 U/L ALT 12 12-78 U/L TP 4.2 6.3-8.2 g/dl Delta: 6.0 on 09/10/23-1055 ALB 1.9 3.5-5.0 g/dl GLOB 2.3 1.3-3.2 g/dL AGRATIO 0.8 1.1-1.8 ALP 76 38-126 U/L M-Complete Blood Count Auto Diff Reviewed date:09/14/2023 11:51:45 AM Interpretation: Performing Lab: Notes/Report: WBC 5.2 4.8-10.8 K/mm3 RBC 2.54 4.20-5.40 M/mm3 HGB 9.7 12.2-16.2 g/dL HCT 29.4 37.0-47.0 % MCV 115.8 81-99 fl MCH 38.2 27.0-31.2 pg MCHC 33.0 31.8-35.4 g/dL RDW 14.6 11.5-17.5 % PLT 253 142-424 K/mm3 MPV 9.4 7.4-10.4 fl NE% 59.6 37.0-80.0 % LY% 32.3 10-50 % MO% 5.7 1.7-9.3 % EO% 2.3 0.1-12.0 % BA% 0.2 0.1-2.0 % NE# 3.1 1.8-7.8 K/mm3 LY# 1.7 0.7-4.5 K/mm3 MO# 0.3 0.1-1.0 K/mm3 EO# 0.1 0.0-0.4 K/mm3 BA# 0.0 0-0.2 K/mm3 M-Basic Metabolic Panel Reviewed date:09/13/2023 03:08:11 PM Interpretation: Performing Lab: Notes/Report: NA 130 136-145 mmol/L K 3.1 3.5-5.1 mmoL/L CL 109 98-107 mmol/L CO2 16 22.0-30.0 mmol/L GAP 8.1 5-15 mEq/L BUN 2 7-17 mg/dl Delta: 4 on 09/12/23-624 CREATT 0.30 0.52-1.04 mg/dl CRCLE 47 50-200 mL/min GFRAA 265 >60 ML/MIN EGFR 219 >60 ml/min GLU 73 74-100 mg/dl M-Complete Blood Count Auto Diff Reviewed date:09/13/2023 03:08:11 PM Interpretation: Performing Lab: Notes/Report: WBC 5.9 4.8-10.8 K/mm3 RBC 2.58 4.20-5.40 M/mm3 HGB 9.9 12.2-16.2 g/dL HCT 29.5 37.0-47.0 % MCV 114.4 81-99 fl MCH 38.5 27.0-31.2 pg MCHC 33.7 31.8-35.4 g/dL RDW 14.4 11.5-17.5 % PLT 252 142-424 K/mm3 MPV 9.9 7.4-10.4 fl NE% 59.7 37.0-80.0 % LY% 32.5 10-50 % MO% 5.6 1.7-9.3 % EO% 1.9 0.1-12.0 % BA% 0.2 0.1-2.0 % NE# 3.5 1.8-7.8 K/mm3 LY# 1.9 0.7-4.5 K/mm3 MO# 0.3 0.1-1.0 K/mm3 EO# 0.1 0.0-0.4 K/mm3 BA# 0.0 0-0.2 K/mm3 M-Basic Metabolic Panel Reviewed date:09/13/2023 03:08:11 PM Interpretation: Performing Lab: Notes/Report: NA 128 136-145 mmol/L K 3.7 3.5-5.1 mmoL/L Delta: 2.6 on 09/11/23-UNK CL 105 98-107 mmol/L CO2 21 22.0-30.0 mmol/L GAP 5.7 5-15 mEq/L BUN 4 7-17 mg/dl Delta: 9 on 09/11/23-UNK CREATT 0.30 0.52-1.04 mg/dl Delta: 0.40 on 09/11/23-UNK CRCLE 44 50-200 mL/min GFRAA 265 >60 ML/MIN Delta: 190 on 09/11/23-UNK EGFR 219 >60 ml/min GLU 80 74-100 mg/dl Delta: 103 on 09/11/23-UNK M-Complete Blood Count Auto Diff Reviewed date:09/13/2023 03:08:11 PM Interpretation: Performing Lab: Notes/Report: WBC 6.2 4.8-10.8 K/mm3 Delta: 11.9 o n 09/11/23-0800 RBC 2.57 4.20-5.40 M/mm3 HGB 9.9 12.2-16.2 g/dL HCT 29.0 37.0-47.0 % MCV 112.8 81-99 fl MCH 38.6 27.0-31.2 pg MCHC 34.2 31.8-35.4 g/dL RDW 14.2 11.5-17.5 % PLT 222 142-424 K/mm3 MPV 7.8 7.4-10.4 fl NE% 68.6 37.0-80.0 % LY% 25.8 10-50 % MO% 3.9 1.7-9.3 % EO% 1.5 0.1-12.0 % BA% 0.2 0.1-2.0 % NE# 4.2 1.8-7.8 K/mm3 LY# 1.6 0.7-4.5 K/mm3 MO# 0.2 0.1-1.0 K/mm3 EO# 0.1 0.0-0.4 K/mm3 BA# 0.0 0-0.2 K/mm3 M-Magnesium Reviewed date:09/11/2023 02:48:34 PM Interpretation: Performing Lab: Notes/Report: MG 1.6 1.6-2.3 mg/dl Delta: 1.4 on 09/10/23-1055 M-Basic Metabolic Panel Reviewed date:09/11/2023 02:48:34 PM Interpretation: Performing Lab: Notes/Report: NA 123 136-145 mmol/L K 2.6 3.5-5.1 mmoL/L CRITICAL RESULT Results called and read back/verified to: PHYLLIS on 09/11/23 at 0830 By Michelle Debacher, HISTORICAL SOCIETY DIRECTOR CL 97 98-107 mmol/L CO2 21 22.0-30.0 mmol/L GAP 7.6 5-15 mEq/L BUN 9 7-17 mg/dl Delta: 14 on 09/10/23 CREATT 0.40 0.52-1.04 mg/dl Delta: 0.60 on 09/10/23 CRCLE 44 50-200 mL/min GFRAA 190 >60 ML/MIN Delta: 119 on 09/10/23 EGFR 157 >60 ml/min GLU 103 74-100 mg/dl M-Complete Blood Count Auto Diff Reviewed date:09/11/2023 02:48:34 PM Interpretation: Performing Lab: Notes/Report: WBC 11.9 4.8-10.8 K/mm3 RBC 2.87 4.20-5.40 M/mm3 HGB 10.9 12.2-16.2 g/dL Delta: 12.9 o n 09/10/23 HCT 32.3 37.0-47.0 % MCV 112.7 81-99 fl MCH 38.2 27.0-31.2 pg MCHC 33.8 31.8-35.4 g/dL RDW 14.1 11.5-17.5 % PLT 245 142-424 K/mm3 MPV 8.7 7.4-10.4 fl NE% 82.5 37.0-80.0 % LY% 11.6 10-50 % MO% 4.6 1.7-9.3 % EO% 1.1 0.1-12.0 % BA% 0.1 0.1-2.0 % NE# 9.8 1.8-7.8 K/mm3 LY# 1.4 0.7-4.5 K/mm3 MO# 0.6 0.1-1.0 K/mm3 EO# 0.1 0.0-0.4 K/mm3 BA# 0.0 0-0.2 K/mm3 REASON FOR REFERRAL Reason Physical Therapy Diagnosis 1 Lumbar back pain wit h radiculopathy affecting lower extremity (M54.16) Referral Organization [facility] IM [facility] Referring Provider First Name Alfred Referring Provider Last Name Delmi Referring Provider Speciality Internal M edicine Referred Provider Specialty Physical The rapist General Notes Chikis Goldsmith 2022 04:19:51 PM >Scheduled 07/08/23 at 8am Referral Priority Routine Referral Appointment Date 07/08/[address] Gaviria -severe arth ritis of spine... needs appt with Dr. Gaviria Referral Organization [facility] MARLENE ROTHMAN Referring Provider First Name Michelle Referring Provider Last Name Brit Referring Provider Speciality [facility] ctice Referred Organization [facility] Referred Address [address], [place],[address],[place] Referred Provider Specialty Anesthesiolo gy General Notes Chikis Goldsmith 2022 12:40:35 PM >Referral sent to Dr. Gaviria Referral Priority Routine Reason Needs MRI of the lum bar spine, [facility] do [facility]. Diagnosis 1 Acute left-sided low back pain with left-sided sciatica (M54.42) Referral Organization [facility] MARLENE ROWLAND Referring Provider First Name Alfred Referring Provider Last Name Delmi Referring Provider Speciality [facility] General Notes Chikis Goldsmith 2022 12:19:01 PM >Order sent to [facility]- they will call her with appt, [employer] auth [id number], CPT Code 50408, [facility] exp 09-05-23 Referral Priority Urgent Reason Has fairly severe sp ine disease with left-sided significant foramen narrowing which means her nerves down the left leg are becoming pinched. I recommend seeing neurosurgery. Try [facility],Dr. Potts Referral Organization [facility] MARLENE ROWLAND Referring Provider First Name Alfred Referring Provider Last Name Delmi Referring Provider Speciality [facility] General Notes Joel Kemp 03:58:16 PM > faxed and they will call pt to [facility] info Referral Priority Routine MEDICATIONS Medication SIG (Take, Route, Frequency, Duration) Notes Start Date End Date Status Potassium Chloride (Khd-Qsyq-Mlp M20) 20 mEq TAKE ONE TABLET BY MOUTH EVERY DAY for 30 Active Ondansetron Hydrochloride 4 mg 1 tab(s) orally every 8 hours for 5 days 08/07/2023 Active TraZODone Hydrochloride 50 mg as directed orally at bedtime for 30 days Active cetirizine 10 mg 1 tab(s) orally once a day for 30 day(s) 04/11/2014 Active metroNIDAZOLE 500 mg 1 tab(s) orally 3 t imes a day for 30 days 10/15/2023 Active Probiotic Formula (Bacillus Coagulans) - 1 cap(s) orally once a day Active Promethazine Hydrochloride 25 mg 1 tab(s) orally every 6 hours for 5 days 10/19/2023 Active Acetaminophen-Codeine Phosphate 300 mg-30 mg 1-2 tabs orally twice daily for severe pain for 30 days 10/12/2023 Active furosemide 20 mg 1 tab(s) orally once a day for 30 days 10/21/2023 Active Symbicort 160 mcg-4.5 mcg/inh 2 puff(s) inhaled 2 times a day Active vancomycin 250 mg 1 cap(s) orally ever y 6 hours for 30 days 10/13/2023 Active Diclofenac Sodium Topical 1% as directed applied topically 4 times a day for 30 days 06/29/2023 Active ibuprofen 800 mg 1 tab(s) orally 3 ti mes a day as needed for 30 prn Active alendronate 70 mg 1 tab(s) orally once a week for 90 days Active Atorvastatin Calcium 40 mg 1 tab(s) oral ly once a day for 90 days Active IMMUNIZATIONS Vaccine Route Administration Date Status Comme nts Adacel (Tdap) IM Intramuscular 05/08/2016 Administered Arexvy IM Intramuscular 10/12/2023 Administered Fluzone High Dose IM Intramuscular 09/03/2018 Administered Fluzone High Dose IM Intramuscular 08/01/2023 Administered Influenza (Fluzone)--Medicare only IM Intramuscular 09/28/2017 Administered Influenza-Fluzone 3+years (NON-MEDICARE) IM Intramuscular 08/22/2015 Administered Pneumovax 23 IM Intramuscular 08/22/2015 Administered Prevnar PCV-13 (Pneumococcal conjugate 13) IM Intramuscular 03/22/2018 Administered SOCIAL HISTORY Tobacco Use: Social History Observation Description Date Details (start date - stop date) Current Smoker NA - NA Sex Assigned At : Social History Observation Description Sex Assigned At Unknown Smoking: Question Answer Notes Are you a: current smoker How often do you smoke cigarettes? every day How many cigarettes a day do you smoke? 21-30 How soon after you wake up d o you smoke your first cigarette? 6-30 min Are you interested in quitting? Thinking about q uitting PROBLEMS Problem Type ICD Code Onset Dates Problem Status W/U Status Risk SNOMED Code Notes Problem Primary insomnia (F51.01) Active confirmed 9062133 Problem Other chronic pain (G89.29) Active confirmed 37399498 Problem Vasomotor rhinitis (J30.0) Active confirmed 9064125 Problem Panlobular emphysema (J43.1) Active confirmed 8987227 Problem Age-related osteoporosis without current pathological fracture (M81.0) Active confirmed 48956904 Problem Personal history of nicotine dependence (Z87.891) Active confirmed [id number] Problem Anxiety (F41.9) Active confirmed [id number] [id number] Problem Osteoporosis (M81.0) Active confirmed 50436705 Problem Hyperlipemia, idiopathic familial (E78.5) Active confirmed 402195382 Problem Hypertension, essential (I10) Active confirmed 14865574 Problem Tubular adenoma of colon (D12.6) Active confirmed 422975569 Problem Sacroiliitis (M46.1) Active confirmed 88660458 Problem Alcohol abuse (F10.10) Active confirmed 64296906 Problem Acute left-sided low back pain with left-sided sciatica (M54.42) Active confirmed 911146874 Problem Dupuytren's contracture of left hand (M72.0) Active confirmed [id number] Problem Healthcare maintenance (Z00.00) Active confirmed 859575061 Problem Primary hypertension (I10) Active confirmed 84851003 Problem Peripheral polyneuropathy (G62.9) Active confirmed 12188242 Problem Macrocytosis (D75.89) Active confirmed 959648205 Problem Other hyperlipidemia (E78.49) Active confirmed 78372698 Problem Macrocytosis without anemia (D75.89) Active confirmed 164389410 VITAL SIGNS Heart Rate 80 /min 10/21/2023 Temperature 97.6 degrees Fahrenheit 10/21/2023 Blood pressure diastolic 64 mm Hg 10/21/2023 Height 65 in in 10/21/2023 Blood pressure systolic 102 mm Hg 10/21/2023 Weight 116.6 lbs 10/21/2023 BMI 19.4 kg/m2 10/21/2023 Encounters Encounter Location Date Provider Diagnosis [facility] [address] [place], [place] [address] 08/31/2023 Alfred Awad [facility] [address] [place] [address] 09/07/2023 Alfred Joaquinson [facility] [address] [facility] [address] [place], [place] [address] 11/18/2022 Michelle McNees Skin lesion L98.9 an d Insect bite, unspecified site, initial encounter W57.XXXA [facility] [address] [facility] [address] [place] [address] 12/22/2022 Alfred Besson Hives L50.9 and Rash R21 [facility] [address] [facility] [address] [place] [address] 01/21/2023 Alfred Besson Hyponatremia E87.1 ; Primary spontaneous pneumothorax J93.11 ; Panlobular emphysema J43.1 and Hospital discharge follow-up Z09 [facility] [address] [facility] [place], [place] [address] 03/25/2023 Alfred Besson Hypertension, essent ial I10 ; Primary insomnia F51.01 and Routine medical exam Z00.00 [facility] [address] [facility] [address] [place] [address] 04/27/2023 Alfred Besson Hypertension, essent ial I10 and Mechanical low back pain M54.59 [facility] [address] [facility] [address] [place] [address] 06/29/2023 Alfred Besson Hypertension, essent ial I10 ; Leg edema R60.0 and Lumbar back pain with radiculopathy affecting lower extremity M54.16 [facility] [address] [facility] [address] [place] [address] 07/13/2023 Alfred Besson Hypertension, essent ial I10 ; Hyponatremia E87.1 ; Immunization counseling Z71.85 ; Unspecified fall, initial encounter W19.XXXA and Unspecified place in unspecified non-institutional (private) residence as the place of occurrence of the external cause Y92.009 [facility] [address] [address] 07/21/2023 Alfred Besson Low back pain at multiple sites M54.50 ; Pain of left hip M25.552 and Generalized abdominal pain R10.84 [facility] [address] [place] [address] 08/01/2023 Alfred Besson C. difficile colitis A04.72 ; Drug-induced acute pancreatitis, unspecified complication status K85.30 ; Acute left-sided low back pain with left-sided sciatica M54.42 and Immunization(s) administered Z23 [facility] [address] [place] [address] 08/07/2023 Lacie Arvizu C. difficile colitis A04.72 ; Nausea R11.0 and Macrocytosis D75.89 [facility] [address] [place] [address] 08/17/2023 Alfred Delmi Other chronic pain G89.29 ; Primary hypertension I10 ; Healthcare maintenance Z00.00 ; Other hyperlipidemia E78.49 and Age-related osteoporosis without current pathological fracture M81.0 [facility] [address] [place] [address] 09/16/2023 Alfred Besson C. difficile colitis A04.72 ; Hypertension, essential I10 and Other chronic pain G89.29 [facility] [address] [place] [address] 09/21/2023 Alfred Delmi Peripheral polyneuropathy G62.9 ; C. difficile colitis A04.72 and Hospital discharge follow-up Z09 [facility] [address] [place] [address] 10/12/2023 Alfred Besson C. difficile colitis A04.72 ; Osteoporosis M81.0 ; Healthcare maintenance Z00.00 ; Other chronic pain G89.29 and Encounter for immunization Z23 [facility] [address] [place] [address] 10/19/2023 Alfred Joaquinson Nausea R11.0 [facility] [address] [place] [address] 10/21/2023 Alfred Besson Peripheral edema R60 .0 and Recurrent Clostridioides difficile infection A49.8 [facility] [address] [place] [address] 04/29/2023 Alfred Besson [facility] [address] [place] [address] 05/06/2023 Alfred Besson [facility] [address] [place] [address] 07/14/2023 Alfred Besson [facility] [address] [place] [address] 07/14/2023 Alfred Besson [facility] [address] [place] [address] 07/27/2023 Alfred Besson [facility] [address] [place] [address] 08/11/2023 Alfred Besson [facility] [address] [place] [address] 08/27/2023 Alfred Besson Acute left-sided low back pain with left-sided sciatica M54.42 [facility] [address] [place] [address] 09/01/2023 Alfred Besson [facility] [address] [place] [address] 09/08/2023 Alfred Besson Acute diarrhea R19.7 [facility] [address] [facility] [place] [address] 09/14/2023 Alfred Besson [facility] [address] [place] [address] 10/01/2023 Alfred Besson [facility] [address] [place] [address] 10/09/2023 Alfred Besson [facility] [address] [place] [address] 10/13/2023 Alfred Besson ASSESSMENTS Encounter Date Diagnosis Assessment Notes Treatment Notes Treatment Clinical Notes 06/29/2023 Hypertension, essential (ICD-10 - I10) Blood pressure improved but not yet at goal, LE swelling improved, will increase HCTZ to 50mg daily, will follow-up in 2 weeks with repeat BMP to monitor electrolytes as patient has become hyponatremic in the past with higher doses of HCTZ although had been on other medications additionally at that time 06/29/2023 Leg edema (ICD-10 - R60.0) 01/21/2023 Primary spontaneous pneumothorax (ICD-10 - J93.11) No evidence of recurrence. No changes in plan. Hospital discharge summary, H&P and discharge reconciliation medications looked at. 01/21/2023 Hyponatremia (ICD-10 - E87.1) Recheck BMP today. I will review labs personally 07/13/2023 Hypertension, essential (ICD-10 - I10) Blood pressure looks good, check labs given patient's history of hyponatremia on increased dose of HCTZ. I will review these personally. 07/13/2023 Hyponatremia (ICD-10 - E87.1) 08/07/2023 Nausea (ICD-10 - R11.0) 08/07/2023 C. difficile colitis (ICD-10 - A04.72) Vancomycin prescribed as above per Uptodate guidelines and dosing confirmed with Dr. Awad. Encouraged BRAT diet, Gatorade, Pedialyte, and clear fluids. Discussed to take Zofran 20 minutes before she trys to eat. Monitor for evidence of significant dehydration and notify of any blood or mucus in stool/emesis. Avoid juice, dairy, and anti-diarrheal agents. Educated patient and on C. difficile colitis. Discussed signs and symptoms warranting urgent ED evaluation. Encourage p.o. intake. Patient and voice understanding. Follow-up in 10 days or sooner if needed. Initial review of labs show normal K, Na, and Cr. Dr. Awad will follow lab results including B12 and Folate with her macrocytosis. 08/27/2023 Acute left-sided low back pain with left-sided sciatica (ICD-10 - M54.42) 09/16/2023 Hypertension, essential (ICD-10 - I10) Stop HCTZ as noted 09/16/2023 C. difficile colitis (ICD-10 - A04.72) Recurrent/resistant disease, PCR testing remained positive from hospitalization. Tolerating vancomycin and Xifaxan well. I reviewed discharge summaries and medication reconciliation list from hospital. I will see her in 5 days and we will discuss long-term therapy versus other options that may be better tolerated financially or with her insurance. She does have enough samples from our office to last until that point. A little better hydrated. Given her low blood pressure I stopped her HCTZ. I will recheck labs on Thursday. 12/22/2022 Rash (ICD-10 - R21) Radha nt will have labs drawn today to better evaluate the cause of her unknown rash. Once lab results are obtained she will be treated appropriately. Patient was instructed to take benadryl at night time to help itchiness. 12/22/2022 Hives (ICD-10 - L50.9) Patient will have labs drawn today to better evaluate the cause of her unknown rash. Once lab results are obtained, patient will be treated as appropriate. Patient was instructed to take benadryl at night time to help with itching. 11/18/2022 Skin lesion (ICD-10 - L98.9) Skin lesions consistent with insect bites. Triamcinolone cream as listed below. Benadryl as needed. Return precautions discussed 11/18/2022 Insect bite, unspecified site, initial encounter (ICD-10 - W57.XXXA) 10/21/2023 Recurrent Clostridioides difficile infection (ICD-10 - A49.8) Overall doing well. No changes in plan, I think patient will need long-term Vanco and Flagyl to help with this since her insurance is being recalcitrant about covering more appropriate medications 10/21/2023 Peripheral edema (ICD-10 - R60.0) Discussed using SKYLER hose in the morning after edema is better. Discussed possible electrolyte issues. Labs next week, I will see her in 3 weeks. 10/19/2023 Nausea (ICD-10 - R11.0) Possibly from medication. Continue on dual therapy for C. difficile. Add promethazine before medications administered at night. Keep appointment in 2 days to see if this has helped her feel better. 10/12/2023 Osteoporosis (ICD-10 - M81.0) Discussed updated DEXA scan 10/12/2023 C. difficile colitis (ICD-10 - A04.72) Patient has a history of C diff infections with her most recent one being 3 weeks ago where she took oral vancomycin 09/21/2023 Peripheral polyneuropathy (ICD-10 - G62.9) - Patient has some significatn peripheral neuropathy in her bilateral lower extremity weakness and requires a wheelchair at home for this reason. - will set up phyiscal therapy 09/21/2023 C. difficile colitis (ICD-10 - A04.72) 09/08/2023 Acute diarrhea (ICD-10 - R19.7) 08/17/2023 Other chronic pain (ICD-10 - G89.29) Will continue acetaminophen-codei ne, gabapentin. Patient is planning to establish with pain management clinic this afternoon. 08/17/2023 Primary hypertension (ICD-10 - I10) Continue metoprolol 50 BID 08/01/2023 C. difficile colitis (ICD-10 - A04.72) Overall improved. Patient instructed to finish up vancomycin, hydration discussed. Hospital discharge summary, medication reconciliation reviewed. 08/01/2023 Drug-induced acute pancreatitis, unspecified complication status (ICD-10 - K85.30) Improving, stay off HCTZ and stay off other blood pressure medications. Cut back metoprolol to 1/2 tablet at night. Given her relatively low blood pressure. 07/21/2023 Pain of left hip (ICD-10 - M25.552) Given significant pain, inability of lidocaine rubs and NSAIDs to help pain we will prescribe low-dose Tylenol 3 to help with nighttime pain and sleep. 07/21/2023 Low back pain at multiple sites (ICD-10 - M54.50) Given her fall and persistent pain needs imaging. Given the neuralgia pain down to the left foot would have a low threshold for doing MRI if x-rays are negative. 04/27/2023 Hypertension, essential (ICD-10 - I10) Doing well with HCTZ. Check to make sure sodium balance is not off. Follow-up in 2 months with regular medical checkup and wellness exam. I will review labs personally. 04/27/2023 Mechanical low back pain (ICD-10 - M54.59) 03/25/2023 Primary insomnia (ICD-10 - F51.01) She has been taking OTC PM products but these leave her somewhat hung over has never tried trazodone, will try this 03/25/2023 Hypertension, essential (ICD-10 - I10) Given her trace ankle edema will restart HCTZ. Follow-up 4 weeks, recheck sodium at that point given reinstitution of diuretic therapy. 03/25/2023 Routine medical exam (ICD-10 - Z00.00) Up-to-date with colon screening. Needs mammogram. Phone number for patient to contact this was given to her in order sent. Up-to-date with DEXA screening. No recent falls. Non-smoker. Is up-to-date with previous screening for prior history of smoking. Labs in 1 month when she comes in for recheck of blood pressure. Normal BMI. Good functional status. 07/21/2023 Generalized abdominal pain (ICD-10 - R10.84) Stop HCTZ and potassium for now, check metabolic labs today while she goes for x-rays. 10/12/2023 Healthcare maintenance (ICD-10 - Z00.00) Received RSV vaccine in office today. Will plan for first dose of Shingrex at next visit Up to date on cancer screenings No recent falls. Depression screening negative. Current non-smoker. 08/01/2023 Acute left-sided low back pain with left-sided sciatica (ICD-10 - M54.42) Patient has had a couple falls because her left leg is weak. I believe this is the cause of her foot pain. We will trial low-dose gabapentin. MRI needs to be done. This will be scheduled 08/17/2023 Healthcare maintenance (ICD-10 - Z00.00) -Received flu vaccine 08/2023 -Will send RSV to pharmacy. -Received Zostavax, will plan to obtain Shingrix in future. -Received Pneumococcal vaccines in 2018 -Most recent mammogram 2-3 years prior to presentation, planning to schedule. -Most recent colonoscopy 2021, recommended repeat 3 years. -Current smoker, smokes 1.5PPD for 40-[address] chest lung cancer screening. 09/21/2023 Hospital discharge follow-up (ICD-10 - Z09) - recovering from C.diff infection well, has completed course of vancomycin - needs additional samples of Xifaxin as insurance has not been covering this medication. PA in process. 09/16/2023 Other chronic pain (ICD-10 - G89.29) Seeing pain management tomorrow, continues to take Tylenol with codeine intermittently with fairly good benefit 08/07/2023 Macrocytosis (ICD-10 - D75.89) 07/13/2023 Immunization counseling (ICD-10 - Z71.85) 06/29/2023 Lumbar back pain with radiculopathy affecting lower extremity (ICD-10 - M54.16) No red flag symptoms, exam non-concerning, history c/w radiculopathy at L4/L5 given location of pain on lateral thigh, anterior leg; will send referral for PT, no recent falls or concerns for fractures, will defer XR imaging at this time, will send topical Diclofenac for pain control 01/21/2023 Panlobular emphysema (ICD-10 - J43.1) Continue current therapy. Follow-up with pulmonary as scheduled 07/13/2023 Unspecified fall, initial encounter (ICD-10 - W19.XXXA) Fall at home, sounds like a mechanical fall, will keep a close eye on her balance status given her history of chronic falls from alcohol use in the past as well as perhaps orthostasis issues. 01/21/2023 Hospital discharge follow-up (ICD-10 - Z09) 10/12/2023 Other chronic pain (ICD-10 - G89.29) Patient has chronic low back pain --Surgical and PT management are ongoing. Taking NSAIDs as needed but given her significant vascular issues cannot do these reliably. Continue low-dose Tylenol with codeine. No changes in plan or dose at this point 08/17/2023 Other hyperlipidemia (ICD-10 - E78.49) Continue statin 08/01/2023 Immunization(s) administered (ICD-10 - Z23) 08/17/2023 Age-related osteoporosis without current pathological fracture (ICD-10 - M81.0) Continue Alendronate 10/12/2023 Encounter for immunization (ICD-10 - Z23) 07/13/[address] in unspecified non-institutional (private) residence as the place of occurrence of the external cause (ICD-10 - Y92.009) PLAN OF TREATMENT Pending Test Test Name Order Date Physical Therapy 12/22/2017 Physical Therapy 09/10/2018 Mammogram : Bilateral 03/18/2017 Mammogram : Bilateral 03/25/2023 H-CBC with AUTO DIFF 04/27/2014 H-VITAMIN B12 03/18/2017 H-VIT D, 25-HYDROXY 03/18/2017 H-MONOSCREEN 04/27/2014 C-THROAT CULTURE 04/27/2014 DEXA Hip and Spine - Diagnostic 10/12/20 23 M-Diarrhea Panel, PCR 09/08/2023 M-Vitamin B12 08/07/2023 M-Folate 08/07/2023 CT Scan : Chest, Lung Cancer Screening 0 05/26/2022 Vitamin B12 05/27/2022 Physical Therapy Eval and Treat 06/29/20 23 Future Test Test Name Order Date M-Basic Metabolic Panel 10/28/2023 M-Magnesium 10/28/2023 Next Appt Details Provider Name:Alfred Canoautumn Awad, 11/11/2023 10:30:00 AM, [address], [place], [address], Insurance Providers Payer Name Payer Address Payer Phone Subscriber Number Group Number Insured Name Patient Relationship to Insured Coverage Start Date Coverage End Date [facility] MED[facility]ARE [address] [address] [place] [address] [id number] Yamilet Krueger Self - patient is the insured MEDICATIONS ADMINISTERED Medication Instructions Date of Administration Dosage Notes Cyanocobalamin/B-12 Pt's Own Medication 10/12/2020 1 mL Cyanocobalamin/B-12 Pt's Own Medication 10/20/2020 1 mL Cyanocobalamin/B-12 Pt's Own Medication 10/25/2020 1 mL Cyanocobalamin/B-12 Pt's Own Medication 11/01/2020 1 mL Cyanocobalamin/B-12 Pt's Own Medication 11/08/2020 1 mL Cyanocobalamin/B-12 Pt's Own Medication 11/15/2020 1 mL Cyanocobalamin/B-12 Pt's Own Medication 11/22/2020 1 mL Cyanocobalamin/B-12 Pt's Own Medication 11/30/2020 1 mL Cyanocobalamin/B-12 Pt's Own Medication 12/06/2020 1 mL Cyanocobalamin/B-12 Pt's Own Medication 12/14/2020 1 mL Cyanocobalamin/B-12 Pt's Own Medication 12/21/2020 1 mL Cyanocobalamin/B-12 Pt's Own Medication 01/01/2021 1 mL Triamcinolone Acetonide 40mg Injection 02/02/2019 1 mL Triamcinolone Acetonide 40mg Injection 03/13/2021 1 mL MEDICAL (GENERAL) HISTORY Medical History History ICD Code Colonoscopy February 2016 with tubular adenoma and hyperplastic polyps - repeated 12/25 with 4 polyps - 3 year f/u recommended DEXA scan 2014 with osteopor osis - repeated 08/2018 with ongoing disease - repeat April 2020 with continued osteoporosis-treatment continued Mammogram normal 08/19 - repeated normal 04/21 Surgical History Surgery Date(Month/Year) Oral surgery 03/2018 left hand 2018 Hospitalization History Reason Date(Month/Year) C-diff 09/2023 [facility] 07/2023 [facility] 12/2022
--- OUTSIDE RECORDS SUMMARY | 2023-11-03 07:37 | XMS_ITS | Clinical Summary ---
Author Name Unknown Address [address] [place] [address] [place] [address] Phone Organization [facility], [facility] Address [address] [place] [address] Phone Care Team Providers Care Skip Pitman Name Role Phone PRAKASH AGUILA MD Unavailable [phone] Hina MESSER, Joshua Unavailable [phone] Reason for Visit and Chief Complaint [Patient Encounter] Problems Includes: Problems addressed during this encounter and other active Problems Current Visit Onset Date Resolved Date Provider Jennyfer macedo Status Lower Back Pain 10/12/2023 Joshua lema MD Active Plan of Treatment Future Appointments Date Time Location Provi concepción Epidural Steroid Injection 11/04/2023 1:30PM [facility] STEPHANI Farias CRNA Assessments Includes: Assessments from this encounter No Assessments Recorded Medical Equipment - Implanted Devices Includes: Current [...] from this encounter No Administered Medications Recorded Results Includes: Results discussed during this encounter No Results Recorded For Specified Dates History of Present Illness Includes: History of Present Illness from this encounter No History of Present Illness Recorded Social History No Social History Recorded - Smoking Status Unknown Medical History Includes: Medical History addressed during this encounter No Medical History Recorded Family History Includes: Family History addressed during this encounter No Family History Recorded Review of Systems Includes: Review of Systems from this encounter No Review of Systems Recorded Mental Status Includes: Mental Status from this encounter No Mental Status Recorded Functional Status Includes: Functional Status from this encounter No Functional Status Recorded Physical Exam Includes: Physical Exam from this encounter No Physical Exam Recorded Allergies Includes: Active Allergies No Known Allergies Encounters Encounter Provider Location Date Check-In Time Check-Out Time Diagnosis [Patient Encounter] Joshua Santamaria MD 10/12/2023 9:49AM 11:59PM Insurance Includes: Active Insurance Policies Plan Name Member ID Group # Subscriber Relationship Effect iraida Dates 1 - [employer] [id number] Yamilet Purdom Self Clinical Notes Includes: Clinical Notes from this encounter No Clinical Notes Recorded
--- OUTSIDE RECORDS SUMMARY | 2023-11-03 07:37 | XMS_ITS ---
Author Name Unknown Address [address] [place] [address] [place] [address] Phone Organization [facility], [facility] Address [address] [place] [address] Phone Care Team Providers Care Toilet Attendant Name Role Phone PRAKASH AGUILA MD Unavailable [phone] Hina MESSER, Joshua Unavailable [phone] Problems Includes: Active, inactive, and resolved Problems All Visits Onset Date Resolved Date Provider Condition S tatus Lower Back Pain 10/12/2023 Joshua lema MD Active Plan of Treatment Future Appointments Date Time Location Provi concepción Epidural Steroid Injection 11/04/2023 1:30PM [facility] Kirt Farias CRNA Instructions to patient Intervention and counseling on cessation of tobacco use Last Documented On 3 10:32AM ; [facility], [facility] Assessments Includes: Assessments for all patient encounters No Assessments Recorded Instructions Includes: Instructions for all patient encounters Instructions to patient Intervention and counseling on cessation of tobacco use Last Documented On 3 10:32AM ; [facility] Medical Equipment - Implanted Devices Includes: Current and historical Devices No Medical Equipment Recorded Medications Includes: Current and historical Medications Current Medications (continue as prescribed) Acetaminophen-Codeine 300-30 [...] 09/22/2023 Prov ider: PRAKASH AGUILA MD Diagnosis: Past Medications on file Pregabalin 50 MG Oral Capsule 09/17/2023 - 10/12/2023 Provider: Diagnosis: Vancomycin HCl 250 MG Oral Capsule 09/14/2023 - 10/12/2023 Provider: PRAKASH Galloway Diagnosis: Meloxicam 15 MG Oral Tablet 09/04/2023 - 10/12/2023 Pr ovider: Diagnosis: Ondansetron 4 MG Oral Tablet Disintegrating 09/04/2023 - 10/12/2023 Provider: Diagnosis: Medications Administered Includes: Administered Medications in patient's chart No Administered Medications Recorded Vital Signs Includes: Vital Signs from 11/03/2022 through 11/03/2023 Vital Name 10/12/2023 10:25A Height (in) 63 Weight (lb) 118 Body Mass Index 20.9 Body Surface Area 1.5 Note: ct Last Documented On: 10/12/2023 10:25AM ; [facility], [facility] Results Includes: Results from 11/03/2022 through 11/03/2023 No Results Recorded For Specified Dates History of Present Illness History of Present Illness not supported for this document type No History of Present Illness Recorded Social History Description Last Updated Alcohol use 10/12/2023 Procedures and Surgical History Includes: Procedures from 11/03/2022 through 11/03/2023 Procedures Code Diagnosis Performing Provider Service Location Service Date X-RAY EXAM OF LOWER SPINE 4-5 VIEWS [id number] Other forms of scoliosis, thoracolumbar region, Radiculopathy, lumbar region Joshua Santamaria MD [facility] 10/12/2023 Medical History Includes: Medical History in patient's chart Description Last Updated Past surgical history non-contributory 1 12/13/2022 Family History Includes: Family History in patient's chart Description Last Updated Family history of cancer 10/12/2023 Review of Systems Review of Systems not supported for this document type No Review of Systems Recorded Mental Status No Mental Status Recorded Functional Status No Functional Status Recorded Physical Exam Physical Exam not supported for this document type No Physical Exam Recorded Allergies Includes: Active, inactive, and resolved Allergies No Known Allergies Encounters Includes: Encounters from 11/03/2022 through 11/03/2023 Encounter Provider Location Date Check-In Time Check-Out Time Diagnosis Physician Specified Joshua lema MD [facility] 10/12/20 10:20AM 11:01AM [Patient Encounter] Joshua lema MD 10/12/20 9:49AM 11:59PM Insurance Includes: Active Insurance Policies Plan Name Member ID Group # Subscriber Relationship Effect iraida Dates 1 - [employer] [id number] Yamilet Krueger Self Clinical Notes Includes: Signed Clinical Notes starting from 10/16/2022 * Progress note Date Encounter Last Documented by 10/12/2023 Physician Specified Last sami lopez on 10/12/2023; 11:21 AM, Joshua Santamaria MD; [facility], [facility] Active Problems & Conditions - Lower [...] today. In fact, she is new to [facility]. She is here for evaluation of [...] An X-ray was performed 10/12/2023 Benita @ [facility]. CT Scan: CT scan. MRI Scan: An [...] Care Team - PRAKASH AGUILA MD - DISTILLERY WORKER GENERAL Notes This dictation was done with voice recognition software and may contain errors and omissions.
--- OUTSIDE RECORDS SUMMARY | 2023-11-03 07:37 | XMS_ITS | Clinical Summary ---
Author Name Unknown Address [address] [place] [address] [place] [address] Phone Organization [facility] Address [address] [place] [address] Phone Care Team Providers Care Behavioral Intervention Specialist Name Role Phone MINGO MESSER, PRAKASH Unavailable [phone] Hina MESSER, Joshua Unavailable [phone] Reason for Visit and Chief Complaint Epidural Steroid Injection Problems Includes: Problems addressed during this encounter and other active Problems All Visits Onset Date Resolved Date Provider Condition S tatus Lower Back Pain 10/12/2023 Joshua lema MD Active Plan of Treatment Future Appointments Date Time Location Provi concepción Epidural Steroid Injection 11/04/2023 1:30PM [facility] STEPHANI Farias VISUAL MERCHANDISING ASSISTANT Assessments Includes: Assessments from this encounter No Assessments Recorded Medical Equipment - Implanted Devices Includes: Current Devices No Medical Equipment Recorded Medications Includes: Medications discussed during this encounter and other current Medications Current Medications (continue as prescribed) Acetaminophen-Codeine [...] Location Date Check-In Time Check-Out Time Diagnosis Epidural Steroid Injection Kirt Farias CRNA 11/04/2023 9:15AM 11:59PM Insurance Includes: Active Insurance Policies Plan Name Member ID Group # Subscriber Relationship Effect iraida Dates 1 - [employer] [id number] Yamilet Purdom Self Clinical Notes Includes: Clinical Notes from this encounter No Clinical Notes Recorded
[2023-11-03] MEDS: ONDANSETRON 4MG/2ML VIAL 4 MG IV ×2 (08:03→21:09)
[2023-11-03] MEDS: LACTOBACILLUS PROBIOTIC COMB CAPSULE 1 CAP PO (08:05)
[2023-11-03] MEDS: K-PHOS NEUTRAL 250MG TABLET 250 MG PO ×2 (08:05→21:10)
[2023-11-03] MEDS: POTASSIUM CHLORIDE 20MEQ TAB 20 MEQ PO ×2 (08:05→21:10)
[2023-11-03] MEDS: METOPROLOL TARTRATE 50MG TABLET 50 MG PO (08:05)
[2023-11-03] MEDS: FOLIC ACID 1MG TABLET 1 MG PO (08:05)
[2023-11-03] MEDS: VANCOMYCIN HCL 50MG/ML 150ML KIT 125 MG PO ×4 (08:06→21:09)
[2023-11-03] MEDS: ENOXAPARIN 40MG/0.4ML SYRINGE 40 MG SQ (08:06)
--- NOTE | 2023-11-03 11:00 | HMH.OTEV ---
OT Inpatient Evaluation Rehab OT IP Evaluation Start: 11/02/23 13:17 Freq: ONCE Status: Active Protocol: Document 11/03/23 09:57 MI (Rec: 11/03/23 11:00 ANUPAMKANDICE [id number]) Rehab OT IP Assessment Subjective History This is a 72-year-old female with PMHx of HTN, COPD, current smoker, alcohol user, recent diagnosis of C. diff colitis presenting today with generalized weakness nausea and vomiting, Her , at bedside contributed with the history. She initially had some nausea, vomiting and diarrhea then diarrhea stopped since the last 3 days. However, she persistently has some nausea vomiting has had decreased p.o. intake significant abdominal pain too . She has chronic lower extremity edema which is not new. Denies any cardiopulmonary symptoms. Admitted for treatment and management. I can try to get up. Patient lives in 1 story home with 2-3 ARIA. Uses a RW and occasionally a w/c to manevuer around in home. Independent with ADLs prior to hospitalization. Subjective Instructed Patient on proper hand and foot placement to complete bed mobility from supine->sit @ EOB->stand -> ambulate within room up to 25ft with needing Min A x2. Patient requested to lay back in the bed. Objective Patient Orientation Person,Name,Age,Birthday,Year Right Upper Extremity Gross ROM WFL Left Upper Extremity Gross ROM WFL Bed Mobility bed mobility - supine/sit Assist Level Minimal x 1 (25% assist) Transfer Training Sit/Stand/Step Transfer,Sit/ Stand/Pivot Transfer Assist Level Minimal x 1 (25% assist) Chair Transfer Ability Minimal x 1 (25% assist) Chair Transfer Technique Sit to/from Ambulatory Chair Transfer Assistive Devices Rolling Walker Rehab OT IP prob,goals,plan Problems Date of Evaluation: 11/03/23 OT IP Problems Bed Mobility,Transfers,Balance ,Self care,Safety Rehab Potential Rehab Potential Good Equipment Needs Assistive Devices Rolling / Wheeled Walker Plan OT intervention Plan Bed Mobility,Transfers,Balance ,Self care,Safety,Therapeutic Exercise OT Plan Frequency Daily Duration LOS Discharge Goals Bed Mobility Ability Assistance x1 Sit to Stand Chair Transfer Ability Supervision/Stand by Chair Transfer Ability Supervision/Stand by Chair Transfer Technique Sit to/from Ambulatory Discharge Plan OT Discharge Plan Recommend HH services after medical d/c. Patient to continue skilled OT IP services while here at [facility] in order to prepare for d/c. Eval Complexity Eval Charge Codes 15586 - Low Complexity PHYSICIAN CERTIFICATION: I certify the specified therapy services for Yamilet F Purdom are required, authorized, and reviewed every 30 days.
--- NOTE | 2023-11-03 11:24 | HMH.PTEV ---
Physical Therapy Evaluation Rehab PT IP Evaluation Start: 11/02/23 13:17 Freq: ONCE Status: Active Protocol: Document 11/03/23 11:10 MICHCHRISTOFER (Rec: 11/03/23 11:24 LORETTA [id number]) Subjective/History History History Pt is a 72 y/o female who presented to [facility] on 10/30/23 with report of generalized weakness and nausea/vomiting. Per history & physical note, She initially had some nausea, vomiting and diarrhea then diarrhea stopped since the last 3 days. However, she persistently has some nausea vomiting has had decreased p.o . intake significant abdominal pain too. She has chronic lower extremity edema which is not new. Denies any cardiopulmonary symptoms. Admitted for treatment and management. Medical History: HTN, COPD, current smoker, alcohol user, recent diagnosis of C. diff colitis Subjective Subjective Pt reports she lives with her in a single story home with 2-3 steps to enter. Pt reports her house is long so she often uses a wheelchair to get from one end to the other and she uses a RW for short distance ambulation. Pt reports she is able to transfer to the w/c and toilet independently. Pt reports she was independent with ADLs prior to hospitalization. New diagnosis of cancer in past 12 No months? Rehab PT IP Eval Objective Appearance Patient Behavior Appropriate,Cooperative Patient Orientation Person,Place,Name,Birthday Difficulty following instructions none Speech Pattern Appropriate,Delayed,Soft- Spoken Ambulation Patient Able to Ambulate Yes Ambulation Observation IP General Gait Pattern Observation Wide Based Gait,Shuffling Step Ambulation Distance (feet) 15 Ambulation Ability Minimal x 2 (25% assist) Balance Ability to Arise Able, uses arms to help Sitting Balance Leans or slides in chair Standing Balance Steady, wide stance Dynamic Sitting Balance Ability Fair Dynamic Standing Balance Ability Fair Transfers Bed Transfer Ability Minimal x 1 (25% assist) Sit to Stand Bed Transfer Ability Minimal x 1 (25% assist) Rehab PT IP prob,goals,plan Problems Date of Evaluation: 11/03/23 PT IP Problems Bed Mobility,Transfers,Gait, Balance,Self care,Safety Rehab Potential Rehab Potential Good Equipment Needs Assistive Devices Rolling / Wheeled Walker Plan PT Intervention Plan Bed Mobility,Transfers,Gait, Balance,Self care,Safety, Therapeutic Exercise Other Intervention Plan 1-2x/day PT Plan Frequency BID Duration LOS Discharge Goals Bed Transfer Ability Contact Guard/Hand Hold Sit to Stand Chair Transfer Ability Contact Guard/Hand Hold Ambulation Assistive Device Rolling Walker Ambulation Distance (feet) 25 Discharge Plan PT Discharge Plan Pt will benefit from skilled PT while admitted to [facility] to address functional transfers, gait, and LE weakness. Pt is currently most appropriate for short-term rehab placement, but could return home with assistance from her and home health physical therapy recommended if she continues to improve medically and with overall mobility. Without skilled therapy, pt is at an increased risk for falls, fractures, wounds, further functional decline and increased burden of care. Eval Complexity Eval Charge Codes 11929 - Low Complexity PHYSICIAN CERTIFICATION: I certify the specified therapy services for Yamilet Krueger are required, authorized, and reviewed every 30 days.
--- NOTE | 2023-11-03 11:38 | PC.NURSE ---
Courtesy Round Patient awake sitting up in bed. Patient refused ice water at this time. Trash emptied and linens checked. Patient voiced no other needs at this time. Call light within reach.
--- NOTE | 2023-11-03 11:56 | EXP.PN ---
Subjective *Date: 11/03/23 *Time: 11:56 Interval history: seen at bedside, has been having Abdominal discomfort, was able to tolerated liquid diet, breakfast. Denied CP, SOB Exam Data for Last 24 hours Vital signs and Labs for Last 24 Hours: Temp Pulse Resp BP Pulse Ox O2 Del Method 97.4 F L 100 H 19 112/71 98 Room Air 11/03/23 08:00 11/03/23 08:04 11/03/23 08:00 11/03/23 08:00 11/03/23 08:00 11/03/23 09:00 Laboratory Results - last 24 hr 11/02/23 17:45: Sodium 133 L, Potassium 2.8 L*, Chloride 110 H, Carbon Dioxide 14 L, Anion Gap 11.8, BUN 5 L D, Creatinine 0.40 L, Estimated Creat Clear 43, Estimated GFR 157, Est GFR ( Amer) 190 D, Glucose 94, Calcium 6.6 L, Phosphorus 2.2 L 11/03/23 06:04: WBC 12.5 H, RBC 2.01 L, Hgb 7.6 L, Hct 24.9 L, MCV 124.0 H, MCH 37.6 H, MCHC 30.3 L, RDW 15.4, Plt Count 180, MPV 9.3, Neut % (Auto) 78.5, Lymph % (Auto) 15.1, [place] % (Auto) 5.0, Eos % (Auto) 1.2, Baso % (Auto) 0.2, Neut # (Auto) 9.8 H, Lymph # (Auto) 1.9, [place] # (Auto) 0.6, Eos # (Auto) 0.2, Baso # (Auto) 0.0, Sodium 129 L, Potassium 3.4 L D, Chloride 112 H, Carbon Dioxide 19 L, Anion Gap 1.4 L, BUN 4 L, Creatinine 0.40 L, Estimated Creat Clear 48, Estimated GFR 157, Est GFR ( Amer) 190, Glucose 66 L D, Calcium 6.6 L, Phosphorus 2.4 L, Magnesium 1.7, Total Bilirubin 0.8, AST 26, ALT 11 L, Alkaline Phosphatase 89, Total Protein 4.2 L, Albumin 1.7 L, Globulin 2.5, Albumin/Globulin Ratio 0.7 L I & O for Last 24 hours: Intake & Output 12/30/23 12/31/23 01/01/24 01/02/24 23:59 23:59 23:59 23:59 Intake Total 2741 / 2741 720 / 720 907 / 1007 460 / 460 Output Total 100 / 100 675 / 675 0 / 100 100 / 100 Balance 2641 / 2641 45 / 45 907 / 907 360 / 360 Weight 51.71 kg 52.68 kg 52.865 kg 59.103 kg Microbiology Reports for the Last 24 Hours: Microbiology 10/31/23 04:00 Urine,Clean Catch Urine Culture - Final 10/30/23 18:30 Blood Blood Culture - Preliminary 10/30/23 19:36 Blood Blood Culture - Preliminary Constitutional Constitutional: no acute distress *Routine HEENT Exam Head: Present normocephalic Eye: Present EOMI and PERRL ENT: Present mucous membranes moist *Routine Neck Exam Neck: Present supple; Absent lymphadenopathy *Routine Respiratory Exam Respiratory: Present CTA bilaterally *Routine Cardiovascular Exam Cardiovascular: Present RRR *Routine Abdominal Exam Abdominal: Present soft and normoactive bowel sounds Comments: mild abdominal tenderness on palpation *Routine Extremities Exam Extremities: Absent cyanosis, clubbing or edema *Routine Skin Exam Skin: Present warm; Absent rash *Routine Neurological Exam Neurological: Present alert and oriented X3 Assessment and Plan *Assessment and plan (1) Sepsis without acute organ dysfunction: Status: Acute Qualifiers: Sepsis type: sepsis due to unspecified organism Qualified Code(s): A41.9 - Sepsis, unspecified organism Category: Medical Code(s): A41.9 - Sepsis, unspecified organism (2) Acute pancreatitis: Status: Acute Qualifiers: Acute pancreatitis complication: unspecified Pancreatitis type: unspecified pancreatitis type Qualified Code(s): K85.90 - Acute pancreatitis without necrosis or infection, unspecified Category: Medical Code(s): K85.90 - Acute pancreatitis without necrosis or infection, unspecified (3) Hypophosphatemia: Status: Acute Category: Medical Code(s): E83.39 - Other disorders of phosphorus metabolism (4) Severe protein-calorie malnutrition: Status: Acute Category: Medical Code(s): E43 - Unspecified severe protein-calorie malnutrition (5) Nausea & vomiting: Status: Acute Qualifiers: Vomiting type: unspecified Qualified Code(s): R11.2 - Nausea with vomiting, unspecified Category: Medical Code(s): R11.2 - Nausea with vomiting, unspecified (6) Acute hypokalemia: Status: Acute Category: Medical Code(s): E87.6 - Hypokalemia (7) Smoking greater than 30 pack years: Status: Acute Category: Social Hx Code(s): F17.210 - Nicotine dependence, cigarettes, uncomplicated (8) Heavy drinker: Status: Acute Category: Social Hx Code(s): Z78.9 - Other specified health status (9) Edema of right lower leg: Status: Acute Category: Medical Code(s): R60.0 - Localized edema Plan 72-year-old female with PMHx of HTN, COPD, current smoker, alcohol user, recent diagnosis of C. diff colitis presenting today with generalized weakness nausea and vomiting, Her , at bedside contributed with the history. She initially had some nausea, vomiting and diarrhea then diarrhea stopped since the last 3 day. On arrival patient presented very lethargic, tachycardic; underwent into sepsis workup. Received 1 L of LR. Blood culture was drawn. CT of the abdomen showed signs consistent with acute pancreatitis, concerning also with early necrosis . there is mild pelvic ascitis. Labs are remarkable for elevate lipase, mild leukocytosis, hypokalemia. Potassium was replaced at the ER. Findings discussed with the provider. Agreed for admission. Tolerating clears still. Continue to encourage p.o. nutrition. Multiple electrolyte disturbances including hypophosphatemia. Patient continues to require close monitoring of electrolytes and close repletion. Continues to require inpatient management. Problems addressed as follows: -Sepsis without acute organ dysfunction, likely secondary to acute panccreatitis, with early necrosis. Etiology highly suspicious for alcohol induced pancreatitis: advance diet as tolerated continue zosyn -C. Diff - Recent infection, was finishing treatment at home. Resume vancomycin during admission given recurrent positive tests over the past 3 months. No diarrhea since admission. Will obtain diarrhea panel as soon as patient is able to give a sample. Vancomycin p.o. 125 mg 4 times a day. Further management pending results. -Initiated on probiotic -Fiber supplement for diarrhea -Acute dehydration with electrolyte imbalance, secondary to nausea and vomiting: Magnesium better at 1.8. Repeat BMP this afternoon, CMP and magnesium ordered for the morning. Cardiac telemetry Alcohol dependence Macrocytic anemia Severe protein calorie malnutrition Hypophosphatemia -Monitoring for withdrawal symptoms. Patient denies ever having withdrawal. Drinks at least 2 glasses of jessica a day; no symptoms in the past 24 hours -MCV elevated at 122 today, phosphorus 2.0, continue p.o. supplementation twice daily. Repeat phosphorus level this evening. High risk of refeeding syndrome. Monitoring every 12 hours -Protein supplementation with meals - thiamine, folate, and multivitamin supplementation daily History of hypertension: Holding blood pressure meds in the setting of hypotension Tobacco dependence: Nicotine patch as needed Edema of right lower extremity: Ultrasound obtained, no DVT. Suspect secondary to lymphedema, protein calorie malnutrition, hypoalbuminemia, CHF. Lovenox for DVT prophylaxis. Protonix for GI protection Full code advance diet as tolerated, pain controle, dc 1-2 days
--- NOTE | 2023-11-03 12:44 | P.PN_ITS ---
Subjective *Date: 11/03/23 *Time: 12:44 Medical Exam Vital signs and Labs for Last 24 Hours: Vital Signs Temp Pulse Pulse Resp BP Pulse Ox O2 Del Method 11/03/23 12:00 97.7 F 88 17 98/56 L 100 Room Air 11/03/23 09:00 Room Air 11/03/23 08:00 Room Air 11/03/23 08:04 100 H 11/03/23 08:00 97.4 F L 104 H 19 112/71 98 Room Air 11/03/23 04:00 97.8 F 86 18 92/55 L 97 11/03/23 04:00 85 11/03/23 03:00 Room Air 11/03/23 00:00 97.6 F 85 16 96/55 L 96 Room Air 11/03/23 00:00 87 11/02/23 22:57 Room Air 11/03/23 06:50 Room Air 11/03/23 05:00 Room Air 11/03/23 01:00 Room Air 11/02/23 21:00 Room Air 11/02/23 20:00 Room Air 11/02/23 20:00 102 H 11/02/23 20:00 99.1 F 106 H 18 98/50 L 99 Room Air 11/02/23 16:00 100 H 11/02/23 15:16 97.8 F 101 H 17 101/63 L 98 Room Air Intake and Output 11/02/23 11/03/23 11/03/23 23:59 07:59 15:59 Intake Total 60 / 1007 100 / 460 360 / 460 Output Total 100 / 100 0 / 100 Balance 60 / 907 0 / 360 360 / 360 Intake: Intake, Oral Amount 60 / 300 360 / 360 Intake, Total IV Amount 100 / 100 Piperacillin/Tazo 4.5 gm In 0.9 100 / 100 % Sodium Chloride 100 ml @ 200 mls/hr IV Q8H [facility] Rx#:[id number] Output: Output, Urine Amount 100 / 100 0 / 100 Other: Number of Voids 0 Number of Unmeasured Voids 1 1 Number of Bowel Movements 1 0 Weight 59.103 kg Patient Weight 11/03/23 23:59 Weight 59.103 kg Laboratory Results - last 24 hr 11/02/23 17:45: Sodium 133 L, Potassium 2.8 L*, Chloride 110 H, Carbon Dioxide 14 L, Anion Gap 11.8, BUN 5 L D, Creatinine 0.40 L, Estimated Creat Clear 43, Estimated GFR 157, Est GFR ( Amer) 190 D, Glucose 94, Calcium 6.6 L, Phosphorus 2.2 L 11/03/23 06:04: WBC 12.5 H, RBC 2.01 L, Hgb 7.6 L, Hct 24.9 L, MCV 124.0 H, MCH 37.6 H, MCHC 30.3 L, RDW 15.4, Plt Count 180, MPV 9.3, Neut % (Auto) 78.5, Lymph % (Auto) 15.1, [place] % (Auto) 5.0, Eos % (Auto) 1.2, Baso % (Auto) 0.2, Neut # (Auto) 9.8 H, Lymph # (Auto) 1.9, [place] # (Auto) 0.6, Eos # (Auto) 0.2, Baso # (Auto) 0.0, Sodium 129 L, Potassium 3.4 L D, Chloride 112 H, Carbon Dioxide 19 L , Anion Gap 1.4 L, BUN 4 L, Creatinine 0.40 L, Estimated Creat Clear 48, Estimated GFR 157, Est GFR ( Amer) 190, Glucose 66 L D, Calcium 6.6 L, Phosphorus 2.4 L, Magnesium 1.7, Total Bilirubin 0.8, AST 26, ALT 11 L, Alkaline Phosphatase 89, Total Protein 4.2 L, Albumin 1.7 L, Globulin 2.5, Albumin/Globulin Ratio 0.7 L I & O for Labs for Last 24 Hours: Intake & Output 10/31/23 11/01/23 11/02/23 11/03/23 23:59 23:59 23:59 23:59 Intake Total 2741 / 2741 720 / 720 907 / 1007 460 / 460 Output Total 100 / 100 675 / 675 0 / 100 100 / 100 Balance 2641 / 2641 45 / 45 907 / 907 360 / 360 Weight 51.71 kg 52.68 kg 52.865 kg 59.103 kg Microbiology Reports for the Last 24 Hours: Microbiology 10/31/23 04:00 Urine,Clean Catch Urine Culture - Final 10/30/23 18:30 Blood Blood Culture - Preliminary 10/30/23 19:36 Blood Blood Culture - Preliminary The patient's infection will respond to the chosen ABx?: Yes (CULTURES PENDING) Is the patient receiving the right drug, dose, and route?: Yes Could a more targeted ABx be ordered?: No (EMPIRIC THERAPY )
--- NOTE | 2023-11-03 14:03 | DIET.NUTRFU ---
spoke to nursing this morning, she ate a good amount for breakfast but then felt nauseated and vomited. When visited her after lunch she hadn't touched and felt she did not want any. Patient has triggered for severe PCM this admit. She had had multiple visits over the past 6months with mostly liquid diet over the past 3 months. Saw her in Jul and then again in September and was not able to eat solids. This admit she has been able to drink the vanilla boost for extra calories/protein. Will continue to provider food tolerated and vanilla ensure
--- NOTE | 2023-11-03 14:06 | SW/DCPLANNER ---
Addendum entered by [facility] 11/04/23 13:21: Goran w/ [facility] stated that she can accept this patient and willl start precert today. Addendum entered by [facility] 11/04/23 12:56: Olimpia prescott/ [facility] stated that she is not able to accept this patient. Patient is agreeable w/ placement at [facility]: I will follow up w/ facility. Addendum entered by [facility] 11/04/23 10:34: Patient's daughter (Radha) has expressed an interest in [facility]: patient is agreeable. Patient information will be faxed to Olimpia prescott/ [facility] this AM. Addendum entered by [facility] 11/04/23 09:25: Dennis prescott/ [facility] stated that he is unable to accept this patient. Patient is agreeable for information to be faxed to [facility] and [facility]. Original Note: I spoke w/ this patient regarding plans once medically stable for discharge. PT/OT evaluated patient and recommended SNF level of care. Patient expressed an interest in [facility] at time of discharge. Patient information has been faxed to Layton prescott/ [facility]. I did inform patient to please speak w/ family members regarding other SNF options incase [facility] can not accept. Patient is agreeable to discharge plan at this time.
[2023-11-03] MEDS: PRENATAL MULTIVITAMIN W/IRON 1 EACH PO (17:31)
[2023-11-03] MEDS: HYDROCODONE/APAP 5/325 MG TABLET 1 TAB PO (21:10)
[2023-11-03] MEDS: PANTOPRAZOLE 40MG TABLET 40 MG PO (21:10)
[2023-11-03] MEDS: TRAZODONE 50 MG 1 EACH PO (21:30)
[2023-11-04] VITALS (8 sets, daily range): BP systolic 91–107; BP diastolic 51–63; PULSE 84–104; RESP 16–18; TEMP 36.4–37.1; O2SAT 95–99; BMI 23.0
[2023-11-04] MEDS: PIPERACILLIN/TAZO 4.5 GM in 0.9 % SODIUM CHLORIDE 100 ML IV ×4 (01:09→17:52)
--- NOTE | 2023-11-04 04:30 | PC.NURSE ---
Pt is A&Ox4 and currently on RA. Pt has rested well for th most part of this shift. Pt C/O pain and nausea at the beginning of the shift and was treated per MAR for moderate to severe pain. Pts mobility remains the same as she has continued weakness and fatigue, requires x1 assistance with ambulation. Pt denies pain and other needs at this time.
[2023-11-04 07:29] LABS: Alanine Aminotransferase 12 U/L (12-78); Albumin Level 1.7 g/dl (3.5-5.0); Albumin/Globulin Ratio 0.7 (1.1-1.8); Alkaline Phosphatase 91 U/L (38-126); Anion Gap 5.3 mEq/L (5-15); Aspartate Amino Transferase 34 U/L (14-36); Bilirubin,Total 0.6 mg/dl (0.2-1.3); Blood Urea Nitrogen 4 mg/dl (7-17); Calcium 6.4 mg/dl (8.4-10.2); Carbon Dioxide 17 mmol/L (22.0-30.0); Chloride 113 mmol/L (98-107); Creatinine Clearance Estimated 48 mL/min (50-200); Estimated Glomerular Filt Rate 157 ml/min (>60); GFR (African American) 190 ML/MIN (>60); Globulin 2.5 g/dL (1.3-3.2); Glucose 63 mg/dl (74-100); Potassium 3.3 mmoL/L (3.5-5.1); Sodium 132 mmol/L (136-145); Total Protein,Serum 4.2 g/dl (6.3-8.2)
[2023-11-04 09:55] LABS: Anion Gap 5.4 mEq/L (5-15); Blood Urea Nitrogen 4 mg/dl (7-17); Calcium 6.6 mg/dl (8.4-10.2); Carbon Dioxide 18 mmol/L (22.0-30.0); Chloride 112 mmol/L (98-107); Creatinine Clearance Estimated 48 mL/min (50-200); Estimated Glomerular Filt Rate 157 ml/min (>60); GFR (African American) 190 ML/MIN (>60); Glucose 83 mg/dl (74-100); Potassium 3.4 mmoL/L (3.5-5.1); Sodium 132 mmol/L (136-145)
[2023-11-04] MEDS: METOPROLOL TARTRATE 50MG TABLET 50 MG PO (10:20)
[2023-11-04] MEDS: K-PHOS NEUTRAL 250MG TABLET 250 MG PO ×2 (10:20→20:00)
[2023-11-04] MEDS: FOLIC ACID 1MG TABLET 1 MG PO (10:20)
[2023-11-04] MEDS: LACTOBACILLUS PROBIOTIC COMB CAPSULE 1 CAP PO (10:20)
[2023-11-04] MEDS: POTASSIUM CHLORIDE 20MEQ TAB 20 MEQ PO ×2 (10:20→20:01)
--- NOTE | 2023-11-04 10:29 | XR_ITS ---
FINAL REPORT CLINICAL HISTORY: constipation? COMPARISON: None FINDINGS: SINGLE VIEW ABDOMEN A single view of the abdomen was obtained. There is a nonobstructive bowel gas pattern. There is a left upper quadrant calcification of uncertain etiology. There are moderate to severe degenerative changes of the lumbar spine with levoscoliosis. IMPRESSION: Nonobstructive bowel gas pattern. Left upper quadrant calcification of uncertain etiology. Reviewed, Interpreted and Dictated by Osmin Seals III, MD Transcribed by Ernestine Rooney Authenticated and [facility]
[2023-11-04] MEDS: ENOXAPARIN 40MG/0.4ML SYRINGE 40 MG SQ (10:32)
[2023-11-04] MEDS: VANCOMYCIN HCL 50MG/ML 150ML KIT 125 MG PO ×4 (10:32→20:02)
[2023-11-04] MEDS: ONDANSETRON 4MG/2ML VIAL 4 MG IV (16:53)
--- NOTE | 2023-11-04 17:09 | EXP.PN ---
Subjective *Date: 11/04/23 *Time: 17:09 Interval history: seen at bedside, has been having Abdominal discomfort, not tolerating regular diet, Denied CP, SOB Exam Data for Last 24 hours Vital signs and Labs for Last 24 Hours: Temp Pulse Resp BP Pulse Ox O2 Del Method 98.3 F 84 17 94/59 L 96 Room Air 11/04/23 15:23 11/04/23 15:23 11/04/23 15:23 11/04/23 15:23 11/04/23 15:23 11/04/23 15:23 Laboratory Results - last 24 hr 11/04/23 06:33: Sodium 132 L, Potassium 3.3 L, Chloride 113 H, Carbon Dioxide 17 L, Anion Gap 5.3, BUN 4 L, Creatinine 0.40 L, Estimated Creat Clear 48, Estimated GFR 157, Est GFR ( Amer) 190, Glucose 63 L, Calcium 6.4 L, Total Bilirubin 0.6, AST 34 D, ALT 12, Alkaline Phosphatase 91, Total Protein 4.2 L, Albumin 1.7 L, Globulin 2.5, Albumin/Globulin Ratio 0.7 L 11/04/23 09:32: Sodium 132 L, Potassium 3.4 L, Chloride 112 H, Carbon Dioxide 18 L, Anion Gap 5.4, BUN 4 L, Creatinine 0.40 L, Estimated Creat Clear 48, Estimated GFR 157, Est GFR ( Amer) 190, Glucose 83 D, Calcium 6.6 L I & O for Last 24 hours: Intake & Output 11/01/23 11/02/23 11/03/23 11/04/23 23:59 23:59 23:59 23:59 Intake Total 720 / 720 907 / 1007 460 / 520 540 / 540 Output Total 675 / 675 0 / 100 100 / 100 0 / 0 Balance 45 / 45 907 / 907 360 / 420 540 / 540 Weight 52.68 kg 52.865 kg 59.103 kg 59.012 kg Microbiology Reports for the Last 24 Hours: Microbiology 10/30/23 18:30 Blood Blood Culture - Preliminary 10/30/23 19:36 Blood Blood Culture - Preliminary Constitutional Constitutional: no acute distress *Routine HEENT Exam Head: Present normocephalic Eye: Present EOMI and PERRL ENT: Present mucous membranes moist *Routine Neck Exam Neck: Present supple; Absent lymphadenopathy *Routine Respiratory Exam Respiratory: Present CTA bilaterally *Routine Cardiovascular Exam Cardiovascular: Present RRR *Routine Abdominal Exam Abdominal: Present soft and normoactive bowel sounds Comments: mild abdominal tenderness on palpation *Routine Extremities Exam Extremities: Absent cyanosis, clubbing or edema *Routine Skin Exam Skin: Present warm; Absent rash *Routine Neurological Exam Neurological: Present alert and oriented X3 Assessment and Plan *Assessment and plan (1) Sepsis without acute organ dysfunction: Status: Acute Qualifiers: Sepsis type: sepsis due to unspecified organism Qualified Code(s): A41.9 - Sepsis, unspecified organism Category: Medical Code(s): A41.9 - Sepsis, unspecified organism (2) Acute pancreatitis: Status: Acute Qualifiers: Acute pancreatitis complication: unspecified Pancreatitis type: unspecified pancreatitis type Qualified Code(s): K85.90 - Acute pancreatitis without necrosis or infection, unspecified Category: Medical Code(s): K85.90 - Acute pancreatitis without necrosis or infection, unspecified (3) Hypophosphatemia: Status: Acute Category: Medical Code(s): E83.39 - Other disorders of phosphorus metabolism (4) Severe protein-calorie malnutrition: Status: Acute Category: Medical Code(s): E43 - Unspecified severe protein-calorie malnutrition (5) Nausea & vomiting: Status: Acute Qualifiers: Vomiting type: unspecified Qualified Code(s): R11.2 - Nausea with vomiting, unspecified Category: Medical Code(s): R11.2 - Nausea with vomiting, unspecified (6) Acute hypokalemia: Status: Acute Category: Medical Code(s): E87.6 - Hypokalemia (7) Smoking greater than 30 pack years: Status: Acute Category: Social Hx Code(s): F17.210 - Nicotine dependence, cigarettes, uncomplicated (8) Heavy drinker: Status: Acute Category: Social Hx Code(s): Z78.9 - Other specified health status (9) Edema of right lower leg: Status: Acute Category: Medical Code(s): R60.0 - Localized edema Plan 72-year-old female with PMHx of HTN, COPD, current smoker, alcohol user, recent diagnosis of C. diff colitis presenting today with generalized weakness nausea and vomiting, Her , at bedside contributed with the history. She initially had some nausea, vomiting and diarrhea then diarrhea stopped since the last 3 day. On arrival patient presented very lethargic, tachycardic; underwent into sepsis workup. Received 1 L of LR. Blood culture was drawn. CT of the abdomen showed signs consistent with acute pancreatitis, concerning also with early necrosis . there is mild pelvic ascitis. Labs are remarkable for elevate lipase, mild leukocytosis, hypokalemia. Potassium was replaced at the ER. Findings discussed with the provider. Agreed for admission. Tolerating clears still. Continue to encourage p.o. nutrition. Multiple electrolyte disturbances including hypophosphatemia. Patient continues to require close monitoring of electrolytes and close repletion. Continues to require inpatient management. Problems addressed as follows: -Sepsis without acute organ dysfunction, likely secondary to acute panccreatitis, with early necrosis. Etiology highly suspicious for alcohol induced pancreatitis: advance diet as tolerated continue zosyn -C. Diff - Recent infection, was finishing treatment at home. Resume vancomycin during admission given recurrent positive tests over the past 3 months. No diarrhea since admission. Will obtain diarrhea panel as soon as patient is able to give a sample. Vancomycin p.o. 125 mg 4 times a day. Further management pending results. -Initiated on probiotic -Fiber supplement for diarrhea -Acute dehydration with electrolyte imbalance, secondary to nausea and vomiting: Magnesium better at 1.8. Repeat BMP this afternoon, CMP and magnesium ordered for the morning. Cardiac telemetry Alcohol dependence Macrocytic anemia Severe protein calorie malnutrition Hypophosphatemia -Monitoring for withdrawal symptoms. Patient denies ever having withdrawal. Drinks at least 2 glasses of jessica a day; no symptoms in the past 24 hours -MCV elevated at 122 today, phosphorus 2.0, continue p.o. supplementation twice daily. Repeat phosphorus level this evening. High risk of refeeding syndrome. Monitoring every 12 hours -Protein supplementation with meals - thiamine, folate, and multivitamin supplementation daily History of hypertension: Holding blood pressure meds in the setting of hypotension Tobacco dependence: Nicotine patch as needed Edema of right lower extremity: Ultrasound obtained, no DVT. Suspect secondary to lymphedema, protein calorie malnutrition, hypoalbuminemia, CHF. Lovenox for DVT prophylaxis. Protonix for GI protection Full code advance diet as tolerated, pain controle, dc 1-2 days, switch back to liquid diet, not tolerating, consult GS, AXR negative for ileus, has very small BM today
[2023-11-04] MEDS: MONTELUKAST 10 MG 1 EACH PO (17:52)
[2023-11-04] MEDS: PRENATAL MULTIVITAMIN W/IRON 1 EACH PO (17:52)
--- NOTE | 2023-11-04 18:15 | PC.NURSE ---
AOX4, HAS SLEPT OFF/ON FOR MOST OF SHIFT. POOR APPETITE AND PO INTAKE THIS SHIFT. DID SIT UP TO CHAIR FOR A COUPLE HOURS THIS MORNING. MEDICATED FOR NAUSEA WITH PRN ZOFRAN WITH GOOD EFFECTIVENESS. DENIES PAIN.
[2023-11-04] MEDS: PREGABALIN 50MG CAPSULE 50 MG PO (20:01)
[2023-11-04] MEDS: TRAZODONE 50 MG 1 EACH PO (20:01)
[2023-11-04] MEDS: HYDROCODONE/APAP 5/325 MG TABLET 1 TAB PO (20:01)
[2023-11-04] MEDS: PANTOPRAZOLE 40MG TABLET 40 MG PO (20:10)
[2023-11-05] VITALS (10 sets, daily range): BP systolic 91–104; BP diastolic 53–57; PULSE 80–120; RESP 16–20; TEMP 36.4–37.3; O2SAT 92–98; BMI 23.1
[2023-11-05] MEDS: PIPERACILLIN/TAZO 4.5 GM in 0.9 % SODIUM CHLORIDE 100 ML IV ×4 (00:20→17:01)
[2023-11-05] MEDS: FOLIC ACID 1MG TABLET 1 MG PO (08:02)
[2023-11-05] MEDS: METOPROLOL TARTRATE 50MG TABLET 50 MG PO ×2 (08:02→20:26)
[2023-11-05] MEDS: K-PHOS NEUTRAL 250MG TABLET 250 MG PO ×2 (08:02→20:26)
[2023-11-05] MEDS: LACTOBACILLUS PROBIOTIC COMB CAPSULE 1 CAP PO (08:02)
[2023-11-05] MEDS: POTASSIUM CHLORIDE 20MEQ TAB 20 MEQ PO ×2 (08:02→20:26)
[2023-11-05] MEDS: PREGABALIN 50MG CAPSULE 50 MG PO ×2 (08:05→20:26)
[2023-11-05] MEDS: VANCOMYCIN HCL 50MG/ML 150ML KIT 125 MG PO ×2 (08:12→11:40)
[2023-11-05 09:05] LABS: Basophils % 0.2 % (0.1-2.0); Eosinophils # 0.3 K/mm3 (0.0-0.4); Eosinophils % 3.1 % (0.1-12.0); Hematocrit 26.6 % (37.0-47.0); Hemoglobin 8.1 g/dL (12.2-16.2); Lymphocytes # 1.9 K/mm3 (0.7-4.5); Lymphocytes % 21.8 % (10-50); Mean Corpuscular HGB Conc 30.7 g/dL (31.8-35.4); Mean Corpuscular Hemoglobin 38.1 pg (27.0-31.2); Mean Corpuscular Volume 124.2 fl (81-99); Mean Platelet Volume 9.9 fl (7.4-10.4); Monocytes # 0.6 K/mm3 (0.1-1.0); Monocytes % 6.6 % (1.7-9.3); Neutrophils % 68.3 % (37.0-80.0); Platelet Count 264 K/mm3 (142-424); Red Blood Count 2.14 M/mm3 (4.20-5.40); Red Cell Distribution Width 15.2 % (11.5-17.5); White Blood Count 8.9 K/mm3 (4.8-10.8)
[2023-11-05 09:16] LABS: Alanine Aminotransferase 17 U/L (12-78); Albumin Level 1.9 g/dl (3.5-5.0); Albumin/Globulin Ratio 0.6 (1.1-1.8); Alkaline Phosphatase 110 U/L (38-126); Anion Gap 6.4 mEq/L (5-15); Aspartate Amino Transferase 30 U/L (14-36); Bilirubin,Total 0.5 mg/dl (0.2-1.3); Blood Urea Nitrogen 4 mg/dl (7-17); Calcium 6.7 mg/dl (8.4-10.2); Carbon Dioxide 17 mmol/L (22.0-30.0); Chloride 113 mmol/L (98-107); Creatinine Clearance Estimated 48 mL/min (50-200); Estimated Glomerular Filt Rate 122 ml/min (>60); GFR (African American) 147 ML/MIN (>60); Glucose 96 mg/dl (74-100); Potassium 3.4 mmoL/L (3.5-5.1); Sodium 133 mmol/L (136-145); Total Protein,Serum 4.9 g/dl (6.3-8.2)
[2023-11-05 10:16] LABS: Lipase 122 U/L (23-300)
--- NOTE | 2023-11-05 10:29 | EXP.SURG.CON ---
History of Present Illness *Admission Date: 10/30/23 *Reason for visit:: Acute pancreatitis *History of present illness: Asked to see this patient in consultation from hospitalist service today for acute pancreatitis . This is her sixth day of this hospitalization. She is a 72-year-old female had a hospitalization in December of this year for spontaneous pneumothorax. 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 She presented to the emergency department last week with several day history of nausea with vomiting and decreased oral intake with abdominal pain reportedly. Apparently outpatient blood work done prior to presentation to the emergency department revealed findings of metabolic acidosis. She therefore was brought to the emergency department where she was found to have abdominal tenderness. She was noted to have appreciably elevated lipase at the time of presentation along with associated hyponatremia and hypokalemia and metabolic acidosis. Patient admits to drinking a notable amount of jessica on a daily basis. She underwent CT angiogram on 10/30/23 which revealed no evidence of any obvious mesenteric ischemia but there was what appeared to be findings consistent with acute pancreatitis with lack of enhancement concerning for pancreatic necrosis with mild ascites. She was admitted for inpatient management at this facility at that time. She has been managed medically as an inpatient since admission reportedly with some ongoing abdominal pain. Patient had apparently shown some improvement and was transferred out of stepdown unit. Surgical consultation for acute pancreatitis was obtained today. She is on a full liquid diet. She has had some nausea. [facility] Disclaimer: The information contained in this section may have been updated after the patient was seen, as this information can be updated by other users. Medical History (Updated 11/01/23 @ 11:58 by Dash Tidwell MD) Allergic rhinitis C. difficile colitis Emphysema/COPD Encounter for screening for malignant neoplasm of lung Hyperlipidemia Hypertension Osteoporosis Pneumonia Pulmonary emphysema Smoking greater than 30 pack years Tobacco abuse Surgical History History of colonoscopy Hx of hand surgery Family History Brother Family history of cancer Daughter Family history of celiac disease Other Family history of NC (myocardial infarction) Family history of heart disease Social History (Updated 10/30/23 @ 21:30 by Marla Scott RN) Smoking Status: Current every day smoker tobacco type: cigarettes packs per day: 1 years smoked: 35 alcohol intake: current substance use type: denies use current occupational status: retired Travel in the last 8 weeks: None household members: spouse housing: house lives independently: Yes marital status: caffeine: Yes special andrés needs: No agree to transfusion: No do you feel safe at home: Yes victim of physical abuse: No victim of emotional abuse: No victim of sexual abuse: No would you like helpful sources: No Meds Home Medications and Allergies Home Medications Medication Instructions Recorded Confirmed Type atorvastatin 40 mg tablet 40 mg PO HS 08/27/22 10/31/23 History metoprolol tartrate 50 mg tablet 50 mg PO BID 08/27/22 10/31/23 History montelukast 10 mg tablet 10 mg PO PM 01/10/23 10/31/23 History potassium chloride 20 mEq 20 meq PO DAILY 07/27/23 10/31/23 History tablet,extended release(part/cryst) trazodone 50 mg tablet 50 mg PO HS 07/27/23 10/31/23 History ibuprofen 800 mg tablet 800 mg PO TIDP PRN Mild Pain 07/28/23 10/31/23 History (Scale Score 1-4) acetaminophen 300 mg-codeine 30 mg 1 - 2 tab PO BIDP PRN Severe Pain 07/30/23 10/31/23 Rx tablet (Scale Score 7-10) 7 days #20 tabs metronidazole 500 mg tablet 500 mg PO TID 10/30/23 10/31/23 History promethazine 25 mg tablet 25 mg PO Q6HP PRN Nausea And 10/30/23 10/31/23 History Vomiting alendronate 70 mg tablet 70 mg PO WEEKLY 10/31/23 10/31/23 History furosemide 20 mg tablet 20 mg PO DAILYP PRN Fluid 10/31/23 10/31/23 History ondansetron 4 mg disintegrating 4 mg PO Q8HP PRN nausea and 10/31/23 10/31/23 History tablet vomiting pregabalin 50 mg capsule 50 mg PO BID 10/31/23 10/31/23 History New Prescriptions to Start Prescriptions: Allergies Allergy/AdvReac Type Severity Reaction Status Date / Time oxytetracycline Allergy Unknown PASSES OUT Verified 10/30/23 18:33 [From TERRAMYCIN] Exam (Inpt) Vital signs and Labs for Last 24 Hours: Temp Pulse Resp BP Pulse Ox O2 Del Method 97.5 F L 120 H 18 104/57 L 95 Room Air 11/05/23 07:57 11/05/23 08:01 11/05/23 07:57 11/05/23 07:57 11/05/23 08:00 11/05/23 08:37 Laboratory Results - last 24 hr 11/02/23 15:39: Stl Aeromonas (PCR) Not detected, Stl C. cayetanensis PCR Not detected, Stool Rotavirus (PCR) Not detected, Stl Adenov F 40/41 PCR Not detected, Stool Astrovirus (PCR) Not detected, Stool Campylobacter PCR Not detected, Stl C.difficile Tox PCR Not detected, Stool Cryptosporidium PCR Not detected, Stl E.coli Shiga Tox PCR Not detected, Stool E coli O157 PCR TNP, Stl Enterotoxigenic E PCR Not detected, Stool EPEC (PCR) Not detected, Stool EAEC (PCR) Not detected, Stl E. histolytica PCR Not detected, Stool Giardia Lamblia PCR Not detected, Stool Salmonella PCR Not detected, Stool Sapovirus (PCR) Not detected, Stl P. shigelloides PCR Not detected, Stl Shigella/EIEC PCR Not detected, St Y.enterocolitica PCR Not detected, Stool Vibrio (PCR) Not detected, Stl Vibrio cholerae PCR Not detected, Stl Norovirus GI/GII PCR Not detected 11/05/23 08:49: WBC 8.9 D, RBC 2.14 L, Hgb 8.1 L, Hct 26.6 L, MCV 124.2 H, MCH 38.1 H, MCHC 30.7 L, RDW 15.2, Plt Count 264 D, MPV 9.9, Neut % (Auto) 68.3, Lymph % (Auto) 21.8, [facility] % (Auto) 6.6, Eos % (Auto) 3.1, Baso % (Auto) 0.2, Neut # (Auto) 6.0, Lymph # (Auto) 1.9, [facility] # (Auto) 0.6, Eos # (Auto) 0.3, Baso # (Auto) 0.0, Sodium 133 L, Potassium 3.4 L, Chloride 113 H, Carbon Dioxide 17 L, Anion Gap 6.4, BUN 4 L, Creatinine 0.50 L D, Estimated Creat Clear 48, Estimated GFR 122, Est GFR ( Amer) 147 D, Glucose 96, Calcium 6.7 L, Total Bilirubin 0.5, AST 30, ALT 17 D, Alkaline Phosphatase 110, Total Protein 4.9 L, Albumin 1.9 L D, Globulin 3.0, Albumin/Globulin Ratio 0.6 L, Lipase 122 I & O for Labs for Last 24 Hours: Intake & Output 11/02/23 11/03/23 11/04/23 11/05/23 11:59 11:59 11:59 11:59 Intake Total 1147 / 1147 640 / 640 300 / 300 820 / 820 Output Total 0 / 0 100 / 100 0 / 0 0 / 0 Balance 1147 / 1147 540 / 540 300 / 300 820 / 820 Weight 116 lb 8.758 oz 130 lb 4.8 oz 130 lb 1.6 oz 130 lb 7 oz Constitutional: no acute distress GI: Present soft Comments:: Abdomen mildly distended. Mild tenderness without guarding or rebound left upper abdomen Results Labs 11/05/23 08:49 11/05/23 08:49 Labs: Laboratory Results - last 24 hr 11/02/23 15:39: Stl Aeromonas (PCR) Not detected, Stl C. cayetanensis PCR Not detected, Stool Rotavirus (PCR) Not detected, Stl Adenov F 40/41 PCR Not detected, Stool Astrovirus (PCR) Not detected, Stool Campylobacter PCR Not detected, Stl C.difficile Tox PCR Not detected, Stool Cryptosporidium PCR Not detected, Stl E.coli Shiga Tox PCR Not detected, Stool E coli O157 PCR TNP, Stl Enterotoxigenic E PCR Not detected, Stool EPEC (PCR) Not detected, Stool EAEC (PCR) Not detected, Stl E. histolytica PCR Not detected, Stool Giardia Lamblia PCR Not detected, Stool Salmonella PCR Not detected, Stool Sapovirus (PCR) Not detected, Stl P. shigelloides PCR Not detected, Stl Shigella/EIEC PCR Not detected, St Y.enterocolitica PCR Not detected, Stool Vibrio (PCR) Not detected, Stl Vibrio cholerae PCR Not detected, Stl Norovirus GI/GII PCR Not detected 11/05/23 08:49: WBC 8.9 D, RBC 2.14 L, Hgb 8.1 L, Hct 26.6 L, MCV 124.2 H, MCH 38.1 H, MCHC 30.7 L, RDW 15.2, Plt Count 264 D, MPV 9.9, Neut % (Auto) 68.3, Lymph % (Auto) 21.8, [facility] % (Auto) 6.6, Eos % (Auto) 3.1, Baso % (Auto) 0.2, Neut # (Auto) 6.0, Lymph # (Auto) 1.9, [facility] # (Auto) 0.6, Eos # (Auto) 0.3, Baso # (Auto) 0.0, Sodium 133 L, Potassium 3.4 L, Chloride 113 H, Carbon Dioxide 17 L, Anion Gap 6.4, BUN 4 L, Creatinine 0.50 L D, Estimated Creat Clear 48, Estimated GFR 122, Est GFR ( Amer) 147 D, Glucose 96, Calcium 6.7 L, Total Bilirubin 0.5, AST 30, ALT 17 D, Alkaline Phosphatase 110, Total Protein 4.9 L, Albumin 1.9 L D, Globulin 3.0, Albumin/Globulin Ratio 0.6 L, Lipase 122 Assessment and Plan *Assessment and plan (1) Acute pancreatitis: Status: Acute Qualifiers: Acute pancreatitis complication: unspecified Pancreatitis type: unspecified pancreatitis type Qualified Code(s): K85.90 - Acute pancreatitis without necrosis or infection, unspecified Category: Medical Code(s): K85.90 - Acute pancreatitis without necrosis or infection, unspecified Plan Patient's initial imaging revealed findings concerning for acute complicated pancreatitis with possible necrosis. Etiology of pancreatitis somewhat uncertain but may be alcohol related. She does have some appreciable morbidity/mortality based on limited Rush's criteria. No appropriate surgical intervention indicated to be done at this facility at this time. May consider follow-up CT scan with contrast to assess for interval change in pancreatitis and potential developing pseudocyst although this seems rather early. Likely would best be served with transfer to higher level of care facility with surgical, critical care, interventional radiology, and gastroenterology capabilities.
--- NOTE | 2023-11-05 11:52 | CT_ITS ---
FINAL REPORT TECHNIQUE: Postcontrast axial images through the abdomen and pelvis were performed. This study was performed with techniques to keep radiation doses as low as reasonably achievable, (ALARA). Individualized dose reduction techniques using automated exposure control or adjustment of mA and/or kV according to the patient's size were employed. CLINICAL HISTORY: ABDOMINAL PAIN, NAUSEA, PANCREATITIS COMPARISON: 10/30/2023 FINDINGS: Abdomen: There are new moderate pleural effusions. There is worsening bilateral lower lobe atelectasis. The liver is normal in size and attenuation. There is mild nonspecific gallbladder wall thickening. There is worsening anasarca. The spleen is unremarkable. The adrenals are normal. There is partially walled fluid surrounding the pancreatic body, may represent early pseudocyst. There is a small left renal cyst. The aorta is normal in caliber. Diffuse vascular calcification is identified. Pelvis: The appendix is normal. There are multiple fluid-filled bowel loops in a nonspecific pattern. The urinary bladder is unremarkable. No free fluid, free air, abscess or adenopathy is identified. IMPRESSION: There are worsening pleural effusions. There is worsening fluid surrounding the pancreatic body, may represent early pseudocyst. Recommend additional follow-up. Worsening anasarca. Reviewed, Interpreted and Dictated by Osmin Seals III, MD Transcribed by Jennifer Garibay Authenticated and [facility]
[2023-11-05] MEDS: SODIUM CHLORIDE 0.9% 10ML SYR (RAD ONLY) 10 ML IV (13:04)
[2023-11-05] MEDS: IOPAMIDOL-370 (76%);100ML BOTTLE 75 ML IV (13:04)
--- NOTE | 2023-11-05 14:04 | EXP.PN ---
Subjective *Date: 11/05/23 *Time: 14:04 Interval history: seen at bedside, still having Abdominal discomfort and not tolerating diet, Denied CP, SOB Exam Data for Last 24 hours Vital signs and Labs for Last 24 Hours: Temp Pulse Resp BP Pulse Ox O2 Del Method 98.8 F 84 16 93/55 L 98 Room Air 11/05/23 11:18 11/05/23 11:18 11/05/23 11:18 11/05/23 11:18 11/05/23 11:18 11/05/23 13:52 Laboratory Results - last 24 hr 11/02/23 15:39: Stl Aeromonas (PCR) Not detected, Stl C. cayetanensis PCR Not detected, Stool Rotavirus (PCR) Not detected, Stl Adenov F 40/41 PCR Not detected, Stool Astrovirus (PCR) Not detected, Stool Campylobacter PCR Not detected, Stl C.difficile Tox PCR Not detected, Stool Cryptosporidium PCR Not detected, Stl E.coli Shiga Tox PCR Not detected, Stool E coli O157 PCR TNP, Stl Enterotoxigenic E PCR Not detected, Stool EPEC (PCR) Not detected, Stool EAEC (PCR) Not detected, Stl E. histolytica PCR Not detected, Stool Giardia Lamblia PCR Not detected, Stool Salmonella PCR Not detected, Stool Sapovirus (PCR) Not detected, Stl P. shigelloides PCR Not detected, Stl Shigella/EIEC PCR Not detected, St Y.enterocolitica PCR Not detected, Stool Vibrio (PCR) Not detected, Stl Vibrio cholerae PCR Not detected, Stl Norovirus GI/GII PCR Not detected 11/05/23 08:49: WBC 8.9 D, RBC 2.14 L, Hgb 8.1 L, Hct 26.6 L, MCV 124.2 H, MCH 38.1 H, MCHC 30.7 L, RDW 15.2, Plt Count 264 D, MPV 9.9, Neut % (Auto) 68.3, Lymph % (Auto) 21.8, Ellsworth % (Auto) 6.6, Eos % (Auto) 3.1, Baso % (Auto) 0.2, Neut # (Auto) 6.0, Lymph # (Auto) 1.9, Ellsworth # (Auto) 0.6, Eos # (Auto) 0.3, Baso # (Auto) 0.0, Sodium 133 L, Potassium 3.4 L, Chloride 113 H, Carbon Dioxide 17 L, Anion Gap 6.4, BUN 4 L, Creatinine 0.50 L D, Estimated Creat Clear 48, Estimated GFR 122, Est GFR ( Amer) 147 D, Glucose 96, Calcium 6.7 L, Total Bilirubin 0.5, AST 30, ALT 17 D, Alkaline Phosphatase 110, Total Protein 4.9 L, Albumin 1.9 L D, Globulin 3.0, Albumin/Globulin Ratio 0.6 L, Lipase 122 I & O for Last 24 hours: Intake & Output 11/02/23 11/03/23 11/04/23 11/05/23 23:59 23:59 23:59 23:59 Intake Total 907 / 1007 460 / 520 780 / 900 340 / 340 Output Total 0 / 100 100 / 100 0 / 0 0 / 0 Balance 907 / 907 360 / 420 780 / 900 340 / 340 Weight 52.865 kg 59.103 kg 59.012 kg 59.165 kg Constitutional Constitutional: no acute distress *Routine HEENT Exam Head: Present normocephalic Eye: Present EOMI and PERRL ENT: Present mucous membranes moist *Routine Neck Exam Neck: Present supple; Absent lymphadenopathy *Routine Respiratory Exam Respiratory: Present CTA bilaterally *Routine Cardiovascular Exam Cardiovascular: Present RRR *Routine Abdominal Exam Abdominal: Present soft and normoactive bowel sounds Comments: mild abdominal tenderness on palpation *Routine Extremities Exam Extremities: Absent cyanosis, clubbing or edema *Routine Skin Exam Skin: Present warm; Absent rash *Routine Neurological Exam Neurological: Present alert and oriented X3 Assessment and Plan *Assessment and plan (1) Sepsis without acute organ dysfunction: Status: Acute Qualifiers: Sepsis type: sepsis due to unspecified organism Qualified Code(s): A41.9 - Sepsis, unspecified organism Category: Medical Code(s): A41.9 - Sepsis, unspecified organism (2) Acute pancreatitis: Status: Acute Qualifiers: Acute pancreatitis complication: unspecified Pancreatitis type: unspecified pancreatitis type Qualified Code(s): K85.90 - Acute pancreatitis without necrosis or infection, unspecified Category: Medical Code(s): K85.90 - Acute pancreatitis without necrosis or infection, unspecified (3) Hypophosphatemia: Status: Acute Category: Medical Code(s): E83.39 - Other disorders of phosphorus metabolism (4) Severe protein-calorie malnutrition: Status: Acute Category: Medical Code(s): E43 - Unspecified severe protein-calorie malnutrition (5) Nausea & vomiting: Status: Acute Qualifiers: Vomiting type: unspecified Qualified Code(s): R11.2 - Nausea with vomiting, unspecified Category: Medical Code(s): R11.2 - Nausea with vomiting, unspecified (6) Acute hypokalemia: Status: Acute Category: Medical Code(s): E87.6 - Hypokalemia (7) Smoking greater than 30 pack years: Status: Acute Category: Social Hx Code(s): F17.210 - Nicotine dependence, cigarettes, uncomplicated (8) Heavy drinker: Status: Acute Category: Social Hx Code(s): Z78.9 - Other specified health status (9) Edema of right lower leg: Status: Acute Category: Medical Code(s): R60.0 - Localized edema Plan 72-year-old female with PMHx of HTN, COPD, current smoker, alcohol user, recent diagnosis of C. diff colitis presenting today with generalized weakness nausea and vomiting, Her , at bedside contributed with the history. She initially had some nausea, vomiting and diarrhea then diarrhea stopped since the last 3 day. On arrival patient presented very lethargic, tachycardic; underwent into sepsis workup. Received 1 L of LR. Blood culture was drawn. CT of the abdomen showed signs consistent with acute pancreatitis, concerning also with early necrosis . there is mild pelvic ascitis. Labs are remarkable for elevate lipase, mild leukocytosis, hypokalemia. Potassium was replaced at the ER. Findings discussed with the provider. Agreed for admission. Tolerating clears still. Continue to encourage p.o. nutrition. Multiple electrolyte disturbances including hypophosphatemia. Patient continues to require close monitoring of electrolytes and close repletion. Continues to require inpatient management. Problems addressed as follows: -Sepsis without acute organ dysfunction, likely secondary to acute panccreatitis, with early necrosis. Etiology highly suspicious for alcohol induced pancreatitis: advance diet as tolerated continue zosyn consulted GS - recs transfer to GI and IR facility, I have initiated transfer -C. Diff - Recent infection, was finishing treatment at home. Resume vancomycin during admission given recurrent positive tests over the past 3 months. No diarrhea since admission. Will obtain diarrhea panel as soon as patient is able to give a sample. Vancomycin p.o. 125 mg 4 times a day. -Initiated on probiotic -Fiber supplement for diarrhea - C diff came out negative - will dc PO vanc -Acute dehydration with electrolyte imbalance, secondary to nausea and vomiting: - improved Magnesium better at 1.8. Repeat BMP this afternoon, CMP and magnesium ordered for the morning. Cardiac telemetry Alcohol dependence Macrocytic anemia Severe protein calorie malnutrition Hypophosphatemia -Monitoring for withdrawal symptoms. Patient denies ever having withdrawal. Drinks at least 2 glasses of jessica a day; no symptoms in the past 24 hours -MCV elevated at 122 today, phosphorus 2.0, continue p.o. supplementation twice daily. Repeat phosphorus level this evening. High risk of refeeding syndrome. Monitoring every 12 hours -Protein supplementation with meals - thiamine, folate, and multivitamin supplementation daily History of hypertension: Holding blood pressure meds in the setting of hypotension Tobacco dependence: Nicotine patch as needed Edema of right lower extremity: Ultrasound obtained, no DVT. Suspect secondary to lymphedema, protein calorie malnutrition, hypoalbuminemia, CHF. Lovenox for DVT prophylaxis. Protonix for GI protection Full code
--- NOTE | 2023-11-05 14:37 | PC.NURSE ---
Pt. is aox 4, 95 on RA, up with assist times one with walker, consult to [facility] for reports of nausea and abd pain, no nausea or pain reported from patient.
[2023-11-05] MEDS: PRENATAL MULTIVITAMIN W/IRON 1 EACH PO (17:02)
[2023-11-05] MEDS: MONTELUKAST 10 MG 1 EACH PO (17:02)
--- NOTE | 2023-11-05 19:27 | PC.NURSE ---
Addendum entered by Jose R Kerns RN 11/06/23 04:40: Marlene from [facility] called to get an update on the patient and said they would try to hold the bed for the patient to make a decision once Carol and Jeffy talk to her. Addendum entered by Jose R Kerns RN 11/05/23 20:07: [facility] just called back for report - informed the nurse that patient transfer was on hold til tomorrow per Jeffy and patient/patient Original Note: attempted to call report to to [facility] - cant take report at the moment, will call back
--- NOTE | 2023-11-05 19:53 | EXP.EVENT.NO ---
spoke to the patient , he do not agree with the transfer process and wants to cancel the transfer process at this time, He wants to discuss further the transfer process in the monring with General surgery team and Hospitalist. I explained the results of Lipase level and CT abd pelvis and needs to be seen by GI. was given time to ask questions and all questions were answered.
--- NOTE | 2023-11-05 20:03 | PC.NURSE ---
patient and patient unaware of transfer to higher level of care, they reported. I contacted house parent, we went to pt room, allowed patient to speak with Jeffy via phone to discuss plan. Patient and patient have decide to wait til the morning to speak with Carol and Jeffy to determine an intervention that fits their needs best. feels there was a lack of communication . Transfer to [facility] is on hold for now.
[2023-11-05] MEDS: TRAZODONE 50 MG 1 EACH PO (20:26)
[2023-11-05] MEDS: PANTOPRAZOLE 40MG TABLET 40 MG PO (20:26)
[2023-11-05] MEDS: HYDROCODONE/APAP 5/325 MG TABLET 1 TAB PO (23:09)
[2023-11-06] VITALS: BP 97/50; PULSE 80; PULSE 88; RESP 18; TEMP 37; O2SAT 96
[2023-11-06] MEDS: PIPERACILLIN/TAZO 4.5 GM in 0.9 % SODIUM CHLORIDE 100 ML IV ×3 (00:52→12:32)
[2023-11-06 04:00] VITALS: BP 94/51; PULSE 80; PULSE 88; RESP 18; TEMP 37; O2SAT 96; BMI 23.6
--- NOTE | 2023-11-06 07:32 | PC.NURSE ---
[facility] called and bed still on hold for patient.
[2023-11-06] MEDS: FOLIC ACID 1MG TABLET 1 MG PO (07:55)
[2023-11-06] MEDS: K-PHOS NEUTRAL 250MG TABLET 250 MG PO (07:55)
[2023-11-06] MEDS: PREGABALIN 50MG CAPSULE 50 MG PO (07:55)
[2023-11-06] MEDS: POTASSIUM CHLORIDE 20MEQ TAB 20 MEQ PO (07:55)
[2023-11-06] MEDS: METOPROLOL TARTRATE 50MG TABLET 50 MG PO (07:55)
[2023-11-06] MEDS: LACTOBACILLUS PROBIOTIC COMB CAPSULE 1 CAP PO (07:55)
[2023-11-06 08:00] VITALS: BP 101/55; PULSE 90; PULSE 93; RESP 18; TEMP 36.8; O2SAT 97
--- NOTE | 2023-11-06 08:50 | EXP.EVENT.NO ---
Discussed plan for transfer and treatment plan with patient at bedside this morning. I discussed blood work results and CT abdomen pelvis results with him at bedside. He verbalized understanding and understood the need for transfer. Patient for GI and IR needs. Patient canceled transfer last but is now agreeable to transfer. Answered all questions of the patient and at the bedside, they verbalized understanding and had no further questions.
--- NOTE | 2023-11-06 09:42 | PC.NURSE ---
Called Danya at [facility] to let them know pt is d/c to their facility.
--- NOTE | 2023-11-06 10:02 | EXP.DC.SUM ---
General Admission date:: 10/30/23 Discharge date: 11/06/23 HPI HPI HPI: Asked to see this patient in consultation from hospitalist service today for acute pancreatitis . This is her sixth day of this hospitalization. She is a 72-year-old female had a hospitalization in December of this year for spontaneous pneumothorax. 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 She presented to the emergency department last week with several day history of nausea with vomiting and decreased oral intake with abdominal pain reportedly. Apparently outpatient blood work done prior to presentation to the emergency department revealed findings of metabolic acidosis. She therefore was brought to the emergency department where she was found to have abdominal tenderness. She was noted to have appreciably elevated lipase at the time of presentation along with associated hyponatremia and hypokalemia and metabolic acidosis. Patient admits to drinking a notable amount of jessica on a daily basis. She underwent CT angiogram on 10/30/23 which revealed no evidence of any obvious mesenteric ischemia but there was what appeared to be findings consistent with acute pancreatitis with lack of enhancement concerning for pancreatic necrosis with mild ascites. She was admitted for inpatient management at this facility at that time. She has been managed medically as an inpatient since admission reportedly with some ongoing abdominal pain. Patient had apparently shown some improvement and was transferred out of stepdown unit. Surgical consultation for acute pancreatitis was obtained today. She is on a full liquid diet. She has had some nausea. Hospital Course Hospital Course Hospital Course: 72-year-old female with PMHx of HTN, COPD, current smoker, alcohol user, recent diagnosis of C. diff colitis presenting today with generalized weakness nausea and vomiting, Her , at bedside contributed with the history. She initially had some nausea, vomiting and diarrhea then diarrhea stopped since the last 3 day. On arrival patient presented very lethargic, tachycardic; underwent into sepsis workup. Received 1 L of LR. Blood culture was drawn. CT of the abdomen showed signs consistent with acute pancreatitis, concerning also with early necrosis . there is mild pelvic ascitis. Labs are remarkable for elevate lipase, mild leukocytosis, hypokalemia. Potassium was replaced at the ER. Findings discussed with the provider. Agreed for admission. Tolerating clears still. Continue to encourage p.o. nutrition. Multiple electrolyte disturbances including hypophosphatemia. Patient continues to require close monitoring of electrolytes and close repletion. Continues to require inpatient management. Problems addressed as follows: -Sepsis without acute organ dysfunction, likely secondary to acute panccreatitis, with early necrosis. Etiology highly suspicious for alcohol induced pancreatitis: advance diet as tolerated continue zosyn consulted GS - recs transfer to GI and IR facility, I have initiated transfer - [facility] accepted the patient -C. Diff - negative, dc PO vanc -Acute dehydration with electrolyte imbalance, secondary to nausea and vomiting: - improved Magnesium better at 1.8. Repeat BMP this afternoon, CMP and magnesium ordered for the morning. Cardiac telemetry Alcohol dependence Macrocytic anemia Severe protein calorie malnutrition Hypophosphatemia -Monitoring for withdrawal symptoms. Patient denies ever having withdrawal. Drinks at least 2 glasses of jessica a day; no symptoms in the past 24 hours -MCV elevated at 122 today, phosphorus 2.0, continue p.o. supplementation twice daily. Repeat phosphorus level this evening. High risk of refeeding syndrome. Monitoring every 12 hours -Protein supplementation with meals - thiamine, folate, and multivitamin supplementation daily History of hypertension: Holding blood pressure meds in the setting of hypotension Tobacco dependence: Nicotine patch as needed Edema of right lower extremity: Ultrasound obtained, no DVT. Suspect secondary to lymphedema, protein calorie malnutrition, hypoalbuminemia, CHF. Lovenox for DVT prophylaxis. Protonix for GI protection Full code Transfer to [facility], family agreed with the plan and GS on board Exam Data for Last 24 hours Vital signs and Labs for Last 24 Hours: Temp Pulse Resp BP Pulse Ox O2 Del Method 98.3 F 93 H 18 101/55 L 97 Room Air 11/06/23 08:00 11/06/23 08:00 11/06/23 08:00 11/06/23 08:00 11/06/23 08:00 11/06/23 08:01 Laboratory Results - last 24 hr 11/05/23 08:49: Lipase 122 I & O for Last 24 hours: Intake & Output 11/03/23 11/04/23 11/05/23 11/06/23 23:59 23:59 23:59 23:59 Intake Total 460 / 520 780 / 900 800 / 1030 710 / 710 Output Total 100 / 100 0 / 0 0 / 0 0 / 0 Balance 360 / 420 780 / 900 800 / 1030 710 / 710 Weight 59.103 kg 59.012 kg 59.165 kg 60.526 kg Constitutional Constitutional: no acute distress *Routine HEENT Exam Head: Present normocephalic Eye: Present EOMI and PERRL ENT: Present mucous membranes moist *Routine Neck Exam Neck: Present supple; Absent lymphadenopathy *Routine Respiratory Exam Respiratory: Present CTA bilaterally *Routine Cardiovascular Exam Cardiovascular: Present RRR *Routine Abdominal Exam Abdominal: Present soft and normoactive bowel sounds Comments: mild abdominal tenderness on palpation *Routine Extremities Exam Extremities: Absent cyanosis, clubbing or edema *Routine Skin Exam Skin: Present warm; Absent rash *Routine Neurological Exam Neurological: Present alert and oriented X3 Results Data Completed and Pending Labs on day of discharge: Labs from last 24 hours 11/05/23 08:49 Lipase 122 Preliminary micro results at discharge 10/30/23 18:30 Blood Culture - Preliminary Blood 10/30/23 19:36 Blood Culture - Preliminary Blood DS: Diagnosis Discharge Diagnosis (1) Sepsis without acute organ dysfunction: Status: Acute Code(s): A41.9 - Sepsis, unspecified organism Qualifiers: Sepsis type: sepsis due to unspecified organism Qualified Code(s): A41.9 - Sepsis, unspecified organism (2) Acute pancreatitis: Status: Acute Code(s): K85.90 - Acute pancreatitis without necrosis or infection, unspecified Qualifiers: Acute pancreatitis complication: unspecified Pancreatitis type: unspecified pancreatitis type Qualified Code(s): K85.90 - Acute pancreatitis without necrosis or infection, unspecified (3) Hypophosphatemia: Status: Acute Code(s): E83.39 - Other disorders of phosphorus metabolism (4) Severe protein-calorie malnutrition: Status: Acute Code(s): E43 - Unspecified severe protein-calorie malnutrition (5) Nausea & vomiting: Status: Acute Code(s): R11.2 - Nausea with vomiting, unspecified Qualifiers: Vomiting type: unspecified Qualified Code(s): R11.2 - Nausea with vomiting, unspecified (6) Acute hypokalemia: Status: Acute Code(s): E87.6 - Hypokalemia (7) Smoking greater than 30 pack years: Status: Acute Code(s): F17.210 - Nicotine dependence, cigarettes, uncomplicated (8) Heavy drinker: Status: Acute Code(s): Z78.9 - Other specified health status (9) Edema of right lower leg: Status: Acute Code(s): R60.0 - Localized edema Meds Home Medications and Allergies Home Medications Medication Instructions Recorded Confirmed Type atorvastatin 40 mg tablet 40 mg PO HS 08/27/22 10/31/23 History metoprolol tartrate 50 mg tablet 50 mg PO BID 08/27/22 10/31/23 History montelukast 10 mg tablet 10 mg PO PM 01/10/23 10/31/23 History potassium chloride 20 mEq 20 meq PO DAILY 07/27/23 10/31/23 History tablet,extended release(part/cryst) trazodone 50 mg tablet 50 mg PO HS 07/27/23 10/31/23 History ibuprofen 800 mg tablet 800 mg PO TIDP PRN Mild Pain 07/28/23 10/31/23 History (Scale Score 1-4) acetaminophen 300 mg-codeine 30 mg 1 - 2 tab PO BIDP PRN Severe Pain 07/30/23 10/31/23 Rx tablet (Scale Score 7-10) 7 days #20 tabs metronidazole 500 mg tablet 500 mg PO TID 10/30/23 10/31/23 History promethazine 25 mg tablet 25 mg PO Q6HP PRN Nausea And 10/30/23 10/31/23 History Vomiting alendronate 70 mg tablet 70 mg PO WEEKLY 10/31/23 10/31/23 History furosemide 20 mg tablet 20 mg PO DAILYP PRN Fluid 10/31/23 10/31/23 History ondansetron 4 mg disintegrating 4 mg PO Q8HP PRN nausea and 10/31/23 10/31/23 History tablet vomiting pregabalin 50 mg capsule 50 mg PO BID 10/31/23 10/31/23 History New Prescriptions to Start Prescriptions: Allergies Allergy/AdvReac Type Severity Reaction Status Date / Time oxytetracycline Allergy Unknown PASSES OUT Verified 10/30/23 18:33 [From [facility]] Discharge Plan Disposition Patient Disposition: Xfer Short-Term Hosp Discharge Order Discharge Orders: Discharge Order (Routine); Ordered 11/06/23 Ordered By: Yosi Bardales Follow up Plan Prescriptions/Medication Reconciliation: No Action montelukast 10 mg tablet 10 mg PO PM trazodone 50 mg tablet 50 mg PO HS potassium chloride 20 mEq tablet,ER particles/crystals 20 meq PO DAILY ibuprofen 800 mg tablet 800 mg PO TIDP PRN (Reason: Mild Pain (Scale Score 1-4)) acetaminophen-codeine 300-30 mg tablet 1 - 2 tab PO BIDP PRN (Reason: Severe Pain (Scale Score 7-10)) 7 Days Qty: 20 0RF metronidazole 500 mg tablet 500 mg PO TID promethazine 25 mg tablet 25 mg PO Q6HP PRN (Reason: Nausea And Vomiting) alendronate 70 mg tablet 70 mg PO WEEKLY furosemide 20 mg tablet 20 mg PO DAILYP PRN (Reason: Fluid) ondansetron 4 mg tablet,disintegrating 4 mg PO Q8HP PRN (Reason: nausea and vomiting) pregabalin 50 mg capsule 50 mg PO BID atorvastatin 40 mg tablet 40 mg PO HS metoprolol tartrate 50 mg tablet 50 mg PO BID Problem Reconciliation Problems Reviewed?: Yes Patient Discharge Instructions Stand Alone Forms: Transfer Record Patient Instructions: Eating a Diet Moderate in Protein-Rich Foods, DI for Pancreatitis, DI for Hypokalemia, DI for Hyponatremia, DI for Sepsis -- Adult Providers Primary Care Provider: Alfred Awad Admit Provider: Dash Tidwell Attending Provider: Dash Tidwell
--- NOTE | 2023-11-06 10:48 | PC.NURSE ---
report called to Shelby Stoddard RN [facility].
--- NOTE | 2023-11-06 11:13 | PC.NURSE ---
ems called and it will be about two hours before they can take patient to [facility].
[2023-11-06 12:00] VITALS: BP 108/56; PULSE 89; RESP 16; TEMP 36.8; O2SAT 96
--- NOTE | 2023-11-06 15:23 | EXP.SURG.PN ---
Subjective Narrative: Patient feels somewhat better. Apparently there was some confusion regarding the planned transfer after surgical consultation was obtained. Exam Data for Last 24 hours Vital signs and Labs for Last 24 Hours: Temp Pulse Resp BP Pulse Ox O2 Del Method 98.3 F 89 16 108/56 L 96 Room Air 11/06/23 12:00 11/06/23 12:00 11/06/23 12:00 11/06/23 12:00 11/06/23 12:00 11/06/23 12:00 I & O for Last 24 hours: Intake & Output 11/04/23 11/05/23 11/06/23 11/07/23 11:59 11:59 11:59 11:59 Intake Total 300 / 300 820 / 820 1170 / 1170 120 / 120 Output Total 0 / 0 0 / 0 0 / 0 Balance 300 / 300 820 / 820 1170 / 1170 120 / 120 Weight 130 lb 1.6 oz 130 lb 7 oz 133 lb 7 oz *Routine Abdominal Exam Abdominal: Present soft Progress Note: A&P Assessment and plan (1) Sepsis without acute organ dysfunction: Status: Acute (2) Acute pancreatitis: Status: Acute Assessment and plan: Patient has been accepted to [facility] and is awaiting transport. No surgical recommendations at this time. (3) Hypophosphatemia: Status: Acute (4) Severe protein-calorie malnutrition: Status: Acute (5) Nausea & vomiting: Status: Acute (6) Acute hypokalemia: Status: Acute (7) Smoking greater than 30 pack years: Status: Acute (8) Heavy drinker: Status: Acute (9) Edema of right lower leg: Status: Acute
--- NOTE | 2023-11-08 08:07 | PC.NURSE ---
blood culture results show cutibacterium acnes, admitted to [facility], given zosyn and vanc, transferred to [facility], faxed results to [facility]. aware, no further action at this time
== END 2023-11-06 15:33 | disposition short-term general hospital (02) | DRG 871 ==
LOC: UTC 18:13 → ER 18:14 → 2ND 20:47
PROVIDERS: Internal Medicine; Nurse Practitioner Family; Admitting Provider Internal Medicine Adolescent Medicine; Emergency Provider Student in an Organized Health Care Education/Training Program; PCP Internal Medicine Adolescent Medicine; Visit Provider Internal Medicine Adolescent Medicine
DX: E43 Unspecified severe protein-calorie malnutrition (principal); A41.9 Sepsis, unspecified organism; K85.90 Acute pancreatitis without necrosis or infection, unspecified; E87.1 Hypo-osmolality and hyponatremia; E87.6 Hypokalemia; F17.210 Nicotine dependence, cigarettes, uncomplicated; R60.0 Localized edema; E86.0 Dehydration; I10 Essential (primary) hypertension; E83.39 Other disorders of phosphorus metabolism; Z68.23 Body mass index [BMI] 23.0-23.9, adult; J43.9 Emphysema, unspecified; D53.9 Nutritional anemia, unspecified; F10.20 Alcohol dependence, uncomplicated
CPT/HCPCS: 36415; 74018; 74174; 74177; 80048; 80053; 81001; 82803; 83605; 83690; 83735; 84100; 85025; 85610; 87040; 87086; 87507; 93971; 97110; 97116; 97161; 97165; 97530; 99291; J2405; J2543; J3475; Q9967

== ENCOUNTER 2023-12-31 14:15 | Outpatient (POV) | payer MEDICARE, SELFPAY ==
[2023-12-31 14:23] VITALS: BMI 17.6
--- NOTE | 2023-12-31 14:33 | EXP.PAIN.SOA ---
[facility] Pain Management SOAP Note Subjective:: Patient is a pleasant 73-year-old female who presents today for follow-up. We are currently treating the patient for degenerative disc disease of lumbar spine with lumbar radiculopathy symptoms, lumbar facet arthropathy, chronic low back pain. Today she rates her pain an 6 out of 10. Patient denies any new trauma or injury. She states that she is experiencing more pain in her low back with radiating symptoms down her entire left leg. She describes this as an aching, throbbing sensation with numbness and tingling into her lower extremity. Patient was hospitalized around [place] for approximately 1 month and did end up going to [facility] for rehab. Patient had several things going on including electrolyte imbalances with her potassium and sodium, protein deficiency causing swelling into her legs and recent C. difficile infection. Today she states that she is doing a little bit better from all of that and that she is continue to have home health. Patient does state that she feels like that her current pain in her low back and legs may be better if she had an injection. Patient previously had a left transforaminal epidural steroid injection back in August that did provide 70% improvement. She is prescribed pregabalin 50 mg twice a day from our office however she states that she has not been on this recently due to a lot of her medications were changed when she was inpatient. She does state that Dr. Awad just added a appetite stimulant however she has not yet started this. Patient does state that she is still taking potassium daily. She denies any side effects from this medication. She is also prescribed compounding cream which does help additionally. Her Dioni has been reviewed and is appropriate. Review of Systems: General: No recent weight changes, no fever, no sleep disturbances Respiratory: No cough, no shortness of air, no recurring pulmonary infections Cardiovascular/peripheral vascular: No chest pain, no palpitations, no edema, no shortness of breath Gastrointestinal: No new onset incontinence, normal bowel movements reported Genitourinary: No new onset incontinence Musculoskeletal: Bilateral feet pain/swelling, low back pain, left leg pain Psychiatric: [Normal mood/affect] Neurological: [Denies weakness in extremities], [denies balance issues] Objective:: Physical Exam: General: Alert and oriented x3, no acute distress, pleasant and cooperative Lungs: Respirations even and unlabored, symmetrical chest expansion Eyes: PERRL Musculoskeletal: Flexion and extension of lumbar [spine] somewhat guarded secondary to pain, [antalgic gait noted] positive left leg raise with decreased sensation to light touch and decreased reflexes Neurological: Speech clear, no gross sensory deficit l Assessment:: Degenerative disc disease of lumbar spine with lumbar radiculopathy symptoms, lumbar facet arthropathy, chronic low back pain, left leg pain Plan:: Patient is experiencing worsening pain in her low back with radiating symptoms down into her left leg. Patient did have a positive left leg raise with decreased sensation to light touch and decreased reflexes during today's visit. Patient did also have swelling in her ankle. I have discussed with patient that she may benefit from repeat left transforaminal epidural steroid injection. Risk and benefits were discussed with patient and she would like to proceed forward with this plan of care. Patient does state that she has recently had lab work done in Dr. Awad's office and that they did receive a phone call stating everything was normal with no acute findings. I will refill the patient's Lyrica 50 mg twice daily and provide a 3 month supply of this medication. Patient will be scheduled for a left transforaminal epidural steroid injection L4-L5, L5-S1 under fluoroscopy. We have requested a copy of the patient's lab work due to it not being in the overall system. We did get a copy of the patient's lab work with the following out of range: Creatinine 0.42L Total protein 5.9L Albumin 3.0L RBC count 3.36L Hemoglobin 11.5L MCV 105.7H MCH 34.2 H Patient has been instructed to contact the clinic with any concerns before the next appointment. Dr. Gaviria has reviewed this note and agrees with this plan of care. This note was dictated using voice recognition software and make contain errors or omissions. [facility] Disclaimer: The information contained in this section may have been updated after the patient was seen, as this information can be updated by other users. Medical History (Updated 11/10/23 @ 00:01 by Background Daemon) Abdominal pain, diffuse Acute dehydration Acute hypokalemia Acute pancreatitis Allergic rhinitis C. difficile colitis Colitis Compensated metabolic acidosis Degenerative disc disease, lumbar Edema of right lower leg Emphysema/COPD Encounter for screening for malignant neoplasm of lung Foot pain Heavy drinker Hyperlipidemia Hypertension Hypertension Hypokalemia Hyponatremia Hypophosphatemia Hypovolemia Lumbar facet arthropathy Metabolic acidosis Nausea & vomiting Osteoporosis Pneumonia Pulmonary emphysema Sepsis without acute organ dysfunction Severe protein-calorie malnutrition Smoking greater than 30 pack years Tobacco abuse Surgical History History of colonoscopy Hx of hand surgery Family History Brother Family history of cancer Daughter Family history of celiac disease Other Family history of [place] (myocardial infarction) Family history of heart disease Social History (Updated 10/30/23 @ 21:30 by Marla Scott RN) Smoking Status: Current every day smoker tobacco type: cigarettes packs per day: 1 years smoked: 35 alcohol intake: current substance use type: denies use current occupational status: retired Travel in the last 8 weeks: None household members: spouse housing: house lives independently: Yes marital status: caffeine: Yes special andrés needs: No agree to transfusion: No do you feel safe at home: Yes victim of physical abuse: No victim of emotional abuse: No victim of sexual abuse: No would you like helpful sources: No
== END 2023-12-31 23:59 | disposition home or self-care (01) ==
PROVIDERS: PCP Internal Medicine Adolescent Medicine; Visit Provider Nurse Practitioner Family
DX: M51.16 Intervertebral disc disorders with radiculopathy, lumbar region (principal); M47.26 Other spondylosis with radiculopathy, lumbar region; G89.29 Other chronic pain; M79.605 Pain in left leg
CPT/HCPCS: 99212; G0463

== ENCOUNTER 2024-01-26 13:09 | Day surgery (SDC) | payer MEDICARE, SELFPAY ==
[2024-01-26 13:27] VITALS: BP 102/69; PULSE 121; RESP 18; TEMP 36.3; O2SAT 98; BMI 17.6
--- NOTE | 2024-01-26 13:48 | P.PCN_ITS ---
Procedure Date: 01/26/24 Time: 13:40 Anesthesiologist:: Ruy Farias CRNA Complications:: None Pre-procedure Diagnosis:: Degenerative disc lumbar spine multilevel. Left leg radiculopathy. Post-procedure Diagnosis:: Same. Indications for Procedure:: Patient is a very pleasant 73-year-old female comes our clinic today for a left L4-5 and L5-S1 transforaminal epidural steroid injection. Patient's main complaint is left ankle pain. Patient does report some low back pain. However, her left ankle pain takes precedence. She describes the pain as constant, dull, aching on the lateral border of the left ankle. She rates her pain 8/10. Procedure Details:: Details of the procedure were explained to the patient. The patient was taken the procedure room placed in the prone position. The area of the lumbar spine was cleansed using chlorhexidine as a cleansing solution. At this time using fluoroscopy guidance markers were placed on the left lateral border of the L4 and L5 vertebral body. The skin and subcutaneous tissue was anesthetized using 1% lidocaine and 25-gauge needle. At this time using a 22-gauge 3-1/2 inch spinal needle the left upper one third of the L4-5 foramen was accessed. The same was done at the left L5-S1 foramen. Needle positions were confirmed and a lateral view using fluoroscopy and contrast dye. At this time 1 cc of 1% lidocaine +20 mg of Depo-Medrol was injected at each level after negative aspir ation. Hollis were removed. Band-Aid applied. Patient tolerated the procedure without difficulty. There are no complications. Plan and Disposition:: Patient was discharged without incident.
[2024-01-26 13:50] VITALS: BP 90/54; PULSE 108; RESP 18; O2SAT 98
[2024-01-26] MEDS: LIDOCAINE 1% 5ML PF VIAL 5 ML (13:58)
[2024-01-26 13:59] VITALS: BP 104/64; PULSE 110; RESP 20; O2SAT 97
[2024-01-26 14:00] VITALS: BP 104/64; PULSE 110; RESP 20; O2SAT 97
== END 2024-01-26 13:50 | disposition home or self-care (01) ==
PROVIDERS: PCP Internal Medicine Adolescent Medicine; Visit Provider Nurse Anesthetist, Certified Registered
DX: M51.16 Intervertebral disc disorders with radiculopathy, lumbar region (principal)
CPT/HCPCS: 64483; 64484; J1030

== ENCOUNTER 2024-02-15 11:13 | Outpatient (POV) | payer MEDICARE, SELFPAY ==
[2024-02-15 11:24] VITALS: BP 142/67; PULSE 115; RESP 18; TEMP 36.6; O2SAT 99; BMI 19.1
--- NOTE | 2024-02-15 11:33 | EXP.PAIN.SOA ---
[facility] Pain Management SOAP Note Subjective:: Patient is a pleasant 73-year-old female who presents today for follow-up of left transforaminal epidural steroid injection L4-L5 and L5-S1 on 01/26/2024. Today she rates her pain a 4 out of 10. Patient states that she has had at least 50 to 60% relief following this injection and feels like it still helping. Patient states that she has been able to increase her activity with decreased pain symptoms and feels overall more functional. Patient states that she was able to go down to her garden yesterday without her walker. 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 Patient does state that she has a couple more days on the oral steroid. Patient is managed with pregabalin 50 mg twice a day from our office and was given a 3-month supply at her last visit in December. Patient denies any side effects from this medication. Her Dioni has been reviewed and is appropriate. Review of Systems: General: No recent weight changes, no fever, no sleep disturbances Respiratory: No cough, no shortness of air, no recurring pulmonary infections Cardiovascular/peripheral vascular: No chest pain, no palpitations, no edema, no shortness of breath Gastrointestinal: No new onset incontinence, normal bowel movements reported Genitourinary: No new onset incontinence Musculoskeletal: Low back pain Psychiatric: [Normal mood/affect] Neurological: [Denies weakness in extremities], [denies balance issues] Objective:: Physical Exam: General: Alert and oriented x3, no acute distress, pleasant and cooperative Lungs: Respirations even and unlabored, symmetrical chest expansion Eyes: PERRL Musculoskeletal: Flexion and extension of lumbar [spine] somewhat guarded secondary to pain, [antalgic gait noted] Neurological: Speech clear, no gross sensory deficit Assessment:: Degenerative disc disease of lumbar spine with lumbar radiculopathy symptoms, left leg pain Plan:: Patient has had significant improvement following her injection and does not require any additional injection therapy at this time. Patient will return to clinic in 2 months for reevaluation of symptoms and plan of care. Patient has been instructed to contact the clinic with any concerns before the next appointment. Dr. Gaviria has reviewed this note and agrees with this plan of care. This note was dictated using voice recognition software and make contain errors or omissions. [facility] Disclaimer: The information contained in this section may have been updated after the patient was seen, as this information can be updated by other users. Medical History Hypophosphatemia Severe protein-calorie malnutrition Heavy drinker Edema of right lower leg Sepsis without acute organ dysfunction Compensated metabolic acidosis Hyponatremia Hypokalemia Acute pancreatitis Metabolic acidosis Nausea & vomiting Acute dehydration Abdominal pain, diffuse Hypovolemia Acute hypokalemia Colitis Lumbar facet arthropathy Degenerative disc disease, lumbar C. difficile colitis Foot pain Encounter for screening for malignant neoplasm of lung Allergic rhinitis Smoking greater than 30 pack years Pulmonary emphysema Pneumonia Hypertension Hyperlipidemia Hypertension Tobacco abuse Emphysema/COPD Osteoporosis Surgical History History of colonoscopy Hx of hand surgery Family History Brother Family history of cancer Daughter Family history of celiac disease Other Family history of [place] (myocardial infarction) Family history of heart disease Social History Smoking Status: Current every day smoker tobacco type: cigarettes packs per day: 1 years smoked: 35 alcohol intake: current substance use type: denies use current occupational status: other Travel in the last 8 weeks: None household members: spouse housing: house lives independently: Yes marital status: caffeine: Yes special andrés needs: No agree to transfusion: No do you feel safe at home: Yes victim of physical abuse: No victim of emotional abuse: No victim of sexual abuse: No would you like helpful sources: No
== END 2024-02-15 23:59 ==
LOC: SC.PAIN 11:14
PROVIDERS: PCP Internal Medicine Adolescent Medicine; Visit Provider Nurse Practitioner Family
DX: M51.16 Intervertebral disc disorders with radiculopathy, lumbar region (principal); M79.605 Pain in left leg
CPT/HCPCS: 99212; G0463

== ENCOUNTER 2024-04-14 10:54 | Outpatient (POV) | payer MEDICARE, SELFPAY ==
--- NOTE | 2024-04-14 11:28 | A.OFFVIS_ITS ---
[facility] Pain Management SOAP Note Subjective:: Patient is a pleasant 73-year-old female who presents today for 2-month follow- up. Today she rates her pain a 4 out of 10 however states by the end of the day her pain is much worse going towards a 6-7 out of 10. Patient denies any new trauma or injury. She does state that her pain continues to be throughout her low back and radiating down her entire left extremity. She does describe this as an aching, throbbing sensation with numbness and tingling to her left ankle. Patient states the pain does interfere with her ability to perform activities of daily living such as cooking and cleaning. Patient did previously have left transforaminal epidurals in the past that did provide upwards of 60% relief lasting at least 2-1/2 months. Patient is interested in proceeding forward with another injection. Patient states when she had these injections she does feel more functional and able to do more. Patient is still prescribed pain medication from her primary care provider and pregabalin 50 mg twice a day from our office along with compounded cream. She denies any side effects from this medication. Patient is requesting refills from her medicine from our office. Her Dioni has been reviewed and is appropriate. Review of Systems: General: No recent weight changes, no fever, no sleep disturbances Respiratory: No cough, no shortness of air, no recurring pulmonary infections Cardiovascular/peripheral vascular: No chest pain, no palpitations, no edema, no shortness of breath Gastrointestinal: No new onset incontinence, normal bowel movements reported Genitourinary: No new onset incontinence Musculoskeletal: Low back pain, left leg pain Psychiatric: [Normal mood/affect] Neurological: [Denies weakness in extremities], [denies balance issues] Objective:: Physical Exam: General: Alert and oriented x3, no acute distress, pleasant and cooperative Lungs: Respirations even and unlabored, symmetrical chest expansion Eyes: PERRL Musculoskeletal: Flexion and extension of lumbar [spine] somewhat guarded secondary to pain, [antalgic gait noted] positive left leg raise with decreased sensation to light touch and decreased reflexes Neurological: Speech clear, no gross sensory deficit Assessment:: Degenerative disc disease of lumbar spine with lumbar radiculopathy symptoms, left leg pain Plan:: Will refill the patient's pregabalin and compounded cream and provide a 3-month supply of these medications. Patient is experiencing worsening pain in her low back and left leg with limited range of motion and numbness and tingling. Patient did have positive leg raise and decreased sensation light touch and decreased reflexes. I have discussed with patient that she may benefit from repeat left transforaminal epidural steroid injection. Risk and benefits were discussed with patient patient would like to proceed forward with this plan of care. She is not on any blood thinners. We will schedule the patient for a left transforaminal epidural steroid injection L4-L5 and L5-S1 under fluoroscopy. Patient previously got 60% relief lasting 2-1/2 months with her last epidural injection. Patient has been instructed to contact the clinic with any concerns before the next appointment. Dr. Gaviria has reviewed this note and agrees with this plan of care. This note was dictated using voice recognition software and make contain errors or omissions. [facility] Disclaimer: The information contained in this section may have been updated after the patient was seen, as this information can be updated by other users. Medical History Hypophosphatemia Severe protein-calorie malnutrition Heavy drinker Edema of right lower leg Sepsis without acute organ dysfunction Compensated metabolic acidosis Hyponatremia Hypokalemia Acute pancreatitis Metabolic acidosis Nausea & vomiting Acute dehydration Abdominal pain, diffuse Hypovolemia Acute hypokalemia Colitis Lumbar facet arthropathy Degenerative disc disease, lumbar C. difficile colitis Foot pain Encounter for screening for malignant neoplasm of lung Allergic rhinitis Smoking greater than 30 pack years Pulmonary emphysema Pneumonia Hypertension Hyperlipidemia Hypertension Tobacco abuse Emphysema/COPD Osteoporosis Surgical History History of colonoscopy Hx of hand surgery Family History Brother Family history of cancer Daughter Family history of celiac disease Other Family history of MO (myocardial infarction) Family history of heart disease Social History Smoking Status: Current every day smoker tobacco type: cigarettes packs per day: 1 years smoked: 35 alcohol intake: current substance use type: denies use current occupational status: other Travel in the last 8 weeks: None household members: spouse housing: house lives independently: Yes marital status: caffeine: Yes special andrés needs: No agree to transfusion: No do you feel safe at home: Yes victim of physical abuse: No victim of emotional abuse: No victim of sexual abuse: No would you like helpful sources: No
[2024-04-14 11:34] VITALS: BP 139/83; PULSE 95; RESP 16; O2SAT 99
== END 2024-04-14 23:59 | disposition home or self-care (01) ==
PROVIDERS: PCP Internal Medicine Adolescent Medicine; Visit Provider Nurse Practitioner Family
DX: M51.16 Intervertebral disc disorders with radiculopathy, lumbar region (principal); M79.605 Pain in left leg
CPT/HCPCS: 99212; G0463

== ENCOUNTER 2024-04-29 11:00 | Outpatient (RCR) | payer MEDICARE, SELFPAY ==
--- NOTE | 2024-02-17 06:56 | HMH.PTOPEV ---
PT Outpatient Evaluation Rehab PT Outpatient Evaluation Start: 02/16/24 11:13 Freq: Status: Active Protocol: Document 02/16/24 11:13 HERNANDO (Rec: 02/16/24 13:37 HERNANDO [email or web address]) E-signed By Anabella Salamanca, PT Outpatient Therapy Subjective History Subjective History This is an initial evaluation for Yamilet Krueger who presents with referral for Gait training and core strengthening (Ataxia diagnosis). Pt reports she has a pinched nerve in her left leg/back that causes a shooting pain from LB down to her L ankle. Pt reports pain started this past July. Denies falls in past month but does have some hx of falling. Was using a RW and w/c after hospitalization but has improved and has not used the walker in a week. Has had PT for back pain (exercises and traction) in the past and found good relief. Pt was going to gym ~5 days a week before she had Covid (>1 yr ago). Pt reports generalized low energy levels and fatigue. Pt reports her HR increases with minimal activity. Stairs provide some difficulty d/t pain, weakness, and balance deficits. Had LB injection one month ago. Pt believes her balance impairments are related to the pain in her LLE . Pt's goal for PT is Be able to stand on my feet long enough to do some gardening. Improve my balance. Learn how to get up from a fall PMH: Autoimmune disorder, pancreatitis, collapsed lung, COVID, C-diff, high cholesterol. New diagnosis of cancer in past 12 No months? Chief Complaint Pain,Swelling Symptom Type Ache,Sharp,Shooting Symptoms Relieved By Heat,OTC Meds,Prescription Meds Symptoms Aggravated By Physical Activity Current Functional Limitations Lifting,Housework,Sleeping, Standing,Squatting,Recreation Activity,Walking,Stairs, Balance Symptom Description Constant but Variable Level of pain today (0-10) 3 Pain scale - at its best (0-10) 3 Pain scale - at its worst (0-10) 9 Lumbopelvic Eval Gait Observation General Gait Pattern Observation Antalgic Gait Range of Motion Lumbar Spine ROM Reason Not Measured Within Functional Limits Manual Muscle Test Right Knee Extension Strength Grade 4 Good Knee Flexion Strength Grade 4 Good Hip Flexion Strength Grade 4- Good- Hip Abduction Strength Grade 4 Good Hip Adduction Strength Grade 4 Good Hip External Rotation Strength Grade 4 Good Hip Internal Rotation Strength Grade 4 Good Hip Extension Strength Grade 4 Good Left Knee Extension Strength Grade 4- Good- Knee Flexion Strength Grade 4- Good- Hip Flexion Strength Grade 3+ Fair+ Hip Abduction Strength Grade 4- Good- Hip Adduction Strength Grade 4- Good- Hip External Rotation Strength Grade 4- Good- Hip Internal Rotation Strength Grade 4- Good- Hip Extension Strength Grade 4- Good- Balance Eval Current Functional Limitations Comment Stairs, gardening, housework, walking, standing Timed Up and Go Test 1. Is the Timed Up and Go test result > yes or = to 12 seconds? [place] Feet Together/Eyes open/Stable Surface pass Feet Together/Eyes Closed/Stable Surface pass Feet Together/Eyes open/Unstable Surface fail Feet Together/Eyes Closed/Unstable fail Surface Dynamic Gait Index Test Protocol Gait Level Surface Moderate Impairement Query Text: Instructions: Walk at your normal speed from here to the next sharona (20'). Grading: Sharona the lowest category that applies. Change in Gait Speed Moderate Impairment Query Text: Instructions: Begin walking at your normal pace (for 5'), when I tell you go , walk as fast as you can (for 5'). When I tell you slow , walk as slowly as you can (for 5'). Grading: Sharona the lowest category that applies. Gait with Horizontal Head Turns Moderate Impairment Query Text: Instructions: Begin walking at your normal pace. When I tell you to look right , keep walking straight, but turn you head to the right. Keep looking to the right unit I tell you look left , then keep walking straight and turn your head to the left. Keep your head to the left until I tell you look straight , then keep walking straight, but return you head to the center. Grading: Sharona the lowest category that applies. Gait with Vertical Head Turns Moderate Impairment Query Text: Instructions: Begin walking at your normal pace. When I tell you to look up , keep walking staight, but tip your head up. Keep looking up until I tell you to look down , then keep walking straight and tip your head down. Keep your head down until I tell you look straight , then keep walking straight, but return your head to the center. Grading: Sharona the lowest category that applies. Gait and Pivot Turn Moderate Impairment Query Text: Instructions: Begin walking at your normal pace. When I tell you turn and stop , turn as quickly as you can to face the opposite direction and stop. Grading: Sharona the lowest category that applies. Step Over Obstacle Mild Impairment Query Text: Instructions: Begin walking at your normal speed. When you come to the shoebox, step over it, not around it and keep walking. Grading: Sharona the lowest category that applies. Step Around Obstacles Mild Impairment Query Text: Instructions: Begin walking at normal speed. When you come to the first cone (about 6' away), walk around the right side of it. When you come to the second cone (6' past first cone), walk around it to the left. Grading: Sharona the lowest category that applies. Steps Mild Impairment Query Text: Instructions: Walk up these stairs as you would at home. At the top, turn around and walk down. Grading: Sharona the lowest category that applies. Scoring Dynamic Gait Index Score 11 Outpatient Therapy Assessment Impairments Problems/Impairmments Impaired Strength,Impaired Transfers,Impaired Gait Pattern,Impaired Walking, Impaired Standing,Impaired Lifting,Impaired Household Care,Impaired Stair Climbing, Impaired Stepping on Uneven Surface,Impaired Recreational Activities,Impaired Work Activities,Impaired Balance, Impaired DGI Score,Subjective C/O Pain Prognosis Rehab Potential Good Clinical Impression Consistent with Diagnosis Yes Short Term Goals Number of Weeks 3 Increase Strength Yes: LLE 4/5 MMTs Improve Ability to Step on Uneven Yes: Negotiate 10' of uneven Surfaces surfaces with Min A at most and no AD Increase DGI Score Yes: Increase score to to improve safety with ambulation Decrease Subjective C/O Pain Yes: At worst 7/10 pain Patient to be Ind w/ HEP Yes Long-Term Goals Number of Weeks 6 Increase Strength Yes: 5/5 BLE Improve Gait Pattern without Assistive Yes: Minimal to no antalgic Device gait. Return to Recreational Activities Yes: Report minimal-no difficulty with gardening tasks. Improve Balance Yes: Progress through higher level balance challenges with at most Min A Increase DGI Score Yes: to decrease fall risk and improve safety with gait Decrease Subjective C/O Pain Yes: 4/10 at worst to improve QOL Patient to be Ind w/ Advanced HEP Yes Outpatient Therapy Plan of Care Treatment Plan May Include Therapeutic Exercise Including Home Yes Exercise Program Manual Therapy Techniques Yes Neuromuscular Re-education Yes Therapeutic Activities to Return to Yes Previous Functional/Work Level Gait Training Yes ADL/Self Care Education Yes Mechanical Traction Yes Dry Needling Yes Thermal Modalities Yes Electrical Stimulation Yes Ultrasound/Phonophoresis Yes Iontophoresis Yes Orthotics/Bracing/Splinting Yes Massage Yes Eval/Re-Eval Yes Aquatic Therapy Yes Frequency Times per week 1-2 times Duration Number of Weeks 5-6 Addendums This patient is a candidate for social No or vocational rehab? Patient/Guardian verbally acknowledges Yes understanding of treatment program and consents to further treatment? Patient/Guardian verbally acknowledges Yes understanding of diagnosis, prognosis and goals for treatment? Eval Complexity PT Charges 55862 - Moderate Complexity Shoulder/Elbow Eval Shoulder Objective Measurements Elbow Objective Measurements PHYSICIAN CERTIFICATION: I certify the specified therapy services for Yamilet Krueger are required, authorized, and reviewed every 30 days.
--- NOTE | 2024-03-21 12:05 | HMH.RHREAS ---
Rehab Reassessment Rehab OP Re-assessment Start: 02/16/24 11:13 Freq: Status: Active Protocol: Document 03/21/24 11:58 HERNANDO (Rec: 03/21/24 12:05 HERNANDO [email or web address]) E-signed By Anabella Salamanca PT Dynamic Gait Index Test Protocol Gait Level Surface Mild Impairment Query Text: Instructions: Walk at your normal speed from here to the next sharona (20'). Grading: Sharona the lowest category that applies. Change in Gait Speed Mild Impairment Query Text: Instructions: Begin walking at your normal pace (for 5'), when I tell you go , walk as fast as you can (for 5'). When I tell you slow , walk as slowly as you can (for 5'). Grading: Sharona the lowest category that applies. Gait with Horizontal Head Turns Moderate Impairment Query Text: Instructions: Begin walking at your normal pace. When I tell you to look right , keep walking straight, but turn you head to the right. Keep looking to the right unit I tell you look left , then keep walking straight and turn your head to the left. Keep your head to the left until I tell you look straight , then keep walking straight, but return you head to the center. Grading: Sharona the lowest category that applies. Gait with Vertical Head Turns Mild Impairment Query Text: Instructions: Begin walking at your normal pace. When I tell you to look up , keep walking staight, but tip your head up. Keep looking up until I tell you to look down , then keep walking straight and tip your head down. Keep your head down until I tell you look straight , then keep walking straight, but return your head to the center. Grading: Sharona the lowest category that applies. Gait and Pivot Turn Mild Impairment Query Text: Instructions: Begin walking at your normal pace. When I tell you turn and stop , turn as quickly as you can to face the opposite direction and stop. Grading: Sharona the lowest category that applies. Step Over Obstacle Mild Impairment Query Text: Instructions: Begin walking at your normal speed. When you come to the shoebox, step over it, not around it and keep walking. Grading: Sharona the lowest category that applies. Step Around Obstacles Mild Impairment Query Text: Instructions: Begin walking at normal speed. When you come to the first cone (about 6' away), walk around the right side of it. When you come to the second cone (6' past first cone), walk around it to the left. Grading: Sharona the lowest category that applies. Steps Mild Impairment Query Text: Instructions: Walk up these stairs as you would at home. At the top, turn around and walk down. Grading: Sharona the lowest category that applies. Scoring Dynamic Gait Index Score 15 Rehab Re-assessment Subjective Subjective Pt reports she is 40% improved since IE. Pain at worst: 8/10 Pain today: 12/12 HEP: reports some adherence Objective Objective Notes DGI: Strength: - L Hip flexion: 4/5 - L hip ABD: 4+/5 - L hip ADD: 4/5 - L knee flexion: 4/5 - L knee extension: 4/5 Gait: minimal-no antalgic gait . Min A on uneven surfaces without AD Assessment Progress Assessment Slower Than Expected Assessment Notes This is a reassessment for Yamilet Krueger who presents to PT for c/o balance deficits, LBP, and shooting LE pain. Since IE , pt has been seen for 5 visits that have consisted of education and therapeutic exercises focusing on balance, strength, and mobility. Pt with good attendance to scheduled PT visits and reports some adherence to HEP. Since IE, pt with improvements in gait pattern and subjective pain reports. Pt still presents impaired balance, safety, strength, and subjective pain reports. Pt would continue to benefit from skilled outpatient physical therapy to address remaining deficits. Patient goals met ST/5 (At worst pain not met) LTG: In progress Plan Plan Continue POC 2x weekly for 2-3 more weeks Frequency of Therapy 2 Duration of therapy 3 weeks Time and Billing Re-Eval Time 10 Re-Eval Billing Units 1 PHYSICIAN CERTIFICATION: I certify the specified therapy services for Yamilet Krueger are required, authorized, and reviewed every 30 days.
--- NOTE | 2024-04-20 13:51 | HMH.RHREAS ---
Rehab Reassessment Rehab OP Re-assessment Start: 02/16/24 11:13 Freq: Status: Active Protocol: Document 04/20/24 10:51 HERNANDO (Rec: 04/20/24 12:10 HERNANDO [email or web address]) E-signed By Anabella Salamanca PT Dynamic Gait Index Test Protocol Gait Level Surface Mild Impairment Query Text: Instructions: Walk at your normal speed from here to the next sharona (20'). Grading: Sharona the lowest category that applies. Change in Gait Speed Mild Impairment Query Text: Instructions: Begin walking at your normal pace (for 5'), when I tell you go , walk as fast as you can (for 5'). When I tell you slow , walk as slowly as you can (for 5'). Grading: Sharona the lowest category that applies. Gait with Horizontal Head Turns Mild Impairment Query Text: Instructions: Begin walking at your normal pace. When I tell you to look right , keep walking straight, but turn you head to the right. Keep looking to the right unit I tell you look left , then keep walking straight and turn your head to the left. Keep your head to the left until I tell you look straight , then keep walking straight, but return you head to the center. Grading: Sharona the lowest category that applies. Gait with Vertical Head Turns Mild Impairment Query Text: Instructions: Begin walking at your normal pace. When I tell you to look up , keep walking staight, but tip your head up. Keep looking up until I tell you to look down , then keep walking straight and tip your head down. Keep your head down until I tell you look straight , then keep walking straight, but return your head to the center. Grading: Sharona the lowest category that applies. Gait and Pivot Turn Mild Impairment Query Text: Instructions: Begin walking at your normal pace. When I tell you turn and stop , turn as quickly as you can to face the opposite direction and stop. Grading: Sharona the lowest category that applies. Step Over Obstacle Mild Impairment Query Text: Instructions: Begin walking at your normal speed. When you come to the shoebox, step over it, not around it and keep walking. Grading: Sharona the lowest category that applies. Step Around Obstacles Mild Impairment Query Text: Instructions: Begin walking at normal speed. When you come to the first cone (about 6' away), walk around the right side of it. When you come to the second cone (6' past first cone), walk around it to the left. Grading: Sharona the lowest category that applies. Steps Mild Impairment Query Text: Instructions: Walk up these stairs as you would at home. At the top, turn around and walk down. Grading: Sharona the lowest category that applies. Scoring Dynamic Gait Index Score 16 Rehab Re-assessment Subjective Subjective Pt reports she is 70% improved since IE. Pain at worst: 7/10 Pain today: 12/12 HEP: reports some adherence Objective Objective Notes DGI: Strength: - L Hip flexion: 4+/5 - L hip ABD: 4+/5 - L hip ADD: 4/5 - L knee flexion: 4/5 - L knee extension: 5/5 Gait: minimal-no antalgic gait . Min A on uneven surfaces without AD Assessment Progress Assessment Slower Than Expected Assessment Notes This is a reassessment for Yamilet Krueger who presents to PT for c/o balance deficits, LBP, ataxia, and shooting LE pain. Since IE, pt has been seen for 9 visits that have consisted of education and therapeutic exercises focusing on balance, strength, and mobility. Pt with good attendance to scheduled PT visits and reports some adherence to HEP. Since last reassessment, pt with improvements in gait pattern and subjective pain reports. Pt still presents with impaired balance, safety, strength, and subjective LB pain reports. Pt would continue to benefit from skilled outpatient physical therapy to address remaining deficits. Patient goals met ST/5 (At worst pain not met) LTG: In progress Plan Plan Continue POC for 2 weeks (4 visits) to achieve LTGs and improve gait and core strength . Frequency of Therapy 2x Duration of therapy 2 weeks Time and Billing Re-Eval Time 10 Re-Eval Billing Units 1 PHYSICIAN CERTIFICATION: I certify the specified therapy services for Yamilet Krueger are required, authorized, and reviewed every 30 days.
== END 2024-04-29 12:20 | disposition home or self-care (01) ==
LOC: PT 11:00
PROVIDERS: Visit Provider Internal Medicine Adolescent Medicine
DX: M79.605 Pain in left leg (principal)
CPT/HCPCS: 97110; 97112; 97140; 97163; 97164; 97530

== ENCOUNTER 2024-06-14 11:04 | Outpatient (POV) | payer MEDICARE, SELFPAY | END 2024-06-14 23:59 | disposition home or self-care (01) | LOC: SC 11:04 | PROVIDERS: PCP Internal Medicine Adolescent Medicine; Visit Provider Dermatology | DX: Z00.00 Encounter for general adult medical examination without abnormal findings (principal) ==

== ENCOUNTER 2024-06-29 14:50 | Outpatient (CLI) | payer MEDICARE, SELFPAY ==
--- NOTE | 2024-06-29 14:53 | CT_ITS ---
FINAL REPORT TECHNIQUE: Axial CT images of the chest were obtained without contrast. Low-dose protocol was utilized. This study was performed with techniques to keep radiation doses as low as reasonably achievable (ALARA). Individualized dose reduction techniques using automated exposure control or adjustment of mA and/or kV according to the patient's size were employed. CLINICAL HISTORY: HX OF TOBACCO SCREENING 2 ppd x 50 years COMPARISON: CT chest 01/11/2023 FINDINGS: CT CHEST WITHOUT, LOW DOSE SCREENING CT Di Vol: 2.90 mGy DLP: 96.38 mGy*cm There is no axillary, mediastinal, or hilar adenopathy. The heart size is normal. There is no pleural or pericardial effusion. The lung windows show no suspicious mass or nodule. The previously noted bibasilar consolidations and effusions have essentially resolved. There is minimal airspace opacity in the right lung base. Limited images of the upper abdomen demonstrate no acute findings. IMPRESSION: Resolution of bibasilar consolidations and effusions. Mild airspace opacity at the right lung base may be due to acute pneumonia or aspiration. LR Category 0: Recommend follow-up CT scan in 1-3 months per Fleischner criteria. Reviewed, Interpreted and Dictated by Cyrli De Luna MD Transcribed by Ernestine Rooney Authenticated and [facility]
--- NOTE | 2024-06-29 15:08 | MM_ITS ---
PROCEDURE INFORMATION: Exam: MG Bilateral Screening 3D Mammography Exam date and time: 06/29/2024 2:52 PM Age: 73 years old Clinical indication: Screening examination TECHNIQUE: Imaging protocol: Bilateral Screening tomosynthesis and 2D mammography including computer-aided detection (CAD) when performed. COMPARISON: 1. MG MM DIG SCREENING MAMM BI W/CAD 04/19/2020 10:20 AM 2. MG SCBI MM Dig screening mamm BI w/CAD 08/04/2018 4:34 PM FINDINGS: MAMMOGRAPHY: Breast composition: There are scattered areas of fibroglandular density. Mass: No suspicious masses. Architectural distortion: None. Calcifications: No suspicious calcifications. Asymmetric density: None. Skin thickening: None. Axillary adenopathy: None. IMPRESSION: No mammographic evidence of malignancy. Annual screening is recommended unless otherwise clinically indicated. ASSESSMENT: BI-RADS Category 1: Negative
--- NOTE | 2024-06-29 15:08 | XR_ITS ---
FINAL REPORT TECHNIQUE: Bone densitometry calculations of the lumbar spine and left hip were obtained. CLINICAL HISTORY: SCREENING COMPARISON: None FINDINGS: Using L1-4, the bone mineral density of the spine is 1.113 g/cm2, corresponding to T-score of 0.6. Using the left hip, the bone mineral density of the femoral neck is 0.5-0 g/cm2, corresponding to a T-score of -3.0. NOTE: T-score: Standard deviation compared with peak bone mass of young adult mean. *Following the recommendations of the International Society of Bone densitometry, classification of hip BMD is based on the lower of two T-scores; total hip or femoral neck. IMPRESSION: Diminished bone mineral density of the left hip consistent with osteoporosis. Normal bone mineral density of the spine, although this is very likely to be falsely elevated secondary to marked bony sclerosis in the lumbar spine. Reviewed, Interpreted and Dictated by Cyril De Luna MD Transcribed by Jennifer Banks Authenticated and [facility]
== END 2024-06-29 23:59 | disposition home or self-care (01) ==
LOC: RAD 14:51
PROVIDERS: PCP Internal Medicine Adolescent Medicine; Visit Provider Internal Medicine Adolescent Medicine
DX: Z87.891 Personal history of nicotine dependence (principal); Z12.31 Encounter for screening mammogram for malignant neoplasm of breast; Z78.0 Asymptomatic menopausal state
CPT/HCPCS: 71271; 77063; 77067; 77080

== ENCOUNTER 2025-04-26 09:02 | Outpatient (POV) | payer MEDICARE, SELFPAY ==
--- OUTSIDE RECORDS SUMMARY | 2025-04-10 06:30 | XMS_ITS ---
Author Organization [facility] Address [address] [facility] [address] [facility] [address] [place] [address] Care Team Providers Care Animal Husbandry Worker Name Role Phone Alfred Awad Primary Care Provider Michelle Perea Unavailable [phone] REASON FOR VISIT b12 Encounters Encounter Location Date Provider Diagnosis [facility] [address] [place] [address] [facility] [address] [place], [place] [address] 04/10/2025 Alfred Awad Vitamin B12 deficiency E53.8 Assessments Encounter Date Diagnosis (ICD Code) Assessment Notes Treatment Notes Treatment Clinical Notes Section Notes 04/10/2025 Vitamin B12 deficiency (ICD-10 - E53.8) Plan Of Treatment Next Appt Details Provider Name:Alfred Awad, 05/22/2025 04:45:00 PM, [address], [address], [place], [address], Medications Administered Medication Instructions Date of Administration Dosage Notes Cyanocobalamin/B-12 Pt's Own Medication 04/10/2025 1 mL Progress Notes * Yamilet MCGILLDOB:1950 ([age] yo F)Acc No.[id number]:04/10/2025 Patient: Kings Yamilet FLORES Provider: Mayi Awad MD :1950 A ge:74 Y S ex:Female Date:04/10/2025 Address:[address] [place] [address] [place], [id number] Subjective: * Chief Complaints: * 1 . B12. * Medical History: Objective: * Vitals: Assessment: * Assessment: 1. V itamin B12 deficiency - E53.8 (Primary) Plan: * Treatment: * Therapeutic Injections: Cyanocobalamin/B-12 Pt's Own Medication : 1 mL (Route: Intramuscular) given by YOLIS Zuniga on right deltoid * Procedure Codes: J 3420 B-12 INJECTION-Patient's Own Medication, 01705 THERAPEUTIC ADMINISTRATION * * Sign off status: Completed true * Provider: Mayi Awad MD Date: 0 04/10/2025 Generated for Marlys garcia/Patrice/Lorenitting on: 04/26/2025 09:06 AM EDT
--- OUTSIDE RECORDS SUMMARY | 2025-04-17 10:15 | XMS_ITS ---
Author Organization [facility] Address [address] [facility] [address] [facility] [address] [place] [address] Care Team Providers Care Manufacturing Director Name Role Phone Alfred Awad Primary Care Provider [phone] Michelle Perea Unavailable [phone] REASON FOR VISIT B12 injection Encounters Encounter Location Date Provider Diagnosis [facility] [address] [facility] [address] [place], [place] [address] 04/17/2025 Alfred Awad Vitamin B12 deficiency E53.8 Assessments Encounter Date Diagnosis (ICD Code) Assessment Notes Treatment Notes Treatment Clinical Notes Section Notes 04/17/2025 Vitamin B12 deficiency (ICD-10 - E53.8) Plan Of Treatment Next Appt Details Provider Name:Alfred Awad, 05/22/2025 04:45:00 PM, [address], [address], [place], [address], Medications Administered Medication Instructions Date of Administration Dosage Notes Cyanocobalamin/B-12 Pt's Own Medication 04/17/2025 1 mL Progress Notes * Yamilet MCGILLDOB:1950 ([age] yo F)Acc No.[id number]:04/17/2025 Patient: Kings Yamilet FLORES Provider: Mayi Awad MD :1950 A ge:74 Y S ex:Female Date:04/17/2025 Address:[address] [place] [address] [place], [id number] Subjective: * Chief Complaints: * 1 . B12 injection. * Medical History: Objective: * Vitals: Assessment: * Assessment: 1. V itamin B12 deficiency - E53.8 (Primary) Plan: * Treatment: * Therapeutic Injections: Cyanocobalamin/B-12 Pt's Own Medication : 1 mL (Route: Intramuscular) given by EDITH Hull on left deltoid * Procedure Codes: J 3420 B-12 INJECTION-Patient's Own Medication, 898[address] THERAPEUTIC ADMINISTRATION * * Sign off status: Completed true * Provider: Mayi Awad MD Date: 0 04/17/2025 Generated for Marlys garcia/Patrice/Lorenitting on: 0 04/26/2025 09:05 AM EDT
--- OUTSIDE RECORDS SUMMARY | 2025-04-24 10:15 | XMS_ITS ---
Author Organization [facility] Address [address] [facility] [address] [place], [place] [address] Care Team Providers Care First Aid Director Name Role Phone Alfred Awad Primary Care Provider [phone] Michelle Perea Unavailable [phone] REASON FOR VISIT 3 month check up Encounters Encounter Location Date Provider Diagnosis [facility] [address] [place], [place] [address] 04/24/2025 Alfred Awad Plan Of Treatment Next Appt Details Provider Name:Alfred Awad, 05/22/2025 04:45:00 PM, [address], [address], [place], [place], [address], Progress Notes * Yamilet MCGILLDOB:1950 ([age] yo F)Acc No.[id number]:04/24/2025 Progress Notes Patient: Kings SEVERINOYamilet LOPEZ Provider: Mayi Awad MD :1950 A ge:74 Y S ex:Female Date:04/24/2025 Address:[id number] Subjective: * Chief Complaints: * 1 . 3 month check up. * Medical History: Objective: * Vitals: Assessment: Plan: * Treatment: * * Electronic signature of Donnie Awad MD FAAP on 04/26/2025 at 09:06 AM EDT Sign off status: Pending * Provider: Mayi Awad MD Date: 0 04/24/2025 Generated for Marlys garcia/Patrice/Rajendra on: 0 04/26/2025 09:06 AM EDT
--- OUTSIDE RECORDS SUMMARY | 2025-04-26 09:06 | XMS_ITS | Clinical Summary ---
Author Organization [employer] Address [address] [place] [address] Care Team Providers Care Civil Engineering Project Designer Name Role Phone Alfred Awad MD Primary Care Provider + [phone] Allergies No known active allergies Medications albuterol HFA (VENTOLIN HFA) 90 mcg/actuation inhaler Inhale 2 puffs by mouth via inhaler every 6 (six) hours as needed for Shortness of Breath. 3 Active atorvastatin (LIPITOR) 40 MG tablet Take 1 tablet (40 mg total) by mouth daily. 3 Active furosemide (LASIX) 20 MG tablet Take 1 tablet (20 mg total) by mouth daily. 3 Active ibuprofen (ADVIL,MOTRIN) 800 MG tablet Take 1 tablet (800 mg total) by mouth 3 (three) times daily as needed for Pain. 3 Active meloxicam (MOBIC) 15 MG tablet Take 1 tablet (15 mg total) by mouth daily. 3 Active montelukast (SINGULAIR) 10 mg tablet Take 1 tablet (10 mg total) by mouth daily. 3 Active potassium chloride SA (K-DUR,KLOR-CON -M) 20 MEQ tablet Take 1 tablet (20 mEq total) by mouth daily. 3 Active pregabalin (LYRICA) 50 MG capsule Take 1 capsule (50 mg total) by mouth 2 (two) times daily. Max Daily Amount: 100 mg 3 Active traZODone (DESYREL) 50 MG tablet Take 1 tablet (50 mg total) by mouth nightly. 3 Active Active Problems Problem Noted Date Diagnosed Date Acute recurrent pancreatitis 11/06/2023 Social History Tobacco Use Types Packs/Day Years Used Date Smoking Tobacco: Every Day Cigarettes Tobacco Cessation:Ready to Q uit: Not Asked; Counseling Given: Not Answered Alcohol Use Standard Drinks/Week Comments Yes 14 (1 standard drink = 0.6 oz pu re alcohol) 2 cocktails a night Interpersonal Safety Answer Date Record ed Family or friends hurt you Not on file 11/10 Family or friends insult you Not on file 07/2024 Family or friends threaten you Not on file 0 11/10/2023 Family or friends scream or curse at you Not on file 11/10/2023 Housing Stability Answer Date Recorded Living situation today Not on file Living situation problems Not on file 2023 Food Insecurity Answer Date Recorded Food run out past 12 months Not on file 07/2024 Food did not last past 12 months Not on file 11/10/2023 Employment Answer Date Recorded Help finding and keeping a job Not on file 0 11/10/2023 Family and Community Support Answer Jackson e Recorded Help with Day to Day Activities Not on file 11/10/2023 Feeling Lonely or Isolated Not on file 11/10 Educational Attainment Answer Date Kevin rded Speak language other than Latvian at home Not on file 11/10/2023 Want help with school or training Not on file 11/10/2023 Depression Answer Date Recorded PHQ-2 Risk Not on file 11/10/2023 Disabilities Answer Date Recorded Difficulty concentrating Not on file 024 Difficulty doing errands alone Not on file 0 11/10/2023 Substance Use Answer Date Recorded Used prescription meds for non-medical reasons N ot on file 11/10/2023 Used illegal drugs past 12 months Not on file 11/10/2023 Comments Unknown Sex and Gender Information Value Date Recorded Sex Assigned at Not on file Legal Sex Female 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 Gender Identity Not on file Sexual Orientation Not on file Last Filed Vital Signs Vital Sign Reading Time Taken Comments Blood Pressure 144/79 11/16/2023 10:05 AM EST Pulse 80 11/16/2023 10:05 AM EST Temperature 36.4 C (97.5 F) 11/16/2023 10:00 AM EST Respiratory Rate 16 11/16/2023 9:00 AM EST Oxygen Saturation 99% 11/16/2023 9:00 AM EST Inhaled Oxygen Concentration - - Weight 52.6 kg (116 lb) 11/07/2023 3:47 AM EST Height 160 cm (5' 3 ) 11/07/2023 3:47 AM EST Body Mass Index 20.55 11/07/2023 3:47 AM EST Plan of Treatment Health Maintenance Due Date Last Done Comments CT Colonography 1951 Colonoscopy 1951 Colorectal Cancer Screening 1951 DXA SCAN 1951 FOBT/FIT 1951 Fit-DNA (Cologuard) 1951 Sigmoidoscopy 1951 Depression Screening (12+) 1963 Hepatitis C Screening 1969 DTAP/TDAP/TD VACCINES (1 - Tdap) 1970 Breast Cancer Screening 1991 Shingles Vaccine (Zoster) (1 of 2) 2001 Pneumococcal 50+ years (3 of 3 - PCV20 or PCV21) 03/22/2023 03/22/2018, 10/15/2016, 08/02/2015 Medicare Initial AWV [id number] 11/03/2023 COVID-19 VACCINE (6 - 2023-2 5 season) 2024 07/17/2022, 04/16/2022, 08/01/2021, Additional history exists Falls Risk Screening 11/02/2024 Tobacco Cessation Counseling and Screening (12+) 11/06/2024 11/06/2023 Influenza Vaccine (Season Ended) 2025 08/01/2023, 08/22/2022, 09/04/2021, Additional history exists Respiratory Syncytial Virus (RSV) Adult or (1 - 1-dose 75+ series) 2026 Insurance [facility] MEDIC[facility] HMO Advance Directives For more information, please contact: [phone] * Full Code (Latest Code Status on File) Date Activated Date Inactivated Comments 11/06/2023 3:49 PM 11/16/2023 2:30 PM Care Teams Civil Engineering Project Designer Relationship Specialty Start Date End Date Alfred Awad MD [address] [place] [id number] PCP - General Adolescent Medicine 11/06/23
--- OUTSIDE RECORDS SUMMARY | 2025-04-26 09:07 | XMS_ITS | Referral Summary ---
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
--- OUTSIDE RECORDS SUMMARY | 2025-04-26 09:07 | XMS_ITS | Patient Health Record ---
Author Organization [facility] Address [address] [place] [address] Care Team Providers Care Preparer Samples And Repairs Name Role Phone Alfred Aguila Primary Care Provider Michelle Perea Unavailable [phone] Migration, Provider Unavailable Unavailable Allergies Allergen (clinical drug ingredient) Drug/Non Drug Allergy documented on EMR Reaction Allergy Type Onset Date Status TERIMYCIN (uncoded) black outs Allergy Active Results Component Value Reference Range Notes VITAMIN D,25-OH,TOTAL,IA (17 306) Reviewed date:01/18/2025 09:36:14 AM Interpretation: Performing Lab:[facility] Zechariah Trejo Notes/Report: NON-FASTING NON-FASTING NON-FASTING NON-FASTING NON-FASTING VITAMIN D,25-OH,TOTAL,IA 24 30-100 ng/mL Vitamin D Status 25-OH Vitamin D: Deficiency: <20 ng/mL Insufficiency: 20 - 29 ng/mL Optimal: > or = 30 ng/mL For 25-OH Vitamin D testing on patients on D2-supplementation and patients for whom quantitation of D2 and D3 fractions is required, the QuestAssureD(TM) 25-OH VIT D, (D2,D3), LC/MS/MS is recommended: order code 78570 (patients >2yrs). See Note 1 Note 1 For additional information, please refer to http://education.[employer].com/faq/NDK963 (This link is being provided for informational/ educational purposes only.) VITAMIN B12/FOLATE, SERUM PA YOSEPH (7065) Reviewed date:01/18/2025 09:36:14 AM Interpretation: Performing Lab:[facility] U[address] [facility]CivlQV[address] Zechariah Trejo Notes/Report: NON-FASTING NON-FASTING NON-FASTING NON-FASTING NON-FASTING VITAMIN B12 633 004-9715 pg/mL Please Note: Although the reference range for vitamin B12 is 200-1100 pg/mL, it has been reported that between 5 and 10% of patients with values between 200 and 400 pg/mL may experience neuropsychiatric and hematologic abnormalities due to occult B12 deficiency; less than 1% of patients with values above 400 pg/mL will have symptoms. FOLATE, SERUM 16.8 Reference Range Low: <3.4 Borderline: 3.4-5.4 Normal: >5.4 CBC (INCLUDES DIFF/PLT) (639 9) Reviewed date:01/18/2025 09:36:14 AM Interpretation: Performing Lab:[facility] Gjgg80[address] [facility], [facility] CenterZgckPB[address] Zechariah Trejo Notes/Report: NON-FASTING NON-FASTING NON-FASTING NON-FASTING NON-FASTING WHITE BLOOD CELL COUNT 11.2 3.8-10.8 Thousand/ uL RED BLOOD CELL COUNT 3.85 3.80-5.10 Million/uL HEMOGLOBIN 12.5 11.7-15.5 g/dL HEMATOCRIT 38.7 35.0-45.0 % MCV 100.5 80.0-100.0 fL MCH 32.5 27.0-33.0 pg MCHC 32.3 32.0-36.0 g/dL For adults, a slight decrease in the calculated MCHC value (in the range of 30 to 32 g/dL) is most likely not clinically significant; however, it should be interpreted with caution in correlation with other red cell parameters and the patient's clinical condition. RDW 12.6 11.0-15.0 % PLATELET COUNT 307 140-400 Thousand/uL MPV 10.5 7.5-12.5 fL ABSOLUTE NEUTROPHILS 5757 4091-2064 cells/uL ABSOLUTE LYMPHOCYTES 4435 850-3900 cells/uL ABSOLUTE MONOCYTES 650 200-950 cells/uL ABSOLUTE EOSINOPHILS 314 15-500 cells/uL ABSOLUTE BASOPHILS 45 0-200 cells/uL NEUTROPHILS 51.4 LYMPHOCYTES 39.6 MONOCYTES 5.8 EOSINOPHILS 2.8 BASOPHILS 0.4 LIPID PANEL, STANDARD (7600) Reviewed date:01/18/2025 09:36:13 AM Interpretation: Performing Lab:ASTER [facility] [facility] CenterHamQmerFE[address] Zechariah Trace Trejo Notes/Report: NON-FASTING NON-FASTING NON-FASTING NON-FASTING NON-FASTING CHOLESTEROL, TOTAL 170 <200 mg/dL HDL CHOLESTEROL 45 > OR = 50 mg/dL TRIGLYCERIDES 284 <150 mg/dL repeat triglyceride testing on a fasting specimen if clinically indicated. Juan et al. J. of Clin. Lipidol. 2015;9:129-169. If a non-fasting specimen was collected, consider LDL-CHOLESTEROL 88 Reference range: <100 Desirable range <100 mg/dL for primary prevention; <70 mg/dL for patients with CHD or diabetic patients with > or = 2 CHD risk factors. LDL-C is now calculated using the Garry-Sheridan calculation, which is a validated novel method providing better accuracy than the Friedewald equation in the estimation of LDL-C. Garry SS et al. ELHAM. 2013;310(19): 2526-9269 (http://education.[employer].com.Chatty/faq/BGE589) CHOL/HDLC RATIO 3.8 <5.0 (calc) NON HDL CHOLESTEROL 125 <130 mg/dL (calc) For patients with diabetes plus 1 major ASCVD risk factor, treating to a non-HDL-C goal of <100 mg/dL (LDL-C of <70 mg/dL) is considered a therapeutic option. CT Scan : Chest, Lung Cancer Screening Reviewed date:07/12/2024 08:41:47 AM Interpretation: Performing Lab: Notes/Report: Mammogram : Bilateral Reviewed date:07/05/2024 09:05:41 PM Interpretation: Performing Lab: Notes/Report: DEXA Hip and Spine - Screeni ng Reviewed date:07/12/2024 08:33:21 AM Interpretation: Performing Lab: Notes/Report: COMPREHENSIVE METABOLIC PANE L (29192) Reviewed date:01/18/2025 09:36:13 AM Interpretation: Performing Lab:ASTER [facility] Mhph3059 [facility] CenterHamXkqmYH[address] Zechariah Trejo Notes/Report: NON-FASTING NON-FASTING NON-FASTING NON-FASTING NON-FASTING GLUCOSE 83 65-99 mg/dL Fasting reference interval UREA NITROGEN (BUN) 19 7-25 mg/dL CREATININE 0.63 0.60-1.00 mg/dL EGFR 94 > OR = 60 mL/min/1.73m2 BUN/CREATININE RATIO SEE NOTE: 6-22 (calc) Not Reported: BUN and Creatinine are within reference range. SODIUM 139 135-146 mmol/L POTASSIUM 4.4 3.5-5.3 mmol/L CHLORIDE 108 98-110 mmol/L CARBON DIOXIDE 19 20-32 mmol/L CALCIUM 9.2 8.6-10.4 mg/dL PROTEIN, TOTAL 6.3 6.1-8.1 g/dL ALBUMIN 3.9 3.6-5.1 g/dL GLOBULIN 2.4 1.9-3.7 g/dL (calc) ALBUMIN/GLOBULIN RATIO 1.6 1.0-2.5 (calc) BILIRUBIN, TOTAL 0.3 0.2-1.2 mg/dL ALKALINE PHOSPHATASE 78 37-153 U/L AST 14 10-35 U/L ALT 12 6-29 U/L ECHOCARDIOGRAM Reviewed date:05/18/2024 10:26:07 AM Interpretation: Performing Lab: Notes/Report: [address] [place] [address] Name: MARLENE MCGILL Exam Date: 05/16/2024 : 1950 Age 73 years Gender: F Physician: ALFRED AGUILA Facility: [facility] Facility HSV: Outpatient Exam: ECHOCARDIOGRAM Conclusions: 1. Normal left ventricular dimension. 2. Estimated left ventricular ejection fraction is 55-60%. 3. Mild to moderate aortic valve regurgitation. Findings: Left Ventricle:Normal left ventricular dimension. Normal LV size and function. Normal left ventricular systolic function. Normal global wall motion. No regional wall motion abnormalities. Right Ventricle:Normal right ventricular size and function. Left Atrium:Normal left atrial size by volume criteria. Right Atrium:Normal right atrial size. Mitral Valve:Normal mitral valve structure and function. Tricuspid Valve:Normal tricuspid valve structure and function. There is physiologic tricuspid valve regurgitation. Aortic Valve:Mild to moderate aortic valve regurgitation. No aortic valve stenosis. Normal aortic valve structure and function. Pulmonic Valve:Normal pulmonic valve structure and function. Pericardium:Normal pericardium. No pericardial effusion. Electronically signed PETER OLSON MD 05/17/24 8:31 AM Study Data 2D Measurements RVIDd:1.91 (1.9-2.6) cm LVIDd:4.15 (4.2-5.9) cm LVIDs:2.25 (2.1-4.0) cm IVSDd:0.55 (0.6-1.0) cm LVPWd:0.7 (0.6-1.0) cm EF:77.5 (>=55) % FS:45.74 (25-43) % SV:59.15 (70-100) ml EDV:76.32 (67-155) ml ESV:17.17 (22-58) ml LA Volume:45.09 (18-58) ml LA Volume Index:28.99 (16-28) ml/m2 LVOT Diam:1.83 (1.8-2.4) cm M-MODE Measurements Aortic Root:2.84 (2.0-3.7) cm LA/AR Ratio:1.04 Mitral Valve Peak E:0.57 (0.6-1.3) m/s Peak A:0.73 (<=.7) m/s E/A Ratio:0.78 (.75-1.5) PHT:90.27 ms MVA by PHT:2.44 (4-6) cm2 DS:183 cm/s2 DT:311.29 (<=200) ms Tricuspid Valve TR Peak Edmond:1.16 m/s TR Peak Grad:5.34 mmHg RAP:10 (5-10) mmHg RVSP:15.34 (<=30) mmHg Legally authenticated by WESLEY GREEN MD 2024-05-17 11:00:20 Aortic Valve Peak:0.05 (<=2.5) m/s Peak Grad:4.92 (<=16) mmHg Mean:0.74 m/s Mean Grad:2.47 (<=5) mmHg AV VTI:24.83 cm IZA(edmond):54.57 (3-5) cm2 LVOT PV:1.1 (0.7-1.1) m/s LVOT P.88 mmHg Pulmonic Valve Report for MARLENE MCGILL [id number] on 05/16/24 Dictated By: PETER OLSON Transcribed By: Madyson Torres Transcribed On: 05/17/2024 10:56 AM Electronically signed by: PETER OLSON 05/17/2024 Thank you for referring MARLENE MCGILL to [facility]. Legally authenticated by WESLEY GREEN MD 2024-05-17 11:00:20 THYROID PANEL (7020) Reviewed date:08/19/2024 10:45:50 AM Interpretation: Performing Lab:ASTER [facility] [address], Fanhuan.comDnefFL[address] Zechariah Trejo Notes/Report: NON-FASTING; NON-FASTING; NON-FASTING; NON-FASTING T3 UPTAKE 29 22-35 % T4 (THYROXINE), TOTAL 7.4 5.1-11.9 mcg/dL FREE T4 INDEX (T7) 2.1 1.4-3.8 CBC (INCLUDES DIFF/PLT) (639 9) Reviewed date:08/19/2024 10:45:49 AM Interpretation: Performing Lab:ASTER [facility] [address], [facility] AaifAX[address] Zechariah Trejo Notes/Report: NON-FASTING; NON-FASTING; NON-FASTING; NON-FASTING WHITE BLOOD CELL COUNT 7.9 3.8-10.8 Thousand/ uL RED BLOOD CELL COUNT 3.61 3.80-5.10 Million/uL HEMOGLOBIN 11.9 11.7-15.5 g/dL HEMATOCRIT 36.2 35.0-45.0 % MCV 100.3 80.0-100.0 fL MCH 33.0 27.0-33.0 pg MCHC 32.9 32.0-36.0 g/dL For adults, a slight decrease in the calculated MCHC value (in the range of 30 to 32 g/dL) is most likely not clinically significant; however, it should be interpreted with caution in correlation with other red cell parameters and the patient's clinical condition. RDW 11.9 11.0-15.0 % PLATELET COUNT 242 140-400 Thousand/uL MPV 10.4 7.5-12.5 fL ABSOLUTE NEUTROPHILS 4369 7587-7082 cells/uL ABSOLUTE LYMPHOCYTES 2694 850-3900 cells/uL ABSOLUTE MONOCYTES 561 200-950 cells/uL ABSOLUTE EOSINOPHILS 213 15-500 cells/uL ABSOLUTE BASOPHILS 63 0-200 cells/uL NEUTROPHILS 55.3 LYMPHOCYTES 34.1 MONOCYTES 7.1 EOSINOPHILS 2.7 BASOPHILS 0.8 MAGNESIUM (622) Reviewed date:08/19/2024 10:45:49 AM Interpretation: Performing Lab:ASTER, [facility] [address], [facility] HealthGckzNK[address] Zechariah Trejo Notes/Report: NON-FASTING; NON-FASTING; NON-FASTING; NON-FASTING MAGNESIUM 1.8 1.5-2.5 mg/dL COMPREHENSIVE METABOLIC PANE L (22232) Reviewed date:08/19/2024 10:45:49 AM Interpretation: Performing Lab:ASTER [facility] [address] [facility], [facility] HealthEnkrCH[address] Zechariah Trejo Notes/Report: NON-FASTING; NON-FASTING; NON-FASTING; NON-FASTING GLUCOSE 85 65-99 mg/dL Fasting reference interval UREA NITROGEN (BUN) 17 7-25 mg/dL CREATININE 0.71 0.60-1.00 mg/dL EGFR 90 > OR = 60 mL/min/1.73m2 BUN/CREATININE RATIO SEE NOTE: 6-22 (calc) Not Reported: BUN and Creatinine are within reference range. SODIUM 140 135-146 mmol/L POTASSIUM 4.5 3.5-5.3 mmol/L CHLORIDE 107 98-110 mmol/L CARBON DIOXIDE 24 20-32 mmol/L CALCIUM 9.7 8.6-10.4 mg/dL PROTEIN, TOTAL 7.0 6.1-8.1 g/dL ALBUMIN 4.3 3.6-5.1 g/dL GLOBULIN 2.7 1.9-3.7 g/dL (calc) ALBUMIN/GLOBULIN RATIO 1.6 1.0-2.5 (calc) BILIRUBIN, TOTAL 0.4 0.2-1.2 mg/dL ALKALINE PHOSPHATASE 83 37-153 U/L AST 19 10-35 U/L ALT 15 6-29 U/L Reason For Referral Reason dexa screening Referral Organization [facility] Referring Provider First Name Alfred Referring Provider Last Name Delmi Referring Provider [facility] Referral Priority Routine Referral Appointment Date 06/29/2024 Reason LDCT Screening Referral Organization [facility] Referring Provider First Name Alfred Referring Provider Last Name Delmi Referring Provider [facility] General Notes Chikis Goldsmith 2023 09:59:45 AM >sent to [facility] Referral Priority Routine Referral Appointment Date 06/29/[address] Scan Chest - opac ity in Right lung base after 10-01-[address] lung scr eening (R91.8) Referral Organization [facility] Referring Provider First Name Alfred Referring Provider Last Name Delmi Referring Provider [facility] edicine Referred Organization [facility] Referred Address [address] [place] [phone], Referred Provider Specialty Diagnostic R adiology General Notes Chikis Goldsmith 2023 09:16:12 AM >Approved, Authorization #[id number] - Tracking #[id number], Sent to [facility] Scheduling- They will contact patient to schedule appt.Agus Nickie 2024 11:23:35 AM >Patient canceled - weather- and never rescheduled Referral Priority Routine Referral Appointment Date 11/07/2024 Reason PT evaluation for de conditioning/core strengthening/exercise tolerance and chronic back pain Diagnosis 1 Other malaise (R53.8 1) Referral Organization [facility] Referring Provider First Name Alfred Referring Provider Last Name Delmi Referring Provider [facility] edicine Referred Organization [facility] Referred Address [address] [place] [phone],[place] Referred Provider Specialty Physical Med icine and Rehabilitation Referral Priority Routine Medications Medication SIG (Take, Route, Frequency, Duration) Notes Start Date End Date Status Ibuprofen 800 MG 1-2tab(s) orally daily; Duration: 90 days Active traZODone HCl 50 MG as directed orally a t bedtime; Duration: 90 days Active Furosemide 20 MG 1 tab(s) orally ever y other day; Duration: 90 days Active Atorvastatin Calcium 40 MG 1 tab(s) orally once a day; Duration: 90 days Active Cyanocobalamin 1000 MCG/ML 1mL intramuscularly once a week; Duration: 84 days DumontGeovanni 01/18/2025 09:41:36 AM EDT >B12 Injections once a week for 12 weeks. 01/18/2025 Active DUPIXENT PRE-FILLED PEN 300 MG/2 ML DIRECTED SUBCUTANEOUSLY EVERY 2 WEEKS *Please review for potential replacement for e-prescription and drug interaction check* Active SYRINGE 3CC 25G 1 *Please revie w for potential replacement for e-prescription and drug interaction check* 01/18/2025 Active Pantoprazole Sodium 40 MG 1 tab(s) orally once a day Active DULoxetine HCl 20 MG 1 cap(s) orally daily; Duration: 30 days Active Montelukast Sodium 10 MG 1 tab(s) orally once a day; Duration: 90 days Active Loratadine 10 MG 1 cap(s) orally once a day; Duration: 90 days Active Alendronate Sodium 70 MG 1 tab(s) orally once a week; Duration: 90 days Active Potassium Chloride Ada ER 20 mEq TAKE ONE TABLET BY MOUTH EVERY DAY; Duration: 30 Active Acetaminophen-Codein e 300-30 MG 2 tabs orally twice daily for severe pain; Duration: 30 days 04/24/2025 Active Immunizations Vaccine Route Administration Date Status Comme nts Prevnar PCV-20 (Pneumococcal conjugate 20) IM Intramuscular 08/17/2024 Administered Prevnar PCV-13 (Pneumococcal conjugate 13) IM Intramuscular 03/22/2018 Administered Pneumovax 23 IM Intramuscular 08/22/2015 Administered Influenza-Fluzone 3+years (NON-MEDICARE) IM Intramuscular 08/22/2015 Administered Influenza (Fluzone)--Medicare only IM Intramuscular 09/28/2017 Administered Fluzone High Dose IM Intramuscular 09/03/2018 Administered Fluzone High Dose IM Intramuscular 08/01/2023 Administered Fluzone High Dose IM Intramuscular 08/17/2024 Administered Arexvy IM Intramuscular 10/12/2023 Administered Adacel (Tdap) IM Intramuscular 05/08/2016 Administered Social History Tobacco Use: Social History Observation Description Date Details (start date - stop date) Current Smoker NA - NA Smoking: Question Answer Notes Are you a: current smoker How often do you smoke cigarettes? every day How many cigarettes a day do you smoke? 21-30 How soon after you wake up d o you smoke your first cigarette? 6-30 min Are you interested in quitting? Thinking about q uitting Problems Problem Type SNOMED Code ICD Code Onset Dates Problem Status W/U Status Risk Notes Problem Malnutrition of mild degree (Lua: 75% to less than 90% of standard weight) (08968341) Mild protein-calorie malnutrition (E44.1) Active confirmed Problem Primary insomnia (9897165) Primary insomnia (F51.01) Active confirmed Problem Chronic pain (79455359) Other chronic pain (G89.29) Active confirmed Problem Vasomotor rhinitis (0806844) Vasomotor rhinitis (J30.0) Active confirmed Problem Panlobular emphysema (0260111) Panlobular emphysema (J43.1) Active confirmed Problem Age-related osteoporosis (164853703) Age-related osteoporosis without current pathological fracture (M81.0) Active confirmed Problem Nicotine dependence (14295802) Personal history of nicotine dependence (Z87.891) Active confirmed Problem Anxiety (72318548) Anxiety (F41.9) Active confirmed Problem Osteoporosis (95646667) Osteoporosis (M81.0) Active confirmed Problem Hyperlipidemia (39707866) Hyperlipemia, idiopathic familial (E78.5) Active confirmed Problem Essential hypertension (22057357) Hypertension, essential (I10) Active confirmed Problem Tubular adenoma of colon (739989243) Tubular adenoma of colon (D12.6) Active confirmed Problem Acute exacerbation of chronic obstructive airways disease (769493447) COPD exacerbation (J44.1) Active confirmed Problem Hyperammonemia (0988069) Hyperammonemia (E72.20) Active confirmed Problem Ataxia (03669212) Ataxia (R27.0) Active confirm ed Problem Sacroiliitis (72893181) Sacroiliitis (M46.1) Active confirmed Problem Alcohol abuse (86718140) Alcohol abuse (F10.10) Active confirmed Problem Sciatica (61462616) Acute left-sided low back pain with left-sided sciatica (M54.42) Active confirmed Problem Contracture of palmar fascia (666310569) Dupuytren's contracture of left hand (M72.0) Active confirmed Problem Primary hypertension (14207268) Primary hypertension (I10) Active confirmed Problem Inflammatory and toxic neuropathy (876421392) Peripheral polyneuropathy (G62.9) Active confirmed Problem Macrocytosis (30814761) Macrocytosis (D75.89) Active confirmed Problem Chronic obstructive pulmonary disease (13337101) COPD, mild (J44.9) Active confirmed Problem Hyperlipidemia (91664305) Other hyperlipidemia (E78.49) Active confirmed Problem Macrocytosis - no anemia (771062869) Macrocytosis without anemia (D75.89) Active confirmed Vital Signs Heart Rate 96 /min 01/16/2025 Temperature 97.9 degrees Fahrenheit 01/16/2025 Blood pressure diastolic 68 mm Hg 01/16/2025 Height 65 in in 01/16/2025 Blood pressure systolic 120 mm Hg 01/16/2025 Weight 137 lbs 01/16/2025 BMI 22.8 kg/m2 01/16/2025 Encounters Encounter Location Date Provider Diagnosis [facility] [address] [place] [address] 02/04/2025 Provider Migration [facility] [address] [place] [address] 05/03/2024 Alfred Aguila Encounter for vaccination Z23 [facility] [address] [address] 05/10/2024 Alfred Aguila Bilateral lower extremity edema R60.0 [facility] [address] [place] [address] 05/17/2024 Alfred Aguila Atopic dermatitis L20.9 [facility] [address] [place] [address] 06/08/2024 Alfred Aguila Osteoporosis M81.0 ; Acute left-sided low back pain with left-sided sciatica M54.42 ; Personal history of nicotine dependence Z87.891 ; Atopic dermatitis L20.9 ; Leg edema R60.0 and Routine medical exam Z00.00 [facility] [address] [place] [address] 08/17/2024 Alfred Aguila Other malaise R53.81 ; Other fatigue R53.83 ; Immunization(s) administered Z23 ; Peripheral polyneuropathy G62.9 and Leg edema R60.0 [facility] [address] [facility] [address] [place] [address] 10/17/2024 Alfred Aguila COPD, mild J44.9 ; Mild protein-calorie malnutrition E44.1 ; Personal history of nicotine dependence Z87.891 and Healthcare maintenance Z00.00 [facility] [address] [facility] [address] [place] [address] 01/06/2025 Alfred Aguila Acute cough R05.1 ; COPD exacerbation J44.1 and Acute bronchitis, unspecified organism J20.9 [facility] [address] [facility] [address] [place] [address] 01/16/2025 Alfred Aguila Hypertension, essential I10 ; Osteoporosis M81.0 ; Hyperlipemia, idiopathic familial E78.5 ; Macrocytosis without anemia D75.89 and COPD, mild J44.9 [facility] [address] [facility] [address] [place] [address] 01/20/2025 Alfred Besson Vitamin B12 deficien cy E53.8 [facility] [address] [facility] [address] [place] [address] 02/16/2025 Alfred Besson Vitamin B12 deficien cy E53.8 [facility] [address] [facility] [address] [place] [address] 03/03/2025 Alfred Besson Vitamin B12 deficien cy E53.8 [facility] [address] [facility] [address] [place] [address] 03/24/2025 Alfred Besson Vitamin B12 deficien cy E53.8 [facility] [address] [facility] [address] [place] [address] 04/10/2025 Alfred Besson Vitamin B12 deficien cy E53.8 [facility] [address] [facility] [address] [place] [address] 04/17/2025 Alfred Besson Vitamin B12 deficien cy E53.8 [facility] [address] [facility] [address] [place] [address] 05/03/2024 Alfred Besson [facility] [address] [place] [address] 05/23/2024 Alfred Besson [facility] [address] [place] [address] 06/09/2024 Alfredcathy Aguila Aggressive former smoker Z87.891 ; History of nicotine dependence Z87.891 and Asymptomatic age-related postmenopausal state Z78.0 [facility] [address] [place] [address] 06/09/2024 Alfredcathy Aguila Breast cancer screening by mammogram Z12.31 [facility] [address] [place] [address] 08/17/2024 Alfred Aguila Malaise R53.81 [facility] [address] [facility] [address] [place] [address] 09/23/[address] lung screening R91.8 [facility] [place] [address] [facility] [address] [place] [address] 10/11/2024 Alfred Aguila [facility] [address] [facility] [address] [place] [address] 01/18/2025 Alfred Aguila Assessments Encounter Date Diagnosis (ICD Code) Assessment Notes Treatment Notes Treatment Clinical Notes Section Notes 05/03/2024 Encounter for vaccination (ICD-10 - Z23) 05/10/2024 Bilateral lower extremity edema (ICD-10 - R60.0) - onset two months ago, 2+ BLE pitting edema. Denies CP or dyspnea. no respiratory distress - no ETOH use at this time, no prior hx of injury to LE = Would like to rule out cardiac etiologies, TTE ordered to further evaluate. Cardiopulmonary exam normal. = Rx for LAsix 20 mg PRN, adivsed pt to weigh herself daily and take lasix as needed if weight increases 3lbs per day or 5 lbs per week. = Compression stockings. RTC in 05/17/2024 Atopic dermatitis (ICD-10 - L20.9) 06/08/2024 Osteoporosis (ICD-10 - M81.0) -Last DEXA done in 2019 showing stable osteoporosis. -On Fosamax -Will repeat DEXA 06/08/2024 Acute left-sided low back pain with left-sided sciatica (ICD-10 - M54.42) -Chronic, stable -Follows with pain clinic -Will refill Tylenol 3, continue pregabalin and ibuprofen 06/09/2024 Aggressive former smoker (ICD-10 - Z87.891) 06/09/2024 Breast cancer screening by mammogram (ICD-10 - Z12.31) 08/17/2024 Other malaise (ICD-10 - R53.81) 08/17/2024 Other fatigue (ICD-10 - R53.83) Will trial stopping duloxetine as it is not very effective for her neuropathic pain, and she denies feelings of depression. Will also set up PT eval to see if she would benefit from therapy for deconditioning, which is likely etiology given major illness less than 12 months ago. Will check labs to ensure no metabolic etiology. Encouraged her to join her on daily morning walks. She is sleeping well. 08/17/2024 Malaise (ICD-10 - R53.81) 09/23/[address] lung screening (ICD-10 - R91.8) 10/17/2024 Mild protein-calorie malnutrition (ICD-10 - E44.1) Improving. Weight continues to uptrend following dietary modifications, reduction in alcohol intake. 10/17/2024 COPD, mild (ICD-10 - J44.9) Despite wheezing on exam, patient in no respiratory distress and does not require daily inhaler therapy. Continue to monitor. 01/06/2025 COPD exacerbation (ICD-10 - J44.1) Given sputum production, mildly increased work of breathing meets criteria for exacerbation, start prednisone, antibiotics as noted below for the bronchitis issues a 01/06/2025 Acute cough (ICD-10 - R05.1) Given viral bronchitis/bacteri al bronchitis/COPD exacerbation I ordered and interpreted fluid COVID testing given community exposure at this point and interpreted this, increasing the complexity of the visit a 01/16/2025 Osteoporosis (ICD-10 - M81.0) On alendronate. DEXA scans reviewed 01/16/2025 Hypertension, essential (ICD-10 - I10) Blood pressure under good control, no changes in plan. 01/20/2025 Vitamin B12 deficiency (ICD-10 - E53.8) 02/16/2025 Vitamin B12 deficiency (ICD-10 - E53.8) 03/03/2025 Vitamin B12 deficiency (ICD-10 - E53.8) 03/24/2025 Vitamin B12 deficiency (ICD-10 - E53.8) 04/10/2025 Vitamin B12 deficiency (ICD-10 - E53.8) 04/17/2025 Vitamin B12 deficiency (ICD-10 - E53.8) 01/16/2025 Hyperlipemia, idiopathic familial (ICD-10 - E78.5) Stable. On statin therapy 01/06/2025 Acute bronchitis, unspecified organism (ICD-10 - J20.9) Given COPD overlay and bronchitis will add doxycycline a 10/17/2024 Personal history of nicotine dependence (ICD-10 - Z87.891) Reviewed tobacco cessation with counseling greater than 5 minutes. Scheduled for repeat low-dose CT in the new year. She is aware of this appointment. Does not really have any interest in quitting smoking at this point. 08/17/2024 Immunization(s) administered (ICD-10 - Z23) 06/09/2024 History of nicotine dependence (ICD-10 - Z87.891) 06/08/2024 Personal history of nicotine dependence (ICD-10 - Z87.891) -Provided tobacco cessation counseling -CT lung cancer screening ordered 06/08/2024 Atopic dermatitis (ICD-10 - L20.9) -Follows with dermatology -On Dupixent 06/09/2024 Asymptomatic age-related postmenopausal state (ICD-10 - Z78.0) 10/17/2024 Healthcare maintenance (ICD-10 - Z00.00) Labs- UTD from 08/2024 Vaccines- UTD Colon ca- Due 12/2026 Lung ca- Scarring on last study done 06/2024, pending repeat study DEXA- Osteoporosis 06/2024, on treatment Daughter is healthcare surrogate. Otherwise up-to-date with healthcare maintenance, depression screening negative 01/02 word recall, HRA reviewed 08/17/2024 Peripheral polyneuropathy (ICD-10 - G62.9) 01/16/2025 Macrocytosis without anemia (ICD-10 - D75.89) Check labs and will follow. 01/16/2025 COPD, mild (ICD-10 - J44.9) On rx... no changes in plan 06/08/2024 Leg edema (ICD-10 - R60.0) -Chronic, stable -Continue Lasix 20 mg daily, can take extra dose if having worsening leg swelling or rapid weight gain -Encouraged patient to wear TERRY wraps and elevate legs 08/17/2024 Leg edema (ICD-10 - R60.0) RESOLVED. She can stop taking Lasix 20mg daily and start taking as needed (3 pound weight gain in 1 day or 5 pounds in 1 week). 06/08/2024 Routine medical exam (ICD-10 - Z00.00) -Will order repeat CT lung cancer screening -Repeat DEXA -Declines mammogram -Aged out of pap smears -UTD on vaccines Cognitive impairment screening negative with 3/3 word recall.Living will in place. is healthcare surrogate Plan Of Treatment Pending Test Test Name Order Date Physical Therapy 12/22/2017 Physical Therapy 09/10/2018 Mammogram : Bilateral 03/18/2017 Mammogram : Bilateral 03/25/2023 H-CBC with AUTO DIFF 04/27/2014 H-VITAMIN B12 03/18/2017 H-VIT D, 25-HYDROXY 03/18/2017 H-MONOSCREEN 04/27/2014 C-THROAT CULTURE 04/27/2014 DEXA Hip and Spine - Diagnostic 10/12/20 23 DEXA Hip and Spine - Diagnostic 06/08/20 24 M-Diarrhea Panel, PCR 09/08/2023 M-Vitamin B12 08/07/2023 M-Folate 08/07/2023 CT Scan : Chest, Lung Cancer Screening 0 06/08/2024 CT Scan : Chest, Lung Cancer Screening 0 05/26/2022 Vitamin B12 05/27/2022 Physical Therapy : Gait training and cor e strengthening 01/27/2024 Physical Therapy : Gait training and cor e strengthening 02/16/2024 Physical Therapy : Gait training and cor e strengthening 08/17/2024 Physical Therapy Eval and Treat 06/29/20 23 Rapid Covid/Flu A-B Combo 01/06/2025 CT CHEST WO CONTRAST 09/23/2024 Future Test Test Name Order Date M-Basic Metabolic Panel 10/28/2023 M-Magnesium 10/28/2023 Next Appt Details Provider Name:Alfred Aguila, 05/22/2025 04:45:00 PM, [address], [place], [address], Insurance Providers Payer Name Payer Address Payer Phone Subscriber Number Group Number Insured Name Patient Relationship to Insured Coverage Start Date Coverage End Date [employer] MEDICARE [address] [address] [place] [address] [id number] Marlene Mcgill Self - patient is the insured Medications Administered Medication Instructions Date of Administration [...] Cyanocobalamin/B-12 Pt's Own Medication 01/01/2021 1 mL Cyanocobalamin/B-12 Pt's Own Medication 01/20/2025 1 mL Cyanocobalamin/B-12 Pt's Own Medication 02/16/2025 1 mL Cyanocobalamin/B-12 Pt's Own Medication 03/03/2025 1 mL Cyanocobalamin/B-12 Pt's Own Medication 03/24/2025 1 mL Cyanocobalamin/B-12 Pt's Own Medication 04/10/2025 1 mL Cyanocobalamin/B-12 Pt's Own Medication 04/17/2025 1 mL DUPIXENT 04/13/2024 300 mg DUPIXENT 05/03/2024 1.14 mL DUPIXENT 05/17/2024 200 mg Triamcinolone Acetonide 40mg Injection 02/02/2019 1 mL Triamcinolone Acetonide 40mg Injection 03/13/2021 1 mL Medical (General) History Medical History History ICD Code Colonoscopy February 2016 with tubular adenoma and hyperplastic polyps - repeated 12/25 with 4 polyps - 3 year f/u recommended DEXA scan 2014 with osteopor osis - repeated 08/2018 with ongoing disease - repeat April 2020 with continued osteoporosis-treatment continued - repeated 06/2024 - ongoing treatment Mammogram normal 08/19 - repeated normal 04/21 - and normal 06/2024 autoimmune disorder Echo normal 05/25 LDCT 06/25 with scarring.. 3 mo f/u recom mended Surgical History Surgery Date(Month/Year) Oral surgery 03/2018 left hand 2018 Hospitalization History Reason Date(Month/Year) [facility] to [place] to [facility] C-diff 09/2023 [facility] 07/2023 [facility] 12/2022
--- OUTSIDE RECORDS SUMMARY | 2025-04-26 09:07 | XMS_ITS | Clinical Summary ---
Author Organization Healthcare Address [address] [place] [address] Care Team Providers Care Radio Machinist Name Role Phone Alfred Awad MD Primary Care Provider [phone] Immunizations Immunization Administration Dates Next Due Influenza, seasonal, injectable 08/02/2015 Pneumococcal Polysaccharide PPV23 08/02/2015 Family History Medical History Relation Name Comments Coronary artery disease Other 1 Other cancer Other 2 Relation Name Status Comments Other 1 Other 2 Social History Tobacco Use Types Packs/Day Years Used Date Smoking Tobacco: Every Day Alcohol Use Standard Drinks/Week Comments No 0 (1 standard drink = 0.6 oz pure alcohol) Alcoholic Drinks/day: Social alcohol use Comments Unknown Sex and Gender Information Value Date Recorded Sex Assigned at Not on file Legal Sex Female 7:08 PM EDT Gender Identity Not on file Sexual Orientation Not on file Last Filed Vital Signs Vital Sign Reading Time Taken Comments Blood Pressure 162/82 08/25/2018 2:35 PM EDT Pulse 69 08/25/2018 2:35 PM EDT Temperature 36.4 C (97.6 F) 08/25/2018 2:35 PM EDT Respiratory Rate 16 02/16/2018 1:12 PM EDT Oxygen Saturation - - Inhaled Oxygen Concentration - - Weight 59 kg (129 lb 15.7 oz) 08/25/2018 2:35 PM EDT Height 160 cm (5' 3 ) 08/25/2018 2:35 PM EDT Body Mass Index 23.03 08/25/2018 2:35 PM EDT Plan of Treatment Not on file Care Teams Radio Machinist Relationship Specialty Start Date End Date Alfred Awad MD [address] [place] [address] PCP - General 03/15/21
--- NOTE | 2025-04-26 09:41 | EXP.PAIN.SOA ---
[facility] Disclaimer: The information contained in this section may have been updated after the patient was seen, as this information can be updated by other users. Medical History (Updated 04/26/25 @ 09:47 by Marlene Bailey APRN) Lumbar facet arthropathy Degenerative disc disease, lumbar Hypophosphatemia Severe protein-calorie malnutrition Heavy drinker Edema of right lower leg Sepsis without acute organ dysfunction Compensated metabolic acidosis Hyponatremia Hypokalemia Acute pancreatitis Metabolic acidosis Nausea & vomiting Acute dehydration Abdominal pain, diffuse Hypovolemia Acute hypokalemia Colitis C. difficile colitis Foot pain Encounter for screening for malignant neoplasm of lung Allergic rhinitis Smoking greater than 30 pack years Pulmonary emphysema Pneumonia Hypertension Hyperlipidemia Hypertension Tobacco abuse Emphysema/COPD Osteoporosis Surgical History History of colonoscopy Hx of hand surgery Family History Brother Family history of cancer Daughter Family history of celiac disease Other Family history of CT (myocardial infarction) Family history of heart disease Social History Smoking Status: Current every day smoker tobacco type: cigarettes packs per day: 1 years smoked: 35 alcohol intake: current substance use type: denies use current occupational status: retired Travel in the last 8 weeks?: None household members: spouse housing: house lives independently: Yes marital status: caffeine: Yes special andrés needs: No agree to transfusion: No do you feel safe at home: Yes victim of physical abuse: No victim of emotional abuse: No victim of sexual abuse: No would you like helpful sources: No PM Subjective & Objective Subjective Subjective:: Patient is a pleasant 74-year-old female who presents today for worsening low back and left leg pain. She rates the pain currently a 4 out of 10 when she is sitting however does state with increased activity or moving around it does get much worse to at least a 5 or more. Patient states that is still that same pain that we have been previously treating her for however she is not having the swelling in the left ankle like what she was previously. Patient states it does still radiate down all the way to her ankle and describes it overall as an aching, throbbing sensation with some numbness. She does state the pain is interfering with her ability perform activities of daily living such as cooking and cleaning and would like to see about getting scheduled for a repeat injection. Patient from her last visit had been prescribed pregabalin 50 mg twice a day along with compounded cream however she states that she no longer takes the pregabalin and she does believe she is out of the compounded cream. Her Dioni has been reviewed and is appropriate. Review of Systems: General: No recent weight changes, no fever, no sleep disturbances Respiratory: No cough, no shortness of air, no recurring pulmonary infections Cardiovascular/peripheral vascular: No chest pain, no palpitations, no edema, no shortness of breath Gastrointestinal: No new onset incontinence, normal bowel movements reported Genitourinary: No new onset incontinence Musculoskeletal: Low back pain, left leg pain Psychiatric: [Normal mood/affect] Neurological: [Denies weakness in extremities], [denies balance issues] Pain at rest (0-10 scale): 5 Objective Objective:: Physical Exam: General: Alert and oriented x3, no acute distress, pleasant and cooperative Lungs: Respirations even and unlabored, symmetrical chest expansion Eyes: PERRL Musculoskeletal: Flexion and extension of lumbar [spine] somewhat guarded secondary to pain, [antalgic gait noted] positive left leg raise with decreased sensation to light touch and decreased reflexes Neurological: Speech clear, no gross sensory deficit Has patient had previous pain injection?: No Conservative treatment options previously tried: Home exercise plan Length of treatment: Longer than 12 weeks and Physical Therapy Length of treatment: Longer than 6 weeks Meds Home Medications and Allergies Home Medications ?Medication ?Instructions ?Recorded ?Confirmed ?Type atorvastatin 40 mg tablet 40 mg PO HS 08/27/22 04/14/24 History metoprolol tartrate 50 mg tablet 50 mg PO BID 08/27/22 04/14/24 History montelukast 10 mg tablet 10 mg PO PM 01/10/23 04/14/24 History potassium chloride 20 mEq 20 meq PO DAILY 07/27/23 04/14/24 History tablet,extended release(part/cryst) trazodone 50 mg tablet 50 mg PO HS 07/27/23 04/14/24 History ibuprofen 800 mg tablet 800 mg PO TIDP PRN Mild Pain 07/28/23 04/14/24 History (Scale Score 1-4) acetaminophen 300 mg-codeine 30 mg 1 - 2 tab PO BIDP PRN Severe Pain 07/30/23 04/14/24 Rx tablet (Scale Score 7-10) 7 days #20 tabs metronidazole 500 mg tablet 500 mg PO TID 10/30/23 04/14/24 History promethazine 25 mg tablet 25 mg PO Q6HP PRN Nausea And 10/30/23 04/14/24 History Vomiting alendronate 70 mg tablet 70 mg PO WEEKLY 10/31/23 04/14/24 History furosemide 20 mg tablet 20 mg PO DAILYP PRN Fluid 10/31/23 04/14/24 History ondansetron 4 mg disintegrating 4 mg PO Q8HP PRN nausea and 10/31/23 04/14/24 History tablet vomiting pregabalin 50 mg capsule 50 mg PO BID #60 caps 08/15/24 Rx New Prescriptions to Start Prescriptions: Allergies Allergy/AdvReac Type Severity Reaction Status Date / Time oxytetracycline (From Allergy Unknown PASSES OUT Verified 01/26/24 13:28 TERRAMYCIN) Assessment and Plan *Assessment and plan (1) Lumbar radiculopathy: Status: Resolved Category: Medical Code(s): M54.16 - Radiculopathy, lumbar region (2) Degenerative disc disease, lumbar: Status: Acute Category: Medical Code(s): M51.369 - Other intervertebral disc degeneration, lumbar region without mention of lumbar back pain or lower extremity pain (3) Lumbar facet arthropathy: Status: Acute Category: Medical Code(s): M47.816 - Spondylosis without myelopathy or radiculopathy, lumbar region Plan Patient is experiencing worsening pain in her low back with radiating symptoms down into her left leg. Patient did have a positive left leg raise with decreased sensation to light touch and decreased reflexes during today's visit. I have discussed with patient that she may benefit from repeat left transforaminal epidural steroid injection. Risk and benefits were discussed with patient and the patient would like to proceed forward with this plan of care. Patient is not on any blood thinners. Patient has tried and failed conservative therapy including oral medications, heat and ice, topicals and continued at home stretching exercise for longer than 12 weeks between injections. Patient has had chronic back pain for longer than 6 months. Patient did previously have a transforaminal epidural back in January 2024 that provided 60% relief and lasted longer than 12 months. Patient will be scheduled for a left transforaminal epidural steroid injection L4-L5, L5-S1 under fluoroscopy. Patient has been instructed to contact the clinic with any concerns before the next appointment. Dr. Gaviria has reviewed this note and agrees with this plan of care. This note was dictated using voice recognition software and make contain errors or omissions. All injections are used with Lidocaine, Bupivacaine and dexamethasone. Occasionally urine drug screen is needed to verify patient's compliance with our office pain contract. This is ordered based off specific treatments related to chronic pain with the potential to abuse certain medications.
[2025-04-26 10:01] VITALS: BP 122/71; PULSE 86; RESP 18; O2SAT 94; BMI 23.0
== END 2025-04-26 23:59 ==
LOC: SC.PAIN 09:04
PROVIDERS: PCP Internal Medicine Adolescent Medicine; Visit Provider Nurse Practitioner Family
DX: M51.360 Other intervertebral disc degeneration, lumbar region with discogenic back pain only (principal); M47.816 Spondylosis without myelopathy or radiculopathy, lumbar region; Z79.899 Other long term (current) drug therapy
CPT/HCPCS: 99212; G0463

== ENCOUNTER 2025-05-17 12:02 | Outpatient (CLI) | payer MEDICARE, SELFPAY ==
--- OUTSIDE RECORDS SUMMARY | 2025-04-27 11:15 | XMS_ITS ---
Author Organization [facility] Address [address] [facility] [address] [place] [address] Care Team Providers Care Automatic Machines Supervisor Name Role Phone Alfred Awad Primary Care Provider Michelle Perea Unavailable [phone] REASON FOR VISIT B12 Encounters Encounter Location Date Provider Diagnosis [facility] [address] [place], [place] [address] 04/27/2025 Alfred Awad Vitamin B12 deficiency E53.8 Assessments Encounter Date Diagnosis (ICD Code) Assessment Notes Treatment Notes Treatment Clinical Notes Section Notes 04/27/2025 Vitamin B12 deficiency (ICD-10 - E53.8) Plan Of Treatment Next Appt Details Provider Name:Alfred Awad, 05/22/2025 04:45:00 PM, [address], [address], [place], [address], Medications Administered Medication Instructions Date of Administration Dosage Notes Cyanocobalamin/B-12 Pt's Own Medication 04/27/2025 1 mL Progress Notes * Yamilet MCGILLDOB:1950 ([age] yo F)Acc No.[id number]:04/27/2025 Patient: Kings Yamilet FLORES Provider: Mayi Awad MD :1950 A ge:74 Y S ex:Female Date:04/27/2025 Address:[address] [place] [address] [place], [id number] Subjective: * Chief Complaints: * 1 . B12. * Medical History: Objective: * Vitals: Assessment: * Assessment: 1. V itamin B12 deficiency - E53.8 (Primary) Plan: * Treatment: * Therapeutic Injections: Cyanocobalamin/B-12 Pt's Own Medication : 1 mL (Route: Intramuscular) given by YOLIS Zuniga on right deltoid * Procedure Codes: J 3420 B-12 INJECTION-Patient's Own Medication, [address] THERAPEUTIC ADMINISTRATION * * Sign off status: Completed true * Provider: Mayi Awad MD Date: 0 04/27/2025 Generated for Marlys garcia/Patrice/Lorenitting on: 0 05/17/2025 12:04 PM EDT
--- OUTSIDE RECORDS SUMMARY | 2025-05-10 10:15 | XMS_ITS ---
Author Organization [facility] Address [address] [facility] [address] [facility] [address] [place] [address] Care Team Providers Care Gold Burnisher Name Role Phone Alfred Awad Primary Care Provider Michelle Perea Unavailable [phone] REASON FOR VISIT B 12 Injection Encounters Encounter Location Date Provider Diagnosis [facility] [address] [place] [facility] [address] [facility] [address] [place] [address] 05/10/2025 Alfred Awad B12 deficiency E53.8 Assessments Encounter Date Diagnosis (ICD Code) Assessment Notes Treatment Notes Treatment Clinical Notes Section Notes 05/10/2025 B12 deficiency (ICD-10 - E53.8) Plan Of Treatment Next Appt Details Follow Up: prn, Reason: Provider Name:Alfred Awad, 05/22/2025 04:45:00 PM, [address], [place], [address], Medications Administered Medication Instructions Date of Administration Dosage Notes Cyanocobalamin/B-12 Pt's Own Medication 05/10/2025 1 mL Progress Notes * Yamilet MCGILLDOB:1950 (7 3 yo F)Acc No.[id number]:05/10/2025 Patient: Kings Yamilet FLORES Provider: Mayi Awad MD :1950 A ge:74 Y S ex:Female Date:05/10/2025 Address:[address], [id number] Subjective: * Chief Complaints: * 1 . B 12 Injection. * Medical History: Objective: * Vitals: Assessment: * Assessment: 1. B 12 deficiency - E53.8 (Primary) Plan: * Treatment: * Therapeutic Injections: Cyanocobalamin/B-12 Pt's Own Medication : 1 mL (Route: Intramuscular) given by DELFINA Cantu on left deltoid * Procedure Codes: J 3420 B-12 INJECTION-Patient's Own Medication, [address] THERAPEUTIC ADMINISTRATION * Follow Up: p rn * * Sign off status: Completed true * Provider: Mayi Awad MD Date: 05/10/2025 Generated for Marlys garcia/Patrice/Lorenitting on: 05/17/2025 12:05 PM EDT
--- OUTSIDE RECORDS SUMMARY | 2025-05-17 12:05 | XMS_ITS | Clinical Summary ---
Author Organization [facility] [employer] ([place], [place], [place], [place]) Address [address] [place] [address] Care Team Providers Care Qual Field Manager Name Role Phone Alfred Awad MD Primary Care Provider + [phone] Allergies No known active allergies Medications albuterol [...] tablet (50 mg total) by mouth nightly. Active Active Problems Problem Noted Date Diagnosed Date Acute recurrent pancreatitis 11/06/2023 Social History Tobacco Use Types Packs/Day Years Used Date Smoking Tobacco: Every Day Cigarettes Tobacco Cessation:Ready to Q uit: Not Asked; Counseling Given: Not Answered Alcohol Use Standard Drinks/Week Comments Yes 14 (1 standard drink = 0.6 oz pu re alcohol) 2 cocktails a night Food Insecurity Answer Date Recorded Food run [...] Date Kevin rded Speak language other than Thai at home Not on file 11/10/2023 Want help with school or training Not on file 11/10/2023 Substance Use Answer Date Recorded Used prescription meds for non-medical reasons N ot on file 11/10/2023 Used illegal drugs past 12 months Not on file 11/10/2023 Comments Unknown Sex and Gender Information Value Date Recorded Sex Assigned at Not on file Legal Sex Female 1:08 PM LEGAL OPERATIONS MANAGER Gender Identity Not on file Sexual Orientation [...] and Screening (12+) 11/06/2024 11/06/2023 Influenza Vaccine (#1) 2025 3, 08/22/2022, 09/04/2021, Additional history exists Respiratory Syncytial Virus (RSV) Adult or (1 - 1-dose 75+ series) 2026 Insurance [employer] MEDICARE HMO Advance Directives For more information, please contact: [phone] * Full Code (Latest Code Status on File) Date Activated Date Inactivated Comments 11/06/2023 3:49 PM 11/16/2023 2:30 PM Care Teams Qual Field Manager Relationship Specialty Start Date End Date Alfred Awad MD [address] [place] [address] PCP - General Adolescent Medicine 11/06/23
--- OUTSIDE RECORDS SUMMARY | 2025-05-17 12:05 | XMS_ITS | Referral Summary ---
Author Organization [email or web address] ([place], [place], [place], [place]) Address [address] [place] [address] Care Team Providers Care Marketing Content Specialist Name Role Phone Alfred Aawd MD Primary Care Provider + [phone] Allergies No known active allergies Medications albuterol [...] Date Kevin rded Speak language other than [place] at home Not on file 11/10/2023 Want help with school or training Not on file 11/10/2023 Substance Use Answer Date Recorded Used prescription meds for non-medical reasons N ot on file 11/10/2023 Used illegal drugs past 12 months Not on file 11/10/2023 Comments Unknown Sex and Gender Information Value Date Recorded Sex Assigned at Not on file Legal Sex Female 1:08 PM SAFETY SPEC Gender Identity Not on file Sexual Orientation [...] Plan of Treatment Not on file Insurance [facility] MEDICARE HMO Advance Directives For more information, please contact: [phone] * Full Code (Latest Code Status on File) Date Activated Date Inactivated Comments 11/06/2023 3:49 PM 11/16/2023 2:30 PM Care Teams Marketing Content Specialist Relationship Specialty Start Date End Date Alfred Awad MD [address] [place] [address] PCP - General Adolescent Medicine 11/06/23
--- OUTSIDE RECORDS SUMMARY | 2025-05-17 12:05 | XMS_ITS | Clinical Summary ---
Author Organization Healthcare Address [address] [place] [address] Care Team Providers Care Temp Recruiter Name Role Phone Alfred Awad MD Primary Care Provider Immunizations Immunization Administration Dates Next Due Influenza, [...] of Treatment Not on file Care Teams Temp Recruiter Relationship Specialty Start Date End Date Alfred Awad MD [address] [place] [address] PCP - General 03/15/21
--- OUTSIDE RECORDS SUMMARY | 2025-05-17 12:05 | XMS_ITS | Patient Health Record ---
Author Organization [facility] Address [address] [place] [address] Care Team Providers Care Senior Supply Chain Analyst Name Role Phone Alfred Awad Primary Care Provider [phone] Michelle Perea Unavailable [phone] Lacie Arvizu Unavailable [phone] Migration, Provider Unavailable Unavailable Allergies Allergen (clinical drug ingredient) Drug/Non Drug Allergy documented on EMR Reaction Allergy Type Onset Date Status TERIMYCIN (uncoded) black outs Allergy Active Results Component Value Reference Range Notes VITAMIN D,25-OH,TOTAL,IA (17 306) Reviewed date:01/18/2025 09:36:14 AM Interpretation: Performing Lab:[facility] [id number] [facility] CenterTogcHT[address] Zechariah Trejo Notes/Report: NON-FASTING NON-FASTING NON-FASTING NON-FASTING [...] D, (D2,D3), LC/MS/MS is recommended: order code 06613 (patients >2yrs). See Note 1 Note 1 For additional information, please refer to http://education.BCNX/faq/ZTG099 (This link is being provided for informational/ educational purposes only.) THYROID PANEL (7020) Reviewed date:08/19/2024 10:45:50 AM Interpretation: Performing Lab:[facility] [id number] Mitt[place] [facility], [facility] CenterWanqTD[address] Zechariah Trejo Notes/Report: NON-FASTING; NON-FASTING; NON-FASTING; NON-FASTING T3 UPTAKE 29 22-35 % T4 (THYROXINE), TOTAL 7.4 5.1-11.9 mcg/dL FREE T4 INDEX (T7) 2.1 1.4-3.8 VITAMIN B12/FOLATE, SERUM PA YOSEPH (7065) Reviewed date:01/18/2025 09:36:14 AM Interpretation: Performing Lab:[facility] [id number] [facility], [facility] CenterOdyxCH[address] Zechariah Trejo Notes/Report: NON-FASTING NON-FASTING NON-FASTING NON-FASTING NON-FASTING VITAMIN B12 999 061-4965 pg/mL Please Note: Although the reference range [...] Reviewed date:01/18/2025 09:36:14 AM Interpretation: Performing Lab:[facility] [id number] Mitt[place] [facility], [facility] CenterRgmsIF[address] Zechariah Trejo Notes/Report: NON-FASTING NON-FASTING NON-FASTING NON-FASTING [...] MPV 10.5 7.5-12.5 fL ABSOLUTE NEUTROPHILS 5757 4841-6124 cells/uL ABSOLUTE LYMPHOCYTES 4435 850-3900 cells/uL ABSOLUTE MONOCYTES 650 200-950 cells/uL ABSOLUTE EOSINOPHILS 314 15-500 cells/uL ABSOLUTE BASOPHILS 45 0-200 cells/uL NEUTROPHILS 51.4 LYMPHOCYTES 39.6 MONOCYTES 5.8 EOSINOPHILS 2.8 BASOPHILS 0.4 CBC (INCLUDES DIFF/PLT) (639 9) Reviewed date:08/19/2024 10:45:49 AM Interpretation: Performing Lab:[facility], [facility] [id number] [facility], [facility] ClinicJfohBV[address] Zechariah Trejo Notes/Report: NON-FASTING; NON-FASTING; NON-FASTING; NON-FASTING [...] MPV 10.4 7.5-12.5 fL ABSOLUTE NEUTROPHILS 4369 9184-5350 cells/uL ABSOLUTE LYMPHOCYTES 2694 850-3900 cells/uL ABSOLUTE MONOCYTES 561 200-950 cells/uL ABSOLUTE EOSINOPHILS 213 15-500 cells/uL ABSOLUTE BASOPHILS 63 0-200 cells/uL NEUTROPHILS 55.3 LYMPHOCYTES 34.1 MONOCYTES 7.1 EOSINOPHILS 2.7 BASOPHILS 0.8 MAGNESIUM (622) Reviewed date:08/19/2024 10:45:49 AM Interpretation: Performing Lab:[facility], [facility] [address] [email or web address], [place] QttfQQ[address] Zechariah Trejo Notes/Report: NON-FASTING; NON-FASTING; NON-FASTING; NON-FASTING MAGNESIUM 1.8 1.5-2.5 mg/dL COMPREHENSIVE METABOLIC PANE L (71376) Reviewed date:08/19/2024 10:45:49 AM Interpretation: Performing Lab:[facility]ER, [facility] [address] [email or web address], 3rd PlanetDdaeBM[address] Zechariah Trejo Notes/Report: NON-FASTING; NON-FASTING; NON-FASTING; NON-FASTING [...] 19 10-35 U/L ALT 15 6-29 U/L COMPREHENSIVE METABOLIC PANE L (80318) Reviewed date:01/18/2025 09:36:13 AM Interpretation: Performing Lab:[facility] [address] [email or web address], [place] HeunUZ[address] Zechariah Trejo Notes/Report: NON-FASTING NON-FASTING NON-FASTING NON-FASTING [...] 14 10-35 U/L ALT 12 6-29 U/L LIPID PANEL, STANDARD (7600) Reviewed date:01/18/2025 09:36:13 AM Interpretation: Performing Lab:[facility], [facility] [id number] [facility], [facility] CenterEbmiPY[address] Zechariah Trejo Notes/Report: NON-FASTING NON-FASTING NON-FASTING NON-FASTING [...] equation in the estimation of LDL-C. Garry JONES et al. ELHAM. 2013;310(19): 5027-9186 (http://education.Clear Water Outdoor.Mindlikes/faq/LGA571) CHOL/HDLC RATIO 3.8 <5.0 (calc) NON HDL CHOLESTEROL 125 <130 mg/dL (calc) For patients with diabetes plus 1 major ASCVD risk factor, treating to a non-HDL-C goal of <100 mg/dL (LDL-C of <70 mg/dL) is considered a therapeutic option. DEXA Hip and Spine - Screeni ng Reviewed date:07/12/2024 08:33:21 AM Interpretation: Performing Lab: Notes/Report: Mammogram : Bilateral Reviewed date:07/05/2024 09:05:41 PM Interpretation: Performing Lab: Notes/Report: CT Scan : Chest, Lung Cancer Screening Reviewed date:07/12/2024 08:41:47 AM Interpretation: Performing Lab: Notes/Report: Reason For Referral Reason dexa screening Referral Organization [facility] Referring Provider First Name Alfred Referring Provider Last Name Delmi [facility] Referral Priority Routine Referral Appointment Date 06/29/2024 Reason LDCT Screening Referral Organization [facility] Referring Provider First Name Alfred Referring Provider Last Name Delmi Referring Provider [facility] Internal edicine General Notes Chikis Goldsmith 2023 09:59:45 AM >sent to [facility] Referral Priority Routine Referral Appointment Date 06/29/[address] Scan Chest - opac ity in Right lung base after 10-01-[address] lung scr eening (R91.8) Referral Organization [facility] Referring Provider First Name Alfred Referring Provider Last Name Delmi Referring Provider [facility] Internal edicine Referred Organization [facility] Referred Address [address] [place] [address], [place], [place],[address], Referred Provider Specialty Diagnostic R adiology General Notes Chikis Goldsmith 2023 09:16:12 AM >Approved, Authorization #[id number] - Tracking #[id number], Sent to [facility] Scheduling- They will contact patient to schedule appt.Agus Nickie 2024 11:23:35 AM >Patient canceled - weather- and never rescheduled Referral Priority Routine Referral Appointment Date 11/07/2024 Reason PT evaluation for de conditioning/core strengthening/exercise tolerance and chronic back pain Diagnosis 1 Other malaise (R53.8 1) Referral Organization [facility] Referring Provider First Name Alfred Referring Provider Last Name Delmi Referring Provider Speciality Internal edicine Referred Organization [facility] Referred Address [address] [facility] [address] [facility], [place],[address],[place] Referred Provider Specialty Physical Med icine and Rehabilitation Referral Priority Routine Medications Medication SIG (Take, Route, Frequency, Duration) Notes Start Date End Date Status SYRINGE 3CC 25G 1 01/18/2025 Active DULoxetine HCl 20 MG 1 cap(s) orally olive ly; Duration: 30 days Active Mupirocin 2 % 1 application Frog Farmer ally 3 times a day; Duration: 7 days 05/17/2025 Active traZODone HCl 50 MG as directed orally a t bedtime; Duration: 90 days Activ e Atorvastatin Calcium 40 MG 1 tab(s) oral ly once a day; Duration: 90 days Active Alendronate Sodium 70 MG 1 tab(s) orally once a week; Duration: 90 days Active DUPIXENT PRE-FILLED PEN 300 MG/2 ML DIRECTED SUBCUTANEOUSLY EVERY 2 WEEKS Active Loratadine 10 MG 1 cap(s) orally once a day; Duration: 90 days Active Pantoprazole Sodium 40 MG 1 tab(s) orally once a day Active Potassium Chloride Ada ER 20 mEq TAKE ONE TABLET BY MOUTH EVERY DAY; Duration: 30 Active Montelukast Sodium 10 MG 1 tab(s) orally once a day; Duration: 90 days Active Acetaminophen-Codeine 300-30 MG 2 tabs orally twice daily for severe pain; Duration: 30 days 04/24/2025 Active Doxycycline Hyclate 100 MG 1 capsule Ora lly Once a day; Duration: 7 days 05/17/2025 Active Ibuprofen 800 MG 1-2tab(s) orally olive ly; Duration: 90 days Active Doxycycline Hyclate 100 MG 1 capsule Ora lly twice a day; Duration: 7 days 05/17/2025 Active Cyanocobalamin 1000 MCG/ML 1mL intramusc ularly once a week; Duration: 84 days 01/18/2025 Active Immunizations Vaccine Route Administration Date Status Comme nts Adacel (Tdap) IM Intramuscular 05/08/2016 Administered Arexvy IM Intramuscular 10/12/2023 Administered Fluzone High Dose IM Intramuscular 09/03/2018 Administered Fluzone High Dose IM Intramuscular 08/01/2023 Administered Fluzone High Dose IM Intramuscular 08/17/2024 Administered Influenza (Fluzone)--Medicare only IM Intramuscular 09/28/2017 Administered Influenza-Fluzone 3+years (NON-MEDICARE) IM Intramuscular 08/22/2015 Administered Pneumovax 23 IM Intramuscular 08/22/2015 Administered Prevnar PCV-13 (Pneumococcal conjugate 13) IM Intramuscular 03/22/2018 Administered Prevnar PCV-20 (Pneumococcal conjugate 20) IM Intramuscular 08/17/2024 Administered Social History Tobacco Use: Social History [...] to less than 90% of standard weight) (74077845) Mild protein-calorie malnutrition (E44.1) Active confirmed Problem Primary insomnia (0726080) Primary insomnia (F51.01) Active confirmed Problem Chronic pain (94150433) Other chronic pain (G89.29) Active confirmed Problem Vasomotor rhinitis (4789642) Vasomotor rhinitis (J30.0) Active confirmed Problem Panlobular emphysema (7099999) Panlobular emphysema (J43.1) Active confirmed Problem Age-related osteoporosis (069521651) Age-related osteoporosis without current pathological fracture (M81.0) Active confirmed Problem Nicotine dependence (07664145) Personal history of nicotine dependence (Z87.891) Active confirmed Problem Anxiety (95969290) Anxiety (F41.9) Active confirmed Problem Osteoporosis (87005435) Osteoporosis (M81.0) Active confirmed Problem Hyperlipidemia (24194142) Hyperlipemia, idiopathic familial (E78.5) Active confirmed Problem Essential hypertension (38593579) Hypertension, essential (I10) Active confirmed Problem Tubular adenoma of colon (546475402) Tubular adenoma of colon (D12.6) Active confirmed Problem Acute exacerbation of chronic obstructive airways disease (549928603) COPD exacerbation (J44.1) Active confirmed Problem Hyperammonemia (2900526) Hyperammonemia (E72.20) Active confirmed Problem Ataxia (55772034) Ataxia (R27.0) Active confirm ed Problem Sacroiliitis (22675105) Sacroiliitis (M46.1) Active confirmed Problem Alcohol abuse (19830957) Alcohol abuse (F10.10) Active confirmed Problem Sciatica (64720954) Acute left-sided low back pain with left-sided sciatica (M54.42) Active confirmed Problem Contracture of palmar fascia (475080077) Dupuytren's contracture of left hand (M72.0) Active confirmed Problem Primary hypertension (42550023) Primary hypertension (I10) Active confirmed Problem Inflammatory and toxic neuropathy (492229422) Peripheral polyneuropathy (G62.9) Active confirmed Problem Macrocytosis (13128374) Macrocytosis (D75.89) Active confirmed Problem Chronic obstructive pulmonary disease (99197790) COPD, mild (J44.9) Active confirmed Problem Hyperlipidemia (08693772) Other hyperlipidemia (E78.49) Active confirmed Problem Macrocytosis - no anemia (127771317) Macrocytosis without anemia (D75.89) Active confirmed Vital Signs Heart Rate 104 /min 05/17/2025 Temperature 7.6 degrees Fahrenheit 05/17/2025 Blood pressure diastolic 72 mm Hg 05/17/2025 Height 65 in in 05/17/2025 Blood pressure systolic 126 mm Hg 05/17/2025 Weight 126.6 lbs 05/17/2025 BMI 21.07 kg/m2 05/17/2025 Encounters Encounter Location Date Provider Diagnosis [facility] [address] [place] [address] 02/04/2025 Provider Migration [facility] [address] [place] [address] 05/17/2025 Lacie Arvizu B12 deficiency E53.8 ; Acute infectious diarrhea A09 ; Fatigue, unspecified type R53.83 ; Diffuse abdominal pain R10.84 and Cellulitis of right leg L03.115 [facility] [address] [place] [address] 05/17/2024 Alfred Awad Atopic dermatitis L20.9 [facility] [address] [place] [address] 06/08/2024 Alfred Awad Osteoporosis M81.0 ; Acute left-sided low back pain with left-sided sciatica M54.42 ; Personal history of nicotine dependence Z87.891 ; Atopic dermatitis L20.9 ; Leg edema R60.0 and Routine medical exam Z00.00 [facility] [address] [facility] [address] [place], [place] [address] 08/17/2024 Alfred Awad Other malaise R53.81 ; Other fatigue R53.83 ; Immunization(s) administered Z23 ; Peripheral polyneuropathy G62.9 and Leg edema R60.0 [facility] [address] [facility] [address] [place], [place] [address] 10/17/2024 Alfred Awad COPD, mild J44.9 ; Mild protein-calorie malnutrition E44.1 ; Personal history of nicotine dependence Z87.891 and Healthcare maintenance Z00.00 [facility] [address] [place], [place] [address] 01/06/2025 Alfred Nuñezbelkis Acute cough R05.1 ; COPD exacerbation J44.1 and Acute bronchitis, unspecified organism J20.9 [facility] [address] [place], [place] [address] 01/16/2025 Alfred Nuñezbelkis Hypertension, essential I10 ; Osteoporosis M81.0 ; Hyperlipemia, idiopathic familial E78.5 ; Macrocytosis without anemia D75.89 and COPD, mild J44.9 [facility] [address] [facility] [address] [place] [address] 01/20/2025 Alfredcathy Awad Vitamin B12 deficien cy E53.8 [facility] [address] [facility] [address] [place] [address] 02/16/2025 Alfred Besson Vitamin B12 deficien cy E53.8 [facility] [address] [facility] [address] [place] [address] 03/03/2025 Alfred Besson Vitamin B12 deficien cy E53.8 [facility] [address] [facility] [address] [place], [place] [address] 03/24/2025 Alfred Besson Vitamin B12 deficien cy E53.8 [facility] [address] [place] [address] 04/10/2025 Alfred Besson Vitamin B12 deficien cy E53.8 [facility] [address] [place] [address] 04/17/2025 Alfred Besson Vitamin B12 deficien cy E53.8 [facility] [address] [place] [address] 04/27/2025 Alfred Besson Vitamin B12 deficien cy E53.8 [facility] [address] [place] [address] 05/10/2025 Alfred Besson B12 deficiency E53.8 [facility] [address] [place] [address] 05/23/2024 Alfred Besson [facility] [address] [place] [address] 06/09/2024 Alfred Besson Aggressive former smoker Z87.891 ; History of nicotine dependence Z87.891 and Asymptomatic age-related postmenopausal state Z78.0 [facility] [address] [place] [address] 06/09/2024 Alfred Besson Breast cancer screening by mammogram Z12.31 [facility] [address] [place] [address] 08/17/2024 Alfred Besson Malaise R53.81 [facility] [address] [place] [address] 09/23/[address] lung screening R91.8 [facility] [address] [place] [address] 10/11/2024 Alfred Besson [facility] [address] [place] [address] 01/18/2025 Alfred Awad Assessments Encounter Date Diagnosis (ICD Code) Assessment Notes Treatment Notes Treatment Clinical Notes Section Notes 05/17/2024 Atopic dermatitis (ICD-10 - L20.9) 06/08/2024 [...] Acute cough (ICD-10 - R05.1) Given viral bronchitis/bacte rial bronchitis/COPD exacerbation I ordered and interpreted fluid [...] 04/17/2025 Vitamin B12 deficiency (ICD-10 - E53.8) 04/27/2025 Vitamin B12 deficiency (ICD-10 - E53.8) 05/10/2025 B12 deficiency (ICD-10 - E53.8) 05/17/2025 B12 deficiency (ICD-10 - E53.8) m 01/16/2025 Hyperlipemia, idiopathic familial (ICD-10 - E78.5) Stable. On statin therapy 01/06/2025 Acute bronchitis, unspecified organism (ICD-10 - J20.9) Given COPD overlay and bronchitis will add doxycycline a 05/17/2025 Acute infectious diarrhea (ICD-10 - A09) m 10/17/2024 Personal history of nicotine dependence (ICD-10 [...] up-to-date with healthcare maintenance, depression screening negative 3/3 word recall, HRA reviewed 05/17/2025 Fatigue, unspecified type (ICD-10 - R53.83) m 01/16/2025 Macrocytosis without anemia (ICD-10 - D75.89) Check labs and will follow. 08/17/2024 Peripheral polyneuropathy (ICD-10 - G62.9) 01/16/2025 COPD, mild (ICD-10 - J44.9) On rx... no changes in plan 05/17/2025 Diffuse abdominal pain (ICD-10 - R10.84) m 08/17/2024 Leg edema (ICD-10 - R60.0) RESOLVED. She can stop taking Lasix 20mg daily and start taking as needed (3 pound weight gain in 1 day or 5 pounds in 1 week). 06/08/2024 Leg edema (ICD-10 - R60.0) -Chronic, stable -Continue Lasix 20 mg daily, can take extra dose if having worsening leg swelling or rapid weight gain -Encouraged patient to wear TERRY wraps and elevate legs 06/08/2024 Routine medical exam (ICD-10 - Z00.00) -Will order repeat CT lung cancer screening -Repeat DEXA -Declines mammogram -Aged out of pap smears -UTD on vaccines Cognitive impairment screening negative with 3/3 word recall.Living will in place. is healthcare surrogate 05/17/2025 Cellulitis of right leg (ICD-10 - L03.115) m Plan Of Treatment Pending Test Test Name Order Date Physical Therapy 09/10/2018 Physical Therapy 12/22/2017 Mammogram : Bilateral 03/25/2023 Mammogram : Bilateral 03/18/2017 H-CBC with AUTO DIFF 04/27/2014 H-VITAMIN B12 03/18/2017 H-VIT D, 25-HYDROXY 03/18/2017 H-MONOSCREEN 04/27/2014 C-THROAT CULTURE 04/27/2014 DEXA Hip and Spine - Diagnostic 06/08/20 24 DEXA Hip and Spine - Diagnostic 10/12/20 23 M-Complete Blood Count Auto Diff 025 M-Comprehensive Metabolic Panel 05/17/20 25 M-Lipase 05/17/2025 M-Thyroid Stimulating Hormone 05/17/2025 M-Diarrhea Panel, PCR 05/17/2025 M-Diarrhea Panel, PCR 09/08/2023 M-Vitamin B12 08/07/2023 M-Folate 08/07/2023 CT Scan : Chest, Lung Cancer Screening 0 06/08/2024 CT Scan : Chest, Lung Cancer Screening 0 05/26/2022 Vitamin B12 05/27/2022 Physical Therapy : Gait training and cor e strengthening 02/16/2024 Physical Therapy : Gait training and cor e strengthening 08/17/2024 Physical Therapy : Gait training and cor e strengthening 01/27/2024 Physical Therapy Eval and Treat 06/29/20 23 CULTURE, AEROBIC AND ANAEROBIC W/GRAM ST AIN (4446) 05/17/2025 Rapid Covid/Flu A-B Combo 01/06/2025 CT CHEST WO CONTRAST 09/23/2024 Future Test Test Name Order Date M-Basic Metabolic Panel 10/28/2023 M-Magnesium 10/28/2023 Next Appt Details Provider Name:Alfred Awad, 05/22/2025 04:45:00 PM, [address], [place], [address], Insurance Providers Payer Name Payer Address Payer Phone Subscriber Number Group Number Insured Name Patient Relationship to Insured Coverage Start Date Coverage End Date [facility] [address] [address] [place] [address] [id number] Yamilet Krueger Self - patient is the insured Medications [...] Cyanocobalamin/B-12 Pt's Own Medication 04/17/2025 1 mL Cyanocobalamin/B-12 Pt's Own Medication 04/27/2025 1 mL Cyanocobalamin/B-12 Pt's Own Medication 05/10/2025 1 mL Cyanocobalamin/B-12 Pt's Own Medication 05/17/2025 1 mL DUPIXENT 04/13/2024 300 mg DUPIXENT [...] left hand 2018 Hospitalization History Reason Date(Month/Year) [facility] to [facility] to [facility] C-diff 09/2023 [facility] 07/2023 [facility] 12/2022
[2025-05-17 12:40] LABS: Hematocrit 40.8 % (37.0-47.0); Hemoglobin 13.3 g/dL (12.2-16.2); Immature Granulocytes % 0.2 %; Mean Corpuscular HGB Conc 32.6 g/dL (31.8-35.4); Mean Corpuscular Hemoglobin 32.9 pg (27.0-31.2); Mean Corpuscular Volume 101.0 fl (81-99); Nucleated Red Blood Cells % 0 %; Platelet Count 296 K/mm3 (142-424); Red Blood Count 4.04 M/mm3 (4.20-5.40); Red Cell Distribution Width-SD 53.8 fL; White Blood Count 9.1 K/mm3 (4.8-10.8)
[2025-05-17 13:14] LABS: Alanine Aminotransferase 12 U/L (12-78); Albumin Level 4.6 g/dl (3.5-5.0); Albumin/Globulin Ratio 1.7 (1.1-1.8); Alkaline Phosphatase 77 U/L (38-126); Anion Gap 17.7 mEq/L (5-15); Aspartate Amino Transferase 25 U/L (14-36); Bilirubin,Total 0.6 mg/dl (0.2-1.3); Blood Urea Nitrogen 11 mg/dl (7-17); Calcium 9.7 mg/dl (8.4-10.2); Carbon Dioxide 18 mmol/L (22.0-30.0); Chloride 107 mmol/L (98-107); Creatinine,Serum 0.60 mg/dl (0.52-1.04); Estimated Glomerular Filt Rate 98 ml/min (>60); GFR (African American) 119 ML/MIN (>60); Globulin 2.7 g/dL (1.3-3.2); Glucose 93 mg/dl (74-100); Lipase 35 U/L (23-300); Potassium 4.7 mmoL/L (3.5-5.1); Sodium 138 mmol/L (136-145); Total Protein,Serum 7.3 g/dl (6.3-8.2)
[2025-05-17 13:42] LABS: Thyroid Stimulating Hormone 1.42 uIU/mL (0.465-4.68)
== END 2025-05-17 23:59 | disposition home or self-care (01) ==
LOC: LAB 12:03
PROVIDERS: PCP Internal Medicine Adolescent Medicine; Visit Provider Physician Assistant
DX: A09 Infectious gastroenteritis and colitis, unspecified (principal); E53.8 Deficiency of other specified B group vitamins; R53.83 Other fatigue; L03.115 Cellulitis of right lower limb; R10.84 Generalized abdominal pain
CPT/HCPCS: 36415; 80053; 83690; 84443; 85025

== ENCOUNTER 2025-06-12 13:25 | Outpatient (POV) | payer MEDICARE, SELFPAY ==
--- OUTSIDE RECORDS SUMMARY | 2025-05-22 12:45 | XMS_ITS ---
Author Organization [facility] Address [address] [place] [address] Care Team Providers Care Overnight Stocker Name Role Phone Alfred Awad Primary Care Provider Michelle Perea Unavailable [phone] Allergies Allergen (clinical drug ingredient) Drug/Non Drug Allergy documented on EMR Reaction Allergy Type Onset Date Status TERIMYCIN (uncoded) black outs Allergy Active REASON FOR VISIT 3 month check up Medications Medication SIG (Take, Route, Frequency, Duration) Notes Start Date End Date Status Mupirocin 2 % 1 application Electroneurodiagnostic Technician ally 3 times a day; Duration: 7 days 05/17/2025 Active Doxycycline Hyclate 100 MG 1 capsule Ora lly twice a day; Duration: 7 days 05/17/2025 Active Potassium Chloride Ada ER 20 mEq TAKE ONE TABLET BY MOUTH EVERY DAY; Duration: 30 Active Acetaminophen-Codeine 300-30 MG 2 tabs orally twice daily for severe pain; Duration: 30 days 04/24/2025 Active DULoxetine HCl 20 MG 1 cap(s) orally olive ly; Duration: 30 days Active Loratadine 10 MG 1 cap(s) orally once a day; Duration: 90 days Active Cyanocobalamin 1000 MCG/ML 1mL intramusc ularly once a week; Duration: 84 days 01/18/2025 Active SYRINGE 3CC 25G 1 01/18/2025 Active Alendronate Sodium 70 MG 1 tab(s) orally once a week; Duration: 90 days Active Ibuprofen 800 MG 1-2tab(s) orally olive ly; Duration: 90 days Active traZODone HCl 50 MG as directed orally a t bedtime; Duration: 90 days Activ e Montelukast Sodium 10 MG 1 tab(s) orally once a day; Duration: 90 days Active Pantoprazole Sodium 40 MG 1 tab(s) orally once a day Active Atorvastatin Calcium 40 MG 1 tab(s) oral ly once a day; Duration: 90 days Active DUPIXENT PRE-FILLED PEN 300 MG/2 ML DIRECTED SUBCUTANEOUSLY EVERY 2 WEEKS Active Immunizations Vaccine Route Administration Date Status Comme nts SHINGRIX IM Intramuscular 05/22/2025 Administered Social History Tobacco Use: Social History [...] interested in quitting? Thinking about q uitting Vital Signs Temperature 97.7 degrees Fahrenheit 05/22/20 25 Blood pressure systolic 118 mm Hg 05/22/20 25 Blood pressure diastolic 78 mm Hg 025 Heart Rate 92 /min 05/22/2025 Height 65 in in 05/22/2025 Weight 127 lbs 05/22/2025 BMI 21.13 kg/m2 05/22/2025 Encounters Encounter Location Date Provider Diagnosis [facility] [address] [facility] [address] [place] [address] 05/22/2025 Alfred Awad Hypertension, essential I10 ; Macrocytosis without anemia D75.89 ; COPD, mild J44.9 ; Hyponatremia E87.1 and Encounter for immunization Z23 Assessments Encounter Date Diagnosis (ICD Code) Assessment Notes Treatment Notes Treatment Clinical Notes Section Notes 05/22/2025 Hypertension, essential (ICD-10 - I10) Good blood pressure control. No changes in plan. Follow-up in September. 05/22/2025 Macrocytosis without anemia (ICD-10 - D75.89) Macrocytosis has resolved. Seemingly is a relative better nutrition and hopefully cessation of alcohol 05/22/2025 COPD, mild (ICD-10 - J44.9) Stable. Continues to smoke somewhat 05/22/2025 Hyponatremia (ICD-10 - E87.1) Sodium level stabilized. No changes in plan 05/22/2025 Encounter for immunization (ICD-10 - Z23) Plan Of Treatment Treatment Notes Assessment Notes Hypertension, essential Good blood press ure control. No changes in plan. Follow-up in September. Macrocytosis without anemia Macrocytosis has resolved. Seemingly is a relative better nutrition and hopefully cessation of alcohol COPD, mild Stable. Continues to smoke somewhat Hyponatremia Sodium level stabili zed. No changes in plan Next Appt Details Follow Up: prn, Reason: Provider Name:Alfred Awad, 09/20/2025 02:15:00 PM, [address], [address], [place], [address], Progress Notes * Yamilet MCGILLDOB:1950 ([age] yo F)Acc No.[id number]:05/22/2025 Progress Notes Patient: Yamilet SCHAFFER Provider: Mayi Awad MD :1950 A ge:74 Y S ex:Female Date:05/22/2025 Address:[address] [place] [address], [place], [id number] Subjective: * Chief Complaints: * 1 . 3 month check up. * HPI: g en: Overall patient is doing well. No complaints. Her abrasion on her right leg is slow to heal, she has been using alcohol wipes.Otherwise no recent falls. Blood pressure control been good. Labs done last week were normal in regard to her kidney function and sodium issues. * Medical History: C olonoscopy February 2016 with tubular adenoma and hyperplastic polyps - repeated 12/25 with 4 polyps - 3 year f/u recommended, DEXA scan 2014 with osteoporosis - repeated 08/2018 with ongoing disease - repeat April 2020 with continued osteoporosis- treatment continued - repeated 06/2024 - ongoing treatment, Mammogram normal 08/19 - repeated normal 04/21 - and normal 06/2024, Autoimmune disorder, Echo normal 05/25, LDCT 06/25 with scarring.. 3 mo f/u recommended. * Surgical History: O ral surgery 03/2018, left hand 2018. * Hospitalization/Major Diagno stic Procedure: H MH 12/2022, [facility] 07/2023, C-diff 09/2023, [facility] to [place] [facility] . * Family History: F ather: , massive heart attack, diagnosed with Heart Disease. M other: , diagnosed with Heart Disease. P aternal Grand Father: . P aternal Grand Mother: . M aternal Grand Father: . M aternal Grand Mother: . P aternal uncle: . P aternal aunt: . M aternal uncle: alive. M aternal aunt: . Siblings: alive, brother- bewgpc-jpnanikbjobptp-ndzsthru-cancer?. C fabio: alive, son-deceaseddaughter- celiacs disease. 2 brother(s) , 2 sister(s) - healthy. 2 daughter(s) - healthy. . * Social History: S moking A re you a: c urrent smoker, H ow often do you smoke cigarettes? e very day, H ow many cigarettes a day do you smoke? 2 1-30, H ow soon after you wake up do you smoke your first cigarette? 6 -30 min, A re you interested in quitting? T hinking about quitting. R ecreational drug use: no. Exercise: yes. Home smoke detector use: yes. Caffeine: yes, frequency:coffee- 1 cup per day. Living Will: Yes. Alcohol: socially. Travel outside [place]: no. Occupation: housewife. * Medications: T aking DUPIXENT PRE-FILLED PEN 300 MG/2 ML SOLUTION DIRECTED SUBCUTANEOUSLY EVERY 2 WEEKS , Taking Pantoprazole Sodium 40 MG Tablet Delayed Release 1 tab(s) orally once a day , Taking Montelukast Sodium 10 MG Tablet 1 tab(s) orally once a day , Taking Ibuprofen 800 MG Tablet 1-2tab(s) orally daily , Taking traZODone HCl 50 MG Tablet as directed orally at bedtime , Taking Atorvastatin Calcium 40 MG Tablet 1 tab(s) orally once a day , Taking Alendronate Sodium 70 MG Tablet 1 tab(s) orally once a week , Taking Cyanocobalamin 1000 MCG/ML Solution 1mL intramuscularly once a week , Taking SYRINGE 3CC 25G 1 , Taking DULoxetine HCl 20 MG Capsule Delayed Release Particles 1 cap(s) orally daily , Taking Loratadine 10 MG Capsule 1 cap(s) orally once a day , Taking Potassium Chloride Ada ER 20 mEq Tablet Extended Release TAKE ONE TABLET BY MOUTH EVERY DAY , Taking Acetaminophen-Codeine 300-30 MG Tablet 2 tabs orally twice daily for severe pain , Taking Mupirocin 2 % Ointment 1 application Externally 3 times a day , Taking Doxycycline Hyclate 100 MG Capsule 1 capsule Orally twice a day , Discontinued Doxycycline Hyclate 100 MG Capsule 1 capsule Orally Once a day , Medication List reviewed and reconciled with the patient * Allergies: T ERIMYCIN: black outs. Objective: * Vitals: N urse: be, Pain: 3, Temp: 97.7, RR: 16, HR: 92, BP: 118/78, Ht: 65 in, Wt: 127, BMI:21.13. * Examination: G eneral Examination: General P leasant and Cooperative, NAD on RA,. Oral cavity: M oist membranes. Chest: n ormal shape and expansion. Heart: R egular Rate and Rhythm, no murmur, rubs or gallops. HEENT: p harynx and tonsils normal, TM's normal. Lungs: L CTAB, No wheezes, crackles or rhonchi, Good air movement,. Abdomen: S oft, NTND, BSNA, No organomegaly or peritoneal signs.. Neurologic Exam: n o focal signs,, normal sensation, strength, tone and reflexes,, Alert and oriented x 3. Skin: w ithout acute rashes. Peripheral pulses: n ormal (2+) bilaterally. Back: n ormal,. Extremities: n ormal ROM,, no clubbing, no edema,,no foot lesions,Silver dollar shaped eschar on the rodriguez of the right leg midway between the knee and the ankle. No evidence of red streaking. No drainage.. neck s upple,, no thyromegaly,, no lymphadenopathy,. Psych N ormal Mood/Affect. diabetic foot exam V isual exam of foot performed: Y es. Neck s upple, no lymphadenopathy. General Appearance: N AD, pleasant. Assessment: * Assessment: 1. H ypertension, essential - I10 (Primary) 2 . M acrocytosis without anemia - D75.89 3 . C OPD, mild - J44.9 4 . H yponatremia - E87.1? 5. E ncounter for immunization - Z23 Plan: * Treatment: 2. M acrocytosis without anemia Notes: Macrocytosis has resolved. Seemingly is a relative better nutrition and hopefully cessation of alcohol 3. C OPD, mild Notes: Stable. Continues to smoke somewhat 4. H yponatremia Notes: Sodium level stabilized. No changes in plan * Immunizations: SHINGRIX : 0.5 mL (Route: Intramuscular) given by YOLIS Zuniga on Right Deltoid (Encounter for immunization) * Procedure Codes: 9 0750 SHINGRIX, 54689 ADMINISTRATION IMMUNIZATION ONE VACCINE * Follow Up: p rn * * Sign off status: Completed true * Provider: Mayi Awad MD Date: 05/22/2025 Generated for Marlys garcia/Patrice/eTransmitting on: 06/12/2025 01:28 PM EDT History and Physical Notes * HPI (History of Present Illness) Category Sub-Category Detail Notes Category Not es gen Overall patient is doing well. No complaints. Her abrasion on her right leg is slow to heal, she has been using alcohol wipes.Otherwise no recent falls. Blood pressure control been good. Labs done last week were normal in regard to her kidney function and sodium issues Examination Category Sub-Category Detail Notes Category Not es General Examination HEENT: pharynx and tonsils normal, TM's normal Neck supple, no lymphaden opathy Heart: Regular Rate and Rhy thm, no murmur, rubs or gallops Lungs: LCTAB, No wheezes, c rackles or rhonchi, Good air movement, Abdomen: Soft, NTND, BSNA, No organomegaly or peritoneal signs. Extremities: normal ROM,, no club evelia, no edema,, no foot lesions,Silver dollar shaped eschar on the rodriguez of the right leg midway between the knee and the ankle. No evidence of red streaking. No drainage. General Appearance: NAD, pleasant Skin: without acute rashes Neurologic Exam: no focal signs,, nor mal sensation, strength, tone and reflexes,, Alert and oriented x 3 Oral cavity: Moist membranes Peripheral pulses: normal (2+) bilatera lly Back: normal, Chest: normal shape and exp ansion neck supple,, no thyromeg benson,, no lymphadenopathy, General Pleasant and Coopera tive, NAD on RA, Psych Normal Mood/Affect diabetic foot exam Visual exam of foot performed :: Yes
--- OUTSIDE RECORDS SUMMARY | 2025-06-01 08:00 | XMS_ITS ---
Author Organization [facility] Address [address] [facility] [address] [facility] [address] [place] [address] Care Team Providers Care Qa Engineer Name Role Phone Alfred Awad Primary Care Provider [phone] Michelle Perea Unavailable [phone] REASON FOR VISIT B12 Encounters Encounter Location Date Provider Diagnosis [facility] [address] [facility] [address] [place], [place] [address] 06/01/2025 Alfred Awad Vitamin B12 deficiency E53.8 Assessments Encounter Date Diagnosis (ICD Code) Assessment Notes Treatment Notes Treatment Clinical Notes Section Notes 06/01/2025 Vitamin B12 deficiency (ICD-10 - E53.8) Plan Of Treatment Next Appt Details Provider Name:Alfred Awad, 09/20/2025 02:15:00 PM, [address], [address], [place], [address], Medications Administered Medication Instructions Date of Administration Dosage Notes Cyanocobalamin/B-12 Pt's Own Medication 06/01/2025 1 mL Progress Notes * Yamilet MCGILLDOB:1950 ([age] yo F)Acc No.[id number]:06/01/2025 Patient: Kings Yamilet FLORES Provider: Mayi Awad MD :1950 A ge:74 Y S ex:Female Date:06/01/2025 Address:[address] [place] [address] [place], [id number] Subjective: * Chief Complaints: * 1 . B12. * Medical History: Objective: * Vitals: Assessment: * Assessment: 1. V itamin B12 deficiency - E53.8 (Primary) Plan: * Treatment: * Therapeutic Injections: Cyanocobalamin/B-12 Pt's Own Medication : 1 mL (Route: Intramuscular) given by YOLIS Zuniga on left deltoid * Procedure Codes: J 3420 B-12 INJECTION-Patient's Own Medication, 75034 THERAPEUTIC ADMINISTRATION * * Sign off status: Completed true * Provider: Mayi Awad MD Date: 0 06/01/2025 Generated for Marlys garcia/Patrice/Rajendra on: 0 06/12/2025 01:27 PM EDT
--- OUTSIDE RECORDS SUMMARY | 2025-06-12 06:45 | XMS_ITS ---
Author Organization [facility] Address [address] [facility] [address] [facility] [address] [place] [address] Care Team Providers Care Civil Clerk Name Role Phone Alfred Awad Primary Care Provider Michelle Perea Unavailable [phone] REASON FOR VISIT B12 Encounters Encounter Location Date Provider Diagnosis [facility] [address] [facility] [address] [place], [place] [address] 06/12/2025 Alfred Awad Vitamin B12 deficiency E53.8 Assessments Encounter Date Diagnosis (ICD Code) Assessment Notes Treatment Notes Treatment Clinical Notes Section Notes 06/12/2025 Vitamin B12 deficiency (ICD-10 - E53.8) Plan Of Treatment Next Appt Details Provider Name:Alfred Awad, 09/20/2025 02:15:00 PM, [address], [address], [place], [address], Medications Administered Medication Instructions Date of Administration Dosage Notes Cyanocobalamin/B-12 Pt's Own Medication 06/12/2025 1 mL Progress Notes * Yamilet MCGILLDOB:1950 ([age] yo F)Acc No.[id number]:06/12/2025 Patient: [place] Yamilet FLORES Provider: Mayi Awad MD :1950 A ge:74 Y S ex:Female Date:06/12/2025 Address:[address] [place] [address] [place], [id number] Subjective: * Chief Complaints: * 1 . B12. * Medical History: Objective: * Vitals: Assessment: * Assessment: 1. V itamin B12 deficiency - E53.8 (Primary) Plan: * Treatment: * Therapeutic Injections: Cyanocobalamin/B-12 Pt's Own Medication : 1 mL (Route: Intramuscular) given by YOLIS Zuniga on left deltoid * Procedure Codes: J 3420 B-12 INJECTION-Patient's Own Medication, 60798 THERAPEUTIC ADMINISTRATION * * Sign off status: Completed true * Provider: Mayi Awad MD Date: 06/12/2025 Generated for Marlys garcia/Patrice/Lorenitting on: 06/12/2025 01:29 PM EDT
--- OUTSIDE RECORDS SUMMARY | 2025-06-12 13:28 | XMS_ITS | Clinical Summary ---
Author Organization [facility] Address [address] [place] [address] Care Team Providers Care Pocket Secretary Assembler Name Role Phone Alfred Awad MD Primary Care Provider [phone] Immunizations Immunization Administration Dates Next Due Influenza, [...] of Treatment Not on file Care Teams Pocket Secretary Assembler Relationship Specialty Start Date End Date Alfred Awad MD [address] [place] [address] PCP - General 03/15/21
--- OUTSIDE RECORDS SUMMARY | 2025-06-12 13:28 | XMS_ITS | Clinical Summary ---
Author Organization [facility] ([place], [place], [place], [place]) Address [address] [place] [address] Care Team Providers Care Honing Machine Operator Semiautomatic Name Role Phone Alfred Awad MD Primary Care Provider + [phone] Allergies No known active allergies Medications albuterol [...] Date Kevin rded Speak language other than Central [place] at home Not on file 11/10/2023 Want help with school or training Not on file 11/10/2023 Substance Use Answer Date Recorded Used prescription meds for non-medical reasons N ot on file 11/10/2023 Used illegal drugs past 12 months Not on file 11/10/2023 Comments Unknown Sex and Gender Information Value Date Recorded Sex Assigned at Not on file Legal Sex 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
--- OUTSIDE RECORDS SUMMARY | 2025-06-12 13:28 | XMS_ITS | Clinical Summary ---
Author Organization [facility] Address [address] [place] [address] Care Team Providers Care Cash Control Specialist Name Role Phone Alfred Awad MD Primary Care Provider + [phone] Allergies No known active allergies Medications atorvastatin (LIPITOR) 10 MG tablet Take 40 mg by mouth Daily. 2023 Active furosemide (LASIX) 20 MG tablet Take 20 mg by mouth Daily. 2023 Active lactulose (CHRONULAC) 10 GM/15ML solution Take 30 g by mouth Daily. 2023 Active montelukast (SINGULAIR) 10 MG tablet Take 10 mg by mouth Every Night. 2023 Active potassium chloride (K-DUR,KLOR-CON) 20 MEQ CR tablet Take 20 mEq by mouth Daily. 2023 Active pregabalin (LYRICA) 50 MG capsule Take 50 mg by mouth 2 (Two) Times a Day. 2023 Active traZODone (DESYREL) 50 MG tablet Take 50 mg by mouth Every Night. 2023 Active Social History Tobacco Use Types Packs/Day Years Used Date Smoking Tobacco: Never Assessed OASIS D0700: Social Isolation Answer Da te Recorded Frequency of experiencing loneliness or isolatio n Never 01/25/2024 OASIS A1250: Transportation Answer Date Recorded Lack of Transportation (Medical) No 01/25/2024 Lack of Transportation (Non-Medical) No 01/25/2024 Patient Unable or Declines to Respond No 01/25/2024 OASIS B1300: Health Literacy Answer Jackson e Recorded Frequency of needing help to read materials from doctor or pharmacy Never 01/25/2024 Abuse Screen Answer Date Recorded Unsafe at Home or Work/School Not on file Feels Threatened by Someone? Not on file 10/2023 Does Anyone Keep You from Co ntacting Others or Doint Things Outside the Home? Not on file 08/13/2023 Physical Sign of Abuse Present Not on file 1 Housing Stability Answer Date Recorded Current Living Arrangements Not on file 08/02 Potentially Unsafe Housing Conditions Not on harman e 08/13/2023 Family and Community Support Answer Jackson e Recorded Help with Day-to-Day Activities Not on file 08/13/2023 Lonely or Isolated Not on file 08/13/2023 Employment Answer Date Recorded Do you want help finding or keeping work or a arcelia b? Not on file 08/13/2023 Disabilities Answer Date Recorded Concentrating, Remembering, or Making Decisions Difficulty Not on file 08/13/2023 Doing Errands Independently Difficulty Not on fi le 08/13/2023 Education Answer Date Recorded Help with school or training? Not on file Preferred Language Not on file 08/13/2023 Comments Unknown Sex and Gender Information Value Date Recorded Sex Assigned at Not on file Legal Sex Female 2:51 PM EDT Gender Identity Not on file Sexual Orientation Not on file Last Filed Vital Signs Vital Sign Reading Time Taken Comments Blood Pressure 124/72 01/25/2024 1:59 AM EDT Pulse 107 01/25/2024 1:59 AM EDT Temperature 36.6 C (97.8 F) 01/18/2024 2:11 PM EDT Respiratory Rate 16 01/25/2024 1:59 AM EDT Oxygen Saturation 100% 01/25/2024 1:59 AM EDT Inhaled Oxygen Concentration - - Weight - - Height - - Body Mass Index - - Plan of Treatment Health Maintenance Due Date Last Done Comments ANNUAL PHYSICAL 1950 DXA SCAN 1950 HEPATITIS C SCREENING 1950 TDAP/TD VACCINES (1 - Tdap) 1970 MAMMOGRAM 1991 COLOGUARD 1996 COLON CANCER SCREENING 5 YEA R SIGMOIDOSCOPY 1996 COLONOSCOPY [address] CANCER SCREENING 1996 CT COLONOGRAPHY 1996 FECAL OCCULT BLOOD TEST 1996 FIT Testing (1 year) 1996 ZOSTER VACCINE (1 of 2) 2001 Pneumococcal Vaccine 50+ (3 of 3 - PCV20 or PCV21) 03/22/2023 03/22/2018, 10/15/2016, 08/02/2015 COVID-19 Vaccine (6 2023-2 5 season) 2024 07/17/2022, 04/16/2022, 08/01/2021, Additional history exists INFLUENZA VACCINE 08/02/2025 08/22/2022, , 09/28/2017, Additional history exists Insurance [facility] MEDICARE ADVANTAGE HMO Advance Directives Documents on File Type Date Recorded Patient Pin Puller Expl anation POWER OF MANUFACTURING PROJECT MANAGER - SCAN * CPR (Attempt to Resuscitate) (Latest Code Status on File) Date Activated Date Inactivated Comments 12/04/2023 11:13 AM No physician s ignature needed for this code status. Bud as Signed. Care Teams Cash Control Specialist Relationship Specialty Start Date End Date Alfred Awad MD [address] [facility] [address] [place] [address] PCP - General Adolescent Medicine 12/01/23
--- OUTSIDE RECORDS SUMMARY | 2025-06-12 13:28 | XMS_ITS | Patient Health Record ---
Author Organization [facility] Address [address] [place], [place] [address] Care Team Providers Care Fermenter Champagne Name Role Phone Alfred Awad Primary Care Provider Michelle Perea Unavailable [phone] Lacie Arvizu Unavailable [phone] Migration, Provider Unavailable Unavailable Allergies Allergen (clinical drug ingredient) Drug/Non Drug Allergy documented on EMR Reaction Allergy Type Onset Date Status TERIMYCIN (uncoded) black outs Allergy Active Results Component Value Reference Range Notes MAGNESIUM (622) Reviewed date:08/19/2024 10:45:49 AM Interpretation: Performing Lab:[facility]ER, nivio-[place] Ecsy[address], MyScienceWorkTizcBM[address] Zechariah Trejo Notes/Report: NON-FASTING; NON-FASTING; NON-FASTING; NON-FASTING MAGNESIUM 1.8 1.5-2.5 mg/dL COMPREHENSIVE METABOLIC PANE L (32635) Reviewed date:08/19/2024 10:45:49 AM Interpretation: Performing Lab:[facility], [facility] [address], MyScienceWorkZzzfOG[address] Zechariah Trejo Notes/Report: NON-FASTING; NON-FASTING; NON-FASTING; NON-FASTING [...] 19 10-35 U/L ALT 15 6-29 U/L CBC (INCLUDES DIFF/PLT) (639 9) Reviewed date:08/19/2024 10:45:49 AM Interpretation: Performing Lab:[facility], [facility] [facility], [facility] InstituteFnkpPK[address] Zechariah Trejo Notes/Report: NON-FASTING; NON-FASTING; NON-FASTING; NON-FASTING [...] MPV 10.4 7.5-12.5 fL ABSOLUTE NEUTROPHILS 4369 7495-4212 cells/uL ABSOLUTE LYMPHOCYTES 2694 850-3900 cells/uL ABSOLUTE MONOCYTES 561 200-950 cells/uL ABSOLUTE EOSINOPHILS 213 15-500 cells/uL ABSOLUTE BASOPHILS 63 0-200 cells/uL NEUTROPHILS 55.3 LYMPHOCYTES 34.1 MONOCYTES 7.1 EOSINOPHILS 2.7 BASOPHILS 0.8 THYROID PANEL (7020) Reviewed date:08/19/2024 10:45:50 AM Interpretation: Performing Lab:CB, [facility] [address], [place] CeronWxgcQP[address] Zechariahshaniqua Trejo Notes/Report: NON-FASTING; NON-FASTING; NON-FASTING; NON-FASTING T3 UPTAKE 29 22-35 % T4 (THYROXINE), TOTAL 7.4 5.1-11.9 mcg/dL FREE T4 INDEX (T7) 2.1 1.4-3.8 M-Complete Blood Count Auto Diff Reviewed date:05/25/2025 09:32:55 AM Interpretation: Performing Lab: Notes/Report: WBC 9.1 4.8-10.8 K/mm3 RBC 4.04 4.20-5.40 M/mm3 HGB 13.3 12.2-16.2 g/dL HCT 40.8 37.0-47.0 % MCV 101.0 81-99 fl MCH 32.9 27.0-31.2 pg MCHC 32.6 31.8-35.4 g/dL RDW 14.4 11.5-17.5 % PLT 296 142-424 K/mm3 MPV 9.3 7.4-10.4 fl NE% 54.3 37.0-80.0 % LY% 36.7 10-50 % MO% 6.7 1.7-9.3 % EO% 1.6 0.1-12.0 % BA% 0.5 0.1-2.0 % NE# 4.9 1.8-7.8 K/mm3 LY# 3.4 0.7-4.5 K/mm3 MO# 0.6 0.1-1.0 K/mm3 EO# 0.2 0.0-0.4 Kmm3 BA# 0.1 0-0.2 K/mm3 RDW-SD 53.8 NRBC% 0 IG% 0.2 NRBC# 0 IG# 0.02 M-Comprehensive Metabolic Pa raegan Reviewed date:05/25/2025 09:32:55 AM Interpretation: Performing Lab: Notes/Report: NA 138 136-145 mmol/L K 4.7 3.5-5.1 mmoL/L CL 107 98-107 mmol/L CO2 18 22.0-30.0 mmol/L GAP 17.7 5-15 mEq/L BUN 11 7-17 mg/dl CREATT 0.60 0.52-1.04 mg/dl GFRAA 119 >60 ML/MIN EGFR 98 >60 ml/min GLU 93 74-100 mg/dl CA 9.7 8.4-10.2 mg/dl BILIT 0.6 0.2-1.3 mg/dl AST 25 14-36 U/L ALT 12 12-78 U/L TP 7.3 6.3-8.2 g/dl Delta: 4.9 on 0 11/05/23-848 ALB 4.6 3.5-5.0 g/dl GLOB 2.7 1.3-3.2 g/dL AGRATIO 1.7 1.1-1.8 ALP 77 38-126 U/L M-Lipase Reviewed date:05/25/2025 09:32:55 AM Interpretation: Performing Lab: Notes/Report: LIP 35 23-300 U/L M-Thyroid Stimulating Hormon e Reviewed date:05/25/2025 09:32:55 AM Interpretation: Performing Lab: Notes/Report: TSH 1.42 0.465-4.68 uIU/mL CULTURE, AEROBIC AND ANAEROB IC W/GRAM STAIN (4446) Reviewed date:05/25/2025 09:32:55 AM Interpretation: Performing Lab:CB, [facility], [facility] InstituteEsqrST[address] Zechariah Trejo Notes/Report: NON-FASTING CULTURE, ANAEROBIC BACTERIA W/GRAM STAIN SEE NOTE CULTURE, ANAEROBIC BACTERIA W/GRAM STAIN Micro Number: [id number] Test Status: Final Specimen Source: Wound (site not specified) Specimen Quality: Adequate Gram Stain: Moderate Gram positive cocci Rare White blood cells seen Result: No anaerobes isolated. CULTURE, AEROBIC BACTERIA SEE NOTE CULTURE, AEROBIC BACTERIA Micro Number: [id number] Test Status: Final Specimen Source: Wound (site not specified) Specimen Quality: Adequate Result: Scant growth of Staphylococcus aureus Negative for inducible clindamycin resistance. COMMENT: Skin vincent also present. S.aureus INT KATHY CIPROFLOXACIN S <=0.5 CLINDAMYCIN S <=0.25 ERYTHROMYCIN R >=8 GENTAMICIN S <=0.5 LEVOFLOXACIN S 0.25 MOXIFLOXACIN S <=0.25 OXACILLIN S 0.5 1 TETRACYCLINE S <=1 TRIMETHOPRIM/SULFA S <=10 VANCOMYCIN S <=0.5 S = Susceptible I = Intermediate R = Resistant NS = Not susceptible SDD = Susceptible Dose Dependent * = Not Tested NR = Not Reported NN = See Therapy Comments THERAPY COMMENTS Note 1: Oxacillin susceptible staphylococci are susceptible to other penicillinase-stable penicillins (e.g., methicillin, nafcillin), beta- lactam/beta-lactamase inhibitor combinations, and cephems with staphylococcal indications, including cefazolin. LIPID PANEL, STANDARD (9050) Reviewed date:01/18/2025 09:36:13 AM Interpretation: Performing Lab:[facility], n[facility]io-[place] Parj[address] [facility]teSt[facility], [facility] HospitalSkdcSS[address] Zechariah Trejo Notes/Report: NON-FASTING NON-FASTING NON-FASTING NON-FASTING NON-FASTING CHOLESTEROL, TOTAL 170 <200 mg/dL HDL CHOLESTEROL 45 > OR = 50 mg/dL TRIGLYCERIDES 284 <150 mg/dL repeat triglyceride testing on a fasting specimen if clinically indicated. Martinez et al. J. of Clin. Lipidol. 2015;9:129-169. If a non-fasting specimen was collected, consider LDL-CHOLESTEROL 88 Reference range: <100 Desirable range <100 mg/dL for primary prevention; <70 mg/dL for patients with CHD or diabetic patients with > or = 2 CHD risk factors. LDL-C is now calculated using the Garry-Swartz calculation, which is a validated novel method providing better accuracy than the Friedewald equation in the estimation of LDL-C. Garry JONES et al. ELHAM. 2013;310(19): 3428-1574 (http://education.[employer].com/faq/TCO028) CHOL/HDLC RATIO 3.8 <5.0 (calc) NON HDL CHOLESTEROL 125 <130 mg/dL (calc) For patients with diabetes plus 1 major ASCVD risk factor, treating to a non-HDL-C goal of <100 mg/dL (LDL-C of <70 mg/dL) is considered a therapeutic option. COMPREHENSIVE METABOLIC RANCHO Alfred (40603) Reviewed date:01/18/2025 09:36:13 AM Interpretation: Performing Lab:[facility]ER nivio-[place] Xxav4696 [facility] BurnerteSt[facility], [facility] InstituteWzqwXK[address] Zechariah Trejo Notes/Report: NON-FASTING NON-FASTING NON-FASTING NON-FASTING [...] 14 10-35 U/L ALT 12 6-29 U/L CBC (INCLUDES DIFF/PLT) (639 9) Reviewed date:01/18/2025 09:36:14 AM Interpretation: Performing Lab:[facility]ER nivio-[place] Ylvz9183 [facility] BurnerteSt[facility], [facility] InstituteEtnxKE[address] Zechariah Trejo Notes/Report: NON-FASTING NON-FASTING NON-FASTING NON-FASTING [...] MPV 10.5 7.5-12.5 fL ABSOLUTE NEUTROPHILS 5757 8882-7920 cells/uL ABSOLUTE LYMPHOCYTES 4435 850-3900 cells/uL ABSOLUTE MONOCYTES 650 200-950 cells/uL ABSOLUTE EOSINOPHILS 314 15-500 cells/uL ABSOLUTE BASOPHILS 45 0-200 cells/uL NEUTROPHILS 51.4 LYMPHOCYTES 39.6 MONOCYTES 5.8 EOSINOPHILS 2.8 BASOPHILS 0.4 VITAMIN B12/FOLATE, SERUM PA RAEGAN (7065) Reviewed date:01/18/2025 09:36:14 AM Interpretation: Performing Lab:ASTER nivio-Mobilepolicee1355 [address] SquareL[address] Zechariah Trejo Notes/Report: NON-FASTING NON-FASTING NON-FASTING NON-FASTING NON-FASTING VITAMIN B12 710 792-6987 pg/mL Please Note: Although the reference range [...] Range Low: <3.4 Borderline: 3.4-5.4 Normal: >5.4 VITAMIN D,25-OH,TOTAL,IA (17 306) Reviewed date:01/18/2025 09:36:14 AM Interpretation: Performing Lab:ASTER nivio-Mobilepolicee1355 [address], MobilepoliceJkgfFT[address] Zechariah Trejo Notes/Report: NON-FASTING NON-FASTING NON-FASTING NON-FASTING [...] D, (D2,D3), LC/MS/MS is recommended: order code 01282 (patients >2yrs). See Note 1 Note 1 For additional information, please refer to http://education.[employer] [place].com/faq/ESO817 (This link is being provided for informational/ educational purposes only.) Reason For Referral Reason CT Scan Chest - opac ity in Right lung base after 10-01-[address] lung scr eening (R91.8) Referral Organization [facility] Referring Provider First Name Alfred Referring Provider Last Name Delmi Referring Provider Speciality Internal edicine Referred Organization [facility] Referred Address [address] [place], [place],[address],[place] Referred Provider Specialty Diagnostic R adiology General Notes Chikis Goldsmith 2023 09:16:12 AM >Approved, Authorization #[id number] - Tracking #[id number], Sent to [facility] Scheduling- They will contact patient to schedule appt.Agus Nickie 2024 11:23:35 AM >Patient canceled - weather- and never rescheduled Referral Priority Routine Referral Appointment Date 11/07/2024 Reason PT evaluation for de conditioning/core strengthening/exercise tolerance and chronic back pain Diagnosis 1 Other malaise (R53.8 1) Referral Organization [facility] Referring Provider First Name Alfred Referring Provider Last Name Delmi Referring Provider Speciality Internal edicine Referred Organization [facility] Referred Address [address] [facility] [address] [facility] [place] Referred Provider Specialty Physical Med icine and Rehabilitation Referral Priority Routine Medications Medication SIG (Take, Route, Frequency, Duration) Notes Start Date End Date Status Mupirocin 2 % 1 application [employer] ally 3 times a day; Duration: 7 days 05/17/2025 Active traZODone HCl 50 MG as directed orally a t bedtime; Duration: 90 days Activ e Doxycycline Hyclate 100 MG 1 capsule Ora lly twice a day; Duration: 7 days 05/17/2025 Active Ibuprofen 800 MG 1-2tab(s) orally olive ly; Duration: 90 days Active DUPIXENT PRE-FILLED PEN 300 MG/2 ML DIRECTED SUBCUTANEOUSLY EVERY 2 WEEKS Active Potassium Chloride Ada ER 20 mEq TAKE ONE TABLET BY MOUTH EVERY DAY; Duration: 30 Active Pantoprazole Sodium 40 MG 1 tab(s) orally once a day Active Acetaminophen-Codeine 300-30 MG 2 tabs orally twice daily for severe pain; Duration: 30 days 04/24/2025 Active DULoxetine HCl 20 MG 1 cap(s) orally olive ly; Duration: 30 days Active Loratadine 10 MG 1 cap(s) orally once a day; Duration: 90 days Active Cyanocobalamin 1000 MCG/ML 1mL intramusc ularly once a week; Duration: 84 days 01/18/2025 Active SYRINGE 3CC 25G 1 01/18/2025 Active Atorvastatin Calcium 40 MG 1 tab(s) oral ly once a day; Duration: 90 days Active Alendronate Sodium 70 MG 1 tab(s) orally once a week; Duration: 90 days Active Montelukast Sodium 10 MG 1 tab(s) orally once a day; Duration: 90 days Active Immunizations Vaccine Route Administration Date Status Comme nts SHINGRIX IM Intramuscular 05/22/2025 Administered Prevnar PCV-20 (Pneumococcal conjugate 20) IM [...] to less than 90% of standard weight) (83491749) Mild protein-calorie malnutrition (E44.1) Active confirmed Problem Primary insomnia (9911179) Primary insomnia (F51.01) Active confirmed Problem Chronic pain (13943872) Other chronic pain (G89.29) Active confirmed Problem Vasomotor rhinitis (7299230) Vasomotor rhinitis (J30.0) Active confirmed Problem Panlobular emphysema (2246006) Panlobular emphysema (J43.1) Active confirmed Problem Age-related osteoporosis (214606085) Age-related osteoporosis without current pathological fracture (M81.0) Active confirmed Problem Nicotine dependence (57752290) Personal history of nicotine dependence (Z87.891) Active confirmed Problem Anxiety (64396323) Anxiety (F41.9) Active confirmed Problem Osteoporosis (30058929) Osteoporosis (M81.0) Active confirmed Problem Hyperlipidemia (09356111) Hyperlipemia, idiopathic familial (E78.5) Active confirmed Problem Essential hypertension (24191682) Hypertension, essential (I10) Active confirmed Problem Tubular adenoma of colon (414052185) Tubular adenoma of colon (D12.6) Active confirmed Problem Acute exacerbation of chronic obstructive airways disease (713756350) COPD exacerbation (J44.1) Active confirmed Problem Hyperammonemia (0008269) Hyperammonemia (E72.20) Active confirmed Problem Ataxia (19518622) Ataxia (R27.0) Active confirm ed Problem Sacroiliitis (43395072) Sacroiliitis (M46.1) Active confirmed Problem Alcohol abuse (14354869) Alcohol abuse (F10.10) Active confirmed Problem Sciatica (05210558) Acute left-sided low back pain with left-sided sciatica (M54.42) Active confirmed Problem Contracture of palmar fascia (750966726) Dupuytren's contracture of left hand (M72.0) Active confirmed Problem Primary hypertension (33150981) Primary hypertension (I10) Active confirmed Problem Inflammatory and toxic neuropathy (399986815) Peripheral polyneuropathy (G62.9) Active confirmed Problem Macrocytosis (15325407) Macrocytosis (D75.89) Active confirmed Problem Chronic obstructive pulmonary disease (17372692) COPD, mild (J44.9) Active confirmed Problem Hyperlipidemia (48380275) Other hyperlipidemia (E78.49) Active confirmed Problem Macrocytosis - no anemia (777303632) Macrocytosis without anemia (D75.89) Active confirmed Vital Signs Heart Rate 92 /min 05/22/2025 Temperature 97.7 degrees Fahrenheit 05/22/2025 Blood pressure diastolic 78 mm Hg 05/22/2025 Height 65 in in 05/22/2025 Blood pressure systolic 118 mm Hg 05/22/2025 Weight 127 lbs 05/22/2025 BMI 21.13 kg/m2 05/22/2025 Encounters Encounter Location Date Provider Diagnosis [facility] [address] [place] [address] 02/04/2025 Provider Migration [facility] [address] [place] [facility] [address] [place] [address] 08/17/2024 Alfred Delmi Other malaise R53.81 ; Other fatigue R53.83 ; Immunization(s) administered Z23 ; Peripheral polyneuropathy G62.9 and Leg edema R60.0 [facility] [address] [place] [address] 10/17/2024 Alfred Awad COPD, mild J44.9 ; Mild protein-calorie malnutrition E44.1 ; Personal history of nicotine dependence Z87.891 and Healthcare maintenance Z00.00 [facility] [address] [place] [address] 01/06/2025 Alfred Delmi Acute cough R05.1 ; COPD exacerbation J44.1 and Acute bronchitis, unspecified organism J20.9 [facility] [address] [place] [address] 01/16/2025 Alfred Awad Hypertension, essential I10 ; Osteoporosis M81.0 ; Hyperlipemia, idiopathic familial E78.5 ; Macrocytosis without anemia D75.89 and COPD, mild J44.9 [facility] [address] [place] [address] 01/20/2025 Alfred Awad Vitamin B12 deficien cy E53.8 [facility] [address] [place] [address] 02/16/2025 Alfred Besson Vitamin B12 deficien cy E53.8 [facility] [address] [place] [address] 03/03/2025 Alfred Besson Vitamin B12 deficien cy E53.8 [facility] [address] [place] [address] 03/24/2025 Alfred Besson Vitamin B12 deficien cy E53.8 [facility] [address] [place] [address] 04/10/2025 Alfred Besson Vitamin B12 deficien cy E53.8 [facility] [address] [place] [address] 04/17/2025 Alfred Besson Vitamin B12 deficien cy E53.8 [facility] [address] [facility] [address] [place] [address] 04/27/2025 Alfred Besson Vitamin B12 deficien cy E53.8 [facility] [address] [facility] [address] [place] [address] 05/10/2025 Alfred Besson B12 deficiency E53.8 [facility] [address] [facility] [address] [place] [address] 05/17/2025 Lacie Arvizu B12 deficiency E53.8 ; Cellulitis of right leg L03.115 ; Acute infectious diarrhea A09 ; Fatigue, unspecified type R53.83 and Diffuse abdominal pain R10.84 [facility] [address] [facility] [address] [place] [address] 05/22/2025 Alfred Besson Hypertension, essential I10 ; Macrocytosis without anemia D75.89 ; COPD, mild J44.9 ; Hyponatremia E87.1 and Encounter for immunization Z23 [facility] [address] [place] [address] 06/01/2025 Alfred Besson Vitamin B12 deficien cy E53.8 [facility] [address] [facility] [address] [place] [address] 06/12/2025 Alfred Besson Vitamin B12 deficien cy E53.8 [facility] [address] [place] [address] 06/12/2025 Alfred Besson [facility] [address] [place] [address] 08/17/2024 Alfredcathy Awad Malaise R53.81 [facility] [address] [place] [address] 09/23/[address] lung screening R91.8 [facility] [place] [address] [place] [address] 10/11/2024 Alfred Besson [facility] [address] [place] [address] 01/18/2025 Alfred Nuñezson [facility] [address] [place], [place] [address] 05/22/2025 Lacie Arvizu Assessments Encounter Date Diagnosis (ICD Code) Assessment Notes Treatment Notes Treatment Clinical Notes Section Notes 08/17/2024 Other malaise (ICD-10 - R53.81) 08/17/2024 [...] following dietary modifications, reduction in alcohol intake. 01/06/2025 Acute cough (ICD-10 - R05.1) Given viral bronchitis/bacte rial bronchitis/COPD exacerbation I ordered and interpreted fluid COVID testing given community exposure at this point and interpreted this, increasing the complexity of the visit a 01/20/2025 Vitamin B12 deficiency (ICD-10 - E53.8) 02/16/2025 Vitamin B12 deficiency (ICD-10 - E53.8) 03/03/2025 Vitamin B12 deficiency (ICD-10 - E53.8) 03/24/2025 Vitamin B12 deficiency (ICD-10 - E53.8) 04/10/2025 Vitamin B12 deficiency (ICD-10 - E53.8) 04/17/2025 Vitamin B12 deficiency (ICD-10 - E53.8) 04/27/2025 Vitamin B12 deficiency (ICD-10 - E53.8) 05/10/2025 B12 deficiency (ICD-10 - E53.8) 05/17/2025 B12 deficiency (ICD-10 - E53.8) Continue replacement. m 05/17/2025 Cellulitis of right leg (ICD-10 - L03.115) Start antibiotic above. Discussed topical mupirocin use. Reviewed s/s of worsening and to seek care if they develop. Return to clinic if no improvement or still present after finsih antibiotic course. I personally will review wound culture results once final. m 10/17/2024 COPD, mild (ICD-10 - J44.9) Despite wheezing on exam, patient in no respiratory distress and does not require daily inhaler therapy. Continue to monitor. 01/06/2025 COPD exacerbation (ICD-10 - J44.1) Given sputum production, mildly increased work of breathing meets criteria for exacerbation, start prednisone, antibiotics as noted below for the bronchitis issues a 05/22/2025 Macrocytosis without anemia (ICD-10 - D75.89) Macrocytosis has resolved. Seemingly is a relative better nutrition and hopefully cessation of alcohol 06/01/2025 Vitamin B12 deficiency (ICD-10 - E53.8) 06/12/2025 Vitamin B12 deficiency (ICD-10 - E53.8) 05/22/2025 Hypertension, essential (ICD-10 - I10) Good blood pressure control. No changes in plan. Follow-up in September. 01/16/2025 Osteoporosis (ICD-10 - M81.0) On alendronate. DEXA scans reviewed 01/16/2025 Hypertension, essential (ICD-10 - I10) Blood pressure under good control, no changes in plan. 01/16/2025 Hyperlipemia, idiopathic familial (ICD-10 - E78.5) Stable. On statin therapy 05/22/2025 COPD, mild (ICD-10 - J44.9) Stable. Continues to smoke somewhat 01/06/2025 Acute bronchitis, unspecified organism (ICD-10 - J20.9) Given COPD overlay and bronchitis will add doxycycline a 05/17/2025 Acute infectious diarrhea (ICD-10 - A09) Normal labs, I personally reviewed. Awaiting GI PCR result, but patient states her diarrhea resolved a few days later. Discussed if returns then she needs to have stool sample collected for PCR testing. She voices udnerstanding. Discussed supportive care and PRN Pepto-bismol. m 10/17/2024 Personal history of nicotine dependence (ICD-10 - Z87.891) Reviewed tobacco cessation with counseling greater than 5 minutes. Scheduled for repeat low-dose CT in the new year. She is aware of this appointment. Does not really have any interest in quitting smoking at this point. 08/17/2024 Immunization(s) administered (ICD-10 - Z23) 10/17/2024 Healthcare maintenance (ICD-10 - Z00.00) Labs- UTD from 08/2024 Vaccines- UTD Colon ca- Due 12/2026 Lung ca- Scarring on last study done 06/2024, pending repeat study DEXA- Osteoporosis 06/2024, on treatment Daughter is healthcare surrogate. Otherwise up-to-date with healthcare maintenance, depression screening negative 01/02 word recall, HRA reviewed 08/17/2024 Peripheral polyneuropathy (ICD-10 - G62.9) 05/17/2025 Fatigue, unspecified type (ICD-10 - R53.83) I personally will review all labs once final. m 05/22/2025 Hyponatremia (ICD-10 - E87.1) Sodium level stabilized. No changes in plan 01/16/2025 Macrocytosis without anemia (ICD-10 - D75.89) Check labs and will follow. 01/16/2025 COPD, mild (ICD-10 - J44.9) On rx... no changes in plan 05/22/2025 Encounter for immunization (ICD-10 - Z23) 05/17/2025 Diffuse abdominal pain (ICD-10 - R10.84) I personally will review all labs once final. No acute findings on exam. If worsens, needs to go to ED. m 08/17/2024 Leg edema (ICD-10 - R60.0) RESOLVED. She can stop taking Lasix 20mg daily and start taking as needed (3 pound weight gain in 1 day or 5 pounds in 1 week). Plan Of Treatment Pending Test Test Name Order Date Physical Therapy 12/22/2017 Physical Therapy 09/10/2018 Mammogram : Bilateral 03/18/2017 Mammogram : Bilateral 03/25/2023 H-CBC with AUTO DIFF 04/27/2014 H-VITAMIN B12 03/18/2017 H-VIT D, 25-HYDROXY 03/18/2017 H-MONOSCREEN 04/27/2014 C-THROAT CULTURE 04/27/2014 DEXA Hip and Spine - Diagnostic 06/08/20 24 DEXA Hip and Spine - Diagnostic 10/12/20 23 M-Diarrhea Panel, PCR 09/08/2023 M-Diarrhea Panel, PCR 05/17/2025 M-Vitamin B12 08/07/2023 M-Folate 08/07/2023 CT Scan : Chest, Lung Cancer Screening 0 05/26/2022 CT Scan : Chest, Lung Cancer Screening 0 06/08/2024 Vitamin B12 05/27/2022 Physical Therapy : Gait training and cor e strengthening 01/27/2024 Physical Therapy : Gait training and cor e strengthening 08/17/2024 Physical Therapy : Gait training and cor e strengthening 02/16/2024 Physical Therapy Eval and Treat 06/29/20 23 Rapid Covid/Flu A-B Combo 01/06/2025 CT CHEST WO CONTRAST 09/23/2024 Future Test Test Name Order Date M-Basic Metabolic Panel 10/28/2023 M-Magnesium 10/28/2023 Next Appt Details Provider Name:Alfred Canoautumn Awad, 09/20/2025 02:15:00 PM, [address], [place], [address], Insurance Providers Payer Name Payer Address Payer Phone Subscriber Number Group Number Insured Name Patient Relationship to Insured Coverage Start Date Coverage End Date [employer] [address] [address] [place] [address] [id number] Yamilet Krueger Self - patient is the [...] Cyanocobalamin/B-12 Pt's Own Medication 05/17/2025 1 mL Cyanocobalamin/B-12 Pt's Own Medication 06/01/2025 1 mL Cyanocobalamin/B-12 Pt's Own Medication 06/12/2025 1 mL DUPIXENT 04/13/2024 300 mg DUPIXENT [...] left hand 2018 Hospitalization History Reason Date(Month/Year) [facility] to [place] to [facility] C-diff 09/2023 [facility] 07/2023 [facility] 12/2022
--- OUTSIDE RECORDS SUMMARY | 2025-06-12 13:29 | XMS_ITS | Referral Summary ---
Author Organization [facility] ([place], [place], [place], [place]) Address [address] [place] [address] Care Team Providers Care Print Washer Name Role Phone Alfred Awad MD Primary Care Provider + [phone] Allergies No known active allergies Medications albuterol [...] Date Kevin rded Speak language other than British at home Not on file 11/10/2023 Want help with school or training Not on file 11/10/2023 Substance Use Answer Date Recorded Used prescription meds for non-medical reasons N ot on file 11/10/2023 Used illegal drugs past 12 months Not on file 11/10/2023 Comments Unknown Sex and Gender Information Value Date Recorded Sex Assigned at Not on file 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
[2025-06-12 13:51] VITALS: BP 108/64; PULSE 105; RESP 18; O2SAT 96; BMI 22.1
--- NOTE | 2025-06-12 13:56 | EXP.PAIN.SOA ---
[facility] Disclaimer: The information contained in this section may have been updated after the patient was seen, as this information can be updated by other users. Medical History (Updated 06/12/25 @ 13:59 by Marlene Bailey APRN) Lumbar facet arthropathy Degenerative disc disease, lumbar Hypophosphatemia Severe protein-calorie malnutrition Heavy drinker Edema of right lower leg Sepsis without acute organ dysfunction Compensated metabolic acidosis Hyponatremia Hypokalemia Acute pancreatitis Metabolic acidosis Nausea & vomiting Acute dehydration Abdominal pain, diffuse Hypovolemia Acute hypokalemia Colitis C. difficile colitis Foot pain Encounter for screening for malignant neoplasm of lung Allergic rhinitis Smoking greater than 30 pack years Pulmonary emphysema Pneumonia Hypertension Hyperlipidemia Hypertension Tobacco abuse Emphysema/COPD Osteoporosis Surgical History History of colonoscopy Hx of hand surgery Family History Brother Family history of cancer Daughter Family history of celiac disease Other Family history of DE (myocardial infarction) Family history of heart disease Social History Smoking Status: Current every day smoker tobacco type: cigarettes packs per day: 1 pack-years: 35 years smoked: 35 alcohol intake: current substance use type: denies use current occupational status: retired Travel in the last 8 weeks?: None household members: spouse housing: house lives independently: Yes marital status: caffeine: Yes special andrés needs: No agree to transfusion: No do you feel safe at home: Yes victim of physical abuse: No victim of emotional abuse: No victim of sexual abuse: No would you like helpful sources: No Have you lived/traveled outside [place] in past 30 days?: No Contact w/someone who lives/traveled outside [place] past 30 days?: No Exposure to someone with infectious disease in past 14 days?: No Do you have a fever (greater than 100.4 F or 38 C)?: No Have you tested positive for COVID-19?: No Exposed to someone with COVID-19 in past 14 days?: No Do you have a sore throat?: No Do you have a cough?: No Do you have any weakness?: No Do you have any diarrhea?: No Are you experiencing any unusual bleeding?: No Do you have any muscle aches/pain?: No Do you have any abdominal pain?: No Are you experiencing loss of taste or smell?: No PM Subjective & Objective Subjective Subjective:: Patient is a pleasant 74-year-old female who presents today for insurance denial of her upcoming injection of a left transforaminal. Today she does rated her pain at 3 out of 10 currently however states with the day going on in the more she is up walking and moving that the pain will go to an 8 or a 9 out of 10. She denies any new changes from her last appointment. She is still having the same chronic low back pain that radiates down to the left ankle with swelling and numbness. She does state that it is it affects her ability perform activities of daily living such as cooking and cleaning. Patient is still wanting to proceed forward with her injection. Patient is managed with compounded cream from our office. Her Dioni has been reviewed and is appropriate. Review of Systems: General: No recent weight changes, no fever, no sleep disturbances Respiratory: No cough, no shortness of air, no recurring pulmonary infections Cardiovascular/peripheral vascular: No chest pain, no palpitations, no edema, no shortness of breath Gastrointestinal: No new onset incontinence, normal bowel movements reported Genitourinary: No new onset incontinence Musculoskeletal: Low back pain, left leg pain, left ankle pain/swelling Psychiatric: [Normal mood/affect] Neurological: [Denies weakness in extremities], [denies balance issues] Pain at rest (0-10 scale): 8 Objective Objective:: Physical Exam: General: Alert and oriented x3, no acute distress, pleasant and cooperative Lungs: Respirations even and unlabored, symmetrical chest expansion Eyes: PERRL Musculoskeletal: Flexion and extension of lumbar [spine] somewhat guarded secondary to pain, [antalgic gait noted] positive left leg raise with decreased sensation to light touch and decreased reflexes Neurological: Speech clear, no gross sensory deficit Has patient had previous pain injection?: No Conservative treatment options previously tried: Home exercise plan Length of treatment: Longer than 12 weeks Meds Home Medications and Allergies Home Medications ?Medication ?Instructions ?Recorded ?Confirmed ?Type atorvastatin 40 mg tablet 40 mg PO HS 08/27/22 06/12/25 History metoprolol tartrate 50 mg tablet 50 mg PO BID 08/27/22 06/12/25 History montelukast 10 mg tablet 10 mg PO PM 01/10/23 06/12/25 History potassium chloride 20 mEq 20 meq PO DAILY 07/27/23 06/12/25 History tablet,extended release(part/cryst) trazodone 50 mg tablet 50 mg PO HS 07/27/23 06/12/25 History ibuprofen 800 mg tablet 800 mg PO TIDP PRN Mild Pain 07/28/23 06/12/25 History (Scale Score 1-4) acetaminophen 300 mg-codeine 30 mg 1 - 2 tab PO BIDP PRN Severe Pain 07/30/23 06/12/25 Rx tablet (Scale Score 7-10) 7 days #20 tabs metronidazole 500 mg tablet 500 mg PO TID 10/30/23 06/12/25 History promethazine 25 mg tablet 25 mg PO Q6HP PRN Nausea And 10/30/23 06/12/25 History Vomiting alendronate 70 mg tablet 70 mg PO WEEKLY 10/31/23 06/12/25 History furosemide 20 mg tablet 20 mg PO DAILYP PRN Fluid 10/31/23 06/12/25 History ondansetron 4 mg disintegrating 4 mg PO Q8HP PRN nausea and 10/31/23 06/12/25 History tablet vomiting pregabalin 50 mg capsule 50 mg PO BID #60 caps 08/15/24 06/12/25 Rx New Prescriptions to Start Prescriptions: Allergies Allergy/AdvReac Type Severity Reaction Status Date / Time oxytetracycline (From Allergy Unknown PASSES OUT Verified 01/26/24 13:28 TERRAMYCIN) Assessment and Plan *Assessment and plan (1) Degenerative disc disease, lumbar: Status: Acute Category: Medical Code(s): M51.369 - Other intervertebral disc degeneration, lumbar region without mention of lumbar back pain or lower extremity pain (2) Left ankle pain: Status: Acute Category: Medical Code(s): M25.572 - Pain in left ankle and joints of left foot (3) Lumbar radiculopathy: Status: Resolved Category: Medical Code(s): M54.16 - Radiculopathy, lumbar region Plan Patient is experiencing worsening pain in her low back with symptoms radiating down her entire left leg. Patient had limited range of motion of her lumbar spine along with a positive left leg raise and decreased sensation to light touch and decreased reflexes during today's exam. I have discussed with the patient that they may benefit from a transforaminal epidural steroid injection. Risk and benefits were discussed with the patient and she would like to proceed forward with this plan of care. Patient is not on any blood thinners. We will schedule the patient for a left transforaminal epidural steroid injection L4-L5 and L5-S1. Patient has continued conservative therapy including oral medication, heat and ice, topicals, previous physical therapy and continued at home stretching exercise for longer than 12 weeks that was physician guided. I did review over with her regarding the denial for not having updated imaging. I will submit for an x-ray of the lumbar spine with the plan to proceed forward with a MRI without contrast. Patient agrees with this plan of care. Patient has had chronic low back and leg pain for longer than 1 year. Patient has had significant improvement with epidurals in the past. Patient has been instructed to contact the clinic with any concerns before the next appointment. Dr. Gaviria has reviewed this note and agrees with this plan of care. This note was dictated using voice recognition software and make contain errors or omissions.
--- NOTE | 2025-06-12 14:05 | XR_ITS ---
FINAL REPORT CLINICAL HISTORY: Low back pain COMPARISON: 07/21/2023 FINDINGS: AP and lateral views of the lumbar spine were obtained. Levoscoliosis is unchanged. Alignment in the sagittal plane is within normal limits. There is no acute fracture. Multilevel degenerative disc disease has progressed at all levels and is most pronounced at L2-3. No acute paraspinal abnormality. IMPRESSION: Progressed multilevel degenerative disc disease. Reviewed, Interpreted and Dictated by Radha Miranda MD Transcribed by Ernestine Rooney Authenticated and [facility]
== END 2025-06-12 23:59 | disposition home or self-care (01) ==
PROVIDERS: PCP Internal Medicine Adolescent Medicine; Visit Provider Nurse Practitioner Family
DX: M51.360 Other intervertebral disc degeneration, lumbar region with discogenic back pain only (principal); M25.572 Pain in left ankle and joints of left foot
CPT/HCPCS: 72100; 99212; G0463

== ENCOUNTER 2025-08-15 14:11 | Day surgery (SDC) | payer MEDICARE, SELFPAY ==
[2025-08-15 14:14] VITALS: BP 117/66; PULSE 72; RESP 16; O2SAT 97; BMI 22.1
--- NOTE | 2025-08-15 14:43 | EXP.PAIN.PRO ---
Procedure Date: 08/15/25 Time: 14:40 Anesthesiologist:: Kirt Farias CRNA Complications:: None Pre-procedure Diagnosis:: Degenerative disc lumbar spine multilevels. Lumbar radiculopathy. Lumbar spine scoliosis. Lumbar facet arthropathy. Lumbar spondylosis. Disc bulge lumbar spine multilevel. Post-procedure Diagnosis:: Same. Indications for Procedure:: Patient is a very pleasant 74-year-old female who comes our clinic today for left L4-5 and L5-S1 transforaminal epidural steroid injection. Patient describes low lumbar back pain off the midline to the left. Left hip and leg radicular symptoms to the foot. She rates her pain 7/10. Procedure Details:: Details of the procedure explained to the patient. The patient was taken to procedure room placed in the prone position. The area over the lumbar spine was cleansed using chlorhexidine as a cleansing solution. Using fluoroscopy guidance markers were placed over the left border of the L4-5 and L5-S1 vertebral body. At each marker the skin and subcutaneous tissue was anesthetized using 1% lidocaine and a 25-gauge needle. At this time using fluoroscopy guidance 3 and half inch 22-gauge spinal needle was used to access the upper one third of the left L4 for 5 and L5-S1 foramen. Using fluoroscopy guidance in the lateral position needle position was confirmed using 0.5 mL of contrast dye. Good spread was noted in the epidural space at each level. After negative aspiration 2 mL of 1% lidocaine and 10 mg of dexamethasone was injected at each level. Patient tolerated procedure without difficulty. There are no complications. Plan and Disposition:: Patient was discharged without incident.
[2025-08-15 14:46] VITALS: BP 122/67; PULSE 86; RESP 16; O2SAT 97
[2025-08-15 15:12] VITALS: BP 123/65; PULSE 87; RESP 18; O2SAT 95
[2025-08-15] MEDS: DEXAMETHASONE 10MG/ML 1ML VIAL 10 MG (15:12)
[2025-08-15 15:14] VITALS: BP 123/65; PULSE 87; RESP 18; O2SAT 95
== END 2025-08-15 14:46 | disposition home or self-care (01) ==
PROVIDERS: PCP Internal Medicine Adolescent Medicine; Visit Provider Nurse Anesthetist, Certified Registered
DX: M51.16 Intervertebral disc disorders with radiculopathy, lumbar region (principal); M47.26 Other spondylosis with radiculopathy, lumbar region; M41.9 Scoliosis, unspecified; E78.5 Hyperlipidemia, unspecified; I10 Essential (primary) hypertension; J44.9 Chronic obstructive pulmonary disease, unspecified; F17.210 Nicotine dependence, cigarettes, uncomplicated; Z88.1 Allergy status to other antibiotic agents; M81.0 Age-related osteoporosis without current pathological fracture; Z79.83 Long term (current) use of bisphosphonates; Z79.899 Other long term (current) drug therapy
CPT/HCPCS: 64483; 64484; J1100